=== PATIENT | female | born 1960 | race Caucasian/White ===

== ENCOUNTER → 2023-12-04 09:20 | Day surgery (SDC) | payer MEDICARE, OTHER, SELFPAY ==
[2023-12-04 10:33] VITALS: BMI 36.1
--- NOTE | 2023-12-04 12:09 | ITS.CL.CARDI ---
[employer] - Cardioversion
Cardioversion
Procedure Report:
Procedure: KAMRAN-guided electrical cardioversion
Pre-operative diagnosis: Persistent atrial flutter
Post-operative diagnosis: Persistent atrial flutter status post DC cardioversion to sinus rhythm
Anesthesia: MAC
Attending Physician: Massimo Dash MD
Procedure Description: The patient was brought to the electrophysiology laboratory in the fasting state. Informed consent was obtained from the patient prior to the start of the procedure. Adherence to anticoagulation was confirmed. Electrodes were
placed on the patient and connected to an external defibrillator. Monitoring of blood pressure, ECG tracings, and pulse oximetry was initiated. The pads were applied to the patient in the anterior and posterior positions. The patient was sedated by
the anesthesiologist. A KAMRAN (reported separately) was performed prior to the cardioversion. No left atrial or left atrial appendage thrombus was seen. After the KAMRAN probe was removed, a 200 joule biphasic synchronized shock was delivered to the
patient under MAC anesthesia. Sinus rhythm was successfully restored. The patient recovered uneventfully from MAC anesthesia. There were no immediate post-procedure complications. The patient left the lab in good condition. The attending physician
was present throughout the entire procedure.
Impression: Successful KAMRAN-guided direct current cardioversion with scientology of sinus rhythm after one 200 joule biphasic synchronized shock.
== END ==
LOC: CATH 09:20
PROVIDERS: ATTENDING PHYSICIAN Internal Medicine Cardiovascular Disease; FAMILY PHYSICIAN Internal Medicine
DX: I48.92 Unspecified atrial flutter (principal); I48.91 Unspecified atrial fibrillation; I08.3 Combined rheumatic disorders of mitral, aortic and tricuspid valves; I11.0 Hypertensive heart disease with heart failure; I50.9 Heart failure, unspecified; K21.9 Gastro-esophageal reflux disease without esophagitis; Z95.2 Presence of prosthetic heart valve; Z79.01 Long term (current) use of anticoagulants
CPT/HCPCS: 93312; 93320; 93325; 92960; 93005

== ENCOUNTER → 2024-01-02 13:17 | Outpatient (REF) | payer MEDICARE, OTHER, SELFPAY | LOC: WDC 13:17 | PROVIDERS: ATTENDING PHYSICIAN Internal Medicine | DX: Z12.31 Encounter for screening mammogram for malignant neoplasm of breast (principal) | CPT/HCPCS: 77063; 77067 ==

== ENCOUNTER → 2024-01-09 15:03 | Outpatient (REF) | payer MEDICARE, OTHER, SELFPAY | LOC: DHCBS MAIN 15:03 | PROVIDERS: ATTENDING PHYSICIAN Nuclear Medicine Nuclear Cardiology; FAMILY PHYSICIAN Internal Medicine | DX: I48.4 Atypical atrial flutter (principal); I50.32 Chronic diastolic (congestive) heart failure | CPT/HCPCS: 93306 ==

== ENCOUNTER 2024-03-20 08:57 | Inpatient (IN) | payer MEDICARE, OTHER, SELFPAY ==
[2024-03-20] VITALS (49 sets, daily range): BP systolic 67–149; BP diastolic 28–104; BMI 35.8
[2024-03-20 03:50] LABS: % Basophils 0.3 % (0-2); % Eosinophils 0.1 % (0-6); % Immature Granulocytes 0.7 % (0-0.5); % Lymphocytes 7.9 % (20.5-51.1); Absolute Immature Granulocytes 0.1 10^3/uL (0-0.05); Absolute Lymphocytes 0.8 10^3/uL (1.2-3.4); Absolute Monocytes 0.1 10^3/uL (0.1-0.6); Absolute Neutrophils 8.8 10^3/uL (1.4-6.5); Hemoglobin 14.5 g/dL (12.0-16.0); Mean Corp Hgb Conc. 34.5 g/dL (33.0-37.0); Mean Corpuscular Volume 86.8 fL (81.0-99.0); Nucleated Red Blood Cells % 0 %; Platelet Count 274 10^3/uL (130-400); Red Blood Cell Count 4.84 10^6/uL (4.20-5.40); Red Cell Dist. Width 15.9 % (11.5-14.5); White Blood Cell Count 9.8 10^3/uL (4.8-10.8)
[2024-03-20 04:16] LABS: Lactic Acid 2.9 mmol/L (0.7-2.0)
[2024-03-20 04:19] LABS: Albumin 4.3 g/dl (3.5-5.0); Alkaline Phosphatase 312 U/L (38-126); Blood Urea Nitrogen 30 mg/dl (7-17); Calcium 9.1 mg/dl (8.4-10.2); Carbon Dioxide 31 mmol/L (22-30); Chloride 101 mmol/L (98-107); Glucose 144 mg/dl (70-99); Lipase 125 U/L (23-300); Sodium 141 mmol/L (135-145); Total Bilirubin 2.3 mg/dl (0.2-1.3); Total Protein 7.9 g/dl (6.3-8.2); eGFR > 60.00
--- NOTE | 2024-03-20 04:29 | ED.GENMED ---
History of Present Illness
<ROGER Kidd - Last Filed: 03/20/24 07:06>
General
Chief Complaint: Abdominal Symptoms
Source: patient and records
Exam Limitations: none
Time Seen by Provider: 03/20/24 04:12
Travel History
Have you had any contact with someone who has COVID-19?: No
Do you have any symptoms of coronavirus? Fever > 100 degrees, chills, cough, shortness of breath, sore throat, loss of taste or smell, muscle aches, or headache?: No
History of Present Illness
History of Present Illness:
63 year old female with hx of aortic stenosis, afib, aflutter, CHF, OA on chronic pain management, multiple episodes of SBO, perforated bowel who presents with sudden onset of worsening epigastric pain that began at 1300 yesterday. States the pain
is sharp, radiates to bilateral flanks, and is currently 10/10 in strength. Pain has been constant since onset. Feels like her SBO pain in the past. She has associated nausea, vomiting, and chills. Denies fever, chest pain, SOB, diarrhea,
constipation. States she has had bowel movements since onset of pain. She took a dose of oxycodone at 1900 yesterday with minimal relief of her symptoms. Pt has a hx of multiple episodes of SBO, last episode was in 08/2023. At the time she was found
to have incarcerated ventral incisional hernia and possible closed-loop obstruction with vascular compromise and ischemia. She had ex lap, REMEDIOS, SBO and ventral incisional hernia repair with mesh. Pt also with hx of arrhythmias. Pt had KAMRAN-guided
electrical cardioversion on 12/04/23. Denies any palpitations, dizziness, lightheadedness.
Past History
<ROGER Kidd - Last Filed: 03/20/24 07:06>
Past History
ED Past Medical History: Arrthythmia (Atrial fib, SVT), CHF, GERD, HTN, Valvular disease and Other (Chronic back pain, perforated diverticulitis, endocarditis, GI bleeding, IBS,Uterine fibroids, RA, See's pain management)
ED Past Surgical History: Cardiac (VSD repair, Aortic Valve replaced), Cholecystectomy, Orthopedic (Multiple orthopedic surgeries, right ankle surgery, Bilateal knee replacements) and Other (Colostomy, Hernia repair with colostomy reversal May
2017,)
Social History
Tobacco: Non-smoker
Alcohol: Occasional
Drug: None
Personal:
Living: with family
Family History
Family History: Negative Diabetes, Hypertension or CAD
Review of Systems
<ROGER Kidd - Last Filed: 03/20/24 07:06>
Review of Systems
Allergies reviewed?: Yes
All Other Systems: ROS reviewed and negative except as documented in HPI and ROS
Constitutional: Reports chills
EENT: Reports no symptoms
Respiratory: Reports no symptoms
Cardiac: Reports no symptoms
ABD/GI: Reports abdominal pain (epigastric), nausea and vomiting
: Reports no symptoms
Musculoskeletal: Reports joint pain and muscle stiffness
Skin: Reports no symptoms
Neurological: Reports no symptoms
Endocrine: Reports no symptoms
Hematologic/Lymphatic: Reports no symptoms
Psychiatric: Reports no symptoms
Phy Exam
<ROGER Kidd - Last Filed: 03/20/24 07:06>
General Physical Exam
General Presentation: severe distress
General age: appears stated age
General Skin: warm and dry
General Habitus: obese
General Mental: alert
General Hydration: appears well hydrated
Cardiovascular Exam
Cardiovascular Exam: regular rate/rhythm, no edema, no gallop and no murmur
Pulmonary Exam
Pulmonary Exam: lungs clear, no respiratory distress, no rales, no crackles, no rhonchi, no wheezing, no cough and other (moderate tenderness to palpation in the epigastric region RUQ>LUQ)
Gastrointestinal Exam
Gastrointestinal Exam: normal bowel sounds, soft, no pulsatile mass, non distended and abnormal bowel sounds (hypoactive)
Neurological Exam
Neurological Exam: alert and oriented x3
Skin Exam
Skin Exam: normal color and warm/dry
Course
<ROGER Kidd - Last Filed: 03/20/24 07:06>
Orders/Labs/Results
Orders:
Orders
03/20/24 03:44
Complete Blood Count/With Diff Urgent
Comprehensive Metabolic Panel Urgent
Lactic Acid Urgent
Lipase Urgent
03/20/24 04:00
Electrocardiogram (*1) Urgent
Reason for Study: Vertigo / Dizzy
03/20/24 04:01
EKG- Treatment ONCE
03/20/24 04:32
0.9% Sodium Chloride 1000 ml [Nss] 1,000 ml IV BOLUS
03/20/24 04:35
HYDROmorphone [Dilaudid] 1 mg IV NOW STA
Ondansetron Injectable [Zofran] 4 mg IV NOW STA
03/20/24 04:39
US Abdomen Limited Urgent
Comment:
Reason For Exam: RUQ pain, elevated LFT's, Tbili, concern CBD stn
03/20/24 06:03
CT Abd/pelvis W Iv Cont Urgent
Comment:
Reason For Exam: gen severe upper abd pain, elevated LFT's
HYDROmorphone [Dilaudid] 1 mg .ROUTE .STK-MED ONE
03/20/24 06:06
HYDROmorphone [Dilaudid] 1 mg IV NOW STA
03/20/24 06:11
Lactic Acid Urgent
Prothrombin Time Urgent
03/20/24 07:03
0.9% Sodium Chloride 1000 ml [Nss] 1,000 ml IV BOLUS
03/20/24 07:11
CefoTEtan [Cefotan] 2,000 mg IV NOW STA
Abnormal Lab Results
03/20/24
03:44
RDW 15.9 H %
(11.5-14.5)
Abs Immat Gran (auto) 0.1 H 10^3/uL
(0-0.05)
Absolute Neuts (auto) 8.8 H 10^3/uL
(1.4-6.5)
Absolute Lymphs (auto) 0.8 L 10^3/uL
(1.2-3.4)
Immature Gran % 0.7 H %
(0-0.5)
Neutrophils % 90.0 H %
(42.2-75.2)
Lymphocytes % 7.9 L %
(20.5-51.1)
Monocytes % 1.0 L %
(1.7-9.3)
Carbon Dioxide 31 H mmol/L
(22-30)
BUN 30 H mg/dl
(7-17)
Glucose 144 H mg/dl
(70-99)
Lactic Acid 2.9 H mmol/L
(0.7-2.0)
Total Bilirubin 2.3 H mg/dl
(0.2-1.3)
AST 1249 H* U/L
(14-36)
ALT 880 H* U/L
(0-35)
Alkaline Phosphatase 312 H U/L
(38-126)
03/20/24 03:44
03/20/24 03:44
Vital Signs
Initial and Last Documented VS:
Initial Vital Signs
Temp Pulse Resp BP Pulse Ox
99.1 F 97 18 146/81 96
03/20/24 03:32 03/20/24 03:32 03/20/24 03:32 03/20/24 03:32 03/20/24 03:32
Last Documented Vital Signs
Temp Pulse Resp BP Pulse Ox
100.5 F H 97 29 112/70 89
03/20/24 06:50 03/20/24 07:00 03/20/24 07:00 03/20/24 07:00 03/20/24 07:00
<Nyasia Weir, DO - Last Filed: 03/20/24 07:15>
Orders/Labs/Results
Orders:
Orders
03/20/24 03:44
Complete Blood Count/With Diff Urgent
Comprehensive Metabolic Panel Urgent
Lactic Acid Urgent
Lipase Urgent
03/20/24 04:00
Electrocardiogram (*1) Urgent
Reason for Study: Vertigo / Dizzy
03/20/24 04:01
EKG- Treatment ONCE
03/20/24 04:32
0.9% Sodium Chloride 1000 ml [Nss] 1,000 ml IV BOLUS
03/20/24 04:35
HYDROmorphone [Dilaudid] 1 mg IV NOW STA
Ondansetron Injectable [Zofran] 4 mg IV NOW STA
03/20/24 04:39
US Abdomen Limited Urgent
Comment:
Reason For Exam: RUQ pain, elevated LFT's, Tbili, concern CBD stn
03/20/24 06:03
CT Abd/pelvis W Iv Cont Urgent
Comment:
Reason For Exam: gen severe upper abd pain, elevated LFT's
HYDROmorphone [Dilaudid] 1 mg .ROUTE .STK-MED ONE
03/20/24 06:06
HYDROmorphone [Dilaudid] 1 mg IV NOW STA
03/20/24 06:11
Lactic Acid Urgent
Prothrombin Time Urgent
03/20/24 07:03
0.9% Sodium Chloride 1000 ml [Nss] 1,000 ml IV BOLUS
03/20/24 07:11
CefoTEtan [Cefotan] 2,000 mg IV NOW STA
Abnormal Lab Results
03/20/24
03:44
RDW 15.9 H %
(11.5-14.5)
Abs Immat Gran (auto) 0.1 H 10^3/uL
(0-0.05)
Absolute Neuts (auto) 8.8 H 10^3/uL
(1.4-6.5)
Absolute Lymphs (auto) 0.8 L 10^3/uL
(1.2-3.4)
Immature Gran % 0.7 H %
(0-0.5)
Neutrophils % 90.0 H %
(42.2-75.2)
Lymphocytes % 7.9 L %
(20.5-51.1)
Monocytes % 1.0 L %
(1.7-9.3)
Carbon Dioxide 31 H mmol/L
(22-30)
BUN 30 H mg/dl
(7-17)
Glucose 144 H mg/dl
(70-99)
Lactic Acid 2.9 H mmol/L
(0.7-2.0)
Total Bilirubin 2.3 H mg/dl
(0.2-1.3)
AST 1249 H* U/L
(14-36)
ALT 880 H* U/L
(0-35)
Alkaline Phosphatase 312 H U/L
(38-126)
03/20/24 03:44
03/20/24 03:44
Vital Signs
Initial and Last Documented VS:
Initial Vital Signs
Temp Pulse Resp BP Pulse Ox
99.1 F 97 18 146/81 96
03/20/24 03:32 03/20/24 03:32 03/20/24 03:32 03/20/24 03:32 03/20/24 03:32
Last Documented Vital Signs
Temp Pulse Resp BP Pulse Ox
100.5 F H 97 29 112/70 89
03/20/24 06:50 03/20/24 07:00 03/20/24 07:00 03/20/24 07:00 03/20/24 07:00
<ROGER Kidd - Last Filed: 03/20/24 07:06>
MDM/Problems Addressed
Differential Diagnosis Includes:
SBO, ischemic bowel, biliary colic
MDM/Problems Addressed:
63 year old female who presents with epigastric pain with associated nausea nand vomiting that began at 1300 yesterday.
Chronic conditions affecting care: HTN, Arrhythmia (afib, aflutter) and Previous abdomnial surgery (cholecystectomy, ostomy for perforated bowel, ostomy reversal, hernia repair)
<ROGER Kidd - Last Filed: 03/20/24 07:06>
*Critical Care Note
Total Time (30-74mins, 75-104mins- exclusive of procedures): Not Applicable
<Nyasia Weir DO - Last Filed: 03/20/24 07:15>
*Radiology
Radiology exam reviewed: radiology read reviewed
*Pulse Oximetry
Patient hypoxic: no
*EKG
Interpreted by ED Provider?: Yes
Interpretation: abnormal
Comparison EKG: changes noted (Sinus tach is new compared to previous EKG December 04, 2023 showing sinus bradycardia)
Rate: tachycardiac
Rhythm: sinus and PAC's
[place]: left axis deviation
QRS Pattern: left bundle branch block (Incomplete left bundle branch block, similar and unchanged from previous)
Ischemia: non-specific ST changes
*Spinner Hand Interpretation
Rate: tachycardiac
Interpretation: abnormal
Rhythm: sinus and atrial flutter
ED Attending Note
<ROGER Kidd - Last Filed: 03/20/24 07:06>
-
Portions of this chart may have been created with voice recognition software.� Occasional wrong word or��sound alike� substitutions may have occurred due to the inherent limitations of voice recognition software.
<Nyasia Weir, - Last Filed: 03/20/24 07:15>
ED Attending Note
Patient seen and examined by attending physician: Yes
I performed the substantive portion of visit, reviewed & personally made and approve the management plan that is documented in note by myself or JAYCOB.: Yes
I performed a history and physical exam of patient and discussed management with resident, I reviewed resident's note and agree with documented findings and plan of care.: Yes
ED Attending Note:
This is a 63-year-old woman who has prior history of small bowel obstructions. In July 2023 she required exploratory laparotomy for incarcerated ventral incisional hernia with concern for closed-loop obstruction and vascular compromise. Hernia
repaired with mesh but hospital course was complicated with anastomotic leak requiring BALBIR drain. She has history of chronic pain, chronically narcotic dependent and her postop course was also complicated with extensive pain control issues. She was
eventually discharged in August and has done well but presents with generalized upper abdominal pain moderate to severe that began yesterday afternoon, persistent, worsening accompanied with nausea, multiple episodes of vomiting. She states
abdominal pain feels similar to her previous bowel obstructions. She denies fever nor chills. No diarrhea or constipation. No dysuria and urgency and or hematuria. Generalized upper abdominal pain radiates to her back and she feels that her
'kidneys are aching'
She has remote history of cholecystectomy 1998.
She has history of mechanical aortic valve replacement maintained on Coumadin. She also has history of paroxysmal atrial fibrillation/flutter and underwent a flutter cardioversion November of this year. Patient states atrial flutter has since
returned.
GENERAL: 63-year-old obese woman appears her stated age, awake and alert, appears in moderate distress related to pain.
EYE: . anicteric
NECK: Supple, nontender, no meningismus, no significant adenopathy.
ENT: oral mucosa is mildly dry. No rhinorrhea.
CARDIAC: Regular rate and rhythm. no murmur.
LUNGS: Clear breath sounds bilaterally, no acute respiratory distress, no wheezes/rales/rhonchi
ABDOMEN: Rotund, soft, nondistended, moderate tenderness right upper quadrant as well as epigastric region, mild tenderness left upper quadrant, no r/g, no cvat. Hypoactive bowel sounds. No palpable masses.
NEUROLOGICAL: Alert and oriented x3, no focal neuro deficits.
SKIN: Warm and dry, normal color, skin intact. No rash.
MUSCULOSKELETAL: No C/C/E. peripheral pulses are full and equal b/l. No palpable tenderness.
PSYCH: Normal and appropriate interaction.
Concern for recurrent small bowel obstruction,, bile duct stone, pancreatitis, colitis.
Will medicate for pain and nausea, initiate IV fluids. Labs are pending.
03/20/2024 04:30 AM
Labs are remarkable for significantly elevated LFTs as well as elevated T. bili and alkaline phosphatase which are new compared to previous. Moderate prerenal azotemia. CBC is unremarkable. Lactic acid mildly elevated at 2.9.
Will check limited ultrasound assess for common bile duct stone and will plan for CT abdomen pelvis with IV contrast, assess for potential accompanying bowel obstruction.
03/20/2024 0713 AM CAT scan shows acute cholangitis
With thickening and hyperenhancement of bile ducts which is new compared to January 2023. There is also a new 4.4 mm intraluminal filling defect in the common bile duct suggesting choledocholithiasis.
IV antibiotics initiated and will admit to hospitalist service.
Discharge Plan
Departure
Patient Disposition: Admit
Date of Disposition: 03/20/24
Time of Disposition: 07:13
Admit to: Med/Surg
Admit to doctor: Ch[facility]
Presentation/result/management discussed w/ accepting MD/DO: Hospitalist
Condition: Fair
Discharge Problem:
Acute cholangitis due to calculus of bile duct with obstruction, Fever r/o sepsis, Atrial flutter, paroxysmal
Prescriptions:
No Action
trazodone 100 MG tablet
200 mg PO HS
citalopram 40 mg Tablet
40 mg PO DAILY
sennosides-docusate sodium [Stool Softener-Laxative] 8.6-50 mg Tablet
1 tab-cap PO HS
furosemide 40 MG tablet
40 mg PO DAILY
amiodarone 200 mg Tablet
200 mg PO DAILY
warfarin [Jantoven] 2.5 mg Tablet
2.5 mg PO QPM Qty: 0 0RF
Patient Comments:
'dose changes based on INR'
Rx Instructions:
take 5 mg one time on 02/21/23
acetaminophen 325 mg Tablet
650 mg PO Q4HPRN PRN (Reason: mild pain, fever) Qty: 0 0RF
miconazole nitrate [Miconazorb AF] 2 % Powder
1 applic topical BID Qty: 0 0RF
oxycodone 5 mg Tablet
5 mg PO Q4HPRN PRN (Reason: moderate pain) 3 Days Qty: 10 0RF
metoprolol tartrate 25 mg Tablet
25 mg PO BID Qty: 30 0RF
oxycodone 10 mg Tablet
10 mg PO Q4HPRN PRN (Reason: severe pain) 2 Days Qty: 12 0RF
oxycodone 10 mg Tablet
20 mg PO QID 3 Days Qty: 24 0RF
pantoprazole 40 mg tablet,delayed release (DR/EC)
40 mg PO DAILY Qty: 60 0RF
Referrals:
Joey Guerrier MD [Family Provider] -
Interventions
Interventions:
*Risk Screen - Suicide Last Done: 03/20/24 03:32
*General Assessment Last Done: 03/20/24 03:32
*Neglect/Abuse Screening Last Done: 03/20/24 03:32
ED- Fall Risk Assessment Last Done: 03/20/24 04:00
GX-Euqosh-Phssgfldtq Assessment Last Done: 03/20/24 04:00
Discharge Date and Time
Print Language: MAURITANIAN
[2024-03-20 04:30] LABS: ALT (SGPT) 880 U/L (0-35); AST (SGOT) 1249 U/L (14-36)
[2024-03-20] MEDS: DILAUDID 1 MG IV ×4 (04:45→19:37)
[2024-03-20] MEDS: ZOFRAN 4 MG IV (04:47)
[2024-03-20] MEDS: NSS 1000 IV ×3 (04:47→10:16)
[2024-03-20 07:18] LABS: INR 2.26; PT 24.8 Sec (11.4-14.6)
[2024-03-20 07:26] LABS: Lactic Acid 5.1 mmol/L (0.7-2.0)
[2024-03-20] MEDS: CEFOTAN 2000 MG IV (07:44)
--- NOTE | 2024-03-20 07:57 | HPS.HSE ---
Family Physician
-
Family Physician: Joey Guerrier
Chief Complaint
-
Abdominal pain for 1 day
History of Present Illness
63 years old female came from home. Patient presented with abdominal pain for 1 day duration associated with nausea and vomiting multiple times at home. She reported chills but no fever. Abdominal pain mostly located upper abdominal part.
Patient had mild abdominal pain a week ago but thought it was related to her small intestine. She takes oxycodone 3-4 times a day for chronic pain syndrome. In the emergency room, she had elevated liver enzymes with elevated lactic acid. Total
bilirubin was 2.3. Imaging studies including CAT scan and ultrasound showed biliary dilatation, signs of acute cholangitis.
Medical History
Past Medical History
Past Medical History: Reports Other (Atrial fibrillation, osteoarthritis, diverticulitis, gallbladder disease, depression, anxiety, hyperlipidemia, irritable bowel syndrome, GERD, hypertension, diastolic heart failure, fibromyalgia, rheumatoid
arthritis, history of torsade arrest, status post aortic valve replacement)
Past Surgical History: Reports Other (No recent major surgery)
Social History
Tobacco: Non-smoker
Alcohol: None
Drug: None
Personal:
Living: With Family
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
Family History
Family History: Other (Hypertension)
Allergies / Home Medications
Allergies reflects when Allergies were last updated in [facility].
Home Medications with original date entered in [facility]
Allergy/Medication List:
Allergies
Allergy/AdvReac Type Severity Reaction Status Date / Time
abatacept [From Orencia] Allergy Severe Hives, Verified 12/04/23 10:36
SOB, cough
adhesive Allergy Severe Rash Verified 12/04/23 10:36
adhesive tape Allergy Severe Rash Verified 12/04/23 10:36
sevoflurane Allergy Severe V Verified 12/04/23 10:36
Fib/Arrhythmia
etanercept [From Enbrel] Allergy Bruising Verified 12/04/23 10:36
adalimumab [From Humira] AdvReac Intermediate SEVERE Verified 12/04/23 10:36
BRUISING
clarithromycin [From Biaxin] AdvReac Intermediate upset Verified 12/04/23 10:36
stomach
Home Medications
trazodone 100 mg tablet 200 mg PO HS Mental Health/Anxiety 12/10/19
citalopram 40 mg tablet 40 mg PO DAILY Depression 06/01/22
furosemide 40 mg tablet 40 mg PO DAILY Fluid retention/Swelling 07/03/22
sennosides 8.6 mg-docusate sodium 50 mg tablet (Stool Softener-Laxative) 1 tab-cap PO HS Constipation 07/03/22
amiodarone 200 mg tablet 200 mg PO DAILY Arrhythmia 02/18/23
clonidine HCl 0.1 mg tablet 0.1 mg PO HS Blood Pressure 03/20/24
metoprolol succinate 25 mg tablet,extended release 24 hr 25 mg PO DAILY Blood Pressure 03/20/24
oxycodone 20 mg tablet 20 mg PO TID Pain 03/20/24
therapeutic multivitamin 1 tab PO DAILY Supplement 03/20/24
vitamin B complex 1 cap PO DAILY Supplement 03/20/24
warfarin 2.5 mg tablet 3 mg PO SUTUTHSA Blood Clot Prevention/Tx 03/20/24
warfarin 2.5 mg tablet (Jantoven) 3.5 mg PO MOWEFR Blood Clot Prevention/Tx 03/20/24
Review of Systems
-
History Source: Patient
A 12 point ROS was completed and negative except as noted: Yes
Constitutional: Reports Chills; Denies Fever
EENT: Denies Sore Throat
Respiratory: Denies Cough
Cardiac: Denies Chest Pain
Abdomen/GI: Reports Abdominal Pain, Nausea and Vomiting
: Denies Dysuria or Bleeding
Musculoskeletal: Reports Joint Pain (Chronic) and Muscle Pain (Chronic)
Skin: Denies Itching
Neurological: Denies Headache
Endocrine: Denies Temp Intolerance
Hematologic/Lymphatic: Denies Bruising
Psych: Denies Panic Disorder
Physical Exam
Vital Signs
Vital Signs
Temp Pulse Resp BP Pulse Ox
100.5 F H 97 29 112/70 89
03/20/24 06:50 03/20/24 07:00 03/20/24 07:00 03/20/24 07:00 03/20/24 07:00
Physical Exam
General: No Apparent Distress, Pain (Abdominal) and Obese
HEENT: Moist mucous membranes and Atraumatic
Respiratory: Clear
Cardiac: S1/S2, Regular Rhythm and Other (Mechanical click)
GI: Soft and Tender (Upper part)
Rectal: No Maroon Stools
Genito-urinary: Clear Urine
Musculoskeletal: No Clubbing, No Cyanosis and No Edema
Skin: Warm and Jaundice
Neuro: AO x 3; No Slurred Speech, Facial Droop or Tremors
Psych: Calm and Intact Judgment/Insight
Laboratory Results
-
03/20/24 03:44
03/20/24 03:44
Laboratory Results
PT 24.8 Sec (11.4-14.6) H 03/20/24 06:11
INR 2.26 03/20/24 06:11
Lactic Acid 5.1 mmol/L (0.7-2.0) H* 03/20/24 06:11
Total Bilirubin 2.3 mg/dl (0.2-1.3) H 03/20/24 03:44
AST 1249 U/L (14-36) H* 03/20/24 03:44
ALT 880 U/L (0-35) H* 03/20/24 03:44
Alkaline Phosphatase 312 U/L (38-126) H 03/20/24 03:44
Lipase 125 U/L (23-300) 03/20/24 03:44
Impression/Plan
-
63 years old female presented with abdominal pain
#Sepsis/septic shock due to acute cholangitis
Admit the patient to higher level of care
Start the patient on broad-spectrum antibiotics
IV Protonix
IV fluid with volume resuscitate
IV pain medication, will use Dilaudid
IV antiemetic medications. Will use IV pressure support medication if IV fluid not enough to keep MAP around 65 for high
Blood culture X2
Discussed with gastroenterology
Appreciate GI help
# Lactic acidosis due to sepsis. Continue to trend. Treat sepsis with fluid and IV antibiotic
# History of rheumatoid arthritis/fibromyalgia/chronic pain syndrome with opioid dependence
Continue with opioid to avoid withdrawal
# History of paroxysmal atrial fibrillation/atypical atrial flutter/atrial tachycardia status post ablation 2021 and 2019 currently on amiodarone.
Fully anticoagulated with Coumadin. INR on admission 2.2
Monitor on telemetry. No chest pain
#Status post aortic valve replacement
Monitor on Telemetry
#Chronic heart failure with a preserved ejection fraction
Will hold Lasix due to septic shock. She is going to get IV fluid will monitor volume status, daily weight.
#Primary hypertension
#Hyperlipidemia
#History of recurrent small bowel obstruction and bowel surgeries
#Mild to moderate mitral regurgitation/mild tricuspid regurgitation with mild to moderate pulmonary hypertension
#Hepatic steatosis/GERD/irritable bowel syndrome
# Obesity, BMI 34
# History of uterine fibroids
Total critical time spent to see the patient, examine the patient on the floor, review data and lab results, discuss treatment plan with patient, ER doctor, GI doctor, nursing staff around 77 minutes
--- NOTE | 2024-03-20 09:55 | EDRN ---
Patient's BP after ambulating to the bathroom and being evaluated by the hospitalist was 84 systolic, readjusted the cuff and remeasured with BP of 84/49 MAP 61. Notified Dt. Schneider of change and started NSS bolus. Orders provided by Dr. Schneider.
--- NOTE | 2024-03-20 10:39 | CON.GI ---
Addendum entered and electronically signed by Estefani Oneal MD 03/20/24 14:17:
I saw and examined the patient.
The [employer]'s note was reviewed and I agree with the note.
Comment: This is a 63 year old female with complex medical history including A-fib and status post aortic valve replacement on Coumadin rest of medical history as below including prior colostomy with reversal for perforated diverticulitis she also
had extended hospitalization from 08/03/2023 to 08/27/2023 and during that admission she had surgery for complicated incarcerated hernia with REMEDIOS and small bowel resection with hernia repair on 08/03/23 and had returned to the OR for anastomotic leak
and had repair of the leak and hernia repair with mesh placement on 08/12/23 now presents with acute onset of epigastric pain radiating to the back with nausea vomiting she also had low-grade fever on admission with abnormal LFTS. She says she had
similar pain about a week ago but that resolved. On admission CAT scan is consistent with cholangitis with choledocholithiasis she is status post cholecystectomy in the 90s and also had ERCP then with a sphincterotomy and stone extraction. She is
also currently on pressors for hypotension.
Assessment and plan 1. Acute cholangitis from CBD stone will schedule for emergent ERCP today her INR is 2.26 so will have a stent placed without sphincterotomy discussed with Dr. Major. And may need to have a repeat procedure at a later date when
her INR is lower with bridging with heparin for sphincterotomy and stone extraction.
[address] findings on CT she does have a gastric fundal lesion probable GIST versus polyp (has h/o gastric polyps) versus vascular malformation will need endoscopy and possible EUS at a later date
Original Note:
Consultation
-
Date/Time Consultation Requested: 03/20/24 0830
Date/Time Consultation Performed: 03/20/24 1030
Requesting Provider: Monica Schneider MD
Performing Provider: SYED Lugo, Estefani Oneal MD
Reason for Consultation: fever, cholangitis
Medical History
Chief Complaint / HPI
Chief Complaint: abdominal pain
History of Present Illness:
Pt is a 63yo with hx afib on Coumadin prior cardioversion, henok 1998 with + IOC with ERCP with stone removal and sphincterotomy, complicated incarcerated hernia with chronic bowel ischemia with exp lap 07/2023 with hernia repair with mesh and
return to OR with leak/hematoma and wound vac, IBS, osteoarthritis, diastolic heart failure, fibromyalgia, RA, torsades with prior arrest with surgery, AVR presents with sudden onset of pain with vomiting. On admission noted with rise in Lactate
5.1, bili 2.3, AST 1249, ALT 88, alk phos 312. Imaging on admission with CT concern for mild biliary dilatation, prior henok and hepatic steatosis. follow up CT with concern for cholangitis, 4.4 mm filling defect with likely reactive upper
abdominal lymphadenopathy.
At this time Pt states she had mild pain 1 week ago but resolved. She began 03/19 with abdominal pain then vomiting at 7pm. Pain was 10/10 on admission now 7/. She denies dysphagia, GERD, diarrhea, constipation, blood or black in stools. No
change in stool color but had dark urine last week with pain.
Past Medical History
Past Medical History: Arrhythmias (afib, torsades arrse), CHF, GERD, HTN, Valvular Disease, Psychiatric (depression ) and Other (osteo, diverticulitis, gallbladder disease, endocarditis, GI bleed, uterine fibroids, RA, )
Past Surgical History: Bowel Resection, Cardiac (cardioversion, AVR/VSD closure jun 2020), Orthopedic (multiple ortho surgeries, b/l TKR, ankle surgery ) and Other (colostomy with eventual reversal, incarcerated hernia with chronic bowel ischemia
with exp lap 07/2023 with hernia repair with mesh and return to OR with leak/hematoma and wound vac,)
Social History
Tobacco: Non-Smoker
Alcohol: Occasional
Drug: None
Personal:
Living: With Family
Family History
Family History: Other (no family hx GI issues )
Allergies / Home Medications
Allergy/AdvReac Type Severity Reaction Status Date / Time
abatacept [From Orencia] Allergy Severe Hives, Verified 12/04/23 10:36
SOB, cough
adhesive Allergy Severe Rash Verified 12/04/23 10:36
adhesive tape Allergy Severe Rash Verified 12/04/23 10:36
sevoflurane Allergy Severe V Verified 12/04/23 10:36
Fib/Arrhythmia
etanercept [From Enbrel] Allergy Bruising Verified 12/04/23 10:36
adalimumab [From Humira] AdvReac Intermediate SEVERE Verified 12/04/23 10:36
BRUISING
clarithromycin [From Biaxin] AdvReac Intermediate upset Verified 12/04/23 10:36
stomach
�Medication �Instructions �Recorded
trazodone 100 mg tablet 200 mg PO HS Mental Health/Anxiety 12/10/19
citalopram 40 mg tablet 40 mg PO DAILY Depression 06/01/22
furosemide 40 mg tablet 40 mg PO DAILY Fluid 07/03/22
retention/Swelling
sennosides 8.6 mg-docusate sodium 1 tab-cap PO HS Constipation 07/03/22
50 mg tablet (Stool
Softener-Laxative)
amiodarone 200 mg tablet 200 mg PO DAILY Arrhythmia 02/18/23
clonidine HCl 0.1 mg tablet 0.1 mg PO HS Blood Pressure 03/20/24
metoprolol succinate 25 mg 25 mg PO DAILY Blood Pressure 03/20/24
tablet,extended release 24 hr
oxycodone 20 mg tablet 20 mg PO TID Pain 03/20/24
therapeutic multivitamin 1 tab PO DAILY Supplement 03/20/24
vitamin B complex 1 cap PO DAILY Supplement 03/20/24
warfarin 2.5 mg tablet 3 mg PO SUTUTHSA Blood Clot 03/20/24
Prevention/Tx
warfarin 2.5 mg tablet (Jantoven) 3.5 mg PO MOWEFR Blood Clot 03/20/24
Prevention/Tx
Review of Systems
-
History Source: Patient
Constitutional: Reports Fever (low grade ) and Fatigue
EENT: Reports No Symptoms
Respiratory: Reports No Symptoms
Abdomen/GI: Reports Abdominal Pain, Nausea and Vomiting
: Reports Dark Urine (last week )
Musculoskeletal: Reports No Symptoms
Skin: Reports No Symptoms
Neurological: Reports Weakness
Endocrine: Reports No Symptoms
Hematologic/Lymphatic: Reports No Symptoms
Vital Signs
Temp Pulse Resp BP Pulse Ox
99.0 F 67 24 85/42 95
03/20/24 08:27 03/20/24 09:00 03/20/24 09:00 03/20/24 09:00 03/20/24 09:00
Physical Exam
Exam
General: Other (weak appearing with eyes closed but answering questions)
HEENT: Other (jaundice )
Respiratory: Clear
Cardiac: Regular Rhythm
GI: Soft, Non Distended and Tender (epigastric area)
Musculoskeletal: No Clubbing and No Cyanosis
Skin: Warm and Dry
Neuro: Awake, Alert and AO x 3
Psych: Calm
Results
WBC 9.8 10^3/uL (4.8-10.8) 03/20/24 03:44
Hgb 14.5 g/dL (12.0-16.0) 03/20/24 03:44
Hct 42.0 % (37.0-47.0) 03/20/24 03:44
MCV 86.8 fL (81.0-99.0) 03/20/24 03:44
Plt Count 274 10^3/uL (130-400) 03/20/24 03:44
Absolute Neuts (auto) 8.8 10^3/uL (1.4-6.5) H 03/20/24 03:44
PT 24.8 Sec (11.4-14.6) H 03/20/24 06:11
INR 2.26 03/20/24 06:11
Sodium 141 mmol/L (135-145) 03/20/24 03:44
Potassium 4.0 mmol/L (3.5-5.1) 03/20/24 03:44
Chloride 101 mmol/L (98-107) 03/20/24 03:44
Carbon Dioxide 31 mmol/L (22-30) H 03/20/24 03:44
BUN 30 mg/dl (7-17) H 03/20/24 03:44
Creatinine 1.0 mg/dL (0.6-1.0) 03/20/24 03:44
Calcium 9.1 mg/dl (8.4-10.2) 03/20/24 03:44
Total Bilirubin 2.3 mg/dl (0.2-1.3) H 03/20/24 03:44
AST 1249 U/L (14-36) H* 03/20/24 03:44
ALT 880 U/L (0-35) H* 03/20/24 03:44
Alkaline Phosphatase 312 U/L (38-126) H 03/20/24 03:44
Lipase 125 U/L (23-300) 03/20/24 03:44
Diagnostic Image Results:
03/20/24 US abdomen
1. Mild biliary dilatation which is new from 07/25/2011.
2. Previous cholecystectomy.
3. Mild diffuse hepatic steatosis.
03/20/24 CT Abd/pelvis W Iv Cont
1. ACUTE CHOLANGITIS with thickening and hyperenhancement of the bile ducts which is new from 02/17/2023.
2. 4.4 mm intraluminal filling defect in the common bile duct suggesting CHOLEDOCHOLITHIASIS. Bile duct cancer is considered less likely.
3. Mild upper abdominal lymphadenopathy which has increased since 02/17/2023 (most likely reactive and less likely malignant in etiology).
4. Previous cholecystectomy.
5. Mild hepatomegaly.
6. Interval anterior abdominal wall hernia repair.
7. Previous small bowel resection and sigmoidectomy.
8. 1.1 cm intraluminal lesion in the posterior gastric fundus (possibly a gastric polyp or vascular malformation).
9. Mild cardiomegaly with evidence for previous aortic valve replacement.
10. Severe discogenic degenerative disease in the lumbar spine.
Prior GI Procedures:
EGD: 02/2017 - Z-line irregular, 40 cm from the incisors.
- Normal mucosa was found in the upper third of the
esophagus, in the middle third of the esophagus and in
the lower third of the esophagus.
- Multiple gastric polyps. Resected and retrieved. Clips
were placed. Injected.
- Normal examined duodenum.
Colonoscopy: 02/2017 andriy - Diverticulosis in the sigmoid colon.
- Non-bleeding internal hemorrhoids.
- Normal mucosa in the entire examined colon. Several
biopsies were obtained in the entire colon.
1997 ERCP with stone removal and sphinctomy
Assessment / Plan
-
Pt is a 63yo with hx afib on Coumadin prior cardioversion, henok 1998 with + IOC with ERCP with stone removal and sphincterotomy, complicated incarcerated hernia with chronic bowel ischemia with exp lap 07/2023 with hernia repair with mesh and
return to OR with leak/hematoma and wound vac, IBS, osteoarthritis, diastolic heart failure, fibromyalgia, RA, torsades with prior arrest with surgery, AVR presents with sudden onset mild pain 1 week ago with dark urine then severe recurrent pain
with vomiting prompting ER eliseo. On admission noted with rise in Lactate 5.1, bili 2.3, AST 1249, ALT 88, alk phos 312. Imaging on admission with CT concern for mild biliary dilatation, prior henok and hepatic steatosis. follow up CT with concern
for cholangitis, 4.4 mm filling defect with likely reactive upper abdominal lymphadenopathy.
-acute onset upper abdominal pain
-concern for cholangitis with low grade fever, elevated lactate and elevated LFT's on admission
-CT with 4.4 mm filling defect with concern for choledocholithiasis
-upper abdominal adenopathy
-hx henok/ERCP 1998
-hx diverticulitis with ostomy then reversal then recent complicated incarcerated hernia with chronic bowel ischemia with exp lap 07/2023 with hernia repair with mesh and return to OR with leak/hematoma and wound vac
-afib on coumadin
-hx prior arrest with surgery
other med problems:
-[place] AVR
-hx PVI/TE guided CV 11/2023
-CHF
-HTN
-RA
-chronic narcotic use
PLAN:
etiology of symptoms with concern for cholangitis with retained SBP stone with elevated LFT's, hypotension, low grade fever vs other --
plan for ERCP this afternoon
coumadin hold
cont abx
NPO
pt agreeable to proceed reviewed risk and benefits
will get cards eval with hx prior arrest with surgery and need for bridging with valve
trend labs
add blood cx
-
-
Thank you for consultation and allowing me to participate in the patient's care. Please call the educational program assistant GI physician during the after hours with any questions or concerns.
--- NOTE | 2024-03-20 11:57 | CON.CAR ---
Addendum entered and electronically signed by Dat Cavanaugh MD 03/20/24 14:59:
I saw and examined the patient.
The Wall Attendant's note was reviewed and I agree with the note.
Comment:
GEN: mild distress, awake, Ox3
HEENT: supple, anicteric, mmm
LUNGS: scatt rhonchi
CV: irreg, S1/S2, 1/6 syst LSB, +click, no gallop
ABD: mild disteded, mild distended
EXT: No edema
NEURO: Gross non-focal
SKIN: No rash
Plan:
She is well-known to our service with a complex medical history including atrial fibrillation/atrial flutter, mechanical aortic valve replacement, chronic heart failure with preserved ejection fraction, who presents with severe abdominal pains, and
fever with cholangitis. Current plan is for her to be evaluated with urgent ERCP today with INR of 2.2. Her blood pressure is low and she was started on Levophed.
She overall denies any chest pains and her breathing and volume status have been stable. She is known to be in rate controlled atrial flutter with controlled rates on amiodarone.
Continue supportive care with pressor support and Levophed. Continue broad-spectrum antibiotics.
Okay to proceed with ERCP today. Pending results of ERCP will make decision regarding restarting Coumadin/IV heparin. For now would hold Coumadin for tonight.
Will continue a rate control strategy for atrial flutter.
Original Note:
Consultation
Consultation Request
Date/Time Consultation Requested: 03/20/24
Date/Time Consultation Performed: 03/20/24
Requesting Provider: Dr. Schneider
Performing Provider: Dr. Cavanaugh
Reason for Consultation: Needs emergent ERCP, hypotension, therapeutic INR with h/o [place] AVR
Medical History
-
History of Present Illness:
Patent came to [facility] very early this morning with N/V and abdominal pain that started yesterday and is now admitted with septic shock and acute cholangitis and cardiology has been consulted due to h/o mechanical AVR and h/o Torsades arrest in 2018.
On 01/30/18 she had complications of diverticulitis with perforation requiring transverse loop colostomy which was complicated by perioperative cardiac arrest for VT/torsades in and then returned in May 2018 for reversal of colostomy without
adverse event. Then in 04/2019 she had a repair of a parastomal hernia complicated by small bowel obstruction. She has a h/o recurrent SBO. She has a history of perimembranous VSD with [id number] shunt, bicuspid aortic valve with severe aortic
stenosis, moderate tricuspid regurgitation and pulmonary hypertension and had mechanical AVR with 21mm [place] Mechanical Valve, closure of Perimembranous VSD with Bovine pericardial patch, Left Modified Maze procedure with Atricure device
07/16/20. She recurred with atrial flutter and had ablation 11/2019 and then repeat ablation 07/08/22. Then on 08/02/23 she had a SBO and required ex lap with extensive REMEDIOS and ventral incisional hernia repair. That admission was complicated by post-op
pelvic hematoma and anastomotic leak. She eventually recovered and was discharged to home. Since then patient has had recurrent Afib and last KAMRAN/CV was 12/04/23. Patient says that she started with abdominal pain and N/V yesterday around 1330. Pain
persistent into today and patient came to [facility] around 0330 this morning. Initially there was concern for recurrent SBO, but imaging indicated acute cholangitis. Patient now being [facility]
and is recommending an urgent ERCP with stent placement to decompress infection followed by repeat ERCP in the next couple of days for attempt at stone extraction. INR is 2.26 today.
PMH:
-h/o Torsades with Sevoflurane during surgery 01/30/18
-Persistent atrial arrhythmia
-Paroxysmal atrial fibrillation/atypical atrial flutter/atrial tachycardia
s/p atrial flutter ablation 11/2019
s/p PVI and atrial flutter ablation 07/08/22
previously refractory to sotalol and Tikosyn, currently on amiodarone
s/p KAMRAN/CV 12/04/23
-[place] Mechanical AVR 06/2020
-s/p AVR with 21mm [place] Mechanical Valve, Closure of Perimembranous VSD with Bovine pericardial patch, Left Modified Maze procedure with Atricure device 07/16/20
-Chronic warfarin OAC managed by [facility]
-Chronic HFpEF
-h/o SBO 08/02/2023 with ex lap for extensive lysis of adhesions (>90 min), small bowel resection with primary anastomosis, ventral incisional hernia repair with mesh 08/03/23
Reoperation for pelvic hematoma and anastomotic leak 08/12/23
-History of diverticulitis with perforated diverticulum, peritonitis and sepsis, s/p ex lap with transverse colostomy, complicated by torsades felt to be due to sevoflurane 01/30/18
-s/p takedown transverse loop colostomy, laparotomy, REMEDIOS, sigmoidectomy, primary sutured repair parastomal hernia 05/31/18
-History of recurrent SBOs
-HTN
-HLD
-Rheumatoid arthritis/fibromyalgia/chronic pain
-Chronic back pain, epidural injections and daily narcotic use
-B/L venous insufficiency
Past Medical History
Past Medical History: Other (in HPI)
Past Surgical History: Bowel Resection (s/p ex lap with transverse colostomy 01/30/18 in the setting of sepsis followed by takedown transverse loop colostomy, laparotomy, REMEDIOS, sigmoidectomy, primary sutured repair parastomal hernia 05/31/18), Cardiac
(AVR with 21mm [place] Mechanical Valve, Closure of Perimembranous VSD with Bovine pericardial patch, Left Modified Maze procedure with Atricure device 07/16/20) and Orthopedic (B/L TKA 2009)
Social History
Tobacco: Non-Smoker
Alcohol: None
Drug: None
Personal:
Living: With Family
Family History
Family History: Hypertension
Allergies / Home Medications
Allergy/AdvReac Type Severity Reaction Status Date / Time
abatacept [From Orencia] Allergy Severe Hives, Verified 12/04/23 10:36
SOB, cough
adhesive Allergy Severe Rash Verified 12/04/23 10:36
adhesive tape Allergy Severe Rash Verified 12/04/23 10:36
sevoflurane Allergy Severe V Verified 12/04/23 10:36
Fib/Arrhythmia
etanercept [From Enbrel] Allergy Bruising Verified 12/04/23 10:36
adalimumab [From Humira] AdvReac Intermediate SEVERE Verified 12/04/23 10:36
BRUISING
clarithromycin [From Biaxin] AdvReac Intermediate upset Verified 12/04/23 10:36
stomach
�Medication �Instructions �Recorded �Confirmed �Type
trazodone 100 mg tablet 200 mg PO HS Mental Health/Anxiety 12/10/19 03/20/24 History
citalopram 40 mg tablet 40 mg PO DAILY Depression 06/01/22 03/20/24 History
furosemide 40 mg tablet 40 mg PO DAILY Fluid 07/03/22 03/20/24 History
retention/Swelling
sennosides 8.6 mg-docusate sodium 1 tab-cap PO HS Constipation 07/03/22 03/20/24 History
50 mg tablet (Stool
Softener-Laxative)
amiodarone 200 mg tablet 200 mg PO DAILY Arrhythmia 02/18/23 03/20/24 History
clonidine HCl 0.1 mg tablet 0.1 mg PO HS Blood Pressure 03/20/24 03/20/24 History
metoprolol succinate 25 mg 25 mg PO DAILY Blood Pressure 03/20/24 03/20/24 History
tablet,extended release 24 hr
oxycodone 20 mg tablet 20 mg PO TID Pain 03/20/24 03/20/24 History
therapeutic multivitamin 1 tab PO DAILY Supplement 03/20/24 03/20/24 History
vitamin B complex 1 cap PO DAILY Supplement 03/20/24 03/20/24 History
warfarin 2.5 mg tablet 3 mg PO SUTUTHSA Blood Clot 03/20/24 03/20/24 History
Prevention/Tx
warfarin 2.5 mg tablet (Jantoven) 3.5 mg PO MOWEFR Blood Clot 03/20/24 03/20/24 History
Prevention/Tx
Review of Systems
-
History Source: Patient
All other systems: Negative unless noted
Physical Exam
Vital Signs
Temp Pulse Resp BP Pulse Ox
99.0 F 66 19 87/62 91
03/20/24 08:27 03/20/24 10:46 03/20/24 10:46 03/20/24 10:46 03/20/24 10:46
GEN: AAO x3
HEENT: EOMI, MMM
LUNGS: CTA B/L, no wheezes or rales
CV: Irreg irreg and fast, +click
ABD: soft, BS+, NT, ND
EXT: No clubbing, cyanosis, lesions or edema B/L
NEURO: Gross non-focal
SKIN: Warm, dry and pink. No rash
Lab Results
03/20/24 03:44
03/20/24 03:44
Impression / Plan
-
Primary Manager Of Internal: Dr. Brooks
PCP: Dr. Joey Guerrier
Impression:
-Acute cholangitis 03/20/24
-Lactic acidosis
-Hypotension
-Septic shock
-Elevated LFTs
-h/o Torsades with Sevoflurane during surgery 01/30/18
-Persistent atrial arrhythmia
-Paroxysmal atrial fibrillation/atypical atrial flutter/atrial tachycardia
s/p atrial flutter ablation 11/2019
s/p PVI and atrial flutter ablation 07/08/22
previously refractory to sotalol and Tikosyn, currently on amiodarone
s/p KAMRAN/CV 12/04/23
-[place] Mechanical AVR 06/2020
-s/p AVR with 21mm [place] Mechanical Valve, Closure of Perimembranous VSD with Bovine pericardial patch, Left Modified Maze procedure with Atricure device 07/16/20
-Chronic warfarin OAC managed by [facility]
-Chronic HFpEF
-h/o SBO 08/02/2023 with ex lap for extensive lysis of adhesions (>90 min), small bowel resection with primary anastomosis, ventral incisional hernia repair with mesh 08/03/23
Reoperation for pelvic hematoma and anastomotic leak 08/12/23
-History of diverticulitis with perforated diverticulum, peritonitis and sepsis, s/p ex lap with transverse colostomy, complicated by torsades felt to be due to sevoflurane 01/30/18
-s/p takedown transverse loop colostomy, laparotomy, REMEDIOS, sigmoidectomy, primary sutured repair parastomal hernia 05/31/18
-History of recurrent SBOs
-HTN
-HLD
-Rheumatoid arthritis/fibromyalgia/chronic pain
-Chronic back pain, epidural injections and daily narcotic use
-B/L venous insufficiency
Echo 06/16/20: EF 55%, normal regional wall motion, perimembranous VSD with left to right shunt, mod MR, severely dilated LA, bicuspid AV with severe peak/mean 131/76 and JOSE 0.5 cm sq, mild AI, severe TR with PASP 61 mmHg
Echo 10/26/20: EF 59%, mild to mod MR, s/p [place] mechanical AVR peak/mean 19/10 mmHg with trace paravalvular AI, mild TR with PASP 39 mmHg
Echo 12/04/22: EF 55 to 60%, mild concentric LVH, well-seated [place] mechanical aortic valve prosthesis with peak/mean gradients 23/11 mmHg, trace AR, mild TR, PAP 35 to 40 mmHg
Echo 01/09/24: EF 64%, mild conc LVH, normal RV size and function, mild MR, [place] mechanical AVR with peak/mean 14/7 mmHg
Plan:
-Patent came to [facility] very early this morning with N/V and abdominal pain that started yesterday and is now admitted with septic shock and acute cholangitis and cardiology has been consulted due to h/o mechanical AVR and h/o Torsades arrest in 2018.
On 01/30/18 she had complications of diverticulitis with perforation requiring transverse loop colostomy which was complicated by perioperative cardiac arrest for VT/torsades in and then returned in May 2018 for reversal of colostomy without
adverse event. Then in 04/2019 she had a repair of a parastomal hernia complicated by small bowel obstruction. She has a h/o recurrent SBO. She has a history of perimembranous VSD with [id number] shunt, bicuspid aortic valve with severe aortic
stenosis, moderate tricuspid regurgitation and pulmonary hypertension and had mechanical AVR with 21mm [place] Mechanical Valve, closure of Perimembranous VSD with Bovine pericardial patch, Left Modified Maze procedure with Atricure device
07/16/20. She recurred with atrial flutter and had ablation 11/2019 and then repeat ablation 07/08/22. Then on 08/02/23 she had a SBO and required ex lap with extensive REMEDIOS and ventral incisional hernia repair. That admission was complicated by post-op
pelvic hematoma and anastomotic leak. She eventually recovered and was discharged to home. Since then patient has had recurrent Afib and last KAMRAN/CV was 12/04/23. Patient says that she started with abdominal pain and N/V yesterday around 1330. Pain
persistent into today and patient came to [facility] around 0330 this morning. Initially there was concern for recurrent SBO, but imaging indicated acute cholangitis. Patient now being admitted with sepsis and shock. Levophed running at 4. GI saw patient
and is recommending an urgent ERCP with stent placement to decompress infection followed by repeat ERCP in the next couple of days for attempt at stone extraction. INR is 2.26 today.
-Talked with GI and plan is for ERCP today for stent placement. INR does not need to be reversed, but will hold warfarin and allow INR to drift down.
-Consider Heparin gtt as INR drifts down due to h/o mechanical AVR, but will need to be sure that this is safe from a GI procedural standpoint. During previous admissions Heparin gtt has been used when INR less than 2 and stopped when INR greater
than 2.
-Levophed running at 4
-Blood cultures pending and patient empirically started on Zosyn
-ECG reviewed by me and looks like an atrial tachycardia with rapid response. Of note patient had KAMRAN/CV for atrial flutter 12/04/23 and was back in atrial flutter at office visit 01/03/24. Patient was not interested in another ablation (pulsed field
was discussed) and preferred to continue with amiodarone 200 mg daily.
-Previous perioperative cardiac arrest in 2018 was in the setting of sevoflurane which is now listed as an allergy.
[2024-03-20] MEDS: LEVOPHED 250 IV ×2 (12:06→18:01)
[2024-03-20] MEDS: ZOSYN 100 IV ×3 (12:18→23:25)
--- NOTE | 2024-03-20 14:35 | PTCARENOTE ---
arrived in ICU via ED stretcher, levophed at 12 mcg, to monitor, complete CHG bath, settled in room. oral care. see admission assessment. questions answered, fluids hung per order. tolerating 4l nc with sats mid 90s. abd pain rates 7/10,
midupper epigastric region, tympanic, tender, notes improved from earlier.
[2024-03-20] MEDS: D5/0.9% SODIUM CHLORIDE 1000 IV ×2 (14:50→22:08)
--- NOTE | 2024-03-20 15:04 | CON.INTV ---
Consultation
Consultation Request
Date/Time Consultation Requested: 03/20/2024 - 144
Date/Time Consultation Performed: 03/20/2024 - 150
Requesting Provider: Dr. Schneider
Performing Provider: Dr. Capps
Reason for Consultation: Shock on vasopressors
Medical History
-
Chief Complaint: Abdominal pain
History of Present Illness:
63-year-old female non-smoker with a past medical history of perforated bowel (2017) requiring an ostomy with subsequent ostomy reversal, hernia repair, mechanical aortic valve replacement ([facility]) on Coumadin, history of persistent A-fib/flutter
s/p KAMRAN with DCCV (12/04/2023), mild pulmonary hypertension and history of cholelithiasis who presents with abdominal pain, nausea and vomiting. She stated in triage ER that she has a history of small bowel obstruction and this feels similar to
that. Abdominal ultrasound showed mild biliary dilatation with CBD measuring 8.6 mm in diameter (previously was 5.2 mm in July 2011), with evidence of prior cholecystectomy. CT A/P with IV contrast shows acute cholangitis with thickening and
hyperenhancement of the bile ducts, with a 4.4 mm intraluminal filling defect in the CBD suggesting choledocholithiasis. In the ER patient had a low-grade fever to 99.1 �F, BP 146/81, saturating 96% on room air and breathing at 18 breaths/min with
a heart rate of 97. Patient given pain medications with Dilaudid in the ER, started on IV fluids and given 2L of NS 0.9% and given cefotetan. Unfortunately patient's BP remained low with SBP in the mid 70-80s requiring Levophed. Patient admitted
to the ICU for further care, and critical care services now consulted for additional management/recommendations.
When I saw the patient she had just returned from an ERCP. A plastic stent was placed into the CBD and it appeared that the prior biliary sphincterotomy was not overtly patent. She is following commands although she is sleepy. She denies any
specific complaints like chest pain, abdominal pain, fevers or chills. She is currently on Levophed at 8mcg/min with a BP of 92/56, heart rate 73 and saturating 97% on 6 L/min nasal cannula.
PMHx: History of persistent atrial fib/flutter s/p KAMRAN with cardioversion (12/04/2023), history of mechanical aortic valve ([facility] [facility]), mild pulmonary hypertension (PASP: 30 mmHg � per TTE from 01/09/2024), osteoarthritis, history of diverticulitis,
cholelithiasis, depression/anxiety, hyperlipidemia, IBS, GERD, essential hypertension, chronic HFpEF, fibromyalgia, RA, history of torsades arrest, chronic opioid use due to chronic pain syndrome
PSHx: Right ankle surgery X.3, cholecystectomy (March), left hand osteotomy, right thumb surgery, right index finger fusion, left knee arthroscopy, left total knee arthroplasty (2009), ostomy for perforated bowel (01/2018) with subsequent ostomy
reversal, hernia repair, AVR/VSD closure (06/2020)
Past Medical History
Past Medical History: Other (Above as per HPI)
Past Surgical History: Other (Above as per HPI)
Social History
Tobacco: Non-smoker
Alcohol: None
Drug: None
Personal:
Living: With Family
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
Family History
Family History: Hypertension
Allergies / Home Medications
Allergies
Allergy/AdvReac Type Severity Reaction Status Date / Time
abatacept [From Orencia] Allergy Severe Hives, Verified 12/04/23 10:36
SOB, cough
adhesive Allergy Severe Rash Verified 12/04/23 10:36
adhesive tape Allergy Severe Rash Verified 12/04/23 10:36
sevoflurane Allergy Severe V Verified 12/04/23 10:36
Fib/Arrhythmia
etanercept [From Enbrel] Allergy Bruising Verified 12/04/23 10:36
adalimumab [From Humira] AdvReac Intermediate SEVERE Verified 12/04/23 10:36
BRUISING
clarithromycin [From Biaxin] AdvReac Intermediate upset Verified 12/04/23 10:36
stomach
Home Medications
�Medication �Instructions �Recorded �Confirmed �Last Taken �Type
trazodone 100 mg tablet 200 mg PO HS Mental Health/Anxiety 12/10/19 03/20/24 12/03/23 20:00 History
citalopram 40 mg tablet 40 mg PO DAILY Depression 06/01/22 03/20/24 12/04/23 08:00 History
furosemide 40 mg tablet 40 mg PO DAILY Fluid 07/03/22 03/20/24 12/04/23 08:00 History
retention/Swelling
sennosides 8.6 mg-docusate sodium 1 tab-cap PO HS Constipation 07/03/22 03/20/24 12/03/23 20:00 History
50 mg tablet (Stool
Softener-Laxative)
amiodarone 200 mg tablet 200 mg PO DAILY Arrhythmia 02/18/23 03/20/24 12/04/23 08:00 History
clonidine HCl 0.1 mg tablet 0.1 mg PO HS Blood Pressure 03/20/24 03/20/24 Unknown History
metoprolol succinate 25 mg 25 mg PO DAILY Blood Pressure 03/20/24 03/20/24 Unknown History
tablet,extended release 24 hr
oxycodone 20 mg tablet 20 mg PO TID Pain 03/20/24 03/20/24 Unknown History
therapeutic multivitamin 1 tab PO DAILY Supplement 03/20/24 03/20/24 Unknown History
vitamin B complex 1 cap PO DAILY Supplement 03/20/24 03/20/24 Unknown History
warfarin 2.5 mg tablet 3 mg PO SUTUTHSA Blood Clot 03/20/24 03/20/24 Unknown History
Prevention/Tx
warfarin 2.5 mg tablet (Jantoven) 3.5 mg PO MOWEFR Blood Clot 03/20/24 03/20/24 Unknown History
Prevention/Tx
Review of Systems
-
History Source: Patient
All other systems: Negative unless noted
Vitals / Labs / Diagnostic Testing
Vital Signs
Temp Pulse Resp BP Pulse Ox
103.1 F H 64 20 89/36 97
03/20/24 14:57 03/20/24 14:20 03/20/24 14:20 03/20/24 14:20 03/20/24 14:20
Lab Data
03/20/24 03:44
03/20/24 03:44
Laboratory Results
03/20/24
06:11
PT 24.8 H
INR 2.26
Diagnostic Testing:
Physical Exam
-
HEENT: Normocephalic and Anicteric
Cardiovascular: Irregular Rhythm (Irregularly irregular) and Other (Harsh click heard upon S2)
Respiratory: Wheeze (Negative), Rales (Bilaterally), Rhonchi (Negative) and Non-Labored Respirations
GI: Soft, Non Distended, Non Tender and Normal Bowel Sounds
Neurology: Tremors (n) and Other (Sleepy but answers my questions appropriately and opens eyes to my command)
Skin: Warm and Dry
General: Comfortable and Fever (Negative)
Assessment
-
Assessment: 63-year-old female non-smoker with a past medical history of perforated bowel (2017) requiring an ostomy with subsequent ostomy reversal, hernia repair, mechanical aortic valve replacement ([facility]) on Coumadin, history of persistent
A-fib/flutter s/p KAMRAN with DCCV (12/04/2023), mild pulmonary hypertension and history of cholelithiasis who presents with abdominal pain, nausea and vomiting. She stated in triage ER that she has a history of small bowel obstruction and this feels
similar to that. Abdominal ultrasound showed mild biliary dilatation with CBD measuring 8.6 mm in diameter (previously was 5.2 mm in July 2011), with evidence of prior cholecystectomy. CT A/P with IV contrast shows acute cholangitis with
thickening and hyperenhancement of the bile ducts, with a 4.4 mm intraluminal filling defect in the CBD suggesting choledocholithiasis. In the ER patient had a low-grade fever to 99.1 �F, BP 146/81, saturating 96% on room air and breathing at 18
breaths/min with a heart rate of 97. Patient given pain medications with Dilaudid in the ER, started on IV fluids and given 2L of NS 0.9% and given cefotetan. Unfortunately patient's BP remained low with SBP in the mid 70-80s requiring Levophed.
Patient admitted to the ICU for further care, and critical care services now consulted for additional management/recommendations.
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 [facility]) with VSD closure with bovine pericardium, MAZE with b/l PVI (06/2020), mild pulmonary hypertension
(PASP: 30 mmHg � per TTE from 01/09/2024), osteoarthritis, history of diverticulitis, cholelithiasis, depression/anxiety, hyperlipidemia, IBS, GERD, essential hypertension, chronic HFpEF, fibromyalgia, RA, history of VF/torsades arrest (01/2018)
during hospital stay for perforated diverticulum/peritonitis, chronic opioid use due to chronic pain syndrome,
Impression:
#Septic shock due to acute cholangitis - likely due to biliary outlet obstruction from prior biliary sphincterotomy which was not overly patent on ERCP; other DDx includes choledocholithiasis (no cholangiogram done today)
#Acute respiratory failure with hypoxia - she does have some linear scarring seen on the bases of her lungs on CT A/P from earlier today
#Transaminitis with hyperbilirubinemia due to above
#Lactic acidosis
#History of cholecystectomy
#Chronic anticoagulation use with Coumadin for permanent A-fib/flutter and mechanical prostheses
#Chronic HFpEF
#Essential hypertension
#History of atrial fibrillation/flutter s/p KAMRAN with DCCV (12/04/2023)
#Mechanical AVR/maze procedure/VSD repair 2019
#History of multiple abdominal surgeries including ex-lap with washout & transverse loop colostomy (01/2018 --> reversed in 05/2018)) + ex-lap with REMEDIOS, small bowel resection & ventral incisional hernia repair (07/2022)
Plan:
- Continue broad-spectrum antibiotics (Zosyn)
- Continue vasopressors and wean as tolerated to keep MAP>65
- Follow-up blood cultures
- She may need another 1L of crystalloids --> give her rales on exam, check CXR first and if no evidence of acute pulmonary edema or hypervolemia, then I will given an additional 1 L of NS 0.9%
- Trend lactate level until <2 mmol/L
- GI consulted --> performed ERCP tonight and decompressed biliary tree with stent placement into CBD. Cholangiogram not performed as injection of contrast would worsen intraductal pressure and worsen her sepsis due to translocation of bacteria.
She will likely need to have repeat ERCP when she is stabilized for cholangiogram and assessment for choledocholithiasis
- Ensure adequate IV access and only use vasopressors through a 18-20G PIV in preferably the AC or a more proximal region of the arm; do not use levophed in a hand or wrist IV; she may need a PICC
- Trend LFTs
- Maintain SpO2 >90-94% with supplemental O2
- Replete electrolytes with K>4, Mg>2
- Maintain euglycemia with goal BG 140-180
- prn nebulized bronchodilators
- Incentive spirometer
- DVT ppx: Resume her coumadin with goal INR 2-3
Critical care statement: A total of 40 minutes of critical care time was provided for this patient today. This includes management of unstable vital signs, evaluation of the patient at bedside, reviewing the patient's pertinent medical records
including radiographs, microbiology, laboratory evaluations, and discussion with primary team, consultants, pharmacy, nutrition, physical therapy, case management, charge nurse, critical care nursing, and respiratory therapy.
Data:
CT Abd/Pelvis with IV Contrast 03-20-2024:
1. ACUTE CHOLANGITIS with thickening and hyperenhancement of the bile ducts which is new from 02/17/2023.
2. 4.4 mm intraluminal filling defect in the common bile duct suggesting CHOLEDOCHOLITHIASIS. Bile duct cancer is considered less likely.
3. Mild upper abdominal lymphadenopathy which has increased since 02/17/2023 (most likely reactive and less likely malignant in etiology).
4. Previous cholecystectomy.
5. Mild hepatomegaly.
6. Interval anterior abdominal wall hernia repair.
7. Previous small bowel resection and sigmoidectomy.
8. 1.1 cm intraluminal lesion in the posterior gastric fundus (possibly a gastric polyp or vascular malformation).
9. Mild cardiomegaly with evidence for previous aortic valve replacement.
10. Severe discogenic degenerative disease in the lumbar spine.
Abd US 03-20-2024:
1. Mild biliary dilatation which is new from 07/25/2011.
2. Previous cholecystectomy.
3. Mild diffuse hepatic steatosis.
TTE 01-09-2024:
Normal left ventricular size and systolic function.
LV ejection fraction is 64% by Romero's biplane method of discs.
Mild concentric left ventricular hypertrophy.
Normal right ventricular size and function.
Mild mitral regurgitation.
[facility] mechanical aortic valve prosthesis with peak/mean gradients across the
aortic valve of 14/7 mmHg respectively.
Dimensionless index of 0.4.
Mild tricuspid regurgitation.
Estimated pulmonary artery pressure of 30 mmHg assuming a right atrial pressure
of 3 mmHg.
Trace pulmonic regurgitation.
The IVC is of normal size and demonstrates normal respiratory variation.
No significant change compared to 12/2022 echocardiogram
--- NOTE | 2024-03-20 15:24 | PTCARENOTE ---
taken to GI lab via bed, monitor and IVs maintained. handoff given to GI lab staff.
[2024-03-20 17:44] LABS: APTT 39.9 Sec (23.4-35.0)
[2024-03-20 17:52] LABS: Lactic Acid 2.6 mmol/L (0.7-2.0)
[2024-03-20 17:54] LABS: B.E. -3.5 mmol/L; HCO3 22.1 mmol/L (21-28); O2 Saturation % 96.7 % (94-98); PCO2 41 mmHg (32-35); PO2 158 mmHg (83-108); pH 7.34 (7.35-7.45)
[2024-03-20] MEDS: ROXICODONE 20 MG PO ×2 (18:00→22:08)
[2024-03-20] MEDS: TYLENOL 650 MG PO (18:02)
[2024-03-20 18:13] LABS: Magnesium 1.6 mg/dl (1.6-2.3); Phosphorus 4.5 mg/dl (2.5-4.5)
[2024-03-20] MEDS: COUMADIN 3 MG PO (18:15)
--- NOTE | 2024-03-20 18:21 | PTCARENOTE ---
back from GI lab approx 1700, settled, VS noted, art line zero and shaila. Labs drawn and sent. Dr. Capps in room, updated, orders noted. Sleepy initially, titrated levophed as ordered by parameters, to 6 l nc, down to 4l, tolerating with good
pulse ox. in room as well, brought belongings, states he will return later tonight.
[2024-03-20] MEDS: MAGNESIUM OXIDE 500 MG PO (18:34)
[2024-03-20 19:05] LABS: Urine Albumin 2+ (Neg - Trace); Urine Bilirubin 2+ (Negative); Urine Character Clear (Clear); Urine Color Amber; Urine Glucose Negative (Negative); Urine Ketone Negative (Negative); Urine Leukocyte Trace (Negative); Urine Nitrite Positive (Negative); Urine Occult Blood 1+ (Negative); Urine Specific Gravity 1.015 (<1.030); Urine Urobilinogen 2+ (Neg - 1+)
[2024-03-20 19:12] LABS: Urine Squamous Cell 0-2 /LPF (Few)
[2024-03-20 19:13] LABS: Urine White Cell 0-2 /HPF (0-5)
--- NOTE | 2024-03-20 20:07 | PTCARENOTE ---
pt received from previous rn- aox3, on 3LNC, afib to nsr with 1st degree block. weak palpable pedal pulses. right radial lily zeroed and functioning. levophed and ivf continue. pt given prn diluadid for pain- educated about pain management and
repositioning- verbalized understanding. all safety precautuons in place, call marx within reach
[2024-03-20] MEDS: DESYREL 200 MG PO (22:08)
[2024-03-20 22:31] LABS: Lactic Acid 1.6 mmol/L (0.7-2.0)
--- NOTE | 2024-03-21 00:07 | PTCARENOTE ---
assessment unchanged. levophed remains on. pt turning and repositioning self and shifting weight.
[2024-03-21 00:45] VITALS: BP 92/50
[2024-03-21] MEDS: LEVOPHED 250 IV ×2 (04:07→15:02)
[2024-03-21] MEDS: D5/0.9% SODIUM CHLORIDE 1000 IV (04:07)
[2024-03-21] MEDS: DILAUDID 1 MG IV (04:07)
[2024-03-21 04:17] VITALS: BP 92/53
[2024-03-21 04:18] VITALS: BMI 37.2
--- NOTE | 2024-03-21 04:18 | PTCARENOTE ---
assessment unchanged. pt provided am care, turned and repositioned. remains on ivf and levophed for map>65. pain medication given per order.
[2024-03-21 04:20] LABS: Hematocrit 35.2 % (37.0-47.0); Hemoglobin 11.9 g/dL (12.0-16.0); Mean Corp Hgb Conc. 33.8 g/dL (33.0-37.0); Mean Corpuscular Hgb 30.1 pg (27.0-31.0); Mean Corpuscular Volume 89.1 fL (81.0-99.0); Mean Platelet Volume 8.7 fL (7.4-10.4); Platelet Count 208 10^3/uL (130-400); Red Blood Cell Count 3.95 10^6/uL (4.20-5.40); Red Cell Dist. Width 16.9 % (11.5-14.5); White Blood Cell Count 15.1 10^3/uL (4.8-10.8)
[2024-03-21 04:32] LABS: INR 3.45; PT 34.7 Sec (11.4-14.6)
[2024-03-21 05:08] LABS: AST (SGOT) 625 U/L (14-36); Albumin 2.6 g/dl (3.5-5.0); Alkaline Phosphatase 182 U/L (38-126); Blood Urea Nitrogen 24 mg/dl (7-17); Carbon Dioxide 20 mmol/L (22-30); Chloride 109 mmol/L (98-107); Estimated Creatinine Clearance 47 ml/min; Glucose 174 mg/dl (70-99); Magnesium 1.9 mg/dl (1.6-2.3); Phosphorus 4.6 mg/dl (2.5-4.5); Potassium 4.3 mmol/L (3.5-5.1); Sodium 138 mmol/L (135-145); Total Bilirubin 4.9 mg/dl (0.2-1.3); Total Protein 5.6 g/dl (6.3-8.2); eGFR 51.18
--- NOTE | 2024-03-21 05:21 | W.PN.GI.CBS2 ---
Today's Communication / Plan
-
See assessment and plan for details.
Assessment / Plan
-
1. Cholangitis: With CBD stone, status post ERCP with stent placement draining pus, feeling much better today. Her LFTs are mixed but overall much improved, and again clinically much improved. At this point we will continue clear liquids for
today, continue antibiotics and supportive care, await final blood cultures. Will plan repeat ERCP in 6 weeks for stent and definitive stone removal, also to assess probable gastric polyps noted on CT scan.
Subjective
Subjective
Date of Service: March 21, 2024
Patient feeling much better overnight, no abdominal pain, no fevers overnight, no vomiting.
Objective
Data Reviewed
Laboratory Data:
Laboratory Results
03/21/24 04:01
03/21/24 04:01
Laboratory Results
PT 34.7 Sec (11.4-14.6) H 03/21/24 04:01
INR 3.45 03/21/24 04:01
APTT 39.9 Sec (23.4-35.0) H 03/20/24 17:23
Phosphorus 4.6 mg/dl (2.5-4.5) H 03/21/24 04:01
Magnesium 1.9 mg/dl (1.6-2.3) 03/21/24 04:01
Total Bilirubin 4.9 mg/dl (0.2-1.3) H D 03/21/24 04:01
AST 625 U/L (14-36) H* 03/21/24 04:01
ALT 880 U/L (0-35) H* 03/20/24 03:44
Alkaline Phosphatase 182 U/L (38-126) H 03/21/24 04:01
Lipase 125 U/L (23-300) 03/20/24 03:44
Vital Signs and I&O:
Vital Signs
Temp Pulse Resp BP Pulse Ox
97.7 F 74 19 92/50 95
03/21/24 03:15 03/21/24 04:00 03/21/24 04:00 03/21/24 00:45 03/21/24 04:00
I&O
03/19/24 03/20/24 03/21/24
06:59 06:59 06:59
Intake Total 3123.5 / 3123.5
Output Total 800 / 800
Balance 2323.5 / 2323.5
Physical Exam
Physical Exam
General: NAD
Abdomen: normal bowel sounds, soft, no tenderness, no masses or bruits, no ascites
[2024-03-21] MEDS: ZOSYN 100 IV ×4 (05:25→23:05)
[2024-03-21 05:32] LABS: ALT (SGPT) 879 U/L (0-35)
[2024-03-21 05:43] VITALS: BP 79/53
--- NOTE | 2024-03-21 06:35 | W.PN.HOSP.TC ---
Today's Communication/Plan
-
.
Assessment / Plan
Assessment / Plan
Physical Exam
General: No Apparent Distress, Pain (Abdominal) and Obese
HEENT: Moist mucous membranes and Atraumatic
Respiratory: Clear
Cardiac: S1/S2, Regular Rhythm and Other (Mechanical click)
GI: Soft and Tender (Upper part)
Rectal: No Maroon Stools
Genito-urinary: Clear Urine
Musculoskeletal: No Clubbing, No Cyanosis and No Edema
Skin: Warm and Jaundice
Neuro: AO x 3; No Slurred Speech, Facial Droop or Tremors
Psych: Calm and Intact Judgment/Insight
63 years old female presented with abdominal pain
#Sepsis/septic shock due to acute cholangitis
s/p ERCP with stent placement. LFTs coming down, less abdominal pain. Abdomen is soft.
c/w IVF and pressure support as MAP parameters
c/w IV ABs, on IV Zosyn #2
c/w pain control , IV Dilaudid, oral oxy TID
IV Protonix
IV antiemetic medications.
Blood culture X2 done
Appreciate GI & ICU doctors help
# Lactic acidosis due to sepsis. Came down.
# History of rheumatoid arthritis/fibromyalgia/chronic pain syndrome with opioid dependence
Continue with opioid to avoid withdrawal
# History of paroxysmal atrial fibrillation/atypical atrial flutter/atrial tachycardia status post ablation 2021 and 2019 currently on amiodarone.
Fully anticoagulated with Coumadin. INR on admission 2.2
INR today 3.4, hold Coumadin
Monitor on telemetry. No chest pain
# RAMÓN due to sepsis
c/w IVF
#Status post aortic valve replacement
Monitor on Telemetry
#Chronic heart failure with a preserved ejection fraction
Holding Lasix due to septic shock. She is going to get IV fluid, will monitor volume status, daily weight.
#Primary hypertension, holding BP meds including Clonidine
#Hyperlipidemia, no changes intended.
#History of recurrent small bowel obstruction and bowel surgeries
#Mild to moderate mitral regurgitation/mild tricuspid regurgitation with mild to moderate pulmonary hypertension
#Hepatic steatosis/GERD/irritable bowel syndrome
# Obesity, BMI 34
# History of uterine fibroids.
Total time spent to see the patient, examine the patient on the floor, review data and lab results, discuss treatment plan with patient, nursing staff around 55 minutes
Anticipated Discharge: > 48 hours
Subjective/Interval History
-
Date of Service: March 21, 2024
Still on Levophed
Pt reports less abd pain
Objective Data
-
Labs:
Laboratory Results
03/21/24
04:01
WBC 15.1 H
Hgb 11.9 L
Hct 35.2 L
Plt Count 208 D
PT 34.7 H
INR 3.45
Sodium 138
Potassium 4.3
Chloride 109 H
Carbon Dioxide 20 L
BUN 24 H
Creatinine 1.2 H
Glucose 174 H
Calcium 7.0 L D
Total Bilirubin 4.9 H D
AST 625 H*
ALT 879 H*
Alkaline Phosphatase 182 H
Vital Signs:
Vital Signs
Temp Pulse Resp BP Pulse Ox
97.7 F 60 10 79/53 98
03/21/24 03:15 03/21/24 05:43 03/21/24 05:43 03/21/24 05:43 03/21/24 05:43
I&O
03/19/24 03/20/24 03/21/24
06:59 06:59 06:59
Intake Total 3583.5 / 3583.5
Output Total 800 / 800
Balance 2783.5 / 2783.5
[2024-03-21] MEDS: PROTONIX IV 40 MG IV (07:36)
[2024-03-21] MEDS: NSS (PRESERVATIVE FREE) 10 ML IV (07:36)
[2024-03-21 07:40] VITALS: BP 97/72
--- NOTE | 2024-03-21 07:46 | PTCARENOTE ---
recd pt 0725, groggy, awakens, presently wants to sleep. IV med given, will return with PO when more brightly awake. VS stable, art line zero and shaila. reports abd pain more diffuse, blunter, much improved from yesterday. skin warm, dry. pedals
pulses weakly palpable. levophed, fluids continue, denies urge to void, abd soft.
[2024-03-21] MEDS: ROXICODONE 20 MG PO (08:15)
[2024-03-21] MEDS: PACERONE 200 MG PO (08:16)
[2024-03-21] MEDS: CELEXA 40 MG PO (08:16)
[2024-03-21] MEDS: ZOFRAN 4 MG IV ×2 (08:36→16:22)
--- NOTE | 2024-03-21 10:23 | W.PN.INTV ---
Today's Communication / Plan
Recommendations
Continue to wean down Levophed as able
Transition to normal saline 100 cc an hour
Follow renal function and urinary output
Continue antibiotic
Follow cultures
Clear liquid diet
Antiemetics
Follow electrolytes
Remains in ICU level of care while on vasopressors
Assessment
-
Assessment: 63-year-old female non-smoker with a past medical history of perforated bowel (2017) requiring an ostomy with subsequent ostomy reversal, hernia repair, mechanical aortic valve replacement ([place] [facility]) on Coumadin, history of persistent
A-fib/flutter s/p KAMRAN with DCCV (12/04/2023), mild pulmonary hypertension and history of cholelithiasis who presents with abdominal pain, nausea and vomiting. She stated in triage ER that she has a history of small bowel obstruction and this feels
similar to that. Abdominal ultrasound showed mild biliary dilatation with CBD measuring 8.6 mm in diameter (previously was 5.2 mm in July 2011), with evidence of prior cholecystectomy. CT A/P with IV contrast shows acute cholangitis with
thickening and hyperenhancement of the bile ducts, with a 4.4 mm intraluminal filling defect in the CBD suggesting choledocholithiasis. In the ER patient had a low-grade fever to 99.1 �F, BP 146/81, saturating 96% on room air and breathing at 18
breaths/min with a heart rate of 97. Patient given pain medications with Dilaudid in the ER, started on IV fluids and given 2L of NS 0.9% and given cefotetan. Unfortunately patient's BP remained low with SBP in the mid 70-80s requiring Levophed.
Patient admitted to the ICU for further care, and critical care services now consulted for additional management/recommendations.
Chronic conditions [employer]UST[employer] LO[employer]ER: History of persistent atrial fib/flutter s/p KAMRAN with cardioversion (12/04/2023), history of mechanical aortic valve ([place]) with VSD closure with bovine pericardium, MAZE with b/l PVI (06/2020), mild pulmonary hypertension
(PASP: 30 mmHg � per TTE from 01/09/2024), osteoarthritis, history of diverticulitis, cholelithiasis, depression/anxiety, hyperlipidemia, IBS, GERD, essential hypertension, chronic HFpEF, fibromyalgia, RA, history of VF/torsades arrest (01/2018)
during hospital stay for perforated diverticulum/peritonitis, chronic opioid use due to chronic pain syndrome,
Impression:
#Septic shock due to acute cholangitis - likely due to biliary outlet obstruction from prior biliary sphincterotomy which was not overly patent on ERCP; other DDx includes choledocholithiasis (no cholangiogram done today)
#Acute respiratory failure with hypoxia - she does have some linear scarring seen on the bases of her lungs on CT A/P from earlier today
#Transaminitis with hyperbilirubinemia due to above
#Lactic acidosis
#History of cholecystectomy
#Chronic anticoagulation use with Coumadin for permanent A-fib/flutter and mechanical prostheses
#Chronic HFpEF
#Essential hypertension
#History of atrial fibrillation/flutter s/p KAMRAN with DCCV (12/04/2023)
#Mechanical AVR/maze procedure/VSD repair 2019
#History of multiple abdominal surgeries including ex-lap with washout & transverse loop colostomy (01/2018 --> reversed in 05/2018)) + ex-lap with REMEDIOS, small bowel resection & ventral incisional hernia repair (07/2022)
Plan:
Clinically improved but remains critically ill on vasopressors.
-
- Continue broad-spectrum antibiotics (Zosyn)
Continue vasopressors and wean as tolerated to keep MAP>65-currently at 6 mics per minute.
Continue to hold antihypertensives
Will continue to follow urinary output and creatinine.
-Cultures so far negative.
-Lactic acid has cleared.
Continue IV fluids normal saline 100 cc an hour.
-
- GI following patient--> performed ERCP tonight and decompressed biliary tree with stent placement into CBD. Cholangiogram not performed as injection of contrast would worsen intraductal pressure and worsen her sepsis due to translocation of
bacteria.
GI correspondence reviewed.
Advance to clear liquids.
Continue antiemetics
ERCP in 6 weeks
Trend LFTs
Continue IV fluid as above.
Replete electrolytes with K>4, Mg>2
Maintain euglycemia with goal BG 140-180
Insulin as needed
Oxygen supplementation has been weaned off.
Incentive spirometer
-
Restart outpatient medications if able to tolerate
Antiemetics
Diet: Clears
DVT ppx: Resume her coumadin once INR is under 3.
Critical care statement: A total of 32 minutes of critical care time was provided for this patient today. This includes management of unstable vital signs, evaluation of the patient at bedside, reviewing the patient's pertinent medical records
including radiographs, microbiology, laboratory evaluations, and discussion with primary team, consultants, pharmacy, nutrition, physical therapy, case management, charge nurse, critical care nursing, and respiratory therapy.
Data:
CT Abd/Pelvis with IV Contrast 03-20-2024:
1. ACUTE CHOLANGITIS with thickening and hyperenhancement of the bile ducts which is new from 02/17/2023.
2. 4.4 mm intraluminal filling defect in the common bile duct suggesting CHOLEDOCHOLITHIASIS. Bile duct cancer is considered less likely.
3. Mild upper abdominal lymphadenopathy which has increased since 02/17/2023 (most likely reactive and less likely malignant in etiology).
4. Previous cholecystectomy.
5. Mild hepatomegaly.
6. Interval anterior abdominal wall hernia repair.
7. Previous small bowel resection and sigmoidectomy.
8. 1.1 cm intraluminal lesion in the posterior gastric fundus (possibly a gastric polyp or vascular malformation).
9. Mild cardiomegaly with evidence for previous aortic valve replacement.
10. Severe discogenic degenerative disease in the lumbar spine.
Abd US 03-20-2024:
1. Mild biliary dilatation which is new from 07/25/2011.
2. Previous cholecystectomy.
3. Mild diffuse hepatic steatosis.
TTE 01-09-2024:
Normal left ventricular size and systolic function.
LV ejection fraction is 64% by Romero's biplane method of discs.
Mild concentric left ventricular hypertrophy.
Normal right ventricular size and function.
Mild mitral regurgitation.
Quoc mechanical aortic valve prosthesis with peak/mean gradients across the
aortic valve of 14/7 mmHg respectively.
Dimensionless index of 0.4.
Mild tricuspid regurgitation.
Estimated pulmonary artery pressure of 30 mmHg assuming a right atrial pressure
of 3 mmHg.
Trace pulmonic regurgitation.
The IVC is of normal size and demonstrates normal respiratory variation.
No significant change compared to 12/2022 echocardiogram
Subjective Dataa
Subjective Data
Date of Service:
Date of Service: March 21, 2024
Chief Complaint: Candy Mixer Follow Up (Septic shock/biliary source)
Subjective:
Feels better today.
Intermittently nauseous.
Abdominal pain has improved.
Denies shortness of breath
Oxygen has been weaned off
Remains critically ill on vasopressors.
Review of Systems
General: Fever (n)
Cardiopulmonary: Dyspnea (none at rest), Cough (n) and Chest Pain (n)
GI: Abdominal Pain (n) and Nausea (n)
Objective Data
Data Reviewed
Vital Signs / I&O / Oxygen:
Vital Signs
Temp Pulse Resp BP Pulse Ox
97.6 F 61 11 104/52 97
03/21/24 07:55 03/21/24 08:16 03/21/24 08:00 03/21/24 08:16 03/21/24 08:00
Intake and Output
03/20/24 03/21/24 03/22/24
06:59 06:59 06:59
Intake Total 3583.5 / 3763.5 632.5 / 632.5
Output Total 800 / 800 75 / 75
Balance 2783.5 / 2963.5 557.5 / 557.5
SaO2 97
Nasal Cannula flow liters per 2
minute
Physical Exam
General: Respiratory Distress (n) and Comfortable
HEENT: Normocephalic
Cardiovascular: S1-S2 and Regular Rhythm
Respiratory: Clear and Non-Labored Respirations
GI: Soft and Non Distended
Neurology: Awake, Alert, Oriented, AO x 3 and No Motor Deficits
Skin: Warm
Labs/Micro/Reports
Lab Data
03/21/24 04:01
03/21/24 04:01
Laboratory Results
03/20/24 03/20/24 03/21/24
17:23 17:46 04:01
PT 34.7 H
INR 3.45
APTT 39.9 H
pH 7.34 L
pCO2 41 H
pO2 158 H
HCO3 22.1
O2 Delivery Level
--- NOTE | 2024-03-21 10:33 | PTCARENOTE ---
nausea relieved somewhat, tolerated clear liquid breakfast tray eating cautiously/slowly. turned, positioned for comfort. Purewick not draining, suction cannister changed, now functioning. rest of assessment unchanged. comfortable on room air
with good sats, weaning levophed as tolerated.
[2024-03-21] MEDS: NSS 1000 IV ×2 (10:45→19:49)
[2024-03-21] MEDS: TYLENOL 500 MG PO (11:23)
--- NOTE | 2024-03-21 11:29 | CM ---
CM following re: discharge planning.
Discussed in rounds, reviewed pt's chart, met with pt.
Pt is a 63 year old female, admitted with primary dx of Septic shock due to acute cholangitis.
Pt reports she lives with and a daughter in a 2SH, 3 steps to enter, has 3 supportive children. Pt reports she ambulates with a cane mostly, occasionally uses a walker, [facility] and [facility] at [facility] last year. Pt expressed her desire
to return ack at discharge stating that this admission is not as bad as last time.
PCP: Joey Guerrier
Pharmacy: [facility]
D/C plan: home with anticipated no needs vs [facility] if recommended.
CM will follow with discharge plan updates as hospitalization progresses
--- NOTE | 2024-03-21 12:22 | W.PN.CARDCBS ---
Today's Communication / Plan
-
Start Lasix 40 mg IV daily. Continue to follow creatinine.
Wean off Levophed if possible.
Continue amiodarone as she remains in rate controlled atrial tachycardia.
Hold Coumadin today. INR goal 2.5-3.5.
Continue broad-spectrum antibiotics. Clinically she is improving
Impression / Plan
-
Primary Cmm Inspector: Dr. Brooks
PCP: Dr. Joey Guerrier
Impression:
-Acute cholangitis 03/20/24s/p ERCP
-Lactic acidosis
-Hypotension
-Septic shock
-Elevated LFTs
-h/o Torsades with Sevoflurane during surgery 01/30/18
-Persistent atrial arrhythmia
-Paroxysmal atrial fibrillation/atypical atrial flutter/atrial tachycardia
s/p atrial flutter ablation 11/2019
s/p PVI and atrial flutter ablation 07/08/22
previously refractory to sotalol and Tikosyn, currently on amiodarone
s/p KAMRAN/CV 12/04/23
-[place] Mechanical AVR 06/2020
-s/p AVR with 21mm [place] Mechanical Valve, Closure of Perimembranous VSD with Bovine pericardial patch, Left Modified Maze procedure with Atricure device 07/16/20
-Chronic warfarin OAC managed by [facility]
-Chronic HFpEF
-h/o SBO 08/02/2023 with ex lap for extensive lysis of adhesions (>90 min), small bowel resection with primary anastomosis, ventral incisional hernia repair with mesh 08/03/23
Reoperation for pelvic hematoma and anastomotic leak 08/12/23
-History of diverticulitis with perforated diverticulum, peritonitis and sepsis, s/p ex lap with transverse colostomy, complicated by torsades felt to be due to sevoflurane 01/30/18
-s/p takedown transverse loop colostomy, laparotomy, REMEDIOS, sigmoidectomy, primary sutured repair parastomal hernia 8/10/18
-History of recurrent SBOs
-HTN
-HLD
-Rheumatoid arthritis/fibromyalgia/chronic pain
-Chronic back pain, epidural injections and daily narcotic use
-B/L venous insufficiency
Echo 06/16/20: EF 55%, normal regional wall motion, perimembranous VSD with left to right shunt, mod MR, severely dilated LA, bicuspid AV with severe peak/mean 131/76 and JOSE 0.5 cm sq, mild AI, severe TR with PASP 61 mmHg
Echo 10/26/20: EF 59%, mild to mod MR, s/p [place] [facility] mechanical AVR peak/mean 19/10 mmHg with trace paravalvular AI, mild TR with PASP 39 mmHg
Echo 12/04/22: EF 55 to 60%, mild concentric LVH, well-seated [place] mechanical aortic valve prosthesis with peak/mean gradients 23/11 mmHg, trace AR, mild TR, PAP 35 to 40 mmHg
Echo 01/09/24: EF 64%, mild conc LVH, normal RV size and function, mild MR, [place] [facility] mechanical AVR with peak/mean 14/7 mmHg
Plan:
Overall feeling much better after ERCP. Her abdominal pains are improved.
Her weight is up 10+ pounds. Will start Lasix 40 mg IV now and daily. Creatinine is at 1.2. He is to follow.
Blood pressure remains marginal. Would continue Levophed and hopefully wean off today.
Continue broad-spectrum antibiotics
LFTs are abnormal. This is likely from her cholangitis and obstruction. Okay to continue p.o. amiodarone low-dose for now. Continue to follow liver function testing.
INR is at 3.6. Okay to hold Coumadin for today. Continue to follow INR.
Critical care time 31-minute
Progress Note - Cmm Inspector
Subjective
Date of Service: March 21, 2024
Feeling better today and abdominal pains have improved. She denies any shortness of breath but weight has gone up
Objective
Labs:
03/21/24 04:01
03/21/24 04:01
Labs
Hgb 11.9 g/dL (12.0-16.0) L 03/21/24 04:01
Hct 35.2 % (37.0-47.0) L 03/21/24 04:01
Plt Count 208 10^3/uL (130-400) D 03/21/24 04:01
PT 34.7 Sec (11.4-14.6) H 03/21/24 04:01
INR 3.45 03/21/24 04:01
APTT 39.9 Sec (23.4-35.0) H 03/20/24 17:23
Sodium 138 mmol/L (135-145) 03/21/24 04:01
Potassium 4.3 mmol/L (3.5-5.1) 03/21/24 04:01
BUN 24 mg/dl (7-17) H 03/21/24 04:01
Creatinine 1.2 mg/dL (0.6-1.0) H 03/21/24 04:01
Glucose 174 mg/dl (70-99) H 03/21/24 04:01
Vital Signs and I&O:
Vital Signs
Temp Pulse Resp BP Pulse Ox
97.8 F 69 10 104/52 94
03/21/24 11:50 03/21/24 11:45 03/21/24 11:45 03/21/24 08:16 03/21/24 11:45
Vital Signs
Temp Pulse Resp BP Pulse Ox
97.8 F 69 10 104/52 94
03/21/24 11:50 03/21/24 11:45 03/21/24 11:45 03/21/24 08:16 03/21/24 11:45
Intake & Output
03/19/24 03/20/24 03/21/24 03/22/24
06:59 06:59 06:59 06:59
Intake Total 3583.5 / 3763.5 1263.1 / 1263.1
Output Total 800 / 800 75 / 75
Balance 2783.5 / 2963.5 1188.1 / 1188.1
Physical Exam
Physical Exam
GEN: No distress, awake, Ox3
HEENT: supple, anicteric, mmm
LUNGS: dec Bs at bases
CV: Irreg, S1/S2, /6 syst LSB, no gallop, +click
ABD: soft, BS+, NT/ND
EXT: trace edema
NEURO: Gross non-focal
SKIN: No rash
[2024-03-21] MEDS: LASIX 40 MG IV (13:55)
[2024-03-21 14:49] LABS: Glucose - Point of Care 113 mg/dl (70-99)
--- NOTE | 2024-03-21 15:58 | PTCARENOTE ---
cont to c/o headache, wants to hold off on oxy dose at this time. glucose checked, 113. taking some clear liquids without difficulty. Dr Schneider here, updated.
[2024-03-21] MEDS: ROXICODONE PO ×2 (16:20→22:09)
[2024-03-21] MEDS: DESENEX/MITRAZOL/ZEASORB 1 APPLIC TOPICAL (16:33)
[2024-03-21] MEDS: DILAUDID 0.5 MG IV ×3 (16:39→22:57)
--- NOTE | 2024-03-21 19:28 | PTCARENOTE ---
pt received from previous rn- aox3, on room air, afib on monitor. levophed weaned to 2mcgs for map>65. ivf continue. right radial lily zeroed and functioning. pt encouraged frequent turning and repositioning- verbalized understanding and able to
shift weight. educated about plan of care and pain management- verbalized understanding. all safety precautions in place, call marx within reach.
[2024-03-21] MEDS: DESYREL PO (22:09)
[2024-03-21] MEDS: DESYREL 200 MG PO (22:51)
--- NOTE | 2024-03-21 23:37 | PTCARENOTE ---
levophed weaned off. diluadid prn given for pain as ordered. pt resting comfortably at this time. assessment unchanged.
[2024-03-22] VITALS (16 sets, daily range): BP systolic 93–165; BP diastolic 65–92; PULSE 82–83; BMI 37.3
[2024-03-22] MEDS: NSS 1000 IV (04:14)
[2024-03-22] MEDS: DILAUDID 0.5 MG IV ×5 (04:15→20:11)
[2024-03-22] MEDS: DESENEX/MITRAZOL/ZEASORB 1 APPLIC TOPICAL (04:50)
--- NOTE | 2024-03-22 04:59 | PTCARENOTE ---
am care provided, new purewick in place. desenex applied. pt able to turn and reposition self. levophed remains off. assessment unchanged.
[2024-03-22] MEDS: ZOSYN 100 IV ×4 (05:02→23:02)
[2024-03-22 05:12] LABS: Hematocrit 32.8 % (37.0-47.0); Hemoglobin 10.9 g/dL (12.0-16.0); Mean Corp Hgb Conc. 33.2 g/dL (33.0-37.0); Mean Corpuscular Volume 90.4 fL (81.0-99.0); Mean Platelet Volume 9.6 fL (7.4-10.4); Platelet Count 186 10^3/uL (130-400); Red Blood Cell Count 3.63 10^6/uL (4.20-5.40); Red Cell Dist. Width 17.5 % (11.5-14.5); White Blood Cell Count 6.1 10^3/uL (4.8-10.8)
[2024-03-22 05:24] LABS: PT 48.4 Sec (11.4-14.6)
[2024-03-22 05:33] LABS: INR 5.24
[2024-03-22 05:49] LABS: ALT (SGPT) 556 U/L (0-35); AST (SGOT) 244 U/L (14-36); Albumin 2.6 g/dl (3.5-5.0); Alkaline Phosphatase 188 U/L (38-126); Blood Urea Nitrogen 21 mg/dl (7-17); Calcium 6.8 mg/dl (8.4-10.2); Carbon Dioxide 22 mmol/L (22-30); Chloride 110 mmol/L (98-107); Estimated Creatinine Clearance 52 ml/min; Glucose 99 mg/dl (70-99); Potassium 4.2 mmol/L (3.5-5.1); Sodium 138 mmol/L (135-145); Total Bilirubin 3.9 mg/dl (0.2-1.3); Total Protein 5.4 g/dl (6.3-8.2); eGFR 56.81
[2024-03-22 06:02] LABS: PT 48.8 Sec (11.4-14.6)
[2024-03-22] MEDS: CALCIUM GLUCONATE 130 MG IV (06:14)
--- NOTE | 2024-03-22 06:22 | W.PN.HOSP.TC ---
Today's Communication/Plan
-
.
Assessment / Plan
Assessment / Plan
Physical Exam
General: No Apparent Distress, Pain (Abdominal) and Obese
HEENT: Moist mucous membranes and Atraumatic
Respiratory: Clear
Cardiac: S1/S2, Regular Rhythm and Other (Mechanical click)
GI: Soft and Tender (Upper part)
Rectal: No Maroon Stools
Genito-urinary: Clear Urine
Musculoskeletal: No Clubbing, No Cyanosis and No Edema
Skin: Warm and Jaundice
Neuro: AO x 3; No Slurred Speech, Facial Droop or Tremors
Psych: Calm and Intact Judgment/Insight
63 years old female presented with abdominal pain
# Hypercoagulopathy secondary to Coumadin. Suspect secondary to sepsis/antibiotic use
INR around 5. Will give small dose of IV vitamin K
#Hypocalcemia, replace
#Sepsis/septic shock due to acute cholangitis
s/p ERCP with stent placement. LFTs coming down, less abdominal pain. Abdomen is soft.
Status post Levophed support
c/w IV ABs, on IV Zosyn #3
Can advance diet.
c/w pain control , IV Dilaudid, oral oxy TID
IV Protonix
IV antiemetic medications.
Blood culture X2 done , no growth
Appreciate GI & ICU doctors help
# Lactic acidosis due to sepsis. Came down.
# History of rheumatoid arthritis/fibromyalgia/chronic pain syndrome with opioid dependence
Continue with opioid to avoid withdrawal
# History of paroxysmal atrial fibrillation/atypical atrial flutter/atrial tachycardia status post ablation 2021 and 2019 currently on amiodarone.
Fully anticoagulated with Coumadin. INR on admission 2.2
INR today 5 , hold Coumadin
Monitored on telemetry. No chest pain
# RAMÓN due to sepsis
c/w IVF
#Status post aortic valve replacement
Monitor on Telemetry
#Acute on Chronic heart failure with a preserved ejection fraction
Resuming Lasix. She received IVF for septic shock. Daily weight.
#Primary hypertension, holding BP meds including Clonidine
#Hyperlipidemia, no changes intended.
#History of recurrent small bowel obstruction and bowel surgeries
#Mild to moderate mitral regurgitation/mild tricuspid regurgitation with mild to moderate pulmonary hypertension
#Hepatic steatosis/GERD/irritable bowel syndrome
# Obesity, BMI 34
# History of uterine fibroids.
Total time spent to see the patient, examine the patient on the floor, review data and lab results, discuss treatment plan with patient, nursing staff around 55 minutes
Anticipated Discharge: > 48 hours
Subjective/Interval History
-
Date of Service: March 22, 2024
Off Levophed
No fevers
No vomiting
Asked for Dilaudid
Objective Data
-
Labs:
Laboratory Results
03/22/24 03/22/24
04:50 05:41
WBC 6.1
Hgb 10.9 L
Hct 32.8 L
Plt Count 186
PT 48.4 H 48.8 H
INR 5.24 H* 5.30 H*
Sodium 138
Potassium 4.2
Chloride 110 H
Carbon Dioxide 22
BUN 21 H
Creatinine 1.1 H
Glucose 99
Calcium 6.8 L*
Total Bilirubin 3.9 H
AST 244 H
ALT 556 H*
Alkaline Phosphatase 188 H
Vital Signs:
Vital Signs
Temp Pulse Resp BP Pulse Ox
98.2 F 77 12 121/63 94
03/22/24 03:25 03/22/24 06:00 03/22/24 06:00 03/21/24 13:55 03/22/24 06:00
I&O
03/20/24 03/21/24 03/22/24
06:59 06:59 06:59
Intake Total 3583.5 / 3763.5 3492.4 / 3492.4
Output Total 800 / 800 875 / 875
Balance 2783.5 / 2963.5 2617.4 / 2617.4
--- NOTE | 2024-03-22 07:42 | W.PN.GI.CBS2 ---
Today's Communication / Plan
-
See assessment and plan for details.
Assessment / Plan
-
1. Cholangitis: With CBD stone, status post ERCP with stent placement draining pus, overall much improved. LFTs and leukocytosis much improved. Blood cultures negative so far, await final culture, continue to biotics and supportive care. This is
a tough clinical scenario given her need for chronic anticoagulation with mechanical AVR, may consider keeping here in the hospital until INR is down with heparin bridge for definitive ERCP with sphincterotomy and stone/stent removal. Will discuss
with cardiology.
Subjective
Subjective
Date of Service: March 22, 2024
Patient feeling much better overall, did have some vomiting yesterday, though much less pain, no fever, chills, better hemodynamics. Blood cultures negative so far.
Objective
Data Reviewed
Laboratory Data:
Laboratory Results
03/22/24 04:50
03/22/24 04:50
Laboratory Results
PT 48.8 Sec (11.4-14.6) H 03/22/24 05:41
INR 5.30 H* 03/22/24 05:41
APTT 39.9 Sec (23.4-35.0) H 03/20/24 17:23
Phosphorus 4.6 mg/dl (2.5-4.5) H 03/21/24 04:01
Magnesium 1.9 mg/dl (1.6-2.3) 03/21/24 04:01
Total Bilirubin 3.9 mg/dl (0.2-1.3) H 03/22/24 04:50
AST 244 U/L (14-36) H 03/22/24 04:50
ALT 556 U/L (0-35) H* 03/22/24 04:50
Alkaline Phosphatase 188 U/L (38-126) H 03/22/24 04:50
Lipase 125 U/L (23-300) 03/20/24 03:44
Vital Signs and I&O:
Vital Signs
Temp Pulse Resp BP Pulse Ox
97.9 F 77 12 121/63 94
03/22/24 07:30 03/22/24 06:00 03/22/24 06:00 03/21/24 13:55 03/22/24 06:00
I&O
03/21/24 03/22/24 03/23/24
06:59 06:59 06:59
Intake Total 3583.5 / 3763.5 3492.4 / 3492.4
Output Total 800 / 800 875 / 875
Balance 2783.5 / 2963.5 2617.4 / 2617.4
Physical Exam
Physical Exam
General: NAD
Abdomen: normal bowel sounds, soft, mild epigastric tenderness, no masses or bruits, no ascites
--- NOTE | 2024-03-22 08:26 | W.PN.CARDCBS ---
Today's Communication / Plan
-
Continue IV Lasix and diuresis
Continue amiodarone for atypical A-flutter
Hold Coumadin
LFTs are slowly improving.
For eventual repeat ERCP
Impression / Plan
-
Primary Photo Technician: Dr. Brooks
PCP: Dr. Joey Guerrier
Impression:
-Acute cholangitis 03/20/24s/p ERCP
-Lactic acidosis
-Hypotension
-Septic shock
-Elevated LFTs
-h/o Torsades with Sevoflurane during surgery 01/30/18
-Persistent atrial arrhythmia
-Paroxysmal atrial fibrillation/atypical atrial flutter/atrial tachycardia
s/p atrial flutter ablation 11/2019
s/p PVI and atrial flutter ablation 07/08/22
previously refractory to sotalol and Tikosyn, currently on amiodarone
s/p KAMRAN/CV 12/04/23
-[place] Mechanical AVR 06/2020
-s/p AVR with 21mm [facility] Mechanical Valve, Closure of Perimembranous VSD with Bovine pericardial patch, Left Modified Maze procedure with Atricure device 07/16/20
-Chronic warfarin OAC managed by [facility]
-Chronic HFpEF
-h/o SBO 08/02/2023 with ex lap for extensive lysis of adhesions (>90 min), small bowel resection with primary anastomosis, ventral incisional hernia repair with mesh 08/03/23
Reoperation for pelvic hematoma and anastomotic leak 08/12/23
-History of diverticulitis with perforated diverticulum, peritonitis and sepsis, s/p ex lap with transverse colostomy, complicated by torsades felt to be due to sevoflurane 01/30/18
-s/p takedown transverse loop colostomy, laparotomy, REMEDIOS, sigmoidectomy, primary sutured repair parastomal hernia 05/31/18
-History of recurrent SBOs
-HTN
-HLD
-Rheumatoid arthritis/fibromyalgia/chronic pain
-Chronic back pain, epidural injections and daily narcotic use
-B/L venous insufficiency
Echo 06/16/20: EF 55%, normal regional wall motion, perimembranous VSD with left to right shunt, mod MR, severely dilated LA, bicuspid AV with severe peak/mean 131/76 and JOSE 0.5 cm sq, mild AI, severe TR with PASP 61 mmHg
Echo 10/26/20: EF 59%, mild to mod MR, s/p [place] mechanical AVR peak/mean 19/10 mmHg with trace paravalvular AI, mild TR with PASP 39 mmHg
Echo 12/04/22: EF 55 to 60%, mild concentric LVH, well-seated [place] mechanical aortic valve prosthesis with peak/mean gradients 23/11 mmHg, trace AR, mild TR, PAP 35 to 40 mmHg
Echo 01/09/24: EF 64%, mild conc LVH, normal RV size and function, mild MR, [place] mechanical AVR with peak/mean 14/7 mmHg
Plan:
Overall feeling much better after ERCP. Her abdominal pains are improved.
Would stop IV fluids and continue Lasix 40 mg IV daily as weight is still elevated from admission.
Now off Levophed
Continue broad-spectrum antibiotics
LFTs are abnormal. This is likely from her cholangitis and obstruction. Okay to continue p.o. amiodarone low-dose for now. Liver function testing is slowly improving
She remains in a rate controlled atypical atrial flutter.
INR is elevated at 5.3. Will continue to hold Coumadin.
Discussed case with gastroenterology and they plan for repeat ERCP and stent when INR improved.
CC time 33 min
Progress Note - Photo Technician
Subjective
Date of Service: March 22, 2024
Abdominal pain is improved. Her weight is about the same. She denies chest pains. No bleeding
Objective
Labs:
03/22/24 04:50
03/22/24 04:50
Labs
Hgb 10.9 g/dL (12.0-16.0) L 03/22/24 04:50
Hct 32.8 % (37.0-47.0) L 03/22/24 04:50
Plt Count 186 10^3/uL (130-400) 03/22/24 04:50
PT 48.8 Sec (11.4-14.6) H 03/22/24 05:41
INR 5.30 H* 03/22/24 05:41
APTT 39.9 Sec (23.4-35.0) H 03/20/24 17:23
Sodium 138 mmol/L (135-145) 03/22/24 04:50
Potassium 4.2 mmol/L (3.5-5.1) 03/22/24 04:50
BUN 21 mg/dl (7-17) H 03/22/24 04:50
Creatinine 1.1 mg/dL (0.6-1.0) H 03/22/24 04:50
Glucose 99 mg/dl (70-99) 03/22/24 04:50
Vital Signs and I&O:
Vital Signs
Temp Pulse Resp BP Pulse Ox
97.9 F 77 12 94
03/22/24 07:30 03/22/24 06:00 03/22/24 06:00 03/21/24 13:55 03/22/24 06:00
Vital Signs
Temp Pulse Resp BP Pulse Ox
97.9 F 77 12 94
03/22/24 07:30 03/22/24 06:00 03/22/24 06:00 03/21/24 13:55 03/22/24 06:00
Intake & Output
03/20/24 03/21/24 03/22/24 03/23/24
06:59 06:59 06:59 06:59
Intake Total 3583.5 / 3763.5 3492.4 / 3492.4
Output Total 800 / 800 875 / 875
Balance 2783.5 / 2963.5 2617.4 / 2617.4
Physical Exam
Physical Exam
GEN: No distress, awake, Ox3
HEENT: supple, anicteric, mmm
LUNGS: scatt rhonchi
CV: Reg, S1/S2, / syst LSB, + click
ABD: soft, BS+, + tend
EXT: No edema
NEURO: Gross non-focal
SKIN: No rash
[2024-03-22] MEDS: AQUAMEPHYTON 50.5 MG IV (08:44)
--- NOTE | 2024-03-22 08:47 | W.PN.INTV ---
Today's Communication / Plan
Recommendations
Discontinue IV fluids
Continue antibiotics
Physical therapy/Occupational Therapy
Incentive spirometer
Transfer to telemetry
Sign off
Assessment
-
Assessment: 63-year-old female non-smoker with a past medical history of perforated bowel (2017) requiring an ostomy with subsequent ostomy reversal, hernia repair, mechanical aortic valve replacement ([facility]) on Coumadin, history of persistent
A-fib/flutter s/p KAMRAN with DCCV (12/04/2023), mild pulmonary hypertension and history of cholelithiasis who presents with abdominal pain, nausea and vomiting. She stated in triage ER that she has a history of small bowel obstruction and this feels
similar to that. Abdominal ultrasound showed mild biliary dilatation with CBD measuring 8.6 mm in diameter (previously was 5.2 mm in July 2011), with evidence of prior cholecystectomy. CT A/P with IV contrast shows acute cholangitis with
thickening and hyperenhancement of the bile ducts, with a 4.4 mm intraluminal filling defect in the CBD suggesting choledocholithiasis. In the ER patient had a low-grade fever to 99.1 �F, BP 146/81, saturating 96% on room air and breathing at 18
breaths/min with a heart rate of 97. Patient given pain medications with Dilaudid in the ER, started on IV fluids and given 2L of NS 0.9% and given cefotetan. Unfortunately patient's BP remained low with SBP in the mid 70-80s requiring Levophed.
Patient admitted to the ICU for further care, and critical care services now consulted for additional management/recommendations.
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) with VSD closure with bovine pericardium, MAZE with b/l PVI (06/2020), mild pulmonary hypertension
(PASP: 30 mmHg � per TTE from 01/09/2024), osteoarthritis, history of diverticulitis, cholelithiasis, depression/anxiety, hyperlipidemia, IBS, GERD, essential hypertension, chronic HFpEF, fibromyalgia, RA, history of VF/torsades arrest (01/2018)
during hospital stay for perforated diverticulum/peritonitis, chronic opioid use due to chronic pain syndrome,
Impression:
#Septic shock due to acute cholangitis - likely due to biliary outlet obstruction from prior biliary sphincterotomy which was not overly patent on ERCP; other DDx includes choledocholithiasis (no cholangiogram done today)
#Acute respiratory failure with hypoxia - she does have some linear scarring seen on the bases of her lungs on CT A/P from earlier today
#Transaminitis with hyperbilirubinemia due to above
#Lactic acidosis
#History of cholecystectomy
#Chronic anticoagulation use with Coumadin for permanent A-fib/flutter and mechanical prostheses
#Chronic HFpEF
#Essential hypertension
#History of atrial fibrillation/flutter s/p KAMRAN with DCCV (12/04/2023)
#Mechanical AVR/maze procedure/VSD repair 2019
#History of multiple abdominal surgeries including ex-lap with washout & transverse loop colostomy (01/2018 --> reversed in 05/2018)) + ex-lap with REMEDIOS, small bowel resection & ventral incisional hernia repair (07/2022)
Plan:
From the critical care perspective patient has improved.
Levophed has been discontinued
Fever has resolved
Leukocytosis improved
LFTs improving
Kidney function improving
Abdominal pain improving
-
Continue broad-spectrum antibiotics (Zosyn)
-Cultures so far negative.
-Lactic acid has cleared.
-
Acute kidney injury improving.
Discontinue IV fluids
Encourage oral intake-patient on clear liquid diet.
Follow creatinine.
-
GI following patient--> performed ERCP tonight and decompressed biliary tree with stent placement into CBD. Cholangiogram not performed as injection of contrast would worsen intraductal pressure and worsen her sepsis due to translocation of
bacteria.
GI correspondence reviewed.
Continue with clears, advance as tolerated.
Continue antiemetics
Eventual ERCP, anticoagulation has to be coordinated.
Trend LFTs-improving
Maintain euglycemia with goal BG 140-180
Insulin as needed
Oxygen supplementation has been weaned off.
Incentive spirometer
-
Restart outpatient medications if able to tolerate
Diet: Clears
Physical therapy/Occupational Therapy, increase activity as able per
DVT ppx: Resume her coumadin once INR is under 3.
No additional recommendation from the critical care perspective. Will transfer to telemetry.
Critical care team will sign off, please call with question

Data:
CT Abd/Pelvis with IV Contrast 03-20-2024:
1. ACUTE CHOLANGITIS with thickening and hyperenhancement of the bile ducts which is new from 02/17/2023.
2. 4.4 mm intraluminal filling defect in the common bile duct suggesting CHOLEDOCHOLITHIASIS. Bile duct cancer is considered less likely.
3. Mild upper abdominal lymphadenopathy which has increased since 02/17/2023 (most likely reactive and less likely malignant in etiology).
4. Previous cholecystectomy.
5. Mild hepatomegaly.
6. Interval anterior abdominal wall hernia repair.
7. Previous small bowel resection and sigmoidectomy.
8. 1.1 cm intraluminal lesion in the posterior gastric fundus (possibly a gastric polyp or vascular malformation).
9. Mild cardiomegaly with evidence for previous aortic valve replacement.
10. Severe discogenic degenerative disease in the lumbar spine.
Abd 03-20-2024:
1. Mild biliary dilatation which is new from 07/25/2011.
2. Previous cholecystectomy.
3. Mild diffuse hepatic steatosis.
TTE 01-09-2024:
Normal left ventricular size and systolic function.
LV ejection fraction is 64% by Romero's biplane method of discs.
Mild concentric left ventricular hypertrophy.
Normal right ventricular size and function.
Mild mitral regurgitation.
Quoc mechanical aortic valve prosthesis with peak/mean gradients across the
aortic valve of 14/7 mmHg respectively.
Dimensionless index of 0.4.
Mild tricuspid regurgitation.
Estimated pulmonary artery pressure of 30 mmHg assuming a right atrial pressure
of 3 mmHg.
Trace pulmonic regurgitation.
The IVC is of normal size and demonstrates normal respiratory variation.
No significant change compared to 12/2022 echocardiogram
Subjective Dataa
Subjective Data
Date of Service:
Date of Service: March 22, 2024
Chief Complaint: Site Monitor Follow Up (Septic shock/biliary source)
Subjective:
Patient feels better
Denies nausea or vomiting overnight
Abdominal pain improved
Denies chills
Review of Systems
Cardiopulmonary: Dyspnea (n) and Dyspnea on Exertion (n)
GI: Abdominal Pain (improved), Nausea (n) and Vomiting (n)
Neuro: Headache (n)
Objective Data
Data Reviewed
Vital Signs / I&O / Oxygen:
Vital Signs
Temp Pulse Resp BP Pulse Ox
97.9 F 77 12 121/63 94
03/22/24 07:30 03/22/24 06:00 03/22/24 06:00 03/21/24 13:55 03/22/24 06:00
Intake and Output
03/21/24 03/22/24 03/23/24
06:59 06:59 06:59
Intake Total 3583.5 / 3763.5 3492.4 / 3492.4
Output Total 800 / 800 875 / 875
Balance 2783.5 / 2963.5 2617.4 / 2617.4
SaO2 94
Nasal Cannula flow liters per 2
minute
Physical Exam
General: Respiratory Distress (n) and Comfortable
HEENT: Normocephalic
Cardiovascular: S1-S2 and Regular Rhythm
Respiratory: Clear and Non-Labored Respirations
GI: Soft and Non Distended
Neurology: Awake, Alert, Oriented, AO x 3 and No Motor Deficits
Skin: Warm
Labs/Micro/Reports
Lab Data
03/22/24 04:50
03/22/24 04:50
Laboratory Results
03/22/24 03/22/24
04:50 05:41
PT 48.4 H 48.8 H
INR 5.24 H* 5.30 H*
Microbiology
03/20/24 18:57 Urine Urine Culture - Final
NO GROWTH
03/20/24 12:11 Blood/Venous Blood Culture - Preliminary
No Growth in 24 hours- Final report to follow
03/20/24 12:11 Blood/Venous Blood Culture - Preliminary
No Growth in 24 hours- Final report to follow
[2024-03-22] MEDS: PACERONE 200 MG PO (09:30)
[2024-03-22] MEDS: NSS (PRESERVATIVE FREE) 10 ML IV (09:30)
[2024-03-22] MEDS: ROXICODONE 20 MG PO ×2 (09:30→18:54)
[2024-03-22] MEDS: CELEXA 40 MG PO (09:30)
[2024-03-22] MEDS: LASIX 40 MG IV (09:30)
[2024-03-22] MEDS: PROTONIX IV 40 MG IV (09:31)
[2024-03-22] MEDS: ZOFRAN 4 MG IV (09:39)
--- NOTE | 2024-03-22 10:27 | PTCARENOTE ---
Received pt awake and alert.Speech is appropriate.+4-5/5 [place].c/o 'all over' head ache and chronic joint pain 04/30.Requested and received Dilaudid with good relief. Independently repositioning self in bed.A Fib noted.Right A line discontinued as
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
for transfer to tele as per MD order.
--- NOTE | 2024-03-22 11:19 | PTCARENOTE ---
Pt c/o right arm discomfort with edema.Right forearm is edematous +2.No drainage or ecchymosis noted from right radial A Line.Brisk capillary refill right fingers/hand,+ palpable radial pulse.Dr Jacobs made aware.Ice packs applied to right arm as
ordered.Right arm elevated as ordered.
[2024-03-22] MEDS: TYLENOL 500 MG PO (12:35)
--- NOTE | 2024-03-22 12:46 | PTCARENOTE ---
Pt c/o headache and joint pain 04/30.Requested and received Dilaudid and Tylenol for pain.
--- NOTE | 2024-03-22 15:58 | PTCARENOTE ---
Pt assessed.No change in assessment noted.Right forearm slightly ecchymotic and edematous.Tender to touch.Pt assiste OOB to chair with PT/OT.
[2024-03-22] MEDS: ROXICODONE PO (16:27)
[2024-03-22] MEDS: DESYREL 200 MG PO (20:09)
[2024-03-23] VITALS (20 sets, daily range): BP systolic 102–160; BP diastolic 65–87; BMI 36.8
[2024-03-23 03:57] LABS: Hematocrit 31.5 % (37.0-47.0); Hemoglobin 10.5 g/dL (12.0-16.0); Mean Corp Hgb Conc. 33.3 g/dL (33.0-37.0); Mean Corpuscular Hgb 30.5 pg (27.0-31.0); Mean Corpuscular Volume 91.6 fL (81.0-99.0); Platelet Count 183 10^3/uL (130-400); Red Blood Cell Count 3.44 10^6/uL (4.20-5.40); Red Cell Dist. Width 17.2 % (11.5-14.5); White Blood Cell Count 7.6 10^3/uL (4.8-10.8)
[2024-03-23] MEDS: DILAUDID 0.5 MG IV ×6 (03:57→21:26)
[2024-03-23 04:11] LABS: INR 1.66; PT 19.4 Sec (11.4-14.6)
[2024-03-23 04:41] LABS: ALT (SGPT) 412 U/L (0-35); AST (SGOT) 120 U/L (14-36); Albumin 2.8 g/dl (3.5-5.0); Alkaline Phosphatase 212 U/L (38-126); Blood Urea Nitrogen 24 mg/dl (7-17); Calcium 8.6 mg/dl (8.4-10.2); Carbon Dioxide 26 mmol/L (22-30); Chloride 105 mmol/L (98-107); Estimated Creatinine Clearance 48 ml/min; Glucose 93 mg/dl (70-99); Potassium 4.4 mmol/L (3.5-5.1); Sodium 137 mmol/L (135-145); Total Bilirubin 3.3 mg/dl (0.2-1.3); Total Protein 5.6 g/dl (6.3-8.2); eGFR 51.18
[2024-03-23] MEDS: ZOSYN 100 IV ×3 (05:08→17:41)
[2024-03-23] MEDS: DESENEX/MITRAZOL/ZEASORB 1 APPLIC TOPICAL (05:11)
--- NOTE | 2024-03-23 06:46 | W.PN.HOSP.TC ---
Today's Communication/Plan
-
.
Assessment / Plan
Assessment / Plan
Physical Exam
General: No Apparent Distress, Pain (Abdominal) and Obese
HEENT: Moist mucous membranes and Atraumatic
Respiratory: Clear
Cardiac: S1/S2, Regular Rhythm and Other (Mechanical click)
GI: Soft and Tender (Upper part)
Rectal: No Maroon Stools
Genito-urinary: Clear Urine
Musculoskeletal: No Clubbing, No Cyanosis and No Edema
Skin: Warm and Jaundice
Neuro: AO x 3; No Slurred Speech, Facial Droop or Tremors
Psych: Calm and Intact Judgment/Insight
63 years old female presented with abdominal pain
# Hypercoagulopathy secondary to Coumadin. Suspect secondary to sepsis/antibiotic use
INR around 5. Will give small dose of IV vitamin K
#Hypocalcemia, replace
#Sepsis/septic shock due to acute cholangitis
s/p ERCP with stent placement to drain the infected fluid. LFTs coming down, less abdominal pain. Abdomen is soft. Plan to repeat ERCP for definitive ERCP with sphincterotomy and stone/stent removal.
Status post Levophed support
c/w IV ABs, on IV Zosyn #4
On Low fat diet now
c/w pain control , IV Dilaudid, oral oxy TID
IV Protonix
IV antiemetic medications.
Blood culture X2 done , no growth
Appreciate GI & ICU doctors help
# Lactic acidosis due to sepsis. Came down.
# History of rheumatoid arthritis/fibromyalgia/chronic pain syndrome with opioid dependence
Continue with opioid to avoid withdrawal
# History of paroxysmal atrial fibrillation/atypical atrial flutter/atrial tachycardia status post ablation 2021 and 2019 currently on amiodarone.
She was fully anticoagulated with Coumadin. INR on admission 2.2
INR 1.6 post 1 mg of IV Vitamin K. Plan to start heparin gtt to bridge while performing repeat ERCP.
Monitored on telemetry. No chest pain
Appreciate cardiology input
# RAMÓN/ mild due to sepsis, resolving.
Suspect underlying CKD stage II according to GFR
s/p IVF
#Status post aortic valve replacement
Monitor on Telemetry
#Acute on Chronic heart failure with a preserved ejection fraction
Resuming Lasix. She received IVF for septic shock. Daily weight.
#Primary hypertension, resuming BP meds including Lasix, BB
#Hyperlipidemia, no changes intended.
#History of recurrent small bowel obstruction and bowel surgeries
#Mild to moderate mitral regurgitation/mild tricuspid regurgitation with mild to moderate pulmonary hypertension
#Hepatic steatosis/GERD/irritable bowel syndrome
# Obesity, BMI 36
# History of uterine fibroids.
Total time spent to see the patient, examine the patient on the floor, review data and lab results, discuss treatment plan with patient, consultants, nursing staff around 57 minutes
Anticipated Discharge: 24 - 48 hours
Subjective/Interval History
-
Date of Service: March 23, 2024
She reports less abd pain but still asks for IV Dilaudid
Objective Data
-
Labs:
Laboratory Results
03/23/24
03:52
WBC 7.6
Hgb 10.5 L
Hct 31.5 L
Plt Count 183
PT 19.4 H
INR 1.66 D
Sodium 137
Potassium 4.4
Chloride 105
Carbon Dioxide 26
BUN 24 H
Creatinine 1.2 H
Glucose 93
Calcium 8.6 D
Total Bilirubin 3.3 H
AST 120 H
ALT 412 H
Alkaline Phosphatase 212 H
Vital Signs:
Vital Signs
Temp Pulse Resp BP Pulse Ox
98.2 F 84 13 138/78 93
03/23/24 03:22 03/23/24 04:00 03/23/24 04:00 03/23/24 04:00 03/23/24 04:00
I&O
03/21/24 03/22/24 03/23/24
06:59 06:59 06:59
Intake Total 3583.5 / 3763.5 3492.4 / 3592.4 1120 / 1120
Output Total 800 / 800 875 / 875 2700 / 2700
Balance 2783.5 / 2963.5 2617.4 / 2717.4 -1580 / -1580
--- NOTE | 2024-03-23 07:48 | W.PN.CARDCBS ---
Today's Communication / Plan
-
Start IV heparin. INR at 1.8.
Continue IV Lasix and diuresis.
Continue amiodarone and Toprol. Eventually restart Eliquis after ERCP.
LFTs continue to improve.
Impression / Plan
-
Primary Adjuster Arbitrator: Dr. Brooks
PCP: Dr. Joey Guerrier
Impression:
-Acute cholangitis 03/20/24s/p ERCP
-Lactic acidosis
-Hypotension
-Septic shock
-Elevated LFTs
-h/o Torsades with Sevoflurane during surgery 01/30/18
-Persistent atrial arrhythmia
-Paroxysmal atrial fibrillation/atypical atrial flutter/atrial tachycardia
s/p atrial flutter ablation 11/2019
s/p PVI and atrial flutter ablation 07/08/22
previously refractory to sotalol and Tikosyn, currently on amiodarone
s/p KAMRAN/CV 12/04/23
-[place] [facility] Mechanical AVR 06/2020
-s/p AVR with 21mm [facility] [place] Mechanical Valve, Closure of Perimembranous VSD with Bovine pericardial patch, Left Modified Maze procedure with Atricure device 07/16/20
-Chronic warfarin OAC managed by [facility]
-Chronic HFpEF
-h/o SBO 08/02/2023 with ex lap for extensive lysis of adhesions (>90 min), small bowel resection with primary anastomosis, ventral incisional hernia repair with mesh 08/03/23
Reoperation for pelvic hematoma and anastomotic leak 08/12/23
-History of diverticulitis with perforated diverticulum, peritonitis and sepsis, s/p ex lap with transverse colostomy, complicated by torsades felt to be due to sevoflurane 01/30/18
-s/p takedown transverse loop colostomy, laparotomy, REMEDIOS, sigmoidectomy, primary sutured repair parastomal hernia 05/31/18
-History of recurrent SBOs
-HTN
-HLD
-Rheumatoid arthritis/fibromyalgia/chronic pain
-Chronic back pain, epidural injections and daily narcotic use
-B/L venous insufficiency
Echo 06/16/20: EF 55%, normal regional wall motion, perimembranous VSD with left to right shunt, mod MR, severely dilated LA, bicuspid AV with severe peak/mean 131/76 and JOSE 0.5 cm sq, mild AI, severe TR with PASP 61 mmHg
Echo 10/26/20: EF 59%, mild to mod MR, s/p [place] mechanical AVR peak/mean 19/10 mmHg with trace paravalvular AI, mild TR with PASP 39 mmHg
Echo 12/04/22: EF 55 to 60%, mild concentric LVH, well-seated [place] mechanical aortic valve prosthesis with peak/mean gradients 23/11 mmHg, trace AR, mild TR, PAP 35 to 40 mmHg
Echo 01/09/24: EF 64%, mild conc LVH, normal RV size and function, mild MR, [place] mechanical AVR with peak/mean 14/7 mmHg
Plan:
Overall feeling much better after ERCP. Her abdominal pains are improved.
Continue Lasix 40 mg IV daily as weight is still elevated from admission. Creatinine stable at 1.2.
Continue pip-tazo.
LFTs are abnormal. This is likely from her cholangitis and obstruction. Okay to continue p.o. amiodarone low-dose for now. Liver function testing is slowly improving
She remains in a rate controlled atypical atrial flutter.
INR is much improved and now at 1.8. Will start IV heparin. Okay for ERCP in a.m.
Progress Note - Adjuster Arbitrator
Subjective
Date of Service: March 23, 2024
Abdominal pains are improved.
Objective
Labs:
03/23/24 03:52
03/23/24 03:52
Labs
Hgb 10.5 g/dL (12.0-16.0) L 03/23/24 03:52
Hct 31.5 % (37.0-47.0) L 03/23/24 03:52
Plt Count 183 10^3/uL (130-400) 03/23/24 03:52
PT 19.4 Sec (11.4-14.6) H 03/23/24 03:52
INR 1.66 D 03/23/24 03:52
APTT 39.9 Sec (23.4-35.0) H 03/20/24 17:23
Sodium 137 mmol/L (135-145) 03/23/24 03:52
Potassium 4.4 mmol/L (3.5-5.1) 03/23/24 03:52
BUN 24 mg/dl (7-17) H 03/23/24 03:52
Creatinine 1.2 mg/dL (0.6-1.0) H 03/23/24 03:52
Glucose 93 mg/dl (70-99) 03/23/24 03:52
Vital Signs and I&O:
Vital Signs
Temp Pulse Resp BP Pulse Ox
98 F 84 13 138/78 93
03/23/24 07:32 03/23/24 04:00 03/23/24 04:00 03/23/24 04:00 03/23/24 04:00
Vital Signs
Temp Pulse Resp BP Pulse Ox
98 F 84 13 138/78 93
03/23/24 07:32 03/23/24 04:00 03/23/24 04:00 03/23/24 04:00 03/23/24 04:00
Intake & Output
03/21/24 03/22/24 03/23/24 03/24/24
06:59 06:59 06:59 06:59
Intake Total 3583.5 / 3763.5 3492.4 / 3592.4 1120 / 1120
Output Total 800 / 800 875 / 875 2700 / 2700
Balance 2783.5 / 2963.5 2617.4 / 2717.4 -1580 / -1580
Physical Exam
Physical Exam
GEN: No distress, awake, Ox3
HEENT: supple, anicteric, mmm
LUNGS: CTA, no wheezes/rales
CV: Irreg, S1/S2, 1/6 syst LSB, no gallop
ABD: soft, BS+, NT/ND
EXT: No edema
NEURO: Gross non-focal
SKIN: No rash
[2024-03-23] MEDS: LASIX 40 MG IV (08:13)
[2024-03-23] MEDS: NSS (PRESERVATIVE FREE) 10 ML IV (08:13)
[2024-03-23] MEDS: PROTONIX IV 40 MG IV (08:13)
[2024-03-23 09:25] LABS: APTT 40.7 Sec (23.4-35.0)
--- NOTE | 2024-03-23 09:30 | PTCARENOTE ---
Addendum entered by Debi Holcomb RN 03/23/24 15:02:
+ right radial pulse.Right forearm slightly ecchymotic and tender.Brisk capillary refill.
Original Note:
Received pt awake and alert.Speech is appropriate.+[place].Assisted to bathroom with rolling walker with minimal assistance.Gait is steady.c/o severe back pain.Requested and received Dilaudid.A Fib noted.POX 92% on RA.Crackles noted 1/[address] up
bl.Occasional productive cough noted.Large BM.c/o nausea.Voiding via PureWick.right upper cheek bruise noted.Plan of care discussed.Assisted OOB to chair.
[2024-03-23] MEDS: ZOFRAN 4 MG IV (09:32)
[2024-03-23] MEDS: PACERONE 200 MG PO (09:37)
[2024-03-23] MEDS: ROXICODONE 20 MG PO ×3 (09:37→23:01)
[2024-03-23] MEDS: CELEXA 40 MG PO (09:37)
[2024-03-23] MEDS: HEPARIN 25000 UNITS/250 ML IV (09:38)
[2024-03-23] MEDS: TOPROL XL 25 MG PO (09:38)
--- NOTE | 2024-03-23 10:14 | W.PN.GI.CBS2 ---
Today's Communication / Plan
-
likely ercp tmwr, heparin gtt
Assessment / Plan
-
1. Cholangitis: With CBD stone, status post ERCP with stent placement draining pus, overall much improved. LFTs and leukocytosis much improved. Blood cultures negative so far, await final culture, continue antibiotics and supportive care. Given
her need for chronic anticoagulation with mechanical AVR, INR now 1.66 - will d/w Dr. Major likely will benefit from definitive ERCP with sphincterotomy and stone/stent removal tomorrow, reviewed with patient. On heparin gtt.
2. Hernia: Outpatient follow up.
Subjective
Subjective
Date of Service: March 23, 2024
RUQ present since Jul still present
Has issues with a hernia she discussed with Dr. Stevens
INR down to 1.66 now on hep gtt
Objective
Data Reviewed
Laboratory Data:
Laboratory Results
03/23/24 03:52
03/23/24 03:52
Laboratory Results
PT 19.4 Sec (11.4-14.6) H 03/23/24 03:52
INR 1.66 D 03/23/24 03:52
APTT 40.7 Sec (23.4-35.0) H 03/23/24 09:06
Phosphorus 4.6 mg/dl (2.5-4.5) H 03/21/24 04:01
Magnesium 1.9 mg/dl (1.6-2.3) 03/21/24 04:01
Total Bilirubin 3.3 mg/dl (0.2-1.3) H 03/23/24 03:52
AST 120 U/L (14-36) H 03/23/24 03:52
ALT 412 U/L (0-35) H 03/23/24 03:52
Alkaline Phosphatase 212 U/L (38-126) H 03/23/24 03:52
Lipase 125 U/L (23-300) 03/20/24 03:44
Vital Signs and I&O:
Vital Signs
Temp Pulse Resp BP Pulse Ox
98 F 84 13 138/78 93
03/23/24 07:32 03/23/24 04:00 03/23/24 04:00 03/23/24 04:00 03/23/24 04:00
I&O
03/22/24 03/23/24 03/24/24
06:59 06:59 06:59
Intake Total 3492.4 / 3592.4 1120 / 1120
Output Total 875 / 875 2700 / 2700
Balance 2617.4 / 2717.4 -1580 / -1580
Physical Exam
Physical Exam
GI: Non Distended and Non Tender
--- NOTE | 2024-03-23 10:52 | PTCARENOTE ---
0938-Heparin initiated as ordered.
--- NOTE | 2024-03-23 13:34 | PTCARENOTE ---
Pt assessed.No change in assessment noted.
[2024-03-23] MEDS: TYLENOL 500 MG PO (14:39)
--- NOTE | 2024-03-23 14:56 | PTCARENOTE ---
c/o severe back pain.Requesting Dilaudid ,but not due.Medicated with Tylenol.
--- NOTE | 2024-03-23 15:52 | PTCARENOTE ---
Pt assessed.No change in assessment noted.PTT sent to lab.Report given to 2 Sourav RN.
[2024-03-23 15:56] LABS: APTT 92.4 Sec (23.4-35.0)
--- NOTE | 2024-03-23 16:33 | PTCARENOTE ---
Pt arrived to 2S via wheelchair, ambulated to bed with a standby assist gait steady. Telemetry applied. Heparin gtt infusing per order. Pt questioning about continued use of purewick, education provided regarding risk for skin breakdown and UTIs
associated with use. Pt verbalized understanding. Bed locked and in the lowest position, safety maintained. Oriented to room and call marx.
[2024-03-23] MEDS: DESYREL 200 MG PO (21:26)
[2024-03-23 22:02] LABS: APTT 79.1 Sec (23.4-35.0)
[2024-03-24] VITALS (9 sets, daily range): BP systolic 11–155; BP diastolic 75–97; BMI 35.2
[2024-03-24] MEDS: ZOSYN 100 IV ×3 (00:36→11:47)
[2024-03-24] MEDS: DILAUDID 0.5 MG IV ×5 (04:09→21:41)
--- NOTE | 2024-03-24 05:46 | W.PN.GI.CBS2 ---
Today's Communication / Plan
-
See assessment and plan for details.
Assessment / Plan
-
1. Cholangitis: With CBD stone, status post ERCP with stent placement draining pus, overall much improved. LFTs and leukocytosis much improved. Blood cultures negative so far, await final culture, continue antibiotics and supportive care. Given
her need for chronic anticoagulation with mechanical AVR, will plan repeat ERCP for definitive stone and stent removal sphincterotomy while inpatient with heparin bridge. Will await her morning INR, if less than 1.5 and hopefully able to do today,
though logistically may not be able to. Will keep n.p.o. for now pending labs and schedule.
Subjective
Subjective
Date of Service: March 24, 2024
Patient feeling okay, some mild right-sided pain, though not severe, tolerated diet, having bowel movements, no fevers or chills.
Objective
Data Reviewed
Laboratory Data:
Laboratory Results
03/23/24 03:52
Laboratory Results
PT 19.4 Sec (11.4-14.6) H 03/23/24 03:52
INR 1.66 D 03/23/24 03:52
APTT 79.1 Sec (23.4-35.0) H 03/23/24 21:44
Phosphorus 4.6 mg/dl (2.5-4.5) H 03/21/24 04:01
Magnesium 1.9 mg/dl (1.6-2.3) 03/21/24 04:01
Total Bilirubin 3.3 mg/dl (0.2-1.3) H 03/23/24 03:52
AST 120 U/L (14-36) H 03/23/24 03:52
ALT 412 U/L (0-35) H 03/23/24 03:52
Alkaline Phosphatase 212 U/L (38-126) H 03/23/24 03:52
Lipase 125 U/L (23-300) 03/20/24 03:44
Vital Signs and I&O:
Vital Signs
Temp Pulse Resp BP Pulse Ox
97.6 F 63 16 145/90 95
03/24/24 03:20 03/24/24 03:20 03/24/24 03:20 03/24/24 03:20 03/24/24 03:20
I&O
03/22/24 03/23/24 03/24/24
06:59 06:59 06:59
Intake Total 3492.4 / 3592.4 1120 / 1120 720 / 720
Output Total 875 / 875 2700 / 2700 1000 / 1000
Balance 2617.4 / 2717.4 -1580 / -1580 -280 / -280
Physical Exam
Physical Exam
General: NAD
Abdomen: normal bowel sounds, soft, no tenderness, no masses or bruits, no ascites
[2024-03-24 06:13] LABS: APTT 66.9 Sec (23.4-35.0)
[2024-03-24 06:37] LABS: INR 1.38; PT 16.8 Sec (11.4-14.6)
[2024-03-24 06:42] LABS: ALT (SGPT) 311 U/L (0-35); AST (SGOT) 62 U/L (14-36); Albumin 2.8 g/dl (3.5-5.0); Alkaline Phosphatase 243 U/L (38-126); Blood Urea Nitrogen 27 mg/dl (7-17); Calcium 8.8 mg/dl (8.4-10.2); Carbon Dioxide 31 mmol/L (22-30); Chloride 101 mmol/L (98-107); Estimated Creatinine Clearance 46 ml/min; Glucose 87 mg/dl (70-99); Sodium 138 mmol/L (135-145); Total Bilirubin 1.8 mg/dl (0.2-1.3); Total Protein 5.6 g/dl (6.3-8.2); eGFR 51.18
[2024-03-24] MEDS: LASIX 40 MG IV (08:15)
[2024-03-24] MEDS: NSS (PRESERVATIVE FREE) 10 ML IV (08:15)
[2024-03-24] MEDS: PROTONIX IV 40 MG IV (08:15)
[2024-03-24] MEDS: ROXICODONE PO (08:24)
[2024-03-24] MEDS: ZOFRAN 4 MG IV (08:30)
--- NOTE | 2024-03-24 08:45 | W.PN.HOSP.TC ---
Today's Communication/Plan
-
-Repeat ERCP took place today
-Resume Coumadin with Heparin Bridging (start Coumadin and resume Heparin both today)
-Monitor daily INR
-Clear Liquid Diet
Assessment / Plan
Assessment / Plan
Physical Exam
General: No Apparent Distress, Pain (Abdominal) and Obese
HEENT: Moist mucous membranes and Atraumatic
Respiratory: Clear
Cardiac: S1/S2, Regular Rhythm and Other (Mechanical click)
GI: Soft. Minimal to no tenderness. Positive bowel sounds.
Musculoskeletal: No Clubbing, No Cyanosis and No Edema
Skin: Warm and Jaundice
Neuro: AO x 3; No Slurred Speech, Facial Droop or Tremors
Psych: Calm and Intact Judgment/Insight
Assessment/Plan
63 years old female presented with abdominal pain
# Hypercoagulopathy secondary to Coumadin - RESOLVED - Suspect secondary to sepsis/antibiotic use
#Hypocalcemia - RESOLVED
#Sepsis/septic shock due to acute cholangitis with common bile duct stone
#Choledocholithiasis status post removal - accomplished by biliary sphincterotomy and balloon extraction, stent removal, and biliary sphincterotomy
Repeat ERCP performed on March 24, 2024 for definitive ERCP with sphincterotomy and stone/stent removal.
Status post Levophed support
c/w IV ABs, transitioned on March 24, 2024 the Zosyn (stopped Zosyn) to Ceftazidime and Flagyl
c/w pain control management
Will check with gastroenterology about stopping IV Protonix
IV antiemetic medications as needed
Blood cultures with no growth to date
Appreciate GI and cardiology
Continue clear liquid diet
#Urinary Incontinence - chronic since Fall 2022
-I spoke with Dr. Young on March 24, 2024, he recommended that this is an evaluation that is best conducted as an outpatient with Dr López -- and no further inpatient workup needed
# Lactic acidosis - RESOLVED - due to sepsis
# History of rheumatoid arthritis/fibromyalgia/chronic pain syndrome with opioid dependence
Continue with opioid to avoid withdrawal
#[place] Mechanical AVR 06/2020
#s/p AVR with 21mm [place] Mechanical Valve, Closure of Perimembranous VSD with Bovine pericardial patch, Left Modified Maze procedure with Atricure device 07/16/20
# History of paroxysmal atrial fibrillation/atypical atrial flutter/atrial tachycardia status post ablation 2021 and 2019 currently on amiodarone
#History of Torsades with Sevoflurane during surgery 01/30/18
-Status post repeat ERCP on March 24, 2024 with stent removal and sphincterotomy
-Resume Coumadin with Heparin Bridging
-Patient is noted to have issues with Lovenox in the past
-Monitor daily INR
-Continue to monitor on telemetry
-Appreciate cardiology input
# RAMÓN/ mild due to sepsis, resolving.
Suspect underlying CKD stage II according to GFR
s/p IVF
Stopped Zosyn and started alternative antibiotics
#Acute on Chronic heart failure with a preserved ejection fraction
She received IVF for septic shock.
Continue daily weights and I's and O's
Continue IV Lasix at this time with plan for changing to PO Lasix in the next 1 to 2 days
#Primary hypertension, resuming BP meds including Lasix, BB
#Hyperlipidemia, no changes intended.
#History of recurrent small bowel obstruction and bowel surgeries
#Mild to moderate mitral regurgitation/mild tricuspid regurgitation with mild to moderate pulmonary hypertension
#Hepatic steatosis/GERD/irritable bowel syndrome
# Obesity, BMI 36
# History of uterine fibroids.
Anticipated Discharge: > 48 hours
Subjective/Interval History
-
Date of Service: March 24, 2024
Patient was seen and examined. She had some mild right-sided abdominal pain but otherwise denied any other new, significant symptoms or complaints.
Objective Data
-
Labs:
Laboratory Results
03/23/24 03/24/24 03/24/24
21:44 04:57 06:00
PT 16.8 H Cancelled
INR 1.38 Cancelled
APTT 79.1 H 66.9 H
Sodium 138
Potassium 4.0
Chloride 101
Carbon Dioxide 31 H
BUN 27 H
Creatinine 1.2 H
Glucose 87
Calcium 8.8
Total Bilirubin 1.8 H D
AST 62 H
ALT 311 H
Alkaline Phosphatase 243 H
03/24/24
12:48
PT
INR
APTT Pending
Sodium
Potassium
Chloride
Carbon Dioxide
BUN
Creatinine
Glucose
Calcium
Total Bilirubin
AST
ALT
Alkaline Phosphatase
Vital Signs:
Vital Signs
Temp Pulse Resp BP Pulse Ox
98.5 F 68 17 144/80 96
03/24/24 07:40 03/24/24 07:40 03/24/24 07:40 03/24/24 07:40 03/24/24 07:40
I&O
03/23/24 03/24/24 03/25/24
06:59 06:59 06:59
Intake Total 1120 / 1120 1280 / 1280
Output Total 2700 / 2700 1000 / 1000
Balance -1580 / -1580 280 / 280
[2024-03-24] MEDS: PACERONE 200 MG PO (10:02)
[2024-03-24] MEDS: CELEXA 40 MG PO (10:02)
[2024-03-24] MEDS: TOPROL XL 25 MG PO (10:03)
--- NOTE | 2024-03-24 12:39 | W.PN.CARDCBS ---
Today's Communication / Plan
-
Continue IV Lasix and consider change to oral Lasix next 24 to 48 hours
Okay for ERCP without further testing
Restart Coumadin when okay with GI
Impression / Plan
-
Primary Cotton Classer Aide: Dr. Brooks
PCP: Dr. Joey Guerrier
Impression:
-Acute cholangitis 03/20/24s/p ERCP
-Lactic acidosis
-Hypotension
-Septic shock
-Elevated LFTs
-h/o Torsades with Sevoflurane during surgery 01/30/18
-Persistent atrial arrhythmia
-Paroxysmal atrial fibrillation/atypical atrial flutter/atrial tachycardia
s/p atrial flutter ablation 11/2019
s/p PVI and atrial flutter ablation 07/08/22
previously refractory to sotalol and Tikosyn, currently on amiodarone
s/p KAMRAN/CV 12/04/23
-[place] Mechanical AVR 06/2020
-s/p AVR with 21mm [place] Mechanical Valve, Closure of Perimembranous VSD with Bovine pericardial patch, Left Modified Maze procedure with Atricure device 07/16/20
-Chronic warfarin OAC managed by [facility]
-Chronic HFpEF
-h/o SBO 08/02/2023 with ex lap for extensive lysis of adhesions (>90 min), small bowel resection with primary anastomosis, ventral incisional hernia repair with mesh 08/03/23
Reoperation for pelvic hematoma and anastomotic leak 08/12/23
-History of diverticulitis with perforated diverticulum, peritonitis and sepsis, s/p ex lap with transverse colostomy, complicated by torsades felt to be due to sevoflurane 01/30/18
-s/p takedown transverse loop colostomy, laparotomy, REMEDIOS, sigmoidectomy, primary sutured repair parastomal hernia 05/31/18
-History of recurrent SBOs
-HTN
-HLD
-Rheumatoid arthritis/fibromyalgia/chronic pain
-Chronic back pain, epidural injections and daily narcotic use
-B/L venous insufficiency
Echo 06/16/20: EF 55%, normal regional wall motion, perimembranous VSD with left to right shunt, mod MR, severely dilated LA, bicuspid AV with severe peak/mean 131/76 and JOSE 0.5 cm sq, mild AI, severe TR with PASP 61 mmHg
Echo 10/26/20: EF 59%, mild to mod MR, s/p [place] mechanical AVR peak/mean 19/10 mmHg with trace paravalvular AI, mild TR with PASP 39 mmHg
Echo 12/04/22: EF 55 to 60%, mild concentric LVH, well-seated [place] mechanical aortic valve prosthesis with peak/mean gradients 23/11 mmHg, trace AR, mild TR, PAP 35 to 40 mmHg
Echo 01/09/24: EF 64%, mild conc LVH, normal RV size and function, mild MR, [place] mechanical AVR with peak/mean 14/7 mmHg
Plan:
Okay for ERCP without further testing
Coumadin remains on hold and is on IV heparin with plans to restart when okay with GI
Patient had issues with Lovenox in the past and may need to remain in hospital on IV heparin until INR has become therapeutic
Volume status difficult to ascertain but likely some element of CHF and will continue IV Lasix with plans to change to oral Lasix in the next 24 to 48 hours
Progress Note - Cotton Classer Aide
Subjective
Date of Service: March 24, 2024
No complaints
Objective
Labs:
03/23/24 03:52
03/24/24 04:57
Labs
Hgb 10.5 g/dL (12.0-16.0) L 03/23/24 03:52
Hct 31.5 % (37.0-47.0) L 03/23/24 03:52
Plt Count 183 10^3/uL (130-400) 03/23/24 03:52
PT Cancelled 03/24/24 06:00
INR Cancelled 03/24/24 06:00
APTT Cancelled 03/24/24 12:48
Sodium 138 mmol/L (135-145) 03/24/24 04:57
Potassium 4.0 mmol/L (3.5-5.1) 03/24/24 04:57
BUN 27 mg/dl (7-17) H 03/24/24 04:57
Creatinine 1.2 mg/dL (0.6-1.0) H 03/24/24 04:57
Glucose 87 mg/dl (70-99) 03/24/24 04:57
Vital Signs and I&O:
Vital Signs
Temp Pulse Resp BP Pulse Ox
98.2 F 65 17 149/85 99
03/24/24 11:45 03/24/24 11:45 03/24/24 11:45 03/24/24 11:45 03/24/24 11:45
Vital Signs
Temp Pulse Resp BP Pulse Ox
98.2 F 65 17 149/85 99
03/24/24 11:45 03/24/24 11:45 03/24/24 11:45 03/24/24 11:45 03/24/24 11:45
Intake & Output
03/22/24 03/23/24 03/24/24 03/25/24
06:59 06:59 06:59 06:59
Intake Total 3492.4 / 3592.4 1120 / 1120 1280 / 1280
Output Total 875 / 875 2700 / 2700 1000 / 1000
Balance 2617.4 / 2717.4 -1580 / -1580 280 / 280
Physical Exam
Physical Exam
General: Well developed, well nourished in NAD.
Neck: Supple, no JVD, HJR, carotids +2 B/L, no bruits bilaterally.
Heart: Non displaced PMI, irregular, no murmurs, No S3, S4, no rubs.
Lungs: Clear to auscultation bilaterally, no wheeze, rhonchi, rubs bilaterally,
normal expiratory phase.
Extremities: No clubbing, cyanosis or edema bilaterally.
Neuro: Grossly nonfocal, awake, alert and oriented x3.
[2024-03-24] MEDS: HEPARIN 25000 UNITS/250 ML IV (17:37)
[2024-03-24] MEDS: ROXICODONE 20 MG PO (18:11)
[2024-03-24] MEDS: COUMADIN 3.5 MG PO (18:11)
[2024-03-24] MEDS: FLAGYL 500 MG IV (18:13)
[2024-03-24] MEDS: FORTAZ 2000 MG IV (18:14)
[2024-03-24] MEDS: STERILE WATER FOR INJECTION 10 ML IV (18:14)
[2024-03-24] MEDS: FLAGYL 500 MG 100 IV (18:36)
[2024-03-24] MEDS: DESYREL 200 MG PO (21:41)
--- NOTE | 2024-03-24 21:59 | PTCARENOTE ---
Patient is insisting to have Dilaudid IV for her whole back/ neck pain ( chronic). Patient stated ' Oxycodone doesn't help with pain'. Explained to the patient regarding use of IV pain med for acute vs chronic pain/ also encouraged patient to stick
with home schedule for her chronic pain needs. Patient still only wants IV Dilaudid. Administered IV Dilaudid as ordered.
[2024-03-25] VITALS (8 sets, daily range): BP systolic 127–149; BP diastolic 76–89; PULSE 76–84; O2SAT 95–96; BMI 34.8
[2024-03-25] MEDS: ROXICODONE PO ×3 (00:44→16:20)
[2024-03-25] MEDS: FLAGYL 500 MG 100 IV ×3 (02:58→17:23)
[2024-03-25] MEDS: DILAUDID 0.5 MG IV (03:34)
[2024-03-25] MEDS: ZOFRAN 4 MG IV (03:40)
[2024-03-25] MEDS: FORTAZ 2000 MG IV ×2 (04:59→17:23)
[2024-03-25] MEDS: FLUSH (NSS) 1 FLUSH IV (04:59)
[2024-03-25] MEDS: STERILE WATER FOR INJECTION 10 ML IV ×2 (04:59→17:23)
[2024-03-25 06:36] LABS: Hematocrit 30.8 % (37.0-47.0); Hemoglobin 10.5 g/dL (12.0-16.0); Mean Corp Hgb Conc. 34.1 g/dL (33.0-37.0); Mean Platelet Volume 9.3 fL (7.4-10.4); Platelet Count 225 10^3/uL (130-400); Red Cell Dist. Width 16.5 % (11.5-14.5); White Blood Cell Count 5.6 10^3/uL (4.8-10.8)
[2024-03-25 06:42] LABS: APTT 83.2 Sec (23.4-35.0)
--- NOTE | 2024-03-25 08:18 | W.PN.HOSP.TC ---
Today's Communication/Plan
-
INR still subtherapeutic
Continue Coumadin with Heparin Bridging
Advanced diet to a solid diet
Continue antibiotics
Assessment / Plan
Assessment / Plan
Physical Exam
General: No Apparent Distress, Pain (Abdominal) and Obese
HEENT: Moist mucous membranes and Atraumatic
Respiratory: Clear
Cardiac: S1/S2, Regular Rhythm and Other (Mechanical click)
GI: Soft. Minimal to no tenderness. Positive bowel sounds.
Musculoskeletal: No Cyanosis
Skin: Warm and Jaundice
Neuro: AO x 3; No Slurred Speech, Facial Droop or Tremors
Psych: Calm and Intact Judgment/Insight
Assessment/Plan
63 years old female presented with abdominal pain
#Sepsis/septic shock due to acute cholangitis with common bile duct stone
#Choledocholithiasis status post removal - accomplished by biliary sphincterotomy and balloon extraction, stent removal, and biliary sphincterotomy
Repeat ERCP performed on March 24, 2024 for definitive ERCP with sphincterotomy and stone/stent removal.
Status post Levophed support
c/w IV ABs, transitioned on March 24, 2024 the Zosyn (stopped Zosyn) to Ceftazidime and Flagyl
Will consult ID
c/w pain control management
IV antiemetic medications as needed
Blood cultures with no growth to date
Appreciate GI and cardiology
Increased dilaudid per patient's request to 0.75 mg from 0.5 mg
After discussing with GI this morning, upgraded patient's diet to low residue/low fat
#Hypercoagulopathy secondary to Coumadin - RESOLVED - Suspect secondary to sepsis/antibiotic use
#Hypocalcemia - RESOLVED
#Urinary Incontinence - chronic since Fall 2022
-I spoke with Dr. Young on March 24, 2024, he recommended that this is an evaluation that is best conducted as an outpatient with Dr López -- and no further inpatient workup needed
# Lactic acidosis - RESOLVED - due to sepsis
# History of rheumatoid arthritis/fibromyalgia/chronic pain syndrome with opioid dependence
Continue with opioid to avoid withdrawal
#[place] Mechanical AVR 06/2020
#s/p AVR with 21mm [place] Mechanical Valve, Closure of Perimembranous VSD with Bovine pericardial patch, Left Modified Maze procedure with Atricure device 07/16/20
# History of paroxysmal atrial fibrillation/atypical atrial flutter/atrial tachycardia status post ablation 2021 and 2019 currently on amiodarone
#History of Torsades with Sevoflurane during surgery 01/30/18
-Status post repeat ERCP on March 24, 2024 with stent removal and sphincterotomy
-Continue Coumadin with Heparin Bridging
-Patient is noted to have issues with Lovenox in the past
-Monitor daily INR
-Continue to monitor on telemetry
-Appreciate cardiology input
#Concern for RAMÓN/ mild due to sepsis
Suspect underlying CKD stage II according to GFR
s/p IVF
Stopped Zosyn and started alternative antibiotics as above
#Acute on Chronic heart failure with a preserved ejection fraction
She received IVF for septic shock.
Continue daily weights and I's and O's
Continue IV Lasix at this time with plan for changing to PO Lasix in the next 1 to 2 days
#Primary hypertension, resuming BP meds including Lasix, BB
#Hyperlipidemia, no changes intended.
#History of recurrent small bowel obstruction and bowel surgeries
#Mild to moderate mitral regurgitation/mild tricuspid regurgitation with mild to moderate pulmonary hypertension
#Hepatic steatosis/GERD/irritable bowel syndrome
# Obesity, BMI 36
# History of uterine fibroids.
Anticipated Discharge: > 48 hours
Subjective/Interval History
-
Date of Service: March 25, 2024
Patient was seen and examined. She denied any new significant symptoms/complaints, still with some abdominal tenderness, she tolerated her clear liquids diet last night.
Objective Data
-
Labs:
Laboratory Results
03/24/24 03/25/24 03/25/24
23:39 05:50 07:37
WBC 5.6
Hgb 10.5 L
Hct 30.8 L
Plt Count 225 D
PT
INR
APTT 87.0 H 83.2 H
Sodium Pending
Potassium Pending
Chloride Pending
Carbon Dioxide Pending
BUN Pending
Creatinine Pending
Glucose Pending
Calcium Pending
Total Bilirubin Pending
AST Pending
ALT Pending
Alkaline Phosphatase Pending
03/25/24
07:38
WBC
Hgb
Hct
Plt Count
PT Pending
INR Pending
APTT
Sodium
Potassium
Chloride
Carbon Dioxide
BUN
Creatinine
Glucose
Calcium
Total Bilirubin
AST
ALT
Alkaline Phosphatase
Vital Signs:
Vital Signs
Temp Pulse Resp BP Pulse Ox
98 F 76 16 134/76 96
03/25/24 07:10 03/25/24 07:10 03/25/24 07:10 03/25/24 07:10 03/25/24 07:10
I&O
03/24/24 03/25/24 03/26/24
06:59 06:59 06:59
Intake Total 1280 / 1280 1160 / 1160
Output Total 1000 / 1000
Balance 280 / 280 1160 / 1160
[2024-03-25] MEDS: LASIX 40 MG IV (08:53)
[2024-03-25] MEDS: CELEXA 40 MG PO (08:53)
[2024-03-25] MEDS: PACERONE 200 MG PO (08:54)
[2024-03-25] MEDS: TOPROL XL 25 MG PO (08:54)
[2024-03-25] MEDS: NSS (PRESERVATIVE FREE) IV (08:54)
[2024-03-25] MEDS: DILAUDID 0.75 MG IV ×5 (08:58→22:20)
[2024-03-25 09:18] LABS: INR 1.19
[2024-03-25 09:50] LABS: ALT (SGPT) 263 U/L (0-35); AST (SGOT) 70 U/L (14-36); Albumin 3.4 g/dl (3.5-5.0); Alkaline Phosphatase 291 U/L (38-126); Blood Urea Nitrogen 28 mg/dl (7-17); Calcium 9.1 mg/dl (8.4-10.2); Carbon Dioxide 30 mmol/L (22-30); Chloride 98 mmol/L (98-107); Estimated Creatinine Clearance 46 ml/min; Glucose 82 mg/dl (70-99); Potassium 4.1 mmol/L (3.5-5.1); Sodium 137 mmol/L (135-145); Total Bilirubin 1.6 mg/dl (0.2-1.3); Total Protein 6.8 g/dl (6.3-8.2); eGFR 51.18
--- NOTE | 2024-03-25 09:54 | W.PN.GI.CBS2 ---
Today's Communication / Plan
-
advance diet
Assessment / Plan
-
Cholangitis: With CBD stone, status post ERCP with stent placement draining pus, overall much improved. LFTs and leukocytosis much improved. Blood cultures negative so far.
s/p repeat ERCP with stent and stone removal yesterday. Bilirubin and ALT have improved. For now:
1. continue antibiotics
2. ok to advance diet
3. monitor lfts, wbc improved
Subjective
Subjective
Date of Service: March 25, 2024
Pt s/p ERCP yesterday with stent removal and stone removal. No increase in pain and less abd d/c although she states everything hurts.
Objective
Data Reviewed
Laboratory Data:
Laboratory Results
03/25/24 05:50
03/25/24 08:31
Laboratory Results
PT 15.0 Sec (11.4-14.6) H 03/25/24 08:31
INR 1.19 03/25/24 08:31
APTT 83.2 Sec (23.4-35.0) H 03/25/24 05:50
Phosphorus 4.6 mg/dl (2.5-4.5) H 03/21/24 04:01
Magnesium 1.9 mg/dl (1.6-2.3) 03/21/24 04:01
Total Bilirubin 1.6 mg/dl (0.2-1.3) H 03/25/24 08:31
AST 70 U/L (14-36) H 03/25/24 08:31
ALT 263 U/L (0-35) H 03/25/24 08:31
Alkaline Phosphatase 291 U/L (38-126) H 03/25/24 08:31
Lipase 125 U/L (23-300) 03/20/24 03:44
Vital Signs and I&O:
Vital Signs
Temp Pulse Resp BP Pulse Ox
98 F 76 16 134/76 96
03/25/24 07:10 03/25/24 07:10 03/25/24 07:10 03/25/24 07:10 03/25/24 07:10
I&O
03/24/24 03/25/24 03/26/24
06:59 06:59 06:59
Intake Total 1280 / 1280 1160 / 1160
Output Total 1000 / 1000
Balance 280 / 280 1160 / 1160
Physical Exam
Physical Exam
HEENT: Anicteric
Cardiology: S1 and S2
GI: Soft and Tender (mildly tender)
Extremities: Warm
--- NOTE | 2024-03-25 14:35 | W.PN.CARDCBS ---
Addendum entered and electronically signed by Orion Payne MD 03/25/24 17:08:
I saw and examined the patient.
The HOSPITAL DIRECTOR or PA's note was reviewed and I agree with the note.
Comment: General: Well developed, well nourished in NAD.
Neck: Supple, no JVD, HJR, carotids +2 B/L, no bruits bilaterally.
Heart: Non displaced PMI, RRR, no murmurs, No S3, S4, no rubs.
Lungs: Clear to auscultation bilaterally, no wheeze, rhonchi, rubs bilaterally,
normal expiratory phase.
Extremities: No clubbing, cyanosis or edema bilaterally.
Neuro: Grossly nonfocal, awake, alert and oriented x3.
Stable cardiology status. Continue IV Lasix and consider change to oral Lasix in a.m. Continue IV heparin to Coumadin bridge. Will give 5 mg Coumadin tonight. INR 1.2.
Original Note:
Today's Communication / Plan
-
start coumadin 5mg
continue IV heparin
continue IV lasix
Impression / Plan
-
Primary Teaching Assistant: Dr. Brooks
PCP: Dr. Joey Guerrier
Impression:
-Acute cholangitis 03/20/24s/p ERCP
-Lactic acidosis
-Hypotension
-Septic shock
-Elevated LFTs
-h/o Torsades with Sevoflurane during surgery 01/30/18
-Persistent atrial arrhythmia
-Paroxysmal atrial fibrillation/atypical atrial flutter/atrial tachycardia
s/p atrial flutter ablation 11/2019
s/p PVI and atrial flutter ablation 07/08/22
previously refractory to sotalol and Tikosyn, currently on amiodarone
s/p KAMRAN/CV 12/04/23
-[place] Mechanical AVR 06/2020
-s/p AVR with 21mm [place] Mechanical Valve, Closure of Perimembranous VSD with Bovine pericardial patch, Left Modified Maze procedure with Atricure device 07/16/20
-Chronic warfarin OAC managed by [facility]
-Chronic HFpEF
-h/o SBO 08/02/2023 with ex lap for extensive lysis of adhesions (>90 min), small bowel resection with primary anastomosis, ventral incisional hernia repair with mesh 08/03/23
Reoperation for pelvic hematoma and anastomotic leak 08/12/23
-History of diverticulitis with perforated diverticulum, peritonitis and sepsis, s/p ex lap with transverse colostomy, complicated by torsades felt to be due to sevoflurane 01/30/18
-s/p takedown transverse loop colostomy, laparotomy, REMEDIOS, sigmoidectomy, primary sutured repair parastomal hernia 05/31/18
-History of recurrent SBOs
-HTN
-HLD
-Rheumatoid arthritis/fibromyalgia/chronic pain
-Chronic back pain, epidural injections and daily narcotic use
-B/L venous insufficiency
Echo 06/16/20: EF 55%, normal regional wall motion, perimembranous VSD with left to right shunt, mod MR, severely dilated LA, bicuspid AV with severe peak/mean 131/76 and JOSE 0.5 cm sq, mild AI, severe TR with PASP 61 mmHg
Echo 10/26/20: EF 59%, mild to mod MR, s/p [place] mechanical AVR peak/mean 19/10 mmHg with trace paravalvular AI, mild TR with PASP 39 mmHg
Echo 12/04/22: EF 55 to 60%, mild concentric LVH, well-seated [place] mechanical aortic valve prosthesis with peak/mean gradients 23/11 mmHg, trace AR, mild TR, PAP 35 to 40 mmHg
Echo 01/09/24: EF 64%, mild conc LVH, normal RV size and function, mild MR, [place] mechanical AVR with peak/mean 14/7 mmHg
Plan:
-s/p ERCP with stone removal 03/24. diet advancing today per GI. patient without abd pain
-continue IV heparin. ok to resume coumadin per GI. patient on 3mg STuThSa and 3.5mg MWF. will give 5mg tonight. INR 1.19 on 03/25.
-Patient had issues with Lovenox in the past and may need to remain in hospital on IV heparin until INR has become therapeutic
-continue IV lasix. Cr stable. consider transition to po in next 24 hours
Progress Note - Teaching Assistant
Subjective
Date of Service: March 25, 2024
Denies abdominal pain. Reports good urinary output. Denies chest pain, shortness of breath
Objective
Labs:
03/25/24 05:50
03/25/24 08:31
Labs
Hgb 10.5 g/dL (12.0-16.0) L 03/25/24 05:50
Hct 30.8 % (37.0-47.0) L 03/25/24 05:50
Plt Count 225 10^3/uL (130-400) D 03/25/24 05:50
PT 15.0 Sec (11.4-14.6) H 03/25/24 08:31
INR 1.19 03/25/24 08:31
APTT 83.2 Sec (23.4-35.0) H 03/25/24 05:50
Sodium 137 mmol/L (135-145) 03/25/24 08:31
Potassium 4.1 mmol/L (3.5-5.1) 03/25/24 08:31
BUN 28 mg/dl (7-17) H 03/25/24 08:31
Creatinine 1.2 mg/dL (0.6-1.0) H 03/25/24 08:31
Glucose 82 mg/dl (70-99) 03/25/24 08:31
Vital Signs and I&O:
Vital Signs
Temp Pulse Resp BP Pulse Ox
98.1 F 78 17 145/81 95
03/25/24 11:49 03/25/24 11:49 03/25/24 11:49 03/25/24 11:49 03/25/24 11:49
Vital Signs
Temp Pulse Resp BP Pulse Ox
98.1 F 78 17 145/81 95
03/25/24 11:49 03/25/24 11:49 03/25/24 11:49 03/25/24 11:49 03/25/24 11:49
Intake & Output
03/23/24 03/24/24 03/25/24 03/26/24
07:59 07:59 07:59 07:59
Intake Total 1020 / 1260 1280 / 1280 1160 / 1160
Output Total 2700 / 2700 1000 / 1000
Balance -1680 / -1440 280 / 280 1160 / 1160
Physical Exam
Physical Exam
GEN: No distress, awake, alert, oriented x3. obese
HEENT: supple, anicteric, mmm, eomi
LUNGS: CTA B/L, no wheezes/rales
CV: Reg, S1/S2, mech valve click
ABD: soft, BS+, NT/ND
EXT: No cyanosis, clubbing, edema
NEURO: Gross non-focal
SKIN: Warm, pink, dry. No rash
--- NOTE | 2024-03-25 16:17 | CM ---
CM attempted bedside visit to discuss recommended VN services
Receiving therapy
CM to follow up on VN and choice
Discharge Disposition- anticipate home with VN
[2024-03-25] MEDS: HEPARIN 25000 UNITS/250 ML IV (16:41)
[2024-03-25] MEDS: COUMADIN 5 MG PO (17:22)
[2024-03-25] MEDS: FLUSH (NSS) 3 FLUSH IV (17:24)
[2024-03-25] MEDS: DESYREL 200 MG PO (21:40)
[2024-03-25] MEDS: ROXICODONE 20 MG PO (21:40)
[2024-03-25] MEDS: FLUSH (NSS) 2 FLUSH IV (22:19)
[2024-03-26] MEDS: FLAGYL 500 MG 100 IV ×2 (02:38→09:20)
[2024-03-26] MEDS: FLUSH (NSS) 1 FLUSH IV (02:39)
[2024-03-26 03:05] VITALS: BP 144/79
[2024-03-26] MEDS: DILAUDID 0.75 MG IV ×2 (03:10→07:55)
[2024-03-26 05:38] VITALS: BMI 35.0
[2024-03-26] MEDS: STERILE WATER FOR INJECTION 10 ML IV (06:10)
[2024-03-26] MEDS: FORTAZ 2000 MG IV (06:10)
[2024-03-26 06:43] LABS: INR 1.58; PT 18.7 Sec (11.4-14.6)
[2024-03-26 07:35] VITALS: BP 129/77
[2024-03-26] MEDS: CELEXA 40 MG PO (07:52)
[2024-03-26] MEDS: TOPROL XL 25 MG PO (07:52)
[2024-03-26] MEDS: PACERONE 200 MG PO (07:53)
[2024-03-26] MEDS: LASIX 40 MG IV (07:53)
[2024-03-26] MEDS: DESENEX/MITRAZOL/ZEASORB 1 APPLIC TOPICAL (07:54)
[2024-03-26 08:36] LABS: ALT (SGPT) 199 U/L (0-35); AST (SGOT) 64 U/L (14-36); Alkaline Phosphatase 262 U/L (38-126); Blood Urea Nitrogen 32 mg/dl (7-17); Carbon Dioxide 31 mmol/L (22-30); Chloride 98 mmol/L (98-107); Estimated Creatinine Clearance 46 ml/min; Glucose 95 mg/dl (70-99); Potassium 3.8 mmol/L (3.5-5.1); Sodium 137 mmol/L (135-145); Total Protein 6.1 g/dl (6.3-8.2); eGFR 51.18
--- NOTE | 2024-03-26 09:00 | W.PN.GI.CBS2 ---
Today's Communication / Plan
-
no further inpatient GI intervention
Assessment / Plan
-
Cholangitis: With CBD stone, status post ERCP with stent placement draining pus, overall much improved. LFTs and leukocytosis much improved. Blood cultures negative so far.
s/p repeat ERCP with stent and stone removal yesterday. lfts continue to improve, bilirubin now normal. For now:
- no further w/u
- continue diet
will sign off call with questions
Subjective
Subjective
Date of Service: March 26, 2024
Pt feels much better. no abd pain, ate salmon last night and israeli toast this morning, no pain no vomiting
Objective
Data Reviewed
Laboratory Data:
Laboratory Results
03/26/24 06:10
Laboratory Results
PT 18.7 Sec (11.4-14.6) H 03/26/24 06:10
INR 1.58 03/26/24 06:10
APTT 108.0 Sec (23.4-35.0) H 03/26/24 06:10
Phosphorus 4.6 mg/dl (2.5-4.5) H 03/21/24 04:01
Magnesium 2.0 mg/dl (1.6-2.3) 03/26/24 06:10
Total Bilirubin 1.0 mg/dl (0.2-1.3) 03/26/24 06:10
AST 64 U/L (14-36) H 03/26/24 06:10
ALT 199 U/L (0-35) H 03/26/24 06:10
Alkaline Phosphatase 262 U/L (38-126) H 03/26/24 06:10
Lipase 125 U/L (23-300) 03/20/24 03:44
Vital Signs and I&O:
Vital Signs
Temp Pulse Resp BP Pulse Ox
98.3 F 60 16 129/77 94
03/26/24 07:35 03/26/24 07:53 03/26/24 07:35 03/26/24 07:53 03/26/24 07:35
I&O
03/25/24 03/26/24 03/27/24
06:59 06:59 06:59
Intake Total 1160 / 1160 2220 / 2220
Balance 1160 / 1160 2220 / 2220
Physical Exam
Physical Exam
GI: Soft, Non Distended and Non Tender
Neuro: Non Focal
--- NOTE | 2024-03-26 09:09 | W.PN.HOSP.TC ---
Today's Communication/Plan
-
INR improving -- continue Heparin and Coumadin
Continue Lasix
Increased Dilaudid, at patient's request, due to patient's pain
Consulted ID, recommendations appreciated on antibiotics
Assessment / Plan
Assessment / Plan
Physical Exam
General: No Apparent Distress
HEENT: Moist mucous membranes and Atraumatic
Respiratory: Clear
Cardiac: S1/S2, Regular Rhythm and Other (Mechanical click)
GI: Soft. Minimal to no tenderness. Positive bowel sounds.
Musculoskeletal: No Cyanosis
Skin: Warm and Jaundice
Neuro: AO x 3; No Slurred Speech, Facial Droop or Tremors
Psych: Calm and Intact Judgment/Insight
Assessment/Plan
63 years old female presented with abdominal pain
#Sepsis/septic shock due to acute cholangitis with common bile duct stone
#Choledocholithiasis status post removal - accomplished by biliary sphincterotomy and balloon extraction, stent removal, and biliary sphincterotomy
Repeat ERCP performed on March 24, 2024 for definitive ERCP with sphincterotomy and stone/stent removal.
Status post Levophed support
c/w IV ABs, transitioned on March 24, 2024 the Zosyn (stopped Zosyn) to Ceftazidime and Flagyl
Consulted ID, recommendations appreciated
c/w pain control management
IV antiemetic medications as needed
Blood cultures with no growth to date
Appreciate GI and cardiology
Increased dilaudid per patient's request to 1 mg from 0.75 mg from 0.5 mg
Low fat diet
#Hypercoagulopathy secondary to Coumadin - RESOLVED - Suspect secondary to sepsis/antibiotic use
#Hypocalcemia - RESOLVED
#Urinary Incontinence - chronic since Fall 2022
-I spoke with Dr. Young on March 24, 2024, he recommended that this is an evaluation that is best conducted as an outpatient with Dr López -- and no further inpatient workup needed
# Lactic acidosis - RESOLVED - due to sepsis
# History of rheumatoid arthritis/fibromyalgia/chronic pain syndrome with opioid dependence
Continue with opioid to avoid withdrawal
#[place] Mechanical AVR 06/2020
#s/p AVR with 21mm [place] Mechanical Valve, Closure of Perimembranous VSD with Bovine pericardial patch, Left Modified Maze procedure with Atricure device 07/16/20
# History of paroxysmal atrial fibrillation/atypical atrial flutter/atrial tachycardia status post ablation 2021 and 2019 currently on amiodarone
#History of Torsades with Sevoflurane during surgery 01/30/18
-Status post repeat ERCP on March 24, 2024 with stent removal and sphincterotomy
-Continue Coumadin with Heparin Bridging
-Patient is noted to have issues with Lovenox in the past
-Monitor daily INR -- improving but still not therapeutic
-Continue to monitor on telemetry
-Appreciate cardiology input
#Mild Elevation in Creatinine
Suspect underlying CKD stage II according to GFR
s/p IVF
Stopped Zosyn and started alternative antibiotics as above
#Acute on Chronic heart failure with a preserved ejection fraction
She received IVF for septic shock.
Continue daily weights and I's and O's
Status post IV Lasix
Now on PO Lasix
#Primary hypertension, resuming BP meds including Lasix, BB
#Hyperlipidemia, no changes intended.
#History of recurrent small bowel obstruction and bowel surgeries
#Mild to moderate mitral regurgitation/mild tricuspid regurgitation with mild to moderate pulmonary hypertension
#Hepatic steatosis/GERD/irritable bowel syndrome
# Obesity, BMI 36
# History of uterine fibroids.
Anticipated Discharge: > 48 hours
Subjective/Interval History
-
Date of Service: March 26, 2024
Patient was seen and examined. She reported continued low back pain and arm pains from when her ERCP was done due to positioning. She requested increase in pain medications.
Objective Data
-
Labs:
Laboratory Results
03/26/24 03/26/24
06:10 08:49
WBC Pending
Hgb Pending
Hct Pending
Plt Count Pending
PT 18.7 H
INR 1.58
APTT 108.0 H
Sodium 137
Potassium 3.8
Chloride 98
Carbon Dioxide 31 H
BUN 32 H
Creatinine 1.2 H
Glucose 95
Calcium 9.0
Total Bilirubin 1.0
AST 64 H
ALT 199 H
Alkaline Phosphatase 262 H
Vital Signs:
Vital Signs
Temp Pulse Resp BP Pulse Ox
98.3 F 60 16 129/77 94
03/26/24 07:35 03/26/24 07:53 03/26/24 07:35 03/26/24 07:53 03/26/24 07:35
I&O
03/25/24 03/26/24 03/27/24
06:59 06:59 06:59
Intake Total 1160 / 1160 2220 / 2220
Balance 1160 / 1160 2220 / 2220
[2024-03-26] MEDS: ROXICODONE 20 MG PO ×3 (09:20→21:16)
[2024-03-26 09:44] LABS: % Basophils 1.3 % (0-2); % Eosinophils 2.7 % (0-6); % Immature Granulocytes 5.6 % (0-0.5); % Lymphocytes 38.4 % (20.5-51.1); % Monocytes 7.9 % (1.7-9.3); % Neutrophils 44.1 % (42.2-75.2); Absolute Basophils 0.1 10^3/uL (0-0.2); Absolute Eosinophils 0.2 10^3/uL (0-0.7); Absolute Immature Granulocytes 0.4 10^3/uL (0-0.05); Absolute Lymphocytes 2.9 10^3/uL (1.2-3.4); Absolute Monocytes 0.6 10^3/uL (0.1-0.6); Absolute Neutrophils 3.3 10^3/uL (1.4-6.5); Hematocrit 38.6 % (37.0-47.0); Hemoglobin 12.7 g/dL (12.0-16.0); Mean Corp Hgb Conc. 32.9 g/dL (33.0-37.0); Mean Corpuscular Hgb 29.6 pg (27.0-31.0); Mean Platelet Volume 9.2 fL (7.4-10.4); Nucleated Red Blood Cells % 0 %; Platelet Count 275 10^3/uL (130-400); Red Blood Cell Count 4.29 10^6/uL (4.20-5.40); Red Cell Dist. Width 16.5 % (11.5-14.5); White Blood Cell Count 7.5 10^3/uL (4.8-10.8)
[2024-03-26] MEDS: DILAUDID 1 MG IV ×3 (10:56→19:43)
[2024-03-26 11:15] VITALS: BP 106/68
[2024-03-26] MEDS: HEPARIN 25000 UNITS/250 ML IV (14:24)
--- NOTE | 2024-03-26 14:24 | CM ---
CM reviewed chart and ADC >48 hours
Bedside meeting with pt to review dc planning
[facility] recommended and pt in agreement
Requesting referral to VN
Referral sent via [facility]
Discharge Disposition- home with [facility] ([facility] pending)
--- NOTE | 2024-03-26 14:58 | CON.ID ---
Consultation
-
Date/Time Consultation Requested: 03/26/24 13:38
Date/Time Consultation Performed: 03/26/24 14:59
Requesting Provider: Dr Hernandez
Performing Provider: Dr Nelson
Reason for Consultation: Cholangitis s/p procedure, recommendation for narrowing antibiotics
Chief Complaint / Past History
Chief Complaint
Abdominal pain for 1 day
History of Present Illness
Ms Matamoros is a 63 year old female with history of gallstones, RA who presented here on 03/20 for abdominal pain, nausea, vomiting, chills without fever. Pain in upper. Of note she had a short lived episode of abdominal pain 1 week before this but it
self resolved. She is on oxycodone 3-4x daily for chronic pain syndrome.
Since arrival here she has been afebrile, initially with stable bp, wbc on arrival 9.8, HD2 15, resolved HD3, now 7.5, hgb 12.5, plt 275, Cr 1.2, blood cultures x2 finalized neg, urine culture no growth, found to have cholangitis with CBD stone, s/p
ERCP with stent and stone removal 03/24, previously on zosyn then ceftaz/metronidazole. Reports no further abdominal pain. 'I feel much better.' ID is consulted for assistance with management.
Past History
Additional Past Medical History:
Atrial fibrillation, osteoarthritis, diverticulitis, gallbladder disease, depression, anxiety, hyperlipidemia, irritable bowel syndrome, GERD, hypertension, diastolic heart failure, fibromyalgia, rheumatoid arthritis, history of torsade arrest,
status post aortic valve replacement
Additional Past Surgical History:
AVR
Allergy History:
abatacept [From Orencia] Allergy (Verified 03/24/24 16:36)
Hives, SOB, cough
adalimumab [From Humira] Allergy (Verified 03/24/24 16:36)
SEVERE BRUISING
adhesive Allergy (Verified 03/24/24 16:36)
Rash
adhesive tape Allergy (Verified 03/24/24 16:36)
Rash
clarithromycin [From Biaxin] Allergy (Verified 03/24/24 16:36)
upset stomach
etanercept [From Enbrel] Allergy (Verified 12/04/23 10:36)
Bruising
sevoflurane Allergy (Verified 03/24/24 16:36)
V Fib/Arrhythmia
Medications Reviewed: Yes
Social History
Tobacco: Non-Smoker
Alcohol: None
Drug: None
Family History
Family History: Not Pertinent
Review of Systems
Review of Systems
General: Chills; Negative Fever
All systems: All other systems were reviewed and were negative
Vital Signs
Temp Pulse Resp BP Pulse Ox
97.1 F 67 18 106/68 94
03/26/24 11:15 03/26/24 11:15 03/26/24 11:15 03/26/24 11:15 03/26/24 11:15
Physical Exam
Physical Exam
Constitutional: No Acute Distress
Cardiovascular: Regular Rate and S1/S2; Negative Murmur or Rub
Pulmonary: Clear and Symmetric; Negative Wheezes, Rales or Rhonchi
Gastrointestinal: Soft, Non Tender, Non Distended and Normal Bowel Sounds
Skin: Warm and Dry; Negative Rash or Jaundice
Lab / Diagnostic Study Results
03/26/24 08:49
03/26/24 06:10
Abs Immat Gran (auto) 0.4 10^3/uL (0-0.05) H 03/26/24 08:49
Absolute Neuts (auto) 3.3 10^3/uL (1.4-6.5) 03/26/24 08:49
Absolute Lymphs (auto) 2.9 10^3/uL (1.2-3.4) 03/26/24 08:49
Absolute Monos (auto) 0.6 10^3/uL (0.1-0.6) 03/26/24 08:49
Absolute Basos (auto) 0.1 10^3/uL (0-0.2) 03/26/24 08:49
Immature Gran % 5.6 % (0-0.5) H 03/26/24 08:49
Neutrophils % 44.1 % (42.2-75.2) 03/26/24 08:49
Lymphocytes % 38.4 % (20.5-51.1) 03/26/24 08:49
Monocytes % 7.9 % (1.7-9.3) 03/26/24 08:49
Eosinophils % 2.7 % (0-6) 03/26/24 08:49
Basophils % 1.3 % (0-2) 03/26/24 08:49
PT 18.7 Sec (11.4-14.6) H 03/26/24 06:10
INR 1.58 03/26/24 06:10
Lactic Acid 1.6 mmol/L (0.7-2.0) 03/20/24 22:07
Ur Squamous Epith Cells 0-2 /LPF (Few) 03/20/24 18:57
Microbiology Results
Micro:
03/20/24 12:11 Blood Culture - Final
Blood/Venous No Growth - Final Report
03/20/24 12:11 Blood Culture - Final
Blood/Venous No Growth - Final Report
03/20/24 18:57 Urine Culture - Final
Urine NO GROWTH
Assessment / Plan
Cholangitis
CBD stone - s/p ERCP 03/24
- blood cultures finalized negative
- plan 5 day course from the procedure - switched to augmentin, final day will be 03/28
- stable for dc from ID perspective; please recall if further questions.
--- NOTE | 2024-03-26 15:15 | VNURNOTE ---
Home Health Liaison met with patient to discuss [facility] nurse/therapy, visits, schedule and homebound status. Patient has had [facility] in the past. She is agreeable and understands that visits at home will be 2-3 x per week to assess and teach medical
management. She declined [facility] brochure. Patient is aware that [facility] will contact them for start of care in 1-2 days after discharge from . [facility] referral completed in [facility].
[2024-03-26 15:20] VITALS: BP 120/69
--- NOTE | 2024-03-26 16:44 | W.PN.CARDCBS ---
Addendum entered and electronically signed by Dat Cavanaugh MD 03/26/24 17:36:
I saw and examined the patient.
The Oil Dipper's note was reviewed and I agree with the note.
Comment:
GEN: No distress, awake, Ox3
HEENT: supple, anicteric, mmm
LUNGS: CTA, no wheezes/rales
CV: Reg, S1/S2, 1/6 syst LSB, no murmur, +click
ABD: soft, BS+, NT/ND
EXT: trace edema
NEURO: Gross non-focal
SKIN: No rash
Plan:
Continue IV heparin to Coumadin. INR up to 1.6.
Will switch to oral diuretics. She has diuresed well.
Original Note:
Today's Communication / Plan
-
IV heparin to coumadin. follow INR, goal 2.5-3.5
transition to po lasix
Impression / Plan
-
Primary Supervisor Color Paste Mixing: Dr. Brooks
PCP: Dr. Joey Guerrier
Impression:
-Acute cholangitis 03/20/24s/p ERCP
-Lactic acidosis
-Hypotension
-Septic shock
-Elevated LFTs
-h/o Torsades with Sevoflurane during surgery 01/30/18
-Persistent atrial arrhythmia
-Paroxysmal atrial fibrillation/atypical atrial flutter/atrial tachycardia
s/p atrial flutter ablation 11/2019
s/p PVI and atrial flutter ablation 07/08/22
previously refractory to sotalol and Tikosyn, currently on amiodarone
s/p KAMRAN/CV 12/04/23
-[place] Mechanical AVR 06/2020
-s/p AVR with 21mm [place] Mechanical Valve, Closure of Perimembranous VSD with Bovine pericardial patch, Left Modified Maze procedure with Atricure device 07/16/20
-Chronic warfarin OAC managed by [facility]
-Chronic HFpEF
-h/o SBO 08/02/2023 with ex lap for extensive lysis of adhesions (>90 min), small bowel resection with primary anastomosis, ventral incisional hernia repair with mesh 08/03/23
Reoperation for pelvic hematoma and anastomotic leak 08/12/23
-History of diverticulitis with perforated diverticulum, peritonitis and sepsis, s/p ex lap with transverse colostomy, complicated by torsades felt to be due to sevoflurane 01/30/18
-s/p takedown transverse loop colostomy, laparotomy, REMEDIOS, sigmoidectomy, primary sutured repair parastomal hernia 05/31/18
-History of recurrent SBOs
-HTN
-HLD
-Rheumatoid arthritis/fibromyalgia/chronic pain
-Chronic back pain, epidural injections and daily narcotic use
-B/L venous insufficiency
Echo 06/16/20: EF 55%, normal regional wall motion, perimembranous VSD with left to right shunt, mod MR, severely dilated LA, bicuspid AV with severe peak/mean 131/76 and JOSE 0.5 cm sq, mild AI, severe TR with PASP 61 mmHg
Echo 10/26/20: EF 59%, mild to mod MR, s/p [place] mechanical AVR peak/mean 19/10 mmHg with trace paravalvular AI, mild TR with PASP 39 mmHg
Echo 12/04/22: EF 55 to 60%, mild concentric LVH, well-seated [place] mechanical aortic valve prosthesis with peak/mean gradients 23/11 mmHg, trace AR, mild TR, PAP 35 to 40 mmHg
Echo 01/09/24: EF 64%, mild conc LVH, normal RV size and function, mild MR, [place] mechanical AVR with peak/mean 14/7 mmHg
Plan:
-s/p ERCP with stone removal 03/24. GI and ID have signed off. plan to continue abx through 03/28
-in SR upon review of tele
-continue IV heparin. INR 1.6 s/p 5mg coumadin 03/25. patient on 3mg STuThSa and 3.5mg MWF. will give 5mg again tonight. goal INR 2.5-3.5
-Patient had issues with Lovenox in the past and may need to remain in hospital on IV heparin until INR has become therapeutic
-transition to po lasix 40mg daily
-BPs stable
-OP cardiac follow up arranged
Progress Note - Supervisor Color Paste Mixing
Subjective
Date of Service: March 26, 2024
no cardiac complaints noted
Objective
Labs:
03/26/24 08:49
03/26/24 06:10
Labs
Hgb 12.7 g/dL (12.0-16.0) D 03/26/24 08:49
Hct 38.6 % (37.0-47.0) 03/26/24 08:49
Plt Count 275 10^3/uL (130-400) D 03/26/24 08:49
PT 18.7 Sec (11.4-14.6) H 03/26/24 06:10
INR 1.58 03/26/24 06:10
APTT 108.0 Sec (23.4-35.0) H 03/26/24 06:10
Sodium 137 mmol/L (135-145) 03/26/24 06:10
Potassium 3.8 mmol/L (3.5-5.1) 03/26/24 06:10
BUN 32 mg/dl (7-17) H 03/26/24 06:10
Creatinine 1.2 mg/dL (0.6-1.0) H 03/26/24 06:10
Glucose 95 mg/dl (70-99) 03/26/24 06:10
Vital Signs and I&O:
Vital Signs
Temp Pulse Resp BP Pulse Ox
97.4 F 67 18 120/69 100
03/26/24 15:20 03/26/24 15:20 03/26/24 15:20 03/26/24 15:20 06/05/24 15:20
Vital Signs
Temp Pulse Resp BP Pulse Ox
97.4 F 67 18 120/69 100
03/26/24 15:20 03/26/24 15:20 03/26/24 15:20 03/26/24 15:20 03/26/24 15:20
Intake & Output
03/24/24 03/25/24 03/26/24 03/27/24
07:59 07:59 07:59 07:59
Intake Total 1280 / 1280 1160 / 1160 2220 / 2220
Output Total 1000 / 1000
Balance 280 / 280 1160 / 1160 2220 / 2220
[2024-03-26] MEDS: AUGMENTIN 875 MG/125 MG 1 TABLET PO (19:43)
[2024-03-26 19:45] VITALS: BP 129/88
[2024-03-26] MEDS: DESYREL 200 MG PO (21:16)
[2024-03-26] MEDS: COUMADIN 5 MG PO (21:16)
[2024-03-26 23:04] VITALS: BP 145/84
[2024-03-27] MEDS: DILAUDID 1 MG IV (02:09)
[2024-03-27] MEDS: FLUSH (NSS) 2 FLUSH IV (02:09)
[2024-03-27 03:27] VITALS: BP 108/73
[2024-03-27 05:43] LABS: Hematocrit 35.1 % (37.0-47.0); Hemoglobin 11.6 g/dL (12.0-16.0); Mean Corpuscular Hgb 29.4 pg (27.0-31.0); Mean Corpuscular Volume 88.9 fL (81.0-99.0); Mean Platelet Volume 9.5 fL (7.4-10.4); Platelet Count 262 10^3/uL (130-400); Red Blood Cell Count 3.95 10^6/uL (4.20-5.40); Red Cell Dist. Width 17.2 % (11.5-14.5); White Blood Cell Count 7.1 10^3/uL (4.8-10.8)
[2024-03-27 05:55] LABS: INR 2.16
[2024-03-27 05:57] LABS: APTT 137.3 Sec (23.4-35.0)
[2024-03-27 06:00] VITALS: BMI 33.8
[2024-03-27 06:33] LABS: AST (SGOT) 83 U/L (14-36); Albumin 3.2 g/dl (3.5-5.0); Alkaline Phosphatase 264 U/L (38-126); Blood Urea Nitrogen 29 mg/dl (7-17); Carbon Dioxide 30 mmol/L (22-30); Estimated Creatinine Clearance 54 ml/min; Glucose 101 mg/dl (70-99); Magnesium 2.1 mg/dl (1.6-2.3); Total Protein 6.3 g/dl (6.3-8.2); eGFR > 60.00
[2024-03-27 06:48] LABS: ALT (SGPT) 179 U/L (0-35); Calcium 9.2 mg/dl (8.4-10.2); Chloride 99 mmol/L (98-107); Potassium 4.1 mmol/L (3.5-5.1); Sodium 135 mmol/L (135-145)
[2024-03-27 07:40] VITALS: BP 132/72
[2024-03-27] MEDS: ROXICODONE 20 MG PO (08:54)
[2024-03-27] MEDS: TOPROL XL 25 MG PO (08:54)
[2024-03-27] MEDS: CELEXA 40 MG PO (08:54)
[2024-03-27] MEDS: AUGMENTIN 875 MG/125 MG 1 TABLET PO (08:54)
[2024-03-27] MEDS: LASIX 40 MG PO (08:54)
[2024-03-27] MEDS: PACERONE 200 MG PO (08:54)
--- NOTE | 2024-03-27 09:52 | W.PN.CARDCBS ---
Today's Communication / Plan
-
Will give Coumadin 3 mg now.
Okay for discharge today with INR at 2.2.
I discussed this with her. She will get a repeat INR tomorrow and call our office with the result for further management of Coumadin.
Continue Lasix 40 mg daily
Impression / Plan
-
Primary Shelf Filler: Dr. Brooks
PCP: Dr. Joey Guerrier
Impression:
-Acute cholangitis 03/20/24s/p ERCP
-Lactic acidosis
-Hypotension
-Septic shock
-Elevated LFTs
-h/o Torsades with Sevoflurane during surgery 01/30/18
-Persistent atrial arrhythmia
-Paroxysmal atrial fibrillation/atypical atrial flutter/atrial tachycardia
s/p atrial flutter ablation 11/2019
s/p PVI and atrial flutter ablation 07/08/22
previously refractory to sotalol and Tikosyn, currently on amiodarone
s/p KAMRAN/CV 12/04/23
-[place] Mechanical AVR 06/2020
-s/p AVR with 21mm [place] Mechanical Valve, Closure of Perimembranous VSD with Bovine pericardial patch, Left Modified Maze procedure with Atricure device 07/16/20
-Chronic warfarin OAC managed by [facility]
-Chronic HFpEF
-h/o SBO 08/02/2023 with ex lap for extensive lysis of adhesions (>90 min), small bowel resection with primary anastomosis, ventral incisional hernia repair with mesh 08/03/23
Reoperation for pelvic hematoma and anastomotic leak 08/12/23
-History of diverticulitis with perforated diverticulum, peritonitis and sepsis, s/p ex lap with transverse colostomy, complicated by torsades felt to be due to sevoflurane 01/30/18
-s/p takedown transverse loop colostomy, laparotomy, REMEDIOS, sigmoidectomy, primary sutured repair parastomal hernia 05/31/18
-History of recurrent SBOs
-HTN
-HLD
-Rheumatoid arthritis/fibromyalgia/chronic pain
-Chronic back pain, epidural injections and daily narcotic use
-B/L venous insufficiency
Echo 06/16/20: EF 55%, normal regional wall motion, perimembranous VSD with left to right shunt, mod MR, severely dilated LA, bicuspid AV with severe peak/mean 131/76 and JOSE 0.5 cm sq, mild AI, severe TR with PASP 61 mmHg
Echo 10/26/20: EF 59%, mild to mod MR, s/p [place] mechanical AVR peak/mean 19/10 mmHg with trace paravalvular AI, mild TR with PASP 39 mmHg
Echo 12/04/22: EF 55 to 60%, mild concentric LVH, well-seated [place] mechanical aortic valve prosthesis with peak/mean gradients 23/11 mmHg, trace AR, mild TR, PAP 35 to 40 mmHg
Echo 01/09/24: EF 64%, mild conc LVH, normal RV size and function, mild MR, [place] mechanical AVR with peak/mean 14/7 mmHg
Plan:
-s/p ERCP with stone removal 03/24. GI and ID have signed off. plan to continue abx through 03/28
-in SR upon review of tele
-INR 2.2. I am okay with her being discharged today. Will give Coumadin 3 mg now and she will get repeat INR tomorrow and call our clinic clinic for further management.
-Patient had issues with Lovenox in the past and may need to remain in hospital on IV heparin until INR has become therapeutic
-continue po lasix 40mg daily
-BPs stable
-OP cardiac follow up arranged
Progress Note - Shelf Filler
Subjective
Date of Service: March 27, 2024
Feels well with no chest pains or shortness of breath
Objective
Labs:
03/27/24 05:14
03/27/24 05:14
Labs
Hgb 11.6 g/dL (12.0-16.0) L 03/27/24 05:14
Hct 35.1 % (37.0-47.0) L 03/27/24 05:14
Plt Count 262 10^3/uL (130-400) 03/27/24 05:14
PT 24.0 Sec (11.4-14.6) H 03/27/24 05:14
INR 2.16 03/27/24 05:14
APTT 137.3 Sec (23.4-35.0) H 03/27/24 05:14
Sodium 135 mmol/L (135-145) 03/27/24 05:14
Potassium 4.1 mmol/L (3.5-5.1) 03/27/24 05:14
BUN 29 mg/dl (7-17) H 03/27/24 05:14
Creatinine 1.0 mg/dL (0.6-1.0) 03/27/24 05:14
Glucose 101 mg/dl (70-99) H 03/27/24 05:14
Vital Signs and I&O:
Vital Signs
Temp Pulse Resp BP Pulse Ox
98.3 F 82 18 132/72 96
03/27/24 07:40 03/27/24 07:40 03/27/24 07:40 03/27/24 07:40 03/27/24 07:40
Vital Signs
Temp Pulse Resp BP Pulse Ox
98.3 F 82 18 132/72 96
03/27/24 07:40 03/27/24 07:40 03/27/24 07:40 03/27/24 07:40 03/27/24 07:40
Intake & Output
03/25/24 03/26/24 03/27/24 03/28/24
06:59 06:59 06:59 06:59
Intake Total 1160 / 1160 2220 / 2220 1200 / 1200
Balance 1160 / 1160 2220 / 2220 1200 / 1200
Physical Exam
Physical Exam
GEN: No distress, awake, Ox3
HEENT: supple, anicteric, mmm
LUNGS: CTA, no wheezes/rales
CV: Reg, S1/S2, 1/6 syst LSB, no gallop
ABD: soft, BS+, NT/ND
EXT: No edema
NEURO: Gross non-focal
SKIN: No rash
[2024-03-27] MEDS: COUMADIN 3 MG PO (10:13)
[2024-03-27 11:30] VITALS: BP 140/71
--- NOTE | 2024-03-27 11:46 | W.PN.HOSP.TC ---
Today's Communication/Plan
-
Discharge today
Assessment / Plan
Assessment / Plan
Physical Exam
General: No Apparent Distress
HEENT: Moist mucous membranes and Atraumatic
Respiratory: Clear
Cardiac: S1/S2, Regular Rhythm and Other (Mechanical click)
GI: Soft. Minimal to no tenderness. Positive bowel sounds.
Musculoskeletal: No Cyanosis
Skin: Warm and Dry
Neuro: AAO x 3; No Slurred Speech, Facial Droop or Tremors
Psych: Calm and Intact Judgment/Insight
Assessment/Plan
63 years old female presented with abdominal pain
#Sepsis/septic shock due to acute cholangitis with common bile duct stone
#Choledocholithiasis status post removal - accomplished by biliary sphincterotomy and balloon extraction, stent removal, and biliary sphincterotomy
Repeat ERCP performed on March 24, 2024 for definitive ERCP with sphincterotomy and stone/stent removal.
Status post Levophed support
c/w IV ABs, transitioned on March 24, 2024 the Zosyn (stopped Zosyn) to Ceftazidime and Flagyl
Consulted ID, recommendations appreciated
3 more doses of Augmentin after discharge
c/w pain control management
IV antiemetic medications as needed
Blood cultures with no growth to date
Appreciate GI and cardiology
Increased dilaudid per patient's request to 1 mg from 0.75 mg from 0.5 mg
Low fat diet
#Hypercoagulopathy secondary to Coumadin - RESOLVED - Suspect secondary to sepsis/antibiotic use
#Hypocalcemia - RESOLVED
#Urinary Incontinence - chronic since Fall 2022
-I spoke with Dr. Young on March 24, 2024, he recommended that this is an evaluation that is best conducted as an outpatient with Dr López -- and no further inpatient workup needed
# Lactic acidosis - RESOLVED - due to sepsis
# History of rheumatoid arthritis/fibromyalgia/chronic pain syndrome with opioid dependence
Continue with opioid to avoid withdrawal
#[place] Mechanical AVR 06/2020
#Status post AVR with 21mm [place] Mechanical Valve, Closure of Perimembranous VSD with Bovine pericardial patch, Left Modified Maze procedure with Atricure device 07/16/20
#History of paroxysmal atrial fibrillation/atypical atrial flutter/atrial tachycardia status post ablation 2021 and 2019 currently on amiodarone
#History of Torsades with Sevoflurane during surgery 01/30/18
-Status post repeat ERCP on March 24, 2024 with stent removal and sphincterotomy
-Continue Coumadin with Heparin Bridging while inpatient
-Patient is noted to have issues with Lovenox in the past
-Monitor daily INR -- today at 2.16
-Continue to monitor on telemetry
-Appreciate cardiology input
-Discussed today with cardiology: Dr. Cavanaugh ordered Coumadin 3 mg now, he said we can stop the Heparin, discharge the patient, patient will get a repeat INR tomorrow and call [facility] cardiology office with the result for further management of
Coumadin.
#Mild Elevation in Creatinine - RESOLVED
s/p IVF
Stopped Zosyn and started alternative antibiotics as above
Creatinine has improved
#Acute on Chronic heart failure with a preserved ejection fraction
She received IVF for septic shock.
Continue daily weights and I's and O's
Status post IV Lasix
Continue PO Lasix 40 mg daily
#Primary hypertension
resuming BP meds including Lasix, BB
#Hyperlipidemia, no changes intended.
#History of recurrent small bowel obstruction and bowel surgeries
#Mild to moderate mitral regurgitation/mild tricuspid regurgitation with mild to moderate pulmonary hypertension
#Hepatic steatosis/GERD/irritable bowel syndrome
# Obesity, BMI 36
# History of uterine fibroids.
More than 30 minutes spent in discharge including
Final examination of the patient
Summarizing hospital stay
Instructions for continuing care to all relevant caregivers
Preparation of discharge records, prescriptions, and referral forms
Total time spent (in minutes): 42
Anticipated Discharge: Today
Subjective/Interval History
-
Date of Service: March 27, 2024
Patient was seen and examined. She still has pain, she would like to be discharged as soon as possible. No other new significant symptoms or complaints.
Objective Data
-
Labs:
Laboratory Results
03/27/24 03/27/24
05:14 13:00
WBC 7.1
Hgb 11.6 L
Hct 35.1 L
Plt Count 262
PT 24.0 H
INR 2.16
APTT 137.3 H Pending
Sodium 135
Potassium 4.1
Chloride 99
Carbon Dioxide 30
BUN 29 H
Creatinine 1.0
Glucose 101 H
Calcium 9.2
Total Bilirubin 1.0
AST 83 H
ALT 179 H
Alkaline Phosphatase 264 H
Vital Signs:
Vital Signs
Temp Pulse Resp BP Pulse Ox
98.2 F 70 18 140/71 92
03/27/24 11:30 03/27/24 11:30 03/27/24 11:30 03/27/24 11:30 03/27/24 11:30
I&O
03/26/24 03/27/24 03/28/24
06:59 06:59 06:59
Intake Total 2220 / 2220 1200 / 1200
Balance 2220 / 2220 1200 / 1200
--- NOTE | 2024-03-27 14:22 | W.DS.TRANS ---
DC Summary - Stripper Black And White
-
Discharge Instructions:
Sleep Apnea Risk High
Discharge Diagnosis/Procedures #Sepsis/septic shock due to acute cholangitis
with common bile duct stone
#Choledocholithiasis status post removal -
accomplished by biliary sphincterotomy and
balloon extraction, stent removal, and biliary
sphincterotomy
#Hypercoagulopathy secondary to Coumadin -
RESOLVED
#Hypocalcemia - RESOLVED
#Urinary Incontinence - chronic since Fall 2022
#Lactic acidosis - RESOLVED - due to sepsis
#History of rheumatoid arthritis/fibromyalgia/
chronic pain syndrome with opioid dependence
#[place] Mechanical AVR 06/2020
#Status post AVR with 21mm [place]
Mechanical Valve, Closure of Perimembranous VSD
with Bovine pericardial patch, Left Modified
Maze procedure with Atricure device 07/16/20
#History of paroxysmal atrial fibrillation/
atypical atrial flutter/atrial tachycardia
status post ablation 2021 and 2019 currently on
amiodarone
#History of Torsades with Sevoflurane during
surgery 01/30/18
#Mild Elevation in Creatinine - RESOLVED
#Acute on Chronic heart failure with a preserved
ejection fraction
#Primary hypertension
#Hyperlipidemia, no changes intended.
#History of recurrent small bowel obstruction
and bowel surgeries
#Mild to moderate mitral regurgitation/mild
tricuspid regurgitation with mild to moderate
pulmonary hypertension
#Hepatic steatosis/GERD/irritable bowel syndrome
# Obesity, BMI 36
# History of uterine fibroids.
Diet Low Fat
Activity As tolerated
Other Services VN
Specialty Instructions Weigh Daily
Instructions:
Stand-Alone Forms:
Changes to Home Medications: Yes
Discharge Medications:
DC Medications w/original date entered in [employer]
trazodone 100 mg tablet 200 mg PO HS Mental Health/Anxiety 12/10/19
citalopram 40 mg tablet 40 mg PO DAILY Depression 06/01/22
furosemide 40 mg tablet 40 mg PO DAILY Fluid retention/Swelling 07/03/22
sennosides 8.6 mg-docusate sodium 50 mg tablet (Stool Softener-Laxative) 1 tab-cap PO HS Constipation 07/03/22
amiodarone 200 mg tablet 200 mg PO DAILY Arrhythmia 02/18/23
clonidine HCl 0.1 mg tablet 0.1 mg PO HS Blood Pressure 03/20/24
metoprolol succinate 25 mg tablet,extended release 24 hr 25 mg PO DAILY Blood Pressure 03/20/24
oxycodone 20 mg tablet 20 mg PO TID Pain 03/20/24
therapeutic multivitamin 1 tab PO DAILY Supplement 03/20/24
vitamin B complex 1 cap PO DAILY Supplement 03/20/24
warfarin 2.5 mg tablet 3 mg PO SUTUTHSA Blood Clot Prevention/Tx 03/20/24
warfarin 2.5 mg tablet (Jantoven) 3.5 mg PO MOWEFR Blood Clot Prevention/Tx 03/20/24
amoxicillin 875 mg-potassium clavulanate 125 mg tablet 1 tab PO Q12 #3 tabs 03/27/24
Home Medication Changes
-Amoxicillin-Pot Clavulanate is a new medication.
-Clonidine and 3 mg SuTuThSa Coumadin on hold until further guidance from outpatient cardiology.
Pending Results: No
Total time spent discharging patient (in min): 42
--- NOTE | 2024-03-27 14:42 | CM ---
Patient seen at bedside. IMM completed and signed form placed on chart. CM uodated [facility] liaison and physician. CM will continue to follow for discharge planning needs.
Plan; home with [facility] to follow
--- NOTE | 2024-03-31 18:33 | W.DCSUMMARY ---
Discharge Summary
Discharge Data
Date of Admission: 03/20/24
Date of Discharge: 03/27/24
Total time spent discharging patient (in min): 42
-
Pending Results: No
Hospital Course
63 y/o female with a complex past medical history including atrial fibrillation/atrial flutter, mechanical aortic valve replacement, chronic heart failure with preserved ejection fraction, who presented with abdominal pain. Patient was admitted with
acute cholangitis, and started on intravenous fluids and broad-spectrum intravenous antibiotics. Cardiology and gastroenterology were consulted. Patient was found to have septic shock and placed on vasopressors. Patient's Coumadin was held and ERCP
was performed and the findings from the ERCP included that patient's prior biliary sphincterotomy appeared not overtly patent, one plastic stent was placed into the common bile duct, and pus was drained. Patient was given intravenous Lasix due to
weight gain. Patient was also given Amiodarone for atypical atrial flutter. Patient was soon able to be weaned off of vasopressors. Once patient's INR was subtherapeutic, she was started on Heparin Bridging anticoagulation. Patient had a repeat ERCP
during this same hospitalization, complete removal of patient's common bile duct stone was accomplished by biliary sphincterotomy and balloon
extraction, one stent was removed from the biliary tree and a biliary sphincterotomy was performed. Patient's Coumadin was restarted along with Heparin Bridging. Patient's antibiotics were changed, Infectious Disease was also consulted for
recommendations on antibiotics and they recommended Augmentin through March 28, 2024.
Discharge Plan
-
Patient Disposition: Home with Home Care
Discharge Diagnosis/Procedures: #Sepsis/septic shock due to acute cholangitis with common bile duct stone
#Choledocholithiasis status post removal - accomplished by biliary sphincterotomy and balloon extraction, stent removal, and biliary sphincterotomy
#Hypercoagulopathy secondary to Coumadin - RESOLVED
#Hypocalcemia - RESOLVED
#Urinary Incontinence - chronic since Fall 2022
#Lactic acidosis - RESOLVED - due to sepsis
#History of rheumatoid arthritis/fibromyalgia/chronic pain syndrome with opioid dependence
#[place] Mechanical AVR 06/2020
#Status post AVR with 21mm [place] Mechanical Valve, Closure of Perimembranous VSD with Bovine pericardial patch, Left Modified Maze procedure with Atricure device 07/16/20
#History of paroxysmal atrial fibrillation/atypical atrial flutter/atrial tachycardia status post ablation 2021 and 2019 currently on amiodarone
#History of Torsades with Sevoflurane during surgery 01/30/18
#Mild Elevation in Creatinine - RESOLVED
#Acute on Chronic heart failure with a preserved ejection fraction
#Primary hypertension
#Hyperlipidemia, no changes intended.
#History of recurrent small bowel obstruction and bowel surgeries
#Mild to moderate mitral regurgitation/mild tricuspid regurgitation with mild to moderate pulmonary hypertension
#Hepatic steatosis/GERD/irritable bowel syndrome
# Obesity, BMI 36
# History of uterine fibroids.
Condition: Fair
Diet: Low Fat
Activity: As tolerated
Other Services: VN
Specialty Instructions: Weigh Daily- Call MD for wt gain/loss 3 lbs overnight/5 lbs in 1 week
Activity Restrictions/Additional Instructions:
-You were given a dose of warfarin 3 mg on 03/27/24. INR was 2.16 on 03/27/24. Check INR on 03/28/[address] Brooks's office to talk to Melyssa in the [facility]. Coumadin Clinic was updated today.
Referrals:
Bob Brooks DO [Active] - 05/08/24 4:00 pm (You have a cardiology follow-up appointment at the [place] office. Please call with questions)
Keisha López DO [Active] - in one to two weeks (Incontinence)
Joey Guerrier MD [Family Provider] - in less than 1 week
Additional Discharge Medication Instructions: -You were given a dose of warfarin 3 mg on 03/27/24. INR was 2.16 on 03/27/24. Check INR on 03/28/[address] Brooks's office to talk to Melyssa in the Coumadin Clinic. Coumadin Clinic was updated
today.
-Amoxicillin-Pot Clavulanate is a new medication.
-Clonidine and 3 mg SuTuThSa Coumadin on hold until further guidance from outpatient cardiology.
Prescriptions:
New
amoxicillin-pot clavulanate 875-125 mg Tablet
1 tab PO Q12 Qty: 3 0RF
Continued
trazodone 100 MG tablet
200 mg PO HS
citalopram 40 mg Tablet
40 mg PO DAILY
sennosides-docusate sodium [Stool Softener-Laxative] 8.6-50 mg Tablet
1 tab-cap PO HS
furosemide 40 MG tablet
40 mg PO DAILY
amiodarone 200 mg Tablet
200 mg PO DAILY
therapeutic multivitamin Tablet
1 tab PO DAILY
metoprolol succinate 25 mg Tablet Extended Release 24 Hr
25 mg PO DAILY
vitamin B complex Capsule
1 cap PO DAILY
oxycodone 20 mg Tablet
20 mg PO TID
warfarin [Jantoven] 2.5 mg tablet
3.5 mg PO MOWEFR
Held
clonidine HCl 0.1 mg Tablet
0.1 mg PO HS
Hold Instructions: Resume on 04/10/24. Discuss with your embossing machine operator before resuming this medication.
warfarin 2.5 mg Tablet
3 mg PO SUTUTHSA
Hold Instructions: Resume on 03/29/24.
Discharge Orders:
Discharge Patient (As Directed); Ordered 03/27/24
Ordered By: Romero Hernandez
Discharge Date and Time
Discharge Date/Time: 03/27/24 14:51
Print Language: MONTENEGRIN
== END 2024-03-27 14:51 | disposition home health service (06) | DRG 919 ==
LOC: 2 SOUTH 08:57
PROVIDERS: Internal Medicine; Internal Medicine Gastroenterology; Nurse Practitioner Family; ADMITTING PHYSICIAN Internal Medicine; ATTENDING PHYSICIAN Hospitalist; CONSULT PHYSICIAN Internal Medicine Cardiovascular Disease; CONSULT PHYSICIAN Internal Medicine Gastroenterology; CONSULT PHYSICIAN Student in an Organized Health Care Education/Training Program; EMERGENCY PHYSICIAN Emergency Medicine; FAMILY PHYSICIAN Internal Medicine; OTHER PHYSICIAN Internal Medicine Critical Care Medicine
PROC: 0FC98ZZ Extirpation of Matter from Common Bile Duct, Via Natural or Artificial Opening Endoscopic (ICD-10-PCS; 2024-03-20)
PROC: 0FPB8DZ Removal of Intraluminal Device from Hepatobiliary Duct, Via Natural or Artificial Opening Endoscopic (ICD-10-PCS; 2024-03-20)
PROC: 0F798DZ Dilation of Common Bile Duct with Intraluminal Device, Via Natural or Artificial Opening Endoscopic (ICD-10-PCS; 2024-03-20)
PROC: BF101ZZ Fluoroscopy of Bile Ducts using Low Osmolar Contrast (ICD-10-PCS; 2024-03-20)
DX: T85.590A Other mechanical complication of bile duct prosthesis, initial encounter (principal); A41.9 Sepsis, unspecified organism; I50.33 Acute on chronic diastolic (congestive) heart failure; J96.01 Acute respiratory failure with hypoxia; R65.21 Severe sepsis with septic shock; I48.21 Permanent atrial fibrillation; I48.4 Atypical atrial flutter; K80.33 Calculus of bile duct with acute cholangitis with obstruction; I47.19 Other supraventricular tachycardia; E87.20 Acidosis, unspecified; F11.20 Opioid dependence, uncomplicated; N17.9 Acute kidney failure, unspecified; D68.69 Other thrombophilia; I13.0 Hypertensive heart and chronic kidney disease with heart failure and stage 1 through stage 4 chronic kidney disease, or unspecified chronic kidney disease; I08.2 Rheumatic disorders of both aortic and tricuspid valves; M19.90 Unspecified osteoarthritis, unspecified site; G89.4 Chronic pain syndrome; E66.9 Obesity, unspecified; K21.9 Gastro-esophageal reflux disease without esophagitis; M54.9 Dorsalgia, unspecified; F41.9 Anxiety disorder, unspecified; E78.5 Hyperlipidemia, unspecified; I27.20 Pulmonary hypertension, unspecified; I08.1 Rheumatic disorders of both mitral and tricuspid valves; K58.9 Irritable bowel syndrome, unspecified; K76.0 Fatty (change of) liver, not elsewhere classified; I87.2 Venous insufficiency (chronic) (peripheral); R59.0 Localized enlarged lymph nodes; E83.51 Hypocalcemia; R32 Unspecified urinary incontinence; D25.9 Leiomyoma of uterus, unspecified; M79.7 Fibromyalgia; N18.2 Chronic kidney disease, stage 2 (mild); Y83.8 Other surgical procedures as the cause of abnormal reaction of the patient, or of later complication, without mention of misadventure at the time of the procedure; Y92.9 Unspecified place or not applicable; R16.0 Hepatomegaly, not elsewhere classified; M06.9 Rheumatoid arthritis, unspecified; Z87.74 Personal history of (corrected) congenital malformations of heart and circulatory system; Z90.49 Acquired absence of other specified parts of digestive tract; Z79.01 Long term (current) use of anticoagulants; Z95.2 Presence of prosthetic heart valve; Z88.3 Allergy status to other anti-infective agents; Z88.8 Allergy status to other drugs, medicaments and biological substances; Z91.048 Other nonmedicinal substance allergy status; Z68.36 Body mass index [BMI] 36.0-36.9, adult; Z87.19 Personal history of other diseases of the digestive system
CPT/HCPCS: 71045; 74177; 74330; 76000; 76705; 80053; 81003; 81015; 82805; 82962; 83605; 83690; 83735; 84100; 85025; 85027; 85610; 85730; 87040; 87086; 93005; 96361; 96374; 96375; 96376; 97116; 97162; 97166; 97530; 97535; 99285; C1769; C2617; Q9967

== ENCOUNTER → 2024-05-08 10:23 | Outpatient (REF) | payer MEDICARE, OTHER, SELFPAY | LOC: HWRAD 10:23 | PROVIDERS: ATTENDING PHYSICIAN Nurse Practitioner; FAMILY PHYSICIAN Internal Medicine | DX: N39.41 Urge incontinence (principal) | CPT/HCPCS: 76770; 76856 ==

== ENCOUNTER 2024-05-27 12:08 | Emergency (ER) | payer MEDICARE, OTHER, SELFPAY ==
[2024-05-27 12:10] VITALS: BP 118/81
--- NOTE | 2024-05-27 12:20 | ED.MUSCINJ ---
HPI-Injury
General
Chief Complaint: Fall
Source: patient
Exam Limitations: none
Time Seen by Provider: 05/27/24 12:20
Nursing documentation reviewed up to this point in time: agreed with
History of Present Illness-Injury
Initial Injury comments:
63-year-old female with history of A-fib, aortic valve replacement, on Coumadin, CHF, HTN, GERD colostomy, presents after a fall. She states her toe caught on an area rug about an hour ago at home. She hit her forehead on the wooden floor and has
a laceration mid forehead. She denies loss of consciousness. She had a headache prior to the fall and took Tylenol 2 extra strength about 2 hours ago. She denies neck pain. She has chronic back pain for which she sees pain management and states
there is nothing new here. She denies injuring her arms or her left leg. She lacerated her right knee. She was able to ambulate with a walker afterwards.
Past History
Past History
ED Past Medical History: Arrthythmia (Atrial fib, SVT), CHF, GERD, HTN, Valvular disease and Other (Chronic back pain, perforated diverticulitis, endocarditis, GI bleeding, IBS,Uterine fibroids, RA, See's pain management)
ED Past Surgical History: Cardiac (VSD repair, Aortic Valve replaced), Cholecystectomy, Orthopedic (Multiple orthopedic surgeries, right ankle surgery, Bilateal knee replacements) and Other (Colostomy, Hernia repair with colostomy reversal May
2017,)
Social History
Tobacco: Non-smoker
Alcohol: Occasional
Drug: None
Personal:
Living: with family
Family History
Family History: Negative Diabetes, Hypertension or CAD
Review of Systems
Review of Systems
Allergies reviewed?: Yes
All Other Systems: ROS reviewed and negative except as documented in HPI and ROS
Constitutional: Denies fever or fatigue
Respiratory: Denies trouble breathing
Cardiac: Denies chest pain, palpitations or syncope
ABD/GI: Denies abdominal pain, nausea, vomiting or diarrhea
: Denies dysuria, incontinence, difficulty voiding or urgency
Musculoskeletal: Reports back pain (Chronic, nothing new since this fall) and other (Pain right knee with laceration); Denies edema or neck pain
Skin: Reports other (Laceration mid forehead, right knee)
Neurological: Reports headache (She states her headache started prior to the fall.); Denies dizzy, weakness or numbness
Skin Exam
Laceration
mid forehead:
Length in cm: 5
Orientation: vertical
Type of Laceration: simple
Any active bleeding?: low grade venous oozing
right anterior knee:
Length in cm: 3
Orientation: L shaped
Type of Laceration: simple
Any active bleeding?: low grade venous oozing
Distal skin color and temperature: normal-warm & good color
Normal distal neurovascular exam: Yes
Range of motion: full
Phy Exam
Physical Exam
Physical Exam:
GENERAL: No acute distress. A&Ox3.
CONSTITUTIONAL: Afebrile.
EYES: PERRL, conjunctivae normal
Neck: Supple
ENMT: moist mucus membranes, Pharynx nl
RESPIRATORY: Regular respirations, nonlabored, lungs clear.
CARDIOVASCULAR: Regular rate and rhythm, no murmurs, no rubs.
GI: Soft, nontender, normal BS
MUSCULOSKELETAL: No spinal bony tenderness. Moves extremities with ease. Well perfused.
SKIN: Warm, dry, pink
PSYCH: Normal mood and affect. Well kept, interactive and appropriate
NEUROLOGIC: Awake, alert and oriented. Cranial nerves II through XII intact. Speech clear. No focal neurological deficits
Injury Course
Orders/Labs/Results
Orders:
Orders
05/27/24 12:29
Lidocaine/Epinephrine/Tetracai [Let Topical Anesthetic Gel] 6 ml TOPICAL NOW STA
05/27/24 12:32
CT Head W/o Iv Contrast Urgent
Comment:
Reason For Exam: fall forehead lac, on coumadin
Knee, Right 4 or More Views [CR Knee- Right 4 Or More View*] Urgent
Comment:
Reason For Exam: pain after fall. Laceration
05/27/24 12:53
Complete Blood Count/With Diff Urgent
Comprehensive Metabolic Panel Urgent
Prothrombin Time Urgent
05/27/24 15:06
Tetanus/Diphth/Acelpertussis [Adacel] 0.5 ml IM .ONCE ONE
Abnormal Lab Results
05/27/24
12:53
RBC 3.93 L 10^6/uL
(4.20-5.40)
Hgb 11.9 L g/dL
(12.0-16.0)
Hct 35.5 L %
(37.0-47.0)
RDW 15.5 H %
(11.5-14.5)
Monocytes % 9.4 H %
(1.7-9.3)
PT 19.4 H Sec
(11.4-14.6)
Sodium 132 L mmol/L
(135-145)
BUN 19 H mg/dl
(7-17)
Glucose 132 H mg/dl
(70-99)
AST 45 H U/L
(14-36)
ALT 38 H U/L
(0-35)
05/27/24 12:53
05/27/24 12:53
Procedures
Laceration Closure
mid forehead:
Status of Wound: clean
Size of Wound in cm: 5
Description of Wound Edges: sharp
Preparation: cleaned with saline
Anesthesia: Topical-LET
Revision/Debridement: routine- no revision
Type of Closure: Dermabond-skin glue (reinforced with skin adhesive and steri strips. Wound edges well approximated.)
right anterior knee :
Status of Wound: clean
Size of Wound in cm: 4
Description of Wound Edges: sharp
Preparation: cleaned with saline
Anesthesia: 1% Lidocaine with epi and Topical-LET
Revision/Debridement: routine- no revision
Wound exploration: explored to base- no FB
Type of Closure: interrupted sutures (6) and mattress sutures (2)
Skin Closure Material: 3-0 nylon
Number of sutures: 8
Additional information:
ATB ointment, non stick, gauze dressing applied, Nilesh wrap applied
MDM/Problems Addressed
Differential Diagnosis Includes:
ICH, SAB, concussion
Fx R knee vs contusion
MDM/Problems Addressed:
63-year-old female with history of A-fib, aortic valve replacement, on Coumadin, CHF, HTN, GERD colostomy, presents after a fall. She states her toe caught on an area rug about an hour ago at home. She hit her forehead on the wooden floor and has
a laceration mid forehead. She denies loss of consciousness. She had a headache prior to the fall and took Tylenol 2 extra strength about 2 hours ago. She denies neck pain. She has chronic back pain for which she sees pain management and states
there is nothing new here. She denies injuring her arms or her left leg. She lacerated her right knee. She was able to ambulate with a walker afterwards.
1:20 p.m.
CBC: No clinically significant abnormality
CMP: No clinically significant abnormality
Head CT neg
R knee xray: no acute abnormality
Clearly a mechanical fall. No sign of concussion.
Rx for Keflex sent to her pharmacy for the knee laceration over her prosthesis.
Pt OOB and ambulating well prior to discharge
*Critical Care Note
Total Time (30-74mins, 75-104mins- exclusive of procedures): Not Applicable
ED Attending Note
-
Portions of this chart may have been created with voice recognition software.� Occasional wrong word or��sound alike� substitutions may have occurred due to the inherent limitations of voice recognition software.
Discharge Plan
Departure
Patient Disposition: Home (Routine Discharge)
Date of Disposition: 05/27/24
Time of Disposition: 15:04
Patient with high blood pressure during this ER visit?: No
Condition: Good
Discharge Problem:
Fall from slip, trip, or stumble, Forehead laceration, Laceration of right knee, Contusion of knee
Instructions: Head Injury in Adults (DC), Contusion (DC), Laceration Repair With Stitches (DC)
Prescriptions:
New
cephalexin 500 mg capsule
500 mg PO QID 7 Days Qty: 28 0RF
No Action
trazodone 100 MG tablet
200 mg PO HS
citalopram 40 mg Tablet
40 mg PO DAILY
sennosides-docusate sodium [Stool Softener-Laxative] 8.6-50 mg Tablet
1 tab-cap PO HS
furosemide 40 MG tablet
40 mg PO DAILY
amiodarone 200 mg Tablet
200 mg PO DAILY
clonidine HCl 0.1 mg Tablet
0.1 mg PO HS
warfarin 2.5 mg Tablet
3 mg PO SUTUTHSA
therapeutic multivitamin Tablet
1 tab PO DAILY
metoprolol succinate 25 mg Tablet Extended Release 24 Hr
25 mg PO DAILY
vitamin B complex Capsule
1 cap PO DAILY
oxycodone 20 mg Tablet
20 mg PO TID
warfarin [Jantoven] 2.5 mg tablet
3.5 mg PO MOWEFR
amoxicillin-pot clavulanate 875-125 mg Tablet
1 tab PO Q12 Qty: 3 0RF
Referrals:
Joey Guerrier MD [Family Provider] - Follow up in 2-3 days
Activity Restrictions/Additional Instructions:
As we discussed, have the knee sutures removed in 10-12 days.
I sent a prescription to your pharmacy for antibiotic Keflex, start it today.
Tylenol as needed for pain
You are at increased risk for bleeding,
Return here immediately for headache that gets worse despite Tylenol, confusion, trouble with balance, inability to walk straight, vomiting or feeling sicker in any way.
Interventions
Interventions:
ED- Fall Risk Assessment Last Done: 05/27/24 12:10
*Nursing Disposition Last Done: 05/27/24 15:43
ED-Musculoskeletal Assessment Last Done: 05/27/24 15:42
ED- Neurological Assessment Last Done: 05/27/24 15:42
ED-Skin Assessment Last Done: 05/27/24 15:42
Discharge Date and Time
Discharge Date/Time: 05/27/24 15:45
Print Language: SLOVAK
[2024-05-27] MEDS: LET TOPICAL ANESTHETIC GEL 6 ML TOPICAL (12:54)
[2024-05-27 13:07] LABS: % Basophils 1.1 % (0-2); % Eosinophils 0.4 % (0-6); % Immature Granulocytes 0.4 % (0-0.5); % Lymphocytes 35.3 % (20.5-51.1); % Monocytes 9.4 % (1.7-9.3); % Neutrophils 53.4 % (42.2-75.2); Absolute Basophils 0.1 10^3/uL (0-0.2); Absolute Lymphocytes 1.9 10^3/uL (1.2-3.4); Absolute Monocytes 0.5 10^3/uL (0.1-0.6); Absolute Neutrophils 2.8 10^3/uL (1.4-6.5); Hematocrit 35.5 % (37.0-47.0); Hemoglobin 11.9 g/dL (12.0-16.0); Mean Corp Hgb Conc. 33.5 g/dL (33.0-37.0); Mean Corpuscular Hgb 30.3 pg (27.0-31.0); Mean Corpuscular Volume 90.3 fL (81.0-99.0); Mean Platelet Volume 8.6 fL (7.4-10.4); Nucleated Red Blood Cells % 0 %; Platelet Count 222 10^3/uL (130-400); Red Blood Cell Count 3.93 10^6/uL (4.20-5.40); Red Cell Dist. Width 15.5 % (11.5-14.5); White Blood Cell Count 5.2 10^3/uL (4.8-10.8)
[2024-05-27 13:20] LABS: INR 1.65; PT 19.4 Sec (11.4-14.6)
[2024-05-27 13:23] LABS: ALT (SGPT) 38 U/L (0-35); AST (SGOT) 45 U/L (14-36); Albumin 3.6 g/dl (3.5-5.0); Alkaline Phosphatase 93 U/L (38-126); Blood Urea Nitrogen 19 mg/dl (7-17); Calcium 8.5 mg/dl (8.4-10.2); Carbon Dioxide 28 mmol/L (22-30); Chloride 100 mmol/L (98-107); Glucose 132 mg/dl (70-99); Sodium 132 mmol/L (135-145); Total Bilirubin 0.4 mg/dl (0.2-1.3); Total Protein 6.5 g/dl (6.3-8.2); eGFR > 60.00
[2024-05-27 15:19] VITALS: BP 93/66
[2024-05-27] MEDS: ADACEL 0.5 ML IM (15:30)
== END 2024-05-27 15:45 | disposition home or self-care (01) ==
LOC: EMR 12:08
PROVIDERS: Registered Nurse; EMERGENCY PHYSICIAN Emergency Medicine; FAMILY PHYSICIAN Internal Medicine
DX: S01.81XA Laceration without foreign body of other part of head, initial encounter (principal); S80.01XA Contusion of right knee, initial encounter; S81.011A Laceration without foreign body, right knee, initial encounter; W01.0XXA Fall on same level from slipping, tripping and stumbling without subsequent striking against object, initial encounter; I10 Essential (primary) hypertension; K21.9 Gastro-esophageal reflux disease without esophagitis; Z96.651 Presence of right artificial knee joint; Z23 Encounter for immunization
CPT/HCPCS: 99285; 12032; 12002; 90471; 70450; 73564; 80053; 85025; 85610; 90715

== ENCOUNTER → 2024-08-08 14:10 | Outpatient (REF) | payer MEDICARE, OTHER, SELFPAY | LOC: HWRAD 14:10 | PROVIDERS: ATTENDING PHYSICIAN Hospitalist; REFERRING PHYSICIAN Nuclear Medicine Nuclear Cardiology | DX: R05.3 Chronic cough (principal) | CPT/HCPCS: 71046 ==

== ENCOUNTER → 2024-11-19 13:54 | Outpatient (REF) | payer MEDICARE, OTHER, SELFPAY | LOC: HWEVLT 13:54 | PROVIDERS: ATTENDING PHYSICIAN Radiology Diagnostic Radiology | DX: I83.893 Varicose veins of bilateral lower extremities with other complications (principal) | CPT/HCPCS: 93970 ==

== ENCOUNTER 2024-12-17 08:06 | Day surgery (SDC) | payer MEDICARE, OTHER, SELFPAY ==
[2024-12-04 11:31] VITALS: BMI 33.8
[2024-12-17] VITALS (20 sets, daily range): BP systolic 100–131; BP diastolic 56–82; BMI 35.5
[2024-12-17 08:43] LABS: INR 3.57; PT 35.9 Sec (11.4-14.6)
--- NOTE | 2024-12-17 09:10 | PTCARENOTE ---
Pt's INR from today is 3.57. Dr Charles and Dr Payne both made aware. Pt ok to proceed with procedure. Will continue to monitor.
--- NOTE | 2024-12-17 11:36 | ITS.CL.ABL ---
Guide Escort - Ablation
Ablation
Procedure Report:
ELECTROPHYSIOLOGY ABLATION STUDY
DATE:: December 17, 2024 REFERRING: Dr. Bob Brooks
INDICATION: Persistent supraventricular tachycardia in the form of atypical atrial flutter. Prior Maze procedure along with mechanical aortic valve and previous ablation targeting the pulmonary veins, the left atrial posterior wall, and the
ligament of Agustin for a ligament of Agustin flutter.
HISTORY: See H and P. As above
ANTIARRHYTHMIC DRUG: History of dofetilide use
PRE-PROCEDURE KAMRAN: No interatrial thrombus
PRESENTING RHYTHM: Mitral flutter 470 ms
'TIME-OUT': called and confirmed.
SEDATION/ANESTHESIA: provided via the anesthesia department using general anesthesia (LMA).
INTRAVENOUS/ARTERIAL ACCESS:
Right femoral venous - 8Fr
Left femoral venous - 8 Fr, 6 Fr
Ultrasound guidance for bilateral femoral vein access was utilized by me to obtain access with demonstration of normal anatomy
CHADS-VASC Score:
HAS-Bled Score
PROCEDURE:
1. A decapolar CS catheter was placed within the CS for mapping and pacing. This was also used as the reference catheter for the 3-D map.
2. The intracardiac ultrasound catheter was positioned in the RA to identify the FO for targeting of transseptal puncture, assist in identification of the pulmonary vein ostia, monitoring pre and post ablation pulmonary vein flow velocities,
monitoring for 'bubble' formation during RF application as a sign of thermal injury, and to monitor for pericardial effusion during mapping and ablation procedure. Left atrial size, LV ejection fraction, and pulmonary vein flows were monitored
pre and post ablation procedure. The other valves were inspected and found to be free of significant regurgitation or stenosis.
3. Half of the calculated heparin bolus was administered prior to the first transeptal puncture. Transseptal puncture was performed to diagnose RA and LA pressure so that safety of LA mapping and ablation could be further assessed, and to access
the left atrium and pulmonary veins for mapping and ablation. This entailed advancing an 10fr steerable sheath with dilator into the superior vena cava and withdrawing both (monitoring intracardiac ultrasound, fluoroscopy and tip pressure) with the
tip oriented toward the atrial septum. The fossa ovalis was engaged (indicated by sudden displacement of the sheath tip as well as tenting of the fossa seen on intracardiac ultrasound). Left atrial access required a pass with the [place]
needle extended. Left atrial catheter position was confirmed by pressure monitoring (RA mean pressure 8 mm Hg and LA mean pressure 14 mm Hg), LA saturation ( 99 %), as well as fluoroscopy. The sheath was advanced over the dilator and positioned
in the left atrium. The remainder of the calculated heparin bolus was administered and heparin was
infused to maintain ACT at 300 -350 seconds throughout the case.
4. RA pacing was performed via the proximal decapolar poles and LA pacing was performed via the distal decapolar poles.
5. A quadrapolar catheter was first positioned at the His position for His Bundle recording which was tagged via the 3-D Navex sytem, and then passed to the RVA for RV pacing and recording.
6. The lattice catheter were placed in each of the LIPV, LSPV, RSPV and the RIPV.
7. Next, a 3-D map was created using Navex. A 3-D reconstructed CT image was compared to the 3-D Navex map to assist in anatomic interpretation, mapping and ablation. The CT image and the NavX image were fused.
8. There was focal reconnection of the right inferior pulmonary vein at the inferior posterior region. At the roof and the high posterior wall there was some reconnection of the posterior wall with voltage.
We entrained the 470 ms clinic arrhythmia from the right atrium and the CTI, proximal coronary sinus, and lateral right atrium were out of the circuit with PPI 100 ms greater than tachycardia cycle length. We then performed transseptal puncture as
above and in the left atrium demonstrated clockwise mitral annular flutter for 70 ms with entrainment from the mitral isthmus with PPI equal to tachycardia cycle length and passive activation of the low posterior wall 20 to 30 ms longer and post
pacing interval. Utilizing radiofrequency energy towards the mitral valve annulus towards the mid mitral line from mitral valve to the left inferior pulmonary vein tachycardia slowed and terminated with ablation at the annulus. Tachycardia slowed
to 550 ms before termination. Intracardiac ultrasound was utilized to guide contact and lesion formation. PFA was performed from the mid lateral mitral isthmus back towards the posterior wall and all areas in the posterior wall roof floor and
right inferior pulmonary vein were addressed with focal PFA. This rendered the posterior wall roof floor and pulmonary veins electrically silent with entrance and exit block and time across the mitral isthmus was 320 ms.
9. The patient was noninducible for other tachyarrhythmia with atrial extrastimuli and burst atrial pacing. Atrial ERP was 600�2 80.
Baseline NH interval in sinus rhythm was 268 ms.
The patient did not have any episodes of prolonged QT or torsade during the procedure.
TOTAL FLOURO TIME: 7.8 minutes 84 mGy
TOTAL RF DURATION: 1 minutes
REVERSAL OF HEPARIN: 40 mg of protamine, slow IV administration
COMPLICATIONS:
None
Intracardiac US shows no pericardial effusion post ablation.
SUMMARY:
Complex left atrial mapping and ablation.
Clinical clockwise mitral annular flutter which slowed and terminated with a mitral line from the mitral valve annulus back towards the left inferior pulmonary vein with RF lesions given to the proximal mitral valve and mitral valve isthmus and PFA
from mid isthmus back towards the left inferior pulmonary vein. Reisolation of the right inferior pulmonary vein and the left atrial posterior wall.
RECOMMENDATIONS:
1. Admit to monitored bed. [id number] sutures to each of the femoral venous access sites
2. Resume anticoagulation with warfarin
3. Continue AV blanca agents
4. Will plan discharge on December 18
Copy to: Dr. Bob Brooks
--- NOTE | 2024-12-17 12:40 | PTCARENOTE ---
Dr Charles at pt bedside assessing pt and pt's left groin. No further treatment ordered at this time. Will continue to monitor.
[2024-12-17] MEDS: SUBLIMAZE 50 MCG IV ×3 (12:51→13:36)
--- NOTE | 2024-12-17 14:15 | PTCARENOTE ---
Pt post PVI procedure. Pt c/o low back pain 7/10 and left groin pain 5/10 after receiving a total of 150mg of fentanyl post procedure in PACU. Pt states she has chronic back pain and has 'trouble with pain'. Pt's left groin without oozing, bleeding,
or hematoma noted. Pt takes oxycodone 20mg three times a day for back pain. Pt states left groin throbbing is after manual pressure was held after hematoma x 2. Pt also with skin tear to left groin noted. VSS. Dr Payne, anesthesiologist, signed pt
out from anesthesia care. Clementina LYNCH made aware and states ok to raise head of bed 30 degrees and pt ok to go to IVU. Will transfer pt to IVU.
[2024-12-17 14:34] LABS: ACT-LR - POC > 397 Seconds (116-155)
[2024-12-17 14:34] LABS: ACT-LR - POC > 397 Seconds (116-155)
[2024-12-17 14:34] LABS: ACT-LR - POC > 397 Seconds (116-155)
[2024-12-17] MEDS: ROXICODONE 20 MG PO ×2 (16:00→21:14)
--- NOTE | 2024-12-17 16:09 | CM ---
Chart reviewed. Patient is independent of ADLS, lives with her in a [address], 4 [address], ambulates with a SPC and RW. Plan is for the patient to return home. CM to follow
--- NOTE | 2024-12-17 18:55 | PTCARENOTE ---
Figure of 8's clipped without incident at around 4 pm. Pt olya well. 1/2 hr later Pt assisted OOB to chair. She had difficulty moving her L leg, she has chronic numbness in her outer L thigh. She c/o burning down her L leg. L groin remains soft, dsg
D+I. Clementina Dotson aware and came to see Pt.
[2024-12-17] MEDS: TYLENOL 650 MG PO (19:28)
[2024-12-17] MEDS: MYRBETRIQ EXTENDED RELEASE 50 MG PO (21:14)
[2024-12-17] MEDS: DETROL LA 4 MG PO (21:14)
[2024-12-17] MEDS: DESYREL 200 MG PO (21:15)
[2024-12-17] MEDS: COUMADIN 3 MG PO (22:05)
[2024-12-17] MEDS: COUMADIN 0.5 MG PO (22:05)
--- NOTE | 2024-12-17 23:50 | PTCARENOTE ---
Rec'd pt at change of shift. Pt AAO*3, VSS, and SR with 1st degree hb. Bilateral groin sites oozing at change of shift. Dressing changed and hemostasis pads applied. CT Pa made aware and manual pressure held at R femoral vein site for 15
minutes. Fem stop applied for 90 minutes. Pt updated on activity restriction and agrees to plan of care. Pt reported pain in back and right leg pain, scheduled pain medication given as ordered. Pt resting with call marx in reach. Plan of care
ongoing. See MAR and flowchart for full pt assessment and care.
[2024-12-18 02:58] VITALS: BP 132/80
[2024-12-18] MEDS: TYLENOL 650 MG PO ×2 (03:13→08:17)
[2024-12-18 03:24] LABS: Hemoglobin 13.3 g/dL (12.0-16.0); Mean Corp Hgb Conc. 32.4 g/dL (33.0-37.0); Mean Corpuscular Hgb 29.6 pg (27.0-31.0); Mean Corpuscular Volume 91.3 fL (81.0-99.0); Mean Platelet Volume 8.6 fL (7.4-10.4); Platelet Count 212 10^3/uL (130-400); Red Blood Cell Count 4.49 10^6/uL (4.20-5.40); Red Cell Dist. Width 13.7 % (11.5-14.5); White Blood Cell Count 8.3 10^3/uL (4.8-10.8)
[2024-12-18 03:42] LABS: INR 3.66; PT 36.6 Sec (11.4-14.6)
[2024-12-18 03:55] LABS: Blood Urea Nitrogen 21 mg/dl (7-17); Calcium 8.8 mg/dl (8.4-10.2); Carbon Dioxide 29 mmol/L (22-30); Chloride 102 mmol/L (98-107); Estimated Creatinine Clearance 75 ml/min; Glucose 112 mg/dl (70-99); Magnesium 2.1 mg/dl (1.6-2.3); Potassium 4.5 mmol/L (3.5-5.1); Sodium 137 mmol/L (135-145); eGFR > 60.00
[2024-12-18 07:30] VITALS: BP 115/63
--- NOTE | 2024-12-18 08:00 | W.PN.CARDCBS ---
Addendum entered and electronically signed by Daniel Charles MD 12/18/24 14:14:
Patient seen and examined
Agree with FRAME TENDER note and assessment
Agree with FRAME TENDER plan
Exam:
Bilateral venous access sites were examined without bruit hematoma or tenderness
Hemoglobin noted
Cor regular no murmur
Lungs clear to auscultation bilaterally
Abdomen soft nontender positive bowel sounds
No extremity edema
Sinus rhythm on telemetry and ECG
Impression:
-Symptomatic Paroxysmal atrial fibrillation/atypical atrial flutter/atrial tachycardia
s/p atrial flutter ablation 11/2019
s/p PVI and atrial flutter ablation 07/08/22
previously refractory to sotalol and Tikosyn, currently on amiodarone
s/p KAMRAN/CV 12/04/23
s/p redo PVI/PW and mitral flutter ablation 12/17/24-[place] Mechanical AVR 06/2020
-s/p AVR with 21mm [place] Mechanical Valve, Closure of Perimembranous VSD with Bovine pericardial patch, Left Modified Maze procedure with Atricure device 07/16/20
-Chronic warfarin OAC managed by [facility]
-Chronic HFpEF
-h/o SBO 08/02/2023 with ex lap for extensive lysis of adhesions (>90 min), small bowel resection with primary anastomosis, ventral incisional hernia repair with mesh 08/03/23
Reoperation for pelvic hematoma and anastomotic leak 08/12/23-History of diverticulitis with perforated diverticulum, peritonitis and sepsis, s/p ex lap with transverse colostomy, complicated by torsades felt to be due to sevoflurane 01/30/18-s/p
takedown transverse loop colostomy, laparotomy, REMEDIOS, sigmoidectomy, primary sutured repair parastomal hernia 05/31/18
-History of recurrent SBOs
-HTN
-HLD
-Rheumatoid arthritis/fibromyalgia/chronic pain
-Chronic back pain, epidural injections and daily narcotic use
-B/L venous insufficiency
Plan:
-Hemoglobin is stable with intact groin exam
hbg stable 13
Goal INR 2.5-3.5 for aortic mechanical valve
continue metoprolol, lasix
Activity restrictions reviewed
f/u Dr. Charles and Dr. Brooks in 3 mo
home today
Original Note:
Today's Communication / Plan
-
post redo PVI, stable for d/c home
Impression / Plan
-
PCP: Joey Guerrier MD
CDY: Daniel Charles MD
Impression:
-Symptomatic Paroxysmal atrial fibrillation/atypical atrial flutter/atrial tachycardia
s/p atrial flutter ablation 11/2019
s/p PVI and atrial flutter ablation 07/08/22
previously refractory to sotalol and Tikosyn, currently on amiodarone
s/p KAMRAN/CV 12/04/23
s/p redo PVI/PW and mitral flutter ablation 12/17/24
-[place] Mechanical AVR 06/2020
-s/p AVR with 21mm [place] Mechanical Valve, Closure of Perimembranous VSD with Bovine pericardial patch, Left Modified Maze procedure with Atricure device 07/16/20
-Chronic warfarin OAC managed by [facility]
-Chronic HFpEF
-h/o SBO 08/02/2023 with ex lap for extensive lysis of adhesions (>90 min), small bowel resection with primary anastomosis, ventral incisional hernia repair with mesh 08/03/23
Reoperation for pelvic hematoma and anastomotic leak 08/12/23-History of diverticulitis with perforated diverticulum, peritonitis and sepsis, s/p ex lap with transverse colostomy, complicated by torsades felt to be due to sevoflurane 01/30/18
-s/p takedown transverse loop colostomy, laparotomy, REMEDIOS, sigmoidectomy, primary sutured repair parastomal hernia 05/31/18
-History of recurrent SBOs
-HTN
-HLD
-Rheumatoid arthritis/fibromyalgia/chronic pain
-Chronic back pain, epidural injections and daily narcotic use
-B/L venous insufficiency
Plan:
post ablation feels good
o/n events of groins noted, currently c/d/i no HT
hbg stable 13
tele SR 1deg AVB
continue Coumadin INR goal 2.5-3.5 for Mechanical valve, INR 3.66 this am
continue metoprolol, lasix
Activity restrictions reviewed
f/u Dr. Charles in 3 mo
home today
SUMMARY:
Complex left atrial mapping and ablation.
Clinical clockwise mitral annular flutter which slowed and terminated with a mitral line from the mitral valve annulus back towards the left inferior pulmonary vein with RF lesions given to the proximal mitral valve and mitral valve isthmus and PFA
from mid isthmus back towards the left inferior pulmonary vein. Reisolation of the right inferior pulmonary vein and the left atrial posterior wall.
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
Subjective
Date of Service: December 18, 2024
denies cp, sob, mild groin pain
Objective
Labs:
12/18/24 03:09
12/18/24 03:09
Labs
Hgb 13.3 g/dL (12.0-16.0) 12/18/24 03:09
Hct 41.0 % (37.0-47.0) 12/18/24 03:09
Plt Count 212 10^3/uL (130-400) 12/18/24 03:09
PT 36.6 Sec (11.4-14.6) H 12/18/24 03:09
INR 3.66 12/18/24 03:09
Sodium 137 mmol/L (135-145) 12/18/24 03:09
Potassium 4.5 mmol/L (3.5-5.1) 12/18/24 03:09
BUN 21 mg/dl (7-17) H 12/18/24 03:09
Creatinine 0.7 mg/dL (0.6-1.0) 12/18/24 03:09
Glucose 112 mg/dl (70-99) H 12/18/24 03:09
Vital Signs and I&O:
Vital Signs
Temp Pulse Resp BP Pulse Ox
98.9 F 81 20 132/80 96
12/18/24 07:30 12/18/24 02:58 12/18/24 07:30 12/18/24 02:58 12/18/24 07:30
Vital Signs
Temp Pulse Resp BP Pulse Ox
98.9 F 81 20 132/80 96
12/18/24 07:30 12/18/24 02:58 12/18/24 07:30 12/18/24 02:58 12/18/24 07:30
Intake & Output
12/16/24 12/17/24 12/18/24 12/19/24
06:59 06:59 06:59 06:59
Intake Total 1480 / 1480
Output Total 300 / 300
Balance 1180 / 1180
Physical Exam
Physical Exam
NAD< AOX3
S1, S2, RRR
CTAB, non labored
SNTND bsx4
b/l groins c/d/i no HT, soft, mild ecchymosis L groin
[2024-12-18] MEDS: SYNTHROID 112 MCG PO (08:09)
[2024-12-18] MEDS: ROXICODONE 20 MG PO (08:09)
[2024-12-18] MEDS: CELEXA 40 MG PO (08:10)
[2024-12-18] MEDS: TOPROL XL 25 MG PO (08:10)
--- NOTE | 2024-12-18 11:01 | PTCARENOTE ---
Pt ambulated to BR and sat OOB in chair, olya well, moving around much better today as compared to yesterday evening. She c/o headache, med with Tylenol 650 mg Po as ordered with relief noted. Bilat femoral dsgs D+I. Offers no c/o L leg pain today.
Discharge instructions reviewed with Pt, Pt expressed understanding.
--- NOTE | 2024-12-18 11:44 | W.DS.TRANS ---
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
-
Discharge Instructions:
Discharge Diagnosis/Procedures Atrial fibrillation post ablation
Diet Low Cholesterol
Driving Restrictions No driving for 24 hours
Instructions:
Stand-Alone Forms: DC Instructions- Cath/EP Lab
Changes to Home Medications: No
Discharge Medications:
DC Medications w/original date entered in [facility]
trazodone 100 mg tablet 200 mg PO HS Mental Health/Anxiety 12/10/19
citalopram 40 mg tablet 40 mg PO DAILY Depression 06/01/22
furosemide 40 mg tablet 40 mg PO DAILY Fluid retention/Swelling 07/03/22
sennosides 8.6 mg-docusate sodium 50 mg tablet (Stool Softener-Laxative) 1 - 2 tab-cap PO HS Constipation 07/03/22
metoprolol succinate 25 mg tablet,extended release 24 hr 25 mg PO DAILY Blood Pressure 03/20/24
oxycodone 20 mg tablet 20 mg PO TID Pain 03/20/24
vitamin B complex 1 cap PO DAILY Supplement 03/20/24
levothyroxine 112 mcg tablet 112 mcg PO DAILY 12/02/24
mirabegron 50 mg tablet,extended release 24 hr (Myrbetriq) 50 mg PO HS 12/02/24
solifenacin 10 mg tablet 10 mg PO HS 12/02/24
warfarin 3 mg tablet 3 mg PO DAILY 12/02/24
multivitamin 1 tab PO DAILY 12/17/24
warfarin 1 mg tablet 0.5 mg PO DAILY 12/17/24
Home Medication Changes
Pending Results: No
== END 2024-12-18 11:19 | disposition home or self-care (01) ==
LOC: CATH 08:06
PROVIDERS: Nurse Practitioner Adult Health; ATTENDING PHYSICIAN Internal Medicine Cardiovascular Disease; FAMILY PHYSICIAN Internal Medicine; OTHER PHYSICIAN Nuclear Medicine Nuclear Cardiology
DX: I48.0 Paroxysmal atrial fibrillation (principal); I48.4 Atypical atrial flutter; I47.19 Other supraventricular tachycardia; Z95.2 Presence of prosthetic heart valve; I11.0 Hypertensive heart disease with heart failure; I50.32 Chronic diastolic (congestive) heart failure; I25.10 Atherosclerotic heart disease of native coronary artery without angina pectoris; E03.9 Hypothyroidism, unspecified; E78.5 Hyperlipidemia, unspecified; F32.A Depression, unspecified; F41.9 Anxiety disorder, unspecified; G47.00 Insomnia, unspecified; Z79.890 Hormone replacement therapy; G89.29 Other chronic pain; M06.9 Rheumatoid arthritis, unspecified; K58.9 Irritable bowel syndrome, unspecified; M79.7 Fibromyalgia; K21.9 Gastro-esophageal reflux disease without esophagitis; M48.00 Spinal stenosis, site unspecified; M19.90 Unspecified osteoarthritis, unspecified site; I87.2 Venous insufficiency (chronic) (peripheral); Z90.49 Acquired absence of other specified parts of digestive tract; Z87.74 Personal history of (corrected) congenital malformations of heart and circulatory system; Z87.19 Personal history of other diseases of the digestive system; Z79.899 Other long term (current) drug therapy; Z79.01 Long term (current) use of anticoagulants; Z98.890 Other specified postprocedural states; Z96.653 Presence of artificial knee joint, bilateral
CPT/HCPCS: C1894; C1730; C1766; C1892; C1759; C1733; 80048; 83735; 85027; 85347; 85610; 93005; 93655; 93656; 93657

== ENCOUNTER 2024-12-21 06:42 | Inpatient (IN) | payer MEDICARE, OTHER, SELFPAY ==
[2024-12-20 21:37] VITALS: BP 126/58
[2024-12-20 23:57] VITALS: BMI 35.0
--- NOTE | 2024-12-20 23:58 | EDRN ---
Pt had cardiac ablation on Sunday and says when she got out of surgery she was unable to move her L leg. Pt was in the hospital until Sunday and says she was sent home 'without anyone looking at it or caring.' Pt says she was able to handle it
earlier but tonight, pain got worse. Pt having difficulty getting on and off toilet and says sitting is difficult. Pt uses a rollator walker at home. Pt says her L thigh laterally is numb all the time from back issues and she sees a pain doctor
for this. Pain upper L thigh more severe and is wrapping to medial thigh. Pt thought this might be from lying on hard OR table. Pt takes hydrocodone 20mg for pain which she last took at 1800. Pt takes this every day and says it did not help
thigh pain. No cp, sob, abd pain, n/v, weakness, dizziness, fever/chills/cough.
[2024-12-21] VITALS (10 sets, daily range): BP systolic 102–136; BP diastolic 52–78
[2024-12-21] MEDS: DILAUDID 0.5 MG IV ×7 (00:45→23:56)
[2024-12-21 01:06] LABS: % Basophils 0.5 % (0-2); % Eosinophils 1.6 % (0-6); % Immature Granulocytes 1.3 % (0-0.5); % Lymphocytes 30.1 % (20.5-51.1); % Monocytes 8.1 % (1.7-9.3); % Neutrophils 58.4 % (42.2-75.2); Absolute Basophils 0.1 10^3/uL (0-0.2); Absolute Eosinophils 0.2 10^3/uL (0-0.7); Absolute Immature Granulocytes 0.1 10^3/uL (0-0.05); Absolute Lymphocytes 2.8 10^3/uL (1.2-3.4); Absolute Monocytes 0.8 10^3/uL (0.1-0.6); Absolute Neutrophils 5.4 10^3/uL (1.4-6.5); Hematocrit 36.9 % (37.0-47.0); Hemoglobin 11.9 g/dL (12.0-16.0); Mean Corp Hgb Conc. 32.2 g/dL (33.0-37.0); Mean Corpuscular Hgb 30.1 pg (27.0-31.0); Mean Corpuscular Volume 93.2 fL (81.0-99.0); Mean Platelet Volume 9.1 fL (7.4-10.4); Nucleated Red Blood Cells % 0 %; Platelet Count 223 10^3/uL (130-400); Red Blood Cell Count 3.96 10^6/uL (4.20-5.40); Red Cell Dist. Width 13.8 % (11.5-14.5); White Blood Cell Count 9.2 10^3/uL (4.8-10.8)
[2024-12-21 01:07] LABS: INR 4.58; PT 42.7 Sec (11.4-14.6)
[2024-12-21 01:23] LABS: ALT (SGPT) 55 U/L (0-35); AST (SGOT) 45 U/L (14-36); Albumin 3.3 g/dl (3.5-5.0); Alkaline Phosphatase 71 U/L (38-126); Blood Urea Nitrogen 24 mg/dl (7-17); Calcium 8.7 mg/dl (8.4-10.2); Carbon Dioxide 32 mmol/L (22-30); Chloride 101 mmol/L (98-107); Estimated Creatinine Clearance 68 ml/min; Glucose 110 mg/dl (70-99); Potassium 4.1 mmol/L (3.5-5.1); Sodium 136 mmol/L (135-145); Total Bilirubin 0.5 mg/dl (0.2-1.3); Total Protein 6.2 g/dl (6.3-8.2); eGFR > 60.00
--- NOTE | 2024-12-21 02:19 | ED.MUSCINJ ---
HPI-Injury
General
Chief Complaint: Extremity Pain (non-traumatic)
Source: patient
Exam Limitations: none
Time Seen by Provider: 12/21/24 00:03
Nursing documentation reviewed up to this point in time: agreed with
History of Present Illness-Injury
Is this injury a work related problem?: No
Is pt an associate of [facility]/[place]?: No
Initial Injury comments:
Patient to ED with complaint of left thigh pain. She states she had a cardiac ablation . She reports she noticed pain immediately after waking from anesthesia. States pain is throbbing and constant. SHe has a history of chronic back
pain, takes Oxycodone TID. States pain medication is not relieving her pain.
Past History
Past History
ED Past Medical History: Arrthythmia (Atrial fib, SVT), CHF, GERD, HTN, Valvular disease and Other (Chronic back pain, perforated diverticulitis, endocarditis, GI bleeding, IBS,Uterine fibroids, RA, See's pain management)
ED Past Surgical History: Cardiac (VSD repair, Aortic Valve replaced), Cholecystectomy, Orthopedic (Multiple orthopedic surgeries, right ankle surgery, Bilateal knee replacements) and Other (Colostomy, Hernia repair with colostomy reversal May
2017,)
Social History
Tobacco: Non-smoker
Alcohol: Occasional
Drug: None
Personal:
Living: with family
Family History
Family History: Negative Diabetes, Hypertension or CAD
Musculoskeletal Injury Exam
Musculoskeletal Injury Exam
Left Thigh:
Pain with Movement?: Moderate
Tender to palpation?: Moderate
Soft tissue swelling?: None
External deformity and angulation?: None
Joint effusion?: None
Contusion?: None
Hematoma-local bleeding into tissue?: Other (Ablation access bilateral groin. Hematoma at bilateral sites.)
Strain- Sprain- Tear (Connective tissue injury)?: None
Crepitus with movement?: No
Joint instability?: No
Malalignment/deformity?: No
Range of motion: Limited
Distal skin color and temperature: normal-warm & good color
Capillary Refill: normal
Normal distal neurovascular exam?: Yes
Phy Exam
General Physical Exam
General Presentation: well appearing and mild distress
General age: appears stated age
General Skin: warm and dry
General Habitus: normal
General Mental: alert
General Hydration: appears well hydrated
Musculoskeletal Exam
Musculoskeletal Exam: neuro vasc intact
Skin Exam
Skin Exam: warm/dry and no rash
Psychiatric Exam
Psychiatric Exam: normal mood/affect
Injury Course
Orders/Labs/Results
Orders:
Orders
12/21/24 00:21
HYDROmorphone [Dilaudid] 0.5 mg IV NOW STA
12/21/24 00:25
CT Abd Aorta Angio W/ Run Off Urgent
Reason For Exam: With Runoff s/p cath, r/o left arterial injury.
12/21/24 00:43
Complete Blood Count/With Diff Urgent
Comprehensive Metabolic Panel Urgent
PT/INR [Prothrombin Time] Urgent
12/21/24 02:38
HYDROmorphone [Dilaudid] 0.5 mg IV NOW STA
12/21/24 04:02
Prothrombin Complex(Pcc),Human [Kcentra] 2,677 unit Empty Viaflex Container 100 ml [Viaflex Empty Container] 100 ml IV NOW
Does patient have a dx of serious acute active bleeding?: Yes
Does patient have prior history of HIT?: No
12/21/24 04:31
Phytonadione [Mephyton] 10 mg PO NOW STA
12/21/24 05:00
Flush (0.9% Sodium Chloride) [Flush (Nss)] See Dose Instructions IV PER PROTOCOL
Phytonadione [Mephyton] 10 mg PO ONCE ONE
12/21/24 05:58
Admit/Transfer Patient As Directed
Co-Sign Provider:
Level of Care: Inpatient admission
Assign to:: IMU- Intermediate Care
Physician / Group: hospitalist
Diagnosis: hematoma
Reason for Hospitalization: pseudoaneurysm/hematoma
Expected length of stay greater than two midnights?: Yes
ELOS- Estimated Length of Stay in days: 2
I certify the patient meets the requirements for IP care: Yes
PRN Pain Medication Management As Directed
May give lesser potent ordered pain med per pt: Yes
preference::
Protocol:: Medication orders for pain may be administered in a
manner that supports deferring to patient preference
when the pt is:
- Requesting an ordered lesser potent pain medication.
Least to most potent pain medications are defined
as: acetaminophen < NSAID < tramadol < opioids
(morphine, oxycodone, hydromorphone).
- Requesting a lesser dose of the same medication IF
ORDERED.
- Requesting a less intrusive route of administration
if both routes are prescribed by the provider (PO <
IV).
12/21/24 06:00
Code Status As Directed
Resuscitation Status: Full Code
NPO
Allow oral meds: Yes
Allow clear liquids: Sips of Clears
NPO with Ice Chips: Yes
12/21/24 07:09
HYDROmorphone [Dilaudid] 0.5 mg IV Q4HPRN PRN
Polyethylene Glycol Powder [Miralax] 17 grams PO DAILYPRN PRN
12/21/24 07:09
IRAD CONSULT Routine
Consulting Provider: Cuba Gomez
Was physician already notified: Yes
Reason for Consult/Procedure: left groin/leg hematoma
Acknowledgement that appropriate orders are entered: Yes
Vascular Surgery Consult Routine
Consulting Provider: Mica Miles
Was physician already notified: Yes
Activity As Directed
Activity Level: With Assistance
Pneumatic Compression Sleeves As Directed
Type: Knee high
Vital Signs As Directed
Frequency: Per unit guidelines
Pulse Ox/spot Check [RESP] Routine
Quantity: 1
DX Deep Vein Thrombosis Video Routine
12/21/24 08:00
oxycodone 20 mg PO TID
12/21/24 08:15
Type And Crossmatch [Type+Screen] Routine
H&H Q6H
PT/INR [Prothrombin Time] Routine
12/21/24 09:35
Acetaminophen [Tylenol] 650 mg PO Q4HPRN PRN
12/21/24 09:45
Citalopram [Celexa] 40 mg PO DAILY
12/21/24 10:00
Levothyroxine [Synthroid] 112 mcg PO DAILY@0600
Metoprolol Xl [Toprol Xl] 25 mg PO DAILY
Ondansetron Injectable [Zofran] 4 mg IV Q6HPRN PRN
12/21/24 22:00
Mirabegron Extended Release [Myrbetriq Extended Release] 50 mg PO HS
Tolterodine Extended Release [Detrol LA] 4 mg PO HS
Trazodone [Desyrel] 200 mg PO HS
12/22/24 06:00
Basic Metabolic Panel IN AM
Prothrombin Time IN AM
Abnormal Lab Results
12/21/24
00:43
RBC 3.96 L 10^6/uL
(4.20-5.40)
Hgb 11.9 L g/dL
(12.0-16.0)
Hct 36.9 L %
(37.0-47.0)
MCHC 32.2 L g/dL
(33.0-37.0)
Abs Immat Gran (auto) 0.1 H 10^3/uL
(0-0.05)
Absolute Monos (auto) 0.8 H 10^3/uL
(0.1-0.6)
Immature Gran % 1.3 H %
(0-0.5)
PT 42.7 H Sec
(11.4-14.6)
Carbon Dioxide 32 H mmol/L
(22-30)
BUN 24 H mg/dl
(7-17)
Glucose 110 H mg/dl
(70-99)
AST 45 H U/L
(14-36)
ALT 55 H U/L
(0-35)
Total Protein 6.2 L g/dl
(6.3-8.2)
Albumin 3.3 L g/dl
(3.5-5.0)
12/21/24 00:43
12/21/24 00:43
*Radiology
Radiology exam reviewed: radiology read reviewed
*Pulse Oximetry
Patient hypoxic: no
*Critical Care Note
Total Time (30-74mins, 75-104mins- exclusive of procedures): Not Applicable
Update Note
Update Note:
Patient to ED with complaint of left thigh pain. She had a cardiac ablation on and states she noted pain immediately after surgery. Pain continue to increase and did not respond to her typical pain meds. ON exam she is tender to touch
over left groin at site of ablation insertion site. Hematoma noted. LLE neurologically intact. Mild swelling to proximal thigh only. No erythema or drainage. Sent for CT which revealed pseudoaneurysm in the retoin of the pectineus muscle.
Ginger notified of findings and requesting IR input regarding possible injection or embolization of pseudoaneurysm. Dr. Gomez consulted. Recommends US in AM. INR 4.5. Kcentra given and coumadin will be held. Discussed all findings and plans
with patient, questions answered. Case discussed with Dr. Parada who agrees with findings and plan.
ED Attending Note
-
Portions of this chart may have been created with voice recognition software.� Occasional wrong word or��sound alike� substitutions may have occurred due to the inherent limitations of voice recognition software.
Discharge Plan
Departure
Patient Disposition: Admit
Date of Disposition: 12/21/24
Time of Disposition: 03:51
Admit to: IMU
Presentation/result/management discussed w/ accepting MD/DO: Hospitalist
Patient with high blood pressure during this ER visit?: Yes
Condition: Fair
Covid-19: Not Applicable
Discharge Problem:
Pseudoaneurysm
Interventions
Interventions:
*Risk Screen - Suicide Last Done: 12/20/24 21:37
*General Assessment Last Done: 12/20/24 21:37
*Neglect/Abuse Screening Last Done: 12/20/24 21:37
ED- Fall Risk Assessment Last Done: 12/21/24 06:40
*ED COVID-19 Vaccine History Last Done: 12/20/24 21:37
*Nursing Disposition Last Done: 12/21/24 07:00
ED-Skin Assessment Last Done: 12/21/24 00:17
ED-Peripheral Vascular Assessment Last Done: 12/21/24 00:17
[2024-12-21] MEDS: KCENTRA 100 UNIT IV (04:24)
--- NOTE | 2024-12-21 04:39 | EDRN ---
Called pharmacy for phytonadione
--- NOTE | 2024-12-21 04:45 | EDRN ---
KCentra infusion finished - pt says she feels 'funny.' When asked to describe what that means, pt said she felt lightheaded 'like my head is in the clouds.' Dr Parada informed and will be in to see pt.
--- NOTE | 2024-12-21 04:52 | EDRN ---
Pt called again, said 'I feel really weird.' Pt eating ice chips. O2 sat high 90's room air, HR in 70's. Dr Parada in to speak with pt
[2024-12-21] MEDS: MEPHYTON 10 MG PO (05:07)
--- NOTE | 2024-12-21 05:46 | HPS.HSE ---
Family Physician
-
Family Physician: Joey Guerrier
Chief Complaint
-
Left groin and leg pain.
History of Present Illness
This is a 61-year-old female with extensive past medical history notable for atrial flutter/atrial fibrillation, aortic stenosis status post [place] mechanical valve replacement, nonobstructive CAD, history of multiple small bowel obstructions,
rheumatoid arthritis who is status post ablation for atrial flutter on Sunday presents to the emergency department with pain in the left groin.
Patient reports that she developed the pain in the left groin immediately after waking up from the procedure. Since then the pain has been persistent and not improving. She reports slight swelling in left lower extremity. She denies any numbness
or tingling. She denies feeling any coldness to her lower extremities. She denies feeling lightheaded or dizzy. She denies any falls. She has been no other traumatic events. She is otherwise compliant with her medications.
In the emergency department she was afebrile, blood pressure was stable at 114/55 with a pulse of 59, and she was satting 98% on room air. Hemoglobin was 11.9. Counts were normal. INR was elevated at 4.58. Electrolytes BUN/creatinine were all in
the normal range.
CT of the abdomen shows contained active extravasation/aneurysm measuring 1.4 cm x 1.7 cm in the axial dimension by 3.1 cm in the region of the pectineus muscle. Does not appear to arise from the common femoral artery, and is probably too early for
venous abnormality. There is a moderate amount of hematoma in the abductor muscle group.
Case discussed with Vascular.
Medical History
Past Medical History
Past Medical History: Reports Other (Atrial fibrillation, osteoarthritis, diverticulitis, gallbladder disease, depression, anxiety, hyperlipidemia, irritable bowel syndrome, GERD, hypertension, diastolic heart failure, fibromyalgia, rheumatoid
arthritis, history of torsade arrest, status post aortic valve replacement)
Past Surgical History: Reports Other (No recent major surgery)
Social History
Tobacco: Non-smoker
Alcohol: None
Drug: None
Personal:
Living: With Family
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
Family History
Family History: Other (Hypertension)
Allergies / Home Medications
Allergies reflects when Allergies were last updated in [facility].
Home Medications with original date entered in [facility]
Allergy/Medication List:
Allergies
Allergy/AdvReac Type Severity Reaction Status Date / Time
abatacept [From Orencia] Allergy Hives, Verified 12/20/24 21:37
SOB, cough
adalimumab [From Humira] Allergy SEVERE Verified 12/20/24 21:37
BRUISING
adhesive Allergy Rash Verified 12/20/24 21:37
adhesive tape Allergy Rash Verified 12/20/24 21:37
clarithromycin [From Biaxin] Allergy upset Verified 12/20/24 21:37
stomach
etanercept [From Enbrel] Allergy Bruising Verified 12/20/24 21:37
sevoflurane Allergy V Verified 12/20/24 21:37
Fib/Arrhythmia
dofetilide AdvReac Severe torsades Verified 12/20/24 21:37
Home Medications
trazodone 100 mg tablet 200 mg PO HS Mental Health/Anxiety 12/10/19
citalopram 40 mg tablet 40 mg PO DAILY Depression 06/01/22
furosemide 40 mg tablet 40 mg PO DAILY Fluid retention/Swelling 07/03/22
sennosides 8.6 mg-docusate sodium 50 mg tablet (Stool Softener-Laxative) 1 - 2 tab-cap PO HS Constipation 07/03/22
metoprolol succinate 25 mg tablet,extended release 24 hr 25 mg PO DAILY Blood Pressure 03/20/24
oxycodone 20 mg tablet 20 mg PO TID Pain 03/20/24
vitamin B complex 1 cap PO DAILY Supplement 03/20/24
levothyroxine 112 mcg tablet 112 mcg PO DAILY 12/02/24
mirabegron 50 mg tablet,extended release 24 hr (Myrbetriq) 50 mg PO HS 12/02/24
solifenacin 10 mg tablet 10 mg PO HS 12/02/24
warfarin 3 mg tablet 3 mg PO DAILY 12/02/24
multivitamin 1 tab PO DAILY 12/17/24
warfarin 1 mg tablet 0.5 mg PO DAILY 12/17/24
Review of Systems
-
Constitutional: Reports No Symptoms
EENT: Reports No Symptoms
Respiratory: Reports No Symptoms
Cardiac: Reports No Symptoms
Abdomen/GI: Reports No Symptoms
: Reports No Symptoms
Musculoskeletal: Reports No Symptoms
Skin: Reports No Symptoms
Neurological: Reports No Symptoms
Endocrine: Reports No Symptoms
Hematologic/Lymphatic: Reports Bruising
Psych: Reports No Symptoms
Physical Exam
Vital Signs
Vital Signs
Temp Pulse Resp BP Pulse Ox
98.7 F 82 16 114/55 98
12/20/24 21:37 12/21/24 05:00 12/21/24 05:00 12/21/24 05:00 12/21/24 05:00
Physical Exam
General: Well Developed, No Apparent Distress, Comfortable and Conversant
HEENT: NormoCephalic, Anicteric, Moist mucous membranes, Atraumatic and PERRLA
Respiratory: Clear
Cardiac: S1/S2 and Regular Rhythm
Breast: Deferred by me
GI: Soft, Non Tender, Non Distended and Normal Bowel Sounds
Rectal: Deferred by Provider
Genito-urinary: Deferred by me
Musculoskeletal: No Clubbing, No Cyanosis and No Edema
Skin: Warm and Other (ecchymoses in the bilateral inguinal region at site of cather insertion more prominent on the left)
Neuro: AO x 3 and Nonfocal/grossly intact
Hematologic/Lymphatic: No Lymphadenopathy
Psych: Calm
Laboratory Results
-
12/21/24 00:43
12/21/24 00:43
Laboratory Results
PT 42.7 Sec (11.4-14.6) H 12/21/24 00:43
INR 4.58 12/21/24 00:43
Total Bilirubin 0.5 mg/dl (0.2-1.3) 12/21/24 00:43
AST 45 U/L (14-36) H 12/21/24 00:43
ALT 55 U/L (0-35) H 12/21/24 00:43
Alkaline Phosphatase 71 U/L (38-126) 12/21/24 00:43
Data Reviewed
-
CT Scan: Report Reviewed by me
Lab Data: Labs Reviewed by me
Old Records: Reviewed
Impression/Plan
-
IMPRESSION:
64 female pod 4 s/p ablation for afib accessed via bilateral femoral access here with left leg pain and found to have carolyne pseuoaneurysm of 1.4x1.7x3.1cm in the pectineus muscle. Does not appear to raise from the common remoral artery however.
Moderate amount of hematoma in the abductor muscle group. She is on coumadin for afib and mechanical aortic valve with INR of 4.6. HD stable. Hgb 11.9
PLAN:
1. Hematoma + pseudoaneursm - Unclear if both related to procedure but likely in setting of AC
- admit to imu
- npo for now
- given Kcentra and Vitamin K
- trend H/H q 8
- type and screen with next labs
- hold lasix
- pain control
- Vascular consulted to see in am
2. AFIB
- hold ac
- continue metoprolol succinate
SCDs
Code status - Full Code
[2024-12-21 08:41] LABS: Hematocrit 34.6 % (37.0-47.0); Hemoglobin 11.5 g/dL (12.0-16.0)
[2024-12-21 08:47] LABS: INR 1.25
--- NOTE | 2024-12-21 09:02 | CON.CAR ---
Consultation
Consultation Request
Date/Time Consultation Requested: December 21, 2024
Date/Time Consultation Performed: December 21, 2024
Requesting Provider: Hospitalist
Performing Provider: Melvin
Reason for Consultation: Left groin pain
Medical History
-
Chief Complaint: Left groin pain
History of Present Illness:
Elysia is a very pleasant 64-year-old female who has a complex prior medical history including multiple medication allergies who is status post ablation for mitral annular flutter on December 17, 2024. She did have left groin pain post procedure which
was improved on the and was discharged uneventfully with stable hemoglobin. She noted ongoing pain at home and then progressive yesterday to the point where it was difficult for her to walk without 10 out of 10 pain. Of note she does take
chronic narcotic therapy for back pain. This dosing has been relatively stable for some time. She had a CAT scan in the emergency department which demonstrated an intramuscular hematoma and possible pseudoaneurysm and I reviewed the CT scan
personally with vascular surgery. 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 I also have a discussion with
interventional radiology who will perform an ultrasound to see if there is anything that we can inject. She had received vitamin K and Kcentra in the ER prior to my consultation. Her INR is noted to be elevated at presentation. In discussion with
Elysia she does not have limits in the left leg neurologically it is more associated with pain rather than anything else. She is in sinus rhythm without chest pain or pressure. Hemoglobin is noted to be 11.9 on presentation 11.5 on repeat. She has a
prior mechanical aortic valve. She has had ventricular arrhythmias on sevoflurane in the past.
Past Medical History
Past Medical History: Arrhythmias and CHF
Past Surgical History: Cardiac
Social History
Tobacco: Non-Smoker
Alcohol: None
Drug: None
Personal:
Living: With Family
Employment: Other
Family History
Family History: Reviewed & Not Pertinent
Allergies / Home Medications
Allergy/AdvReac Type Severity Reaction Status Date / Time
abatacept [From Orencia] Allergy Hives, Verified 12/20/24 21:37
SOB, cough
adalimumab [From Humira] Allergy SEVERE Verified 12/20/24 21:37
BRUISING
adhesive Allergy Rash Verified 12/20/24 21:37
adhesive tape Allergy Rash Verified 12/20/24 21:37
clarithromycin [From Biaxin] Allergy upset Verified 12/20/24 21:37
stomach
etanercept [From Enbrel] Allergy Bruising Verified 12/20/24 21:37
sevoflurane Allergy V Verified 12/20/24 21:37
Fib/Arrhythmia
dofetilide AdvReac Severe torsades Verified 12/20/24 21:37
�Medication �Instructions �Recorded �Confirmed �Type
trazodone 100 mg tablet 200 mg PO HS Mental Health/Anxiety 12/10/19 12/21/24 History
citalopram 40 mg tablet 40 mg PO DAILY Depression 06/01/22 12/21/24 History
furosemide 40 mg tablet 40 mg PO DAILY Fluid 07/03/22 12/21/24 History
retention/Swelling
sennosides 8.6 mg-docusate sodium 1 - 2 tab-cap PO HS Constipation 07/03/22 12/21/24 History
50 mg tablet (Stool
Softener-Laxative)
metoprolol succinate 25 mg 25 mg PO DAILY Blood Pressure 03/20/24 12/21/24 History
tablet,extended release 24 hr
oxycodone 20 mg tablet 20 mg PO TID Pain 03/20/24 12/21/24 History
vitamin B complex 1 cap PO DAILY Supplement 03/20/24 12/21/24 History
levothyroxine 112 mcg tablet 112 mcg PO DAILY 12/02/24 12/21/24 History
mirabegron 50 mg tablet,extended 50 mg PO HS 12/02/24 12/21/24 History
release 24 hr (Myrbetriq)
solifenacin 10 mg tablet 10 mg PO HS 12/02/24 12/21/24 History
warfarin 3 mg tablet 3 mg PO DAILY 12/02/24 12/21/24 History
multivitamin 1 tab PO DAILY 12/17/24 12/21/24 History
warfarin 1 mg tablet 0.5 mg PO DAILY 12/17/24 12/21/24 History
Review of Systems
-
All other systems: Negative unless noted
Cardiac: No Symptoms
Musculoskeletal: Joint Pain, Muscle Pain and Muscle Stiffness
Physical Exam
Vital Signs
Temp Pulse Resp BP Pulse Ox
98.7 F 73 14 106/55 96
12/20/24 21:37 12/21/24 06:00 12/21/24 06:00 12/21/24 06:00 12/21/24 06:00
Lab Results
12/21/24 00:43
Physical Exam
General: Well Developed and Well Nourished
HEENT: Normocephalic
Respiratory: Clear
Cardiac: S1/S2, Regular Rhythm and Murmur
Breast: Deferred by me
GI: Soft, Non Tender, Non Distended and Other (Her left groin was examined without bruit but she is tender in the medial thigh and just above the inguinal ligament medially)
Musculoskeletal: No Clubbing and No Cyanosis
Skin: Warm and Dry
Neuro: Awake, Alert and Oriented
Hematologic/Lymphatic: No Lymphadenopathy
Psych: Calm
Impression / Plan
-
Impression:
-Admitted with intramuscular hematoma left thigh
-Possible pseudoaneurysm intramuscular
-Mild anemia
-Chronic pain from her back
-Symptomatic Paroxysmal atrial fibrillation/atypical atrial flutter/atrial tachycardia
s/p atrial flutter ablation 11/2019
s/p PVI and atrial flutter ablation 07/08/22
previously refractory to sotalol and Tikosyn, currently on amiodarone
s/p KAMRAN/CV 12/04/23
s/p redo PVI/PW and mitral flutter ablation 12/17/24-[place] Mechanical AVR 06/2020-s/p AVR with 21mm [place] En[place]avor Mechanical Valve, Closure of Perimembranous VSD with Bovine pericardial patch, Left Modified Maze procedure with Atricure device
07/16/20
-Chronic warfarin OAC managed by [facility]
-Chronic HFpEF
-h/o SBO 08/02/2023 with ex lap for extensive lysis of adhesions (>90 min), small bowel resection with primary anastomosis, ventral incisional hernia repair with mesh 08/03/23
Reoperation for pelvic hematoma and anastomotic leak 08/12/23-History of diverticulitis with perforated diverticulum, peritonitis and sepsis, s/p ex lap with transverse colostomy, complicated by torsades felt to be due to sevoflurane 01/30/18-s/p
takedown transverse loop colostomy, laparotomy, REMEDIOS, sigmoidectomy, primary sutured repair parastomal hernia 05/31/18-History of recurrent SBOs
-HTN
-HLD
-Rheumatoid arthritis/fibromyalgia/chronic pain
-Chronic back pain, epidural injections and daily narcotic use
-B/L venous insufficiency
Plan:
-Hemoglobin is noted with more tenderness noted on her groin exam
-Appreciate vascular surgery and interventional radiology input
-She has already received vitamin K and Kcentra I would be reticent for further reversal given her mechanical aortic valve unless necessary. Ultimately she may require holding oral anticoagulation for a period of time to allow for her muscle to
improve
-Interventional radiology evaluating for possible therapeutic intervention with thrombin injection if there is indeed a pseudoaneurysm neck-appreciate their input
-Admittedly I would be reticent to pursue open repair but ultimately if she has progressive bleeding and pain this may be required
-Goal INR 2.5-3.5 for aortic mechanical valve but holding due to active bleeding currently
-continue metoprolol. Can hold Lasix for now
-I did discuss with internal medicine team that she may require pain medicine consultation given her chronic pain with stable dosing of OxyContin as outpatient but she has increased pain from the left thigh currently and may require additional pain
medications.
-I also did discuss with Elysia that we still need to keep her as mobile and out of bed as possible despite the pain and hopefully with pain control and intentional mobility we can avoid additional complications related to bedrest
Data Reviewed
-
EKG: Tracing Personally Visualized and interpreted
Radiology: Image Personally Visualized and interpreted and Report Reviewed by me
Medical Tests (Nuc Med, Echo etc): Image Personally Visualized and interpreted
Labs: Labs Reviewed by me
Old Records: Reviewed
[2024-12-21] MEDS: TOPROL XL 25 MG PO (10:21)
[2024-12-21] MEDS: ROXICODONE 20 MG PO ×3 (10:21→21:59)
[2024-12-21] MEDS: SYNTHROID 112 MCG PO (10:31)
[2024-12-21] MEDS: CELEXA 40 MG PO (10:31)
--- NOTE | 2024-12-21 10:34 | W.PN.UPDATE ---
Update Note
Progress Note Update
Left groin vascular US performed. In room for US which showed that PSA along adductor musculature on left is now thrombosed with reversal of AC. No flow in PSA and no active bleeding identified. Will repeat US later today to ensure full thrombosis
prior to restarting AC.
--- NOTE | 2024-12-21 10:38 | CON.VAS ---
Consultation
Consultation Request
Date/Time Consultation Performed: 12/21/2024
Performing Provider: Ginger
Reason for Consultation: L groin bleed
Medical History
-
Chief Complaint: L groin pain
History of Present Illness:
Dr Charles performed Ablation 12/17/2024 via bilateral groin venous access
Immediate groin pain post op, worsened last night
INR 4.58 at presentation
Hgb 11.9 -->11.5
CTA personally reviewed and interpreted by me with active arterial bleed into left pectineus. ?small branch. No major vascular source.
Past Medical History
Past Medical History: Arrhythmias and Other (CHF, pAF, HTN, SVT, GERD, Fibromyalgia, RA, DLP)
Past Surgical History: Other (mechanical valve)
Family History
Family History: Reviewed & Not Pertinent
Allergies / Home Medications
Allergy/AdvReac Type Severity Reaction Status Date / Time
abatacept [From Orencia] Allergy Hives, Verified 12/20/24 21:37
SOB, cough
adalimumab [From Humira] Allergy SEVERE Verified 12/20/24 21:37
BRUISING
adhesive Allergy Rash Verified 12/20/24 21:37
adhesive tape Allergy Rash Verified 12/20/24 21:37
clarithromycin [From Biaxin] Allergy upset Verified 12/20/24 21:37
stomach
etanercept [From Enbrel] Allergy Bruising Verified 12/20/24 21:37
sevoflurane Allergy V Verified 12/20/24 21:37
Fib/Arrhythmia
dofetilide AdvReac Severe torsades Verified 12/20/24 21:37
�Medication �Instructions �Recorded �Confirmed �Type
trazodone 100 mg tablet 200 mg PO HS Mental Health/Anxiety 12/10/19 12/21/24 History
citalopram 40 mg tablet 40 mg PO DAILY Depression 06/01/22 12/21/24 History
furosemide 40 mg tablet 40 mg PO DAILY Fluid 07/03/22 12/21/24 History
retention/Swelling
sennosides 8.6 mg-docusate sodium 1 - 2 tab-cap PO HS Constipation 07/03/22 12/21/24 History
50 mg tablet (Stool
Softener-Laxative)
metoprolol succinate 25 mg 25 mg PO DAILY Blood Pressure 03/20/24 12/21/24 History
tablet,extended release 24 hr
oxycodone 20 mg tablet 20 mg PO TID Pain 03/20/24 12/21/24 History
vitamin B complex 1 cap PO DAILY Supplement 03/20/24 12/21/24 History
levothyroxine 112 mcg tablet 112 mcg PO DAILY 12/02/24 12/21/24 History
mirabegron 50 mg tablet,extended 50 mg PO HS 12/02/24 12/21/24 History
release 24 hr (Myrbetriq)
solifenacin 10 mg tablet 10 mg PO HS 12/02/24 12/21/24 History
warfarin 3 mg tablet 3 mg PO DAILY 12/02/24 12/21/24 History
multivitamin 1 tab PO DAILY 12/17/24 12/21/24 History
warfarin 1 mg tablet 0.5 mg PO DAILY 12/17/24 12/21/24 History
Review of Systems
-
History Source: Patient
All other systems: Negative unless noted
Physical Exam
Vital Signs
Temp Pulse Resp BP Pulse Ox
98.7 F 73 14 106/55 96
12/20/24 21:37 12/21/24 06:00 12/21/24 06:00 12/21/24 06:00 12/21/24 06:00
Lab Results
12/21/24 00:43
Physical Exam
General: Well Developed and Well Nourished
HEENT: Normocephalic and Anicteric
Respiratory: Clear
GI: Soft and Non Tender
Musculoskeletal: Other (ecchymosis to left groin, no palpable pulsatile mass, compartments soft)
Skin: Warm and Dry
Neuro: AO x 3
Psych: Calm
Assessment / Plan
-
64F with L groin complication following EP procedure.
- appears to be bleed into muscle from small branch.
- recommend IR and cardiology involvement --> I spoke to Dr. Gomez and Dr. Charles
- Will defer ongoing management to them and will follow peripherally
- Please call with concerns
Data Reviewed
-
CT Scan: Image Personally Visualized and interpreted
Labs: Labs Reviewed by me
--- NOTE | 2024-12-21 11:22 | W.PN.UPDATE ---
Update Note
Progress Note Update
Communication from interventional radiology that there is no active bleeding on groin ultrasound and the prior pseudoaneurysm appears to have thrombosed with withdrawal of the warfarin and partial reversal. Also communicated with internal medicine
team and we are titrating her pain medication as she is of having significant pain in the left groin. Hopefully with improved pain control we can improve ambulation and keep her out of bed as much as possible.
At this point I would recommend holding warfarin today and we can see what her morning INR tomorrow is. I have no objection to running her INR levels low for a while in the 2-2.5 range despite the mechanical aortic valve and depending upon INR
level tomorrow we can reassess timing and dose of warfarin
Appreciate care of all team members
[2024-12-21] MEDS: DESYREL 200 MG PO (21:59)
[2024-12-21] MEDS: DETROL LA 4 MG PO (21:59)
[2024-12-21] MEDS: MYRBETRIQ EXTENDED RELEASE 50 MG PO (22:00)
[2024-12-22 03:02] VITALS: BP 105/59
[2024-12-22] MEDS: SYNTHROID 112 MCG PO (04:11)
[2024-12-22] MEDS: DILAUDID 0.5 MG IV ×4 (04:11→12:37)
[2024-12-22 06:00] VITALS: BMI 35.4
[2024-12-22 06:16] VITALS: BMI 35.0
--- NOTE | 2024-12-22 06:19 | PTCARENOTE ---
12/21 @ 5055 Patient c/o pain that has been unrelieved by Dilaudid 0.5mg IV. Patient received scheduled Oxycodone 20mg. Patient unable to receive breakthrough Dilaudid for another 2 hours. [facility] notified. Order for a one time STAT dose of
Dilaudid received and given to patient. Patient slept well until approx. 0430. Patient c/o 10/10 back pain. Dilaudid 0.5mg given to patient with no relief. [facility] contacted via TT and order received to give another additional 0.5mg Dilaudid.
Patient resting comfortably. Will continue to monitor.
[2024-12-22 06:27] LABS: INR 1.21; PT 15.6 Sec (11.4-14.6)
[2024-12-22 06:36] LABS: % Basophils 0.7 % (0-2); % Eosinophils 1.7 % (0-6); % Immature Granulocytes 0.3 % (0-0.5); % Lymphocytes 32.4 % (20.5-51.1); % Monocytes 8.6 % (1.7-9.3); % Neutrophils 56.3 % (42.2-75.2); Absolute Basophils 0.1 10^3/uL (0-0.2); Absolute Eosinophils 0.2 10^3/uL (0-0.7); Absolute Lymphocytes 2.8 10^3/uL (1.2-3.4); Absolute Monocytes 0.7 10^3/uL (0.1-0.6); Absolute Neutrophils 4.9 10^3/uL (1.4-6.5); Hematocrit 32.6 % (37.0-47.0); Hemoglobin 10.9 g/dL (12.0-16.0); Mean Corp Hgb Conc. 33.4 g/dL (33.0-37.0); Mean Corpuscular Hgb 30.4 pg (27.0-31.0); Mean Corpuscular Volume 90.8 fL (81.0-99.0); Mean Platelet Volume 9.2 fL (7.4-10.4); Nucleated Red Blood Cells % 0 %; Platelet Count 223 10^3/uL (130-400); Red Blood Cell Count 3.59 10^6/uL (4.20-5.40); Red Cell Dist. Width 13.8 % (11.5-14.5); White Blood Cell Count 8.6 10^3/uL (4.8-10.8)
[2024-12-22 06:43] LABS: Blood Urea Nitrogen 20 mg/dl (7-17); Calcium 8.8 mg/dl (8.4-10.2); Carbon Dioxide 29 mmol/L (22-30); Chloride 102 mmol/L (98-107); Estimated Creatinine Clearance 78 ml/min; Glucose 99 mg/dl (70-99); Potassium 4.4 mmol/L (3.5-5.1); Sodium 134 mmol/L (135-145); eGFR > 60.00
[2024-12-22 07:09] VITALS: BP 113/61
[2024-12-22] MEDS: CELEXA 40 MG PO (07:24)
[2024-12-22] MEDS: ROXICODONE 20 MG PO ×3 (07:24→22:04)
[2024-12-22] MEDS: TOPROL XL 25 MG PO (07:25)
[2024-12-22] MEDS: COUMADIN 3 MG PO (08:38)
[2024-12-22] MEDS: TYLENOL 650 MG PO (10:27)
[2024-12-22 10:47] VITALS: BP 103/56
--- NOTE | 2024-12-22 12:27 | CM ---
Patient seen at bedside. Patient states that she lives with her in a 2 story home. Patient has a walker and a cane at home. Patient stated that her PCP is Dr. Mccartney and she uses the [facility] in [place]. Patient reviewed OBS/SQUIRES form with CM
and signed form placed on chart. All questions answered. Patient stated that she was anticipating discharge home. CM will continue to follow for discharge planning needs.
Plan; home with no needs vs VN
--- NOTE | 2024-12-22 12:54 | W.PN.CARDCBS ---
Addendum entered and electronically signed by Kwame Chavez MD 12/22/24 16:03:
Patient seen, interviewed and examined by me.
She complains of left groin discomfort but pain is adequately managed with as needed Dilaudid.
Well-appearing, no acute distress
Regular rate and rhythm with normal S1 and S2, no S3 no S4. There is a grade 1/6 apical holosystolic murmur and no rubs. PMI is normally placed.
Lungs are clear to auscultation bilaterally without wheezes rales or rhonchi.
Abdomen soft nontender nondistended with normoactive bowel sounds
Extremities show trace pretibial edema bilaterally no clubbing or cyanosis. there is +2 distal pulses bilaterally
Neurologic exam is grossly nonfocal.
review of telemetry and ECG by me finds patient remains in sinus rhythm.
Repeat ultrasound imaging of the left groin finds no active pseudoaneurysm. No active bleeding. Essentially stable over the past 2 days.
Given stability on imaging, we will resume oral anticoagulation
warfarin 3 mg today
follow INR and dose warfarin appropriately tomorrow
goal INR between 2 and 3
If there is no significant bump in INR tomorrow morning, consider initiating heparin without a bolus as we await therapeutic INR
Original Note:
Today's Communication / Plan
-
Check ECG, ordered by me
Increase Dilaudid to 1 mg IV q 4 hours PRN severe pain
Impression / Plan
-
PCP: Dr. Joey Guerrier
Primary Cadastral Surveyor: Dr. Brooks
Impression:
Admitted with intramuscular hematoma left thigh
Possible pseudoaneurysm intramuscular
Mild anemia
Chronic pain from her back
Symptomatic Paroxysmal atrial fibrillation/atypical atrial flutter/atrial tachycardia
s/p atrial flutter ablation 11/2019
s/p PVI and atrial flutter ablation 07/08/22
previously refractory to sotalol and Tikosyn
amiodarone previously stopped due to elevated LFTs and hypothyroidism
s/p KAMRAN/CV 12/04/23
s/p redo PVI/PW and mitral flutter ablation 12/17/24-[place] Mechanical AVR 06/2020
s/p AVR with 21mm [place] Mechanical Valve, Closure of Perimembranous VSD with Bovine pericardial patch, Left Modified Maze procedure with Atricure device 07/16/20
Chronic warfarin OAC managed by [facility]
Chronic HFpEF
h/o SBO 08/02/2023 with ex lap for extensive lysis of adhesions (>90 min), small bowel resection with primary anastomosis, ventral incisional hernia repair with mesh 08/03/23
Reoperation for pelvic hematoma and anastomotic leak 08/12/23
History of diverticulitis with perforated diverticulum, peritonitis and sepsis, s/p ex lap with transverse colostomy, complicated by torsades felt to be due to sevoflurane 01/30/18
s/p takedown transverse loop colostomy, laparotomy, REMEDIOS, sigmoidectomy, primary sutured repair parastomal hernia 05/31/18-History of recurrent SBOs
HTN
HLD
Rheumatoid arthritis/fibromyalgia/chronic pain
Chronic back pain, epidural injections and daily narcotic use
B/L venous insufficiency
Echo 12/04/22: EF 55 to 60%, mild concentric LVH, well-seated [place] mechanical aortic valve prosthesis with peak/mean gradients 23/11 mmHg, trace AR, mild TR, PAP 35 to 40 mmHg
Echo 01/09/24: EF 64%, mild conc LVH, normal RV size and function, mild MR, [place] mechanical AVR with peak/mean 14/7 mmHg
Plan:
-IRAD did not feel that there was active bleeding on groin U/S and the prior pseudoaneurysm appeared to have thrombosed following withdrawal/partial reversal of warfarin 12/21/24. Repeat U/S on 12/22/24 showed thrombosis of the pseudoaneurysm/contained
rupture without signs of active hemorrhage or AV fistula
-Hgb stable at 10.9
-INR was 4.58 on admission. Patient was given Kcentra 2677 units plus vitamin K 10 mg PO x 1 on 12/21/2024. Within 8 hours the INR was down to 1.25 on recheck 01-13. INR is down to 1.21 on 12/22/2024
-Patient was ordered warfarin 3 mg p.o. x 1 now on 12/22/2024. We will keep an INR goal of 2-2.5 for now
-INRs managed by [facility] and previous goal was 2.5-3.5 using home monitor.
-Recheck ECG. Tele reviewed by me looks like SR 12/22/24
Progress Note - Cadastral Surveyor
Subjective
Date of Service: December 22, 2024
She is having more back pain and says the Dilaudid 0.5 mg IV PRN is not enough
Objective
Labs:
12/22/24 05:37
12/22/24 05:37
Labs
Hgb 10.9 g/dL (12.0-16.0) L 12/22/24 05:37
Hct 32.6 % (37.0-47.0) L 12/22/24 05:37
Plt Count 223 10^3/uL (130-400) 12/22/24 05:37
PT 15.6 Sec (11.4-14.6) H 12/22/24 05:37
INR 1.21 12/22/24 05:37
Sodium 134 mmol/L (135-145) L 12/22/24 05:37
Potassium 4.4 mmol/L (3.5-5.1) 12/22/24 05:37
BUN 20 mg/dl (7-17) H 12/22/24 05:37
Creatinine 0.7 mg/dL (0.6-1.0) 12/22/24 05:37
Glucose 99 mg/dl (70-99) 12/22/24 05:37
Vital Signs and I&O:
Vital Signs
Temp Pulse Resp BP Pulse Ox
99.1 F 66 17 103/56 95
12/22/24 10:47 12/22/24 10:47 12/22/24 10:47 12/22/24 10:47 12/22/24 10:47
Vital Signs
Temp Pulse Resp BP Pulse Ox
99.1 F 66 17 103/56 95
12/22/24 10:47 12/22/24 10:47 12/22/24 10:47 12/22/24 10:47 12/22/24 10:47
Physical Exam
Physical Exam
GEN: NAD
LUNGS: RA. No audible wheeze
CV: SR on tele
[2024-12-22] MEDS: DULCOLAX 10 MG PO (13:37)
[2024-12-22] MEDS: DILAUDID 1 MG IV ×2 (13:37→19:40)
[2024-12-22 15:18] VITALS: BP 98/48
--- NOTE | 2024-12-22 16:22 | W.PN.HOSP.TC ---
Today's Communication/Plan
-
increase pain medication
Narcan prn ordered
BM regimen ordered
f/u INR post warfarin
Assessment / Plan
Assessment / Plan
CT a/p
1. Hematoma in the left adductor musculature measuring up to 6.3 cm in diameter. Within the hematoma, there is pseudoaneurysm or contained rupture which measures up to 3.1 cm in diameter as detailed above. No arteriovenous fistula. No injury of
left common femoral, profunda femoral, or superficial femoral is identified.
2. Trace left pleural effusion and adjacent atelectasis.
3. No acute intra-abdominal process. Small left ventral hernia upper abdomen involving large bowel, no signs of acute inflammatory changes or obstruction.
Left groin US
Hematoma within the left groin, measuring 8.5 cm in diameter, likely representing a thrombosed pseudoaneurysm. No active pseudoaneurysm demonstrated on the current ultrasound.
1. Left groin thrombosed pseudoaneurysm
Left groin hematoma
-At cath access site from 12/17
-Evaluated by vascular surgery and no surgical intervention needed
-Cardiology involved in care and patient being bridged back to warfarin
-Continue to have significant pain at the site, increased pain medication dosage today
-Encourage activity and PT OT ordered
2. Paroxysmal atrial fibrillation/flutter
-Extensive history of PVI/ablation/cardioversion
-Having tried sotalol/Tikosyn/amiodarone in the past
-Review cardiology note for further details
-Currently controlled on Toprol
3. Status post mechanical AVR
History of VSD with closure from bovine pericardial patch
-Target INR of 2-2.5 per cardiology
-Patient getting warfarin 3mg dose today, if no appropriate response cardiology considering to start heparin drip
4. Chronic pain and narcotic dependence
Narcotic induced constipation
-Patient have history of high dose of oxycodone 20 g 3 times daily, managed by pain specialist
-Irregular bowel movement every 2 to 3 days per patient, maintained on MiraLAX/provide 1 dose of oral Dulcolax today
-With increased need of narcotic during this hospital stay, as needed Narcan ordered
5. Superficial venous thrombophlebitis
-Had peripheral IV access site. Already on warfarin
-Warm compresses
Chronic diastolic heart failure -no signs of exacerbation
History of small bowel obstruction
History of perforated diverticulitis
Essential hypertension
Hyperlipidemia
Rheumatoid arthritis
Fibromyalgia
History of bilateral venous insufficiency
Full code
Total time spent : 52 mins
Anticipated Discharge: 24 - 48 hours
Subjective/Interval History
-
Date of Service: December 22, 2024
Complaining of left groin pain
Difficulty with ambulation
No other issues reported
Objective Data
-
Labs:
Laboratory Results
12/22/24
05:37
WBC 8.6
Hgb 10.9 L
Hct 32.6 L
Plt Count 223
PT 15.6 H
INR 1.21
Sodium 134 L
Potassium 4.4
Chloride 102
Carbon Dioxide 29
BUN 20 H
Creatinine 0.7
Glucose 99
Calcium 8.8
Vital Signs:
Vital Signs
Temp Pulse Resp BP Pulse Ox
97.9 F 60 16 98/48 96
12/22/24 15:18 12/22/24 15:18 12/22/24 15:18 12/22/24 15:18 12/22/24 15:18
Review of Systems
-
Respiratory: Reports No Symptoms
Cardiac: Reports No Symptoms
Abdomen/GI: Reports No Symptoms
Physical Exam
-
General: Well Developed and No Apparent Distress
HEENT: Moist Mucous Membranes
Respiratory: Clear to Auscultation
Cardiac: Regular Rhythm and S1/S2; Negative Murmur, Rub or Gallop
Rectal: Deferred by Provider
Musculoskeletal: No Clubbing, No Cyanosis and No Edema
Skin: Negative Rash
Neuro: Nonfocal/Grossly Intact
Psych: Calm
--- NOTE | 2024-12-22 16:34 | PTCARENOTE ---
Pt. complained of tenderness and pain in her right AC area where an old IV was. This nurse assessed the area and noticed redness and a palpable hard area under the skin. The IV team nurse was up on the floor at this moment and assessed the area with
the nurse. Marked the red area with marker to see if the spot grew and notified MD. Applied heat to the area. After heat applied to for the first time, redness improved. Will continue to monitor
[2024-12-22 19:59] VITALS: BP 102/54
--- NOTE | 2024-12-22 21:34 | W.PN.HOSP.TC ---
Today's Communication/Plan
-
Assessment / Plan
Assessment / Plan
CT a/p
1. Hematoma in the left adductor musculature measuring up to 6.3 cm in diameter. Within the hematoma, there is pseudoaneurysm or contained rupture which measures up to 3.1 cm in diameter as detailed above. No arteriovenous fistula. No injury of
left common femoral, profunda femoral, or superficial femoral is identified.
2. Trace left pleural effusion and adjacent atelectasis.
3. No acute intra-abdominal process. Small left ventral hernia upper abdomen involving large bowel, no signs of acute inflammatory changes or obstruction.
Left groin US
Hematoma within the left groin, measuring 8.5 cm in diameter, likely representing a thrombosed pseudoaneurysm. No active pseudoaneurysm demonstrated on the current ultrasound.
1. Left groin thrombosed pseudoaneurysm
Left groin hematoma
-At cath access site from 12/17
-Evaluated by vascular surgery and no surgical intervention needed
-Cardiology involved in care and patient being bridged back to warfarin
-Continue to have significant pain at the site, increased pain medication dosage today
-Encourage activity and PT OT ordered
2. Paroxysmal atrial fibrillation/flutter
-Extensive history of PVI/ablation/cardioversion
-Having tried sotalol/Tikosyn/amiodarone in the past
-Review cardiology note for further details
-Currently controlled on Toprol
3. Status post mechanical AVR
History of VSD with closure from bovine pericardial patch
-Target INR of 2-2.5 per cardiology
-Patient getting warfarin 3mg dose today, if no appropriate response cardiology considering to start heparin drip
4. Chronic pain and narcotic dependence
Narcotic induced constipation
-Patient have history of high dose of oxycodone 20 g 3 times daily, managed by pain specialist
-Irregular bowel movement every 2 to 3 days per patient, maintained on MiraLAX/provide 1 dose of oral Dulcolax today
-With increased need of narcotic during this hospital stay, as needed Narcan ordered
5. Superficial venous thrombophlebitis
-Had peripheral IV access site. Already on warfarin
-Warm compresses
Chronic diastolic heart failure -no signs of exacerbation
History of small bowel obstruction
History of perforated diverticulitis
Essential hypertension
Hyperlipidemia
Rheumatoid arthritis
Fibromyalgia
History of bilateral venous insufficiency
Full code
Anticipated Discharge: 24 - 48 hours
Subjective/Interval History
-
Date of Service: December 21, 2024
Pt was seen and examined at bedside this morning. Continues to have pain at right groin hematoma site.
Objective Data
-
Vital Signs:
Vital Signs
Temp Pulse Resp BP Pulse Ox
98.4 F 63 18 102/54 94
12/22/24 19:59 12/22/24 19:59 12/22/24 19:59 12/22/24 19:59 12/22/24 19:59
I&O
12/21/24 12/22/24 12/23/24
06:59 06:59 06:59
Intake Total 930 / 930
Balance 930 / 930
Review of Systems
-
History Source: Patient
All other systems: Reviewed and negative
Musculoskeletal: Reports Other (right groin pain)
Physical Exam
-
General: No Apparent Distress
HEENT: Normocephalic and Atraumatic
Respiratory: Clear to Auscultation
Cardiac: Regular Rhythm and S1/S2
GI: Soft and Nontender
Musculoskeletal: No Cyanosis and No Edema
Skin: Other (R groin ecchymosis)
Neuro: Awake, Alert and Oriented
Psych: Calm and Intact Judgement/Insight
[2024-12-22] MEDS: MYRBETRIQ EXTENDED RELEASE 50 MG PO (22:04)
[2024-12-22] MEDS: DESYREL 200 MG PO (22:04)
[2024-12-22] MEDS: DETROL LA 4 MG PO (22:04)
[2024-12-22 23:35] VITALS: BP 123/65
[2024-12-23] VITALS (7 sets, daily range): BP systolic 96–120; BP diastolic 50–59; PULSE 66; O2SAT 94–95
[2024-12-23] MEDS: DILAUDID 1 MG IV ×4 (04:40→20:31)
[2024-12-23] MEDS: SYNTHROID 112 MCG PO (04:40)
[2024-12-23 06:39] LABS: % Basophils 0.7 % (0-2); % Eosinophils 1.6 % (0-6); % Immature Granulocytes 0.7 % (0-0.5); % Lymphocytes 30.8 % (20.5-51.1); % Monocytes 8.5 % (1.7-9.3); % Neutrophils 57.7 % (42.2-75.2); Absolute Basophils 0.1 10^3/uL (0-0.2); Absolute Eosinophils 0.1 10^3/uL (0-0.7); Absolute Immature Granulocytes 0.1 10^3/uL (0-0.05); Absolute Lymphocytes 2.6 10^3/uL (1.2-3.4); Absolute Monocytes 0.7 10^3/uL (0.1-0.6); Absolute Neutrophils 4.9 10^3/uL (1.4-6.5); Hematocrit 33.5 % (37.0-47.0); Hemoglobin 11.2 g/dL (12.0-16.0); Mean Corp Hgb Conc. 33.4 g/dL (33.0-37.0); Mean Corpuscular Hgb 30.1 pg (27.0-31.0); Mean Corpuscular Volume 90.1 fL (81.0-99.0); Mean Platelet Volume 8.9 fL (7.4-10.4); Nucleated Red Blood Cells % 0 %; Platelet Count 230 10^3/uL (130-400); Red Blood Cell Count 3.72 10^6/uL (4.20-5.40); Red Cell Dist. Width 13.7 % (11.5-14.5); White Blood Cell Count 8.5 10^3/uL (4.8-10.8)
[2024-12-23 06:40] LABS: INR 1.27; PT 16.2 Sec (11.4-14.6)
[2024-12-23 08:17] LABS: APTT 32.4 Sec (23.4-35.0)
[2024-12-23] MEDS: CELEXA 40 MG PO (08:32)
[2024-12-23] MEDS: ROXICODONE 20 MG PO ×3 (08:33→22:17)
[2024-12-23] MEDS: TOPROL XL 25 MG PO (08:33)
[2024-12-23] MEDS: COUMADIN 0.5 MG PO (08:34)
[2024-12-23] MEDS: COUMADIN 3 MG PO (08:35)
[2024-12-23] MEDS: MIRALAX 17 GRAMS PO (08:50)
[2024-12-23] MEDS: HEPARIN 25000 UNITS/250 ML IV (09:03)
--- NOTE | 2024-12-23 11:44 | W.PN.UPDATE ---
Update Note
Progress Note Update
Please see full note to follow
-Hemoglobin improved today
-I sat with Elba encouraged her to increased ambulation and as much mobility as possible with physical therapy
-Bowel regimen
-Adjusting narcotic
-We are difficult position given her mechanical aortic valve and INR's that are persistently now low at 1.25-1.29. Will give warfarin today and initiate low-dose heparin without bolus. I discussed the conundrum with Elysia that we could be at
slightly higher risk of return of bleeding and left groin yet we want to minimize her thromboembolic risk given the mechanical aortic valve and recent ablation. She understands and agrees to low-dose heparin drip without bolus and we will continue
warfarin.
[2024-12-23] MEDS: MILK OF MAGNESIA 30 ML PO (11:52)
--- NOTE | 2024-12-23 12:15 | W.PN.CARDCBS ---
Addendum entered and electronically signed by Daniel Charles MD 12/23/24 14:26:
Patient seen and examined
Agree with KALE Fontana's note and assessment
Agree with KALE Fontana's plan
Had a discussion with Daniel today about increased ambulation and we are working on her bowel regimen and pain management
Exam:
JVP 6
H&T normocephalic atraumatic
Cor regular metallic S2
Lungs clear to station bilaterally
Left groin tumbler tender but similar distention no bruit
Abdomen soft nontender positive bowel sounds
Impression:
Admitted with intramuscular hematoma left thigh
Possible pseudoaneurysm intramuscular
Mild anemia
Chronic pain from her back
Symptomatic Paroxysmal atrial fibrillation/atypical atrial flutter/atrial tachycardia
s/p atrial flutter ablation 11/2019
s/p PVI and atrial flutter ablation 07/08/22
previously refractory to sotalol and Tikosyn
amiodarone previously stopped due to elevated LFTs and hypothyroidism
s/p KAMRAN/CV 12/04/23
s/p redo PVI/PW and mitral flutter ablation 12/17/24-[place] Mechanical AVR 06/2020s/p AVR with 21mm [place] Mechanical Valve, Closure of Perimembranous VSD with Bovine pericardial patch, Left Modified Maze procedure with Atricure device
07/16/20
Chronic warfarin OAC managed by [facility]
Chronic HFpEF
h/o SBO 08/02/2023 with ex lap for extensive lysis of adhesions (>90 min), small bowel resection with primary anastomosis, ventral incisional hernia repair with mesh 08/03/23
Reoperation for pelvic hematoma and anastomotic leak 08/12/23History of diverticulitis with perforated diverticulum, peritonitis and sepsis, s/p ex lap with transverse colostomy, complicated by torsades felt to be due to sevoflurane 01/30/18
s/p takedown transverse loop colostomy, laparotomy, REMEDIOS, sigmoidectomy, primary sutured repair parastomal hernia 05/31/18-History of recurrent SBOs
HTN
HLD
Rheumatoid arthritis/fibromyalgia/chronic pain
Chronic back pain, epidural injections and daily narcotic use
B/L venous insufficiency
Echo 12/04/22: EF 55 to 60%, mild concentric LVH, well-seated [place] mechanical aortic valve prosthesis with peak/mean gradients 23/11 mmHg, trace AR, mild TR, PAP 35 to 40 mmHg
Echo 01/09/24: EF 64%, mild conc LVH, normal RV size and function, mild MR, [place] mechanical AVR with peak/mean 14/7 mmHg
Plan:
-INR 1.27 on 12/23/24. Heparin gtt without bolus started and will give warfarin 3.5 mg NOW on 12/23/24, orders placed by our team
-Goal INR 2.5-3.5 ideally in the long-term
-IRAD did not feel that there was active bleeding on groin U/S and the prior pseudoaneurysm appeared to have thrombosed following withdrawal/partial reversal of warfarin 12/21/24 which was confirmed on repeat U/S on 12/22/24. Vascular surgery has signed
off as well.
-Hgb stable at 11.2 on 12/23/24
-INR goal of 2-2.5 for now instead of preadmission goal of 2.5-3.5. INRs managed by DCA using home monitor.
-ECG by me looks like SR 12/23/24 and QTc stable at 435
-PT evaluation
-Bowel regimen and pain management
Original Note:
Today's Communication / Plan
-
Warfarin 3.5 mg now
Heparin gtt without bolus for bridging
52 min face to face and coordination of care as noted
Impression / Plan
-
PCP: Dr. Joey Guerrier
Primary Spider Assembler: Dr. Brooks
Impression:
Admitted with intramuscular hematoma left thigh
Possible pseudoaneurysm intramuscular
Mild anemia
Chronic pain from her back
Symptomatic Paroxysmal atrial fibrillation/atypical atrial flutter/atrial tachycardia
s/p atrial flutter ablation 11/2019
s/p PVI and atrial flutter ablation 07/08/22
previously refractory to sotalol and Tikosyn
amiodarone previously stopped due to elevated LFTs and hypothyroidism
s/p KAMRAN/CV 12/04/23
s/p redo PVI/PW and mitral flutter ablation 12/17/24-[place] Mechanical AVR 06/2020
s/p AVR with 21mm [place] Mechanical Valve, Closure of Perimembranous VSD with Bovine pericardial patch, Left Modified Maze procedure with Atricure device 07/16/20
Chronic warfarin OAC managed by [facility]
Chronic HFpEF
h/o SBO 08/02/2023 with ex lap for extensive lysis of adhesions (>90 min), small bowel resection with primary anastomosis, ventral incisional hernia repair with mesh 08/03/23
Reoperation for pelvic hematoma and anastomotic leak 08/12/23
History of diverticulitis with perforated diverticulum, peritonitis and sepsis, s/p ex lap with transverse colostomy, complicated by torsades felt to be due to sevoflurane 01/30/18
s/p takedown transverse loop colostomy, laparotomy, REMEDIOS, sigmoidectomy, primary sutured repair parastomal hernia 05/31/18-History of recurrent SBOs
HTN
HLD
Rheumatoid arthritis/fibromyalgia/chronic pain
Chronic back pain, epidural injections and daily narcotic use
B/L venous insufficiency
Echo 12/04/22: EF 55 to 60%, mild concentric LVH, well-seated [place] mechanical aortic valve prosthesis with peak/mean gradients 23/11 mmHg, trace AR, mild TR, PAP 35 to 40 mmHg
Echo 01/09/24: EF 64%, mild conc LVH, normal RV size and function, mild MR, [place] mechanical AVR with peak/mean 14/7 mmHg
Plan:
-INR 1.27 on 12/23/24. Heparin gtt without bolus started and will give warfarin 3.5 mg NOW on 12/23/24, orders placed by me
-Patient was given Kcentra 2677 units plus vitamin K 10 mg PO x 1 on admission 12/21/2024 for INR of 4.58 and within 8 hours the INR was down to 1.25 on recheck.
-IRAD did not feel that there was active bleeding on groin U/S and the prior pseudoaneurysm appeared to have thrombosed following withdrawal/partial reversal of warfarin 12/21/24 which was confirmed on repeat U/S on 12/22/24. Vascular surgery has signed
off as well.
-Hgb stable at 11.2 on 12/23/24
-INR goal of 2-2.5 for now instead of preadmission goal of 2.5-3.5. INRs managed by [facility] using home monitor.
-ECG by me looks like SR 12/23/24 and QTc stable at 435
Progress Note - Spider Assembler
Subjective
Date of Service: December 23, 2024
She has ongoing back pain and is now constipated
Objective
Labs:
12/23/24 05:30
12/22/24 05:37
Labs
Hgb 11.2 g/dL (12.0-16.0) L 12/23/24 05:30
Hct 33.5 % (37.0-47.0) L 12/23/24 05:30
Plt Count 230 10^3/uL (130-400) 12/23/24 05:30
PT 16.2 Sec (11.4-14.6) H 12/23/24 05:30
INR 1.27 12/23/24 05:30
APTT Cancelled 12/23/24 08:02
Sodium 134 mmol/L (135-145) L 12/22/24 05:37
Potassium 4.4 mmol/L (3.5-5.1) 12/22/24 05:37
BUN 20 mg/dl (7-17) H 12/22/24 05:37
Creatinine 0.7 mg/dL (0.6-1.0) 12/22/24 05:37
Glucose 99 mg/dl (70-99) 12/22/24 05:37
Vital Signs and I&O:
Vital Signs
Temp Pulse Resp BP Pulse Ox
99.9 F 60 17 106/50 95
12/23/24 10:51 12/23/24 10:51 12/23/24 10:51 12/23/24 10:51 12/23/24 10:51
Vital Signs
Temp Pulse Resp BP Pulse Ox
99.9 F 60 17 106/50 95
12/23/24 10:51 12/23/24 10:51 12/23/24 10:51 12/23/24 10:51 12/23/24 10:51
Intake & Output
12/21/24 12/22/24 12/23/24 12/24/24
06:59 06:59 06:59 06:59
Intake Total 1410 / 1410
Output Total 900 / 900
Balance 510 / 510
Physical Exam
Physical Exam
GEN: NAD
LUNGS: RA. No audible wheeze
CV: SR on tele
--- NOTE | 2024-12-23 12:50 | W.PN.HOSP.TC ---
Today's Communication/Plan
-
see note
Assessment / Plan
Assessment / Plan
CT a/p
1. Hematoma in the left adductor musculature measuring up to 6.3 cm in diameter. Within the hematoma, there is pseudoaneurysm or contained rupture which measures up to 3.1 cm in diameter as detailed above. No arteriovenous fistula. No injury of
left common femoral, profunda femoral, or superficial femoral is identified.
2. Trace left pleural effusion and adjacent atelectasis.
3. No acute intra-abdominal process. Small left ventral hernia upper abdomen involving large bowel, no signs of acute inflammatory changes or obstruction.
Left groin US
Hematoma within the left groin, measuring 8.5 cm in diameter, likely representing a thrombosed pseudoaneurysm. No active pseudoaneurysm demonstrated on the current ultrasound.
1. Left groin thrombosed pseudoaneurysm
Left groin hematoma
-At cath access site from 12/17
-Evaluated by vascular surgery and no surgical intervention needed
-Cardiology involved in care and patient being bridged back to warfarin
2. Paroxysmal atrial fibrillation/flutter
-Extensive history of PVI/ablation/cardioversion
-Having tried sotalol/Tikosyn/amiodarone in the past
-Review cardiology note for further details
-Currently controlled on Toprol
3. Status post mechanical AVR
History of VSD with closure from bovine pericardial patch
-Target INR of 2-2.5 per cardiology
-INR 1.27 today, patient getting warfarin bridging, heparin drip started by cardiology
4. Chronic pain and narcotic dependence
Narcotic induced constipation
-Patient have history of high dose of oxycodone 20 g 3 times daily, managed by pain specialist
-With increased need of narcotic during this hospital stay, as needed Narcan ordered
-Pain medication increased at this point. On significant high dose of oxycodone, I have discussed with the patient that I will NOT increase narcotic pain medication any further than current dose.
-Patient could benefit with relistor/movantik as well with h/o of chronic narcotic use related constipation, patient will require to follow-up with GI in the office postdischarge.
-Providing patient milk of mag/Dulcolax suppository
5. Superficial venous thrombophlebitis
-Had peripheral IV access site. Already on warfarin
-Warm compresses
Chronic diastolic heart failure -no signs of exacerbation
History of small bowel obstruction
History of perforated diverticulitis
Essential hypertension
Hyperlipidemia
Rheumatoid arthritis
Fibromyalgia
History of bilateral venous insufficiency
Full code
Total time spent : 53 mins
Anticipated Discharge: Within 24 hours
Subjective/Interval History
-
Date of Service: December 23, 2024
no complains overnight
pain improved and able to participate with physical therapy
Objective Data
-
Labs:
Laboratory Results
12/23/24 12/23/24 12/23/24
05:30 08:02 15:00
WBC 8.5
Hgb 11.2 L
Hct 33.5 L
Plt Count 230
PT 16.2 H
INR 1.27
APTT 32.4 Cancelled Pending
Vital Signs:
Vital Signs
Temp Pulse Resp BP Pulse Ox
99.9 F 60 17 106/50 95
12/23/24 10:51 12/23/24 10:51 12/23/24 10:51 12/23/24 10:51 12/23/24 10:51
I&O
12/22/24 12/23/24 12/24/24
06:59 06:59 06:59
Intake Total 1410 / 1410
Output Total 900 / 900
Balance 510 / 510
Review of Systems
-
Respiratory: Reports No Symptoms
Cardiac: Reports No Symptoms
Abdomen/GI: Reports No Symptoms
Physical Exam
-
General: No Apparent Distress
HEENT: Negative Oxygen
Respiratory: Clear to Auscultation
Cardiac: Regular Rhythm and S1/S2
GI: Soft and Nontender
Musculoskeletal: No Cyanosis and No Edema
Skin: Other (R groin ecchymosis)
Neuro: Awake, Alert and Oriented
Psych: Calm and Intact Judgement/Insight
[2024-12-23 15:21] LABS: APTT 73.2 Sec (23.4-35.0)
[2024-12-23] MEDS: DULCOLAX 10 MG RECTAL (16:31)
[2024-12-23 21:42] LABS: APTT 106.1 Sec (23.4-35.0)
[2024-12-23] MEDS: MYRBETRIQ EXTENDED RELEASE 50 MG PO (22:17)
[2024-12-23] MEDS: DESYREL 200 MG PO (22:17)
[2024-12-23] MEDS: DETROL LA 4 MG PO (22:18)
[2024-12-24 03:00] VITALS: BP 109/61
[2024-12-24] MEDS: SYNTHROID 112 MCG PO (05:35)
[2024-12-24] MEDS: DILAUDID 1 MG IV ×3 (05:35→20:25)
[2024-12-24 05:53] LABS: % Basophils 0.7 % (0-2); % Eosinophils 2.2 % (0-6); % Immature Granulocytes 0.7 % (0-0.5); % Lymphocytes 33.4 % (20.5-51.1); % Monocytes 9.7 % (1.7-9.3); % Neutrophils 53.3 % (42.2-75.2); Absolute Basophils 0.1 10^3/uL (0-0.2); Absolute Eosinophils 0.2 10^3/uL (0-0.7); Absolute Immature Granulocytes 0.1 10^3/uL (0-0.05); Absolute Lymphocytes 2.9 10^3/uL (1.2-3.4); Absolute Monocytes 0.8 10^3/uL (0.1-0.6); Absolute Neutrophils 4.6 10^3/uL (1.4-6.5); Hematocrit 31.8 % (37.0-47.0); Hemoglobin 10.6 g/dL (12.0-16.0); Mean Corp Hgb Conc. 33.3 g/dL (33.0-37.0); Mean Corpuscular Hgb 30.1 pg (27.0-31.0); Mean Corpuscular Volume 90.3 fL (81.0-99.0); Mean Platelet Volume 8.8 fL (7.4-10.4); Nucleated Red Blood Cells % 0 %; Platelet Count 222 10^3/uL (130-400); Red Blood Cell Count 3.52 10^6/uL (4.20-5.40); Red Cell Dist. Width 13.6 % (11.5-14.5); White Blood Cell Count 8.6 10^3/uL (4.8-10.8)
[2024-12-24 06:03] LABS: INR 1.52; PT 18.5 Sec (11.4-14.6)
[2024-12-24 06:05] LABS: APTT 108.3 Sec (23.4-35.0)
[2024-12-24 07:40] VITALS: BP 113/65
[2024-12-24] MEDS: TOPROL XL 25 MG PO (09:28)
[2024-12-24] MEDS: ROXICODONE 20 MG PO ×3 (09:28→23:36)
[2024-12-24] MEDS: CELEXA 40 MG PO (09:29)
[2024-12-24] MEDS: HEPARIN 25000 UNITS/250 ML IV (10:15)
[2024-12-24 11:35] VITALS: BP 108/62
--- NOTE | 2024-12-24 12:31 | W.PN.CARDCBS ---
Addendum entered and electronically signed by Massimo Dash MD 12/24/24 16:21:
I saw and examined the patient.
The Paleobotanist's note was reviewed and I agree with the note.
Comment: Briefly, 64-year-old woman with past medical history of mechanical aortic and mitral valves as well as atrial fibrillation/flutter who presents with intramuscular hematoma of the left thigh following flutter ablation 12/17/2024. Patient's
INR was previously supratherapeutic requiring reversal. Currently bridging back to therapeutic INR.
Ideally with mechanical mitral valve goal INR would be 2.5�3.5 however with bleeding we are hoping to target the lower end of this range around 2.5.
Continue warfarin 3.5 mg with daily INR monitoring
Continue heparin drip until therapeutic
Rest per Jeni Fontana
Original Note:
Today's Communication / Plan
-
Heparin gtt renewed
Warfarin 3.5 mg again today
Will run INR goal a bit lower at 2.0 to 2.5 for now and if stable then go back to usual goal of 2.5 to 3.5 given mechanical valves
Impression / Plan
-
PCP: Dr. Joey Guerrier
Primary Development Executive: Dr. Brooks
Impression:
Admitted with intramuscular hematoma left thigh
Possible pseudoaneurysm intramuscular
Mild anemia
Chronic pain from her back
Symptomatic Paroxysmal atrial fibrillation/atypical atrial flutter/atrial tachycardia
s/p atrial flutter ablation 11/2019
s/p PVI and atrial flutter ablation 07/08/22
previously refractory to sotalol and Tikosyn
amiodarone previously stopped due to elevated LFTs and hypothyroidism
s/p KAMRAN/CV 12/04/23
s/p redo PVI/PW and mitral flutter ablation 12/17/24-[place] Mechanical AVR 06/2020
s/p AVR with 21mm [place] Mechanical Valve, Closure of Perimembranous VSD with Bovine pericardial patch, Left Modified Maze procedure with Atricure device 07/16/20
Chronic warfarin OAC managed by [facility]
Chronic HFpEF
h/o SBO 08/02/2023 with ex lap for extensive lysis of adhesions (>90 min), small bowel resection with primary anastomosis, ventral incisional hernia repair with mesh 08/03/23
Reoperation for pelvic hematoma and anastomotic leak 08/12/23
History of diverticulitis with perforated diverticulum, peritonitis and sepsis, s/p ex lap with transverse colostomy, complicated by torsades felt to be due to sevoflurane 01/30/18
s/p takedown transverse loop colostomy, laparotomy, REMEDIOS, sigmoidectomy, primary sutured repair parastomal hernia 05/31/18-History of recurrent SBOs
HTN
HLD
Rheumatoid arthritis/fibromyalgia/chronic pain
Chronic back pain, epidural injections and daily narcotic use
B/L venous insufficiency
Echo 12/04/22: EF 55 to 60%, mild concentric LVH, well-seated [place] mechanical aortic valve prosthesis with peak/mean gradients 23/11 mmHg, trace AR, mild TR, PAP 35 to 40 mmHg
Echo 01/09/24: EF 64%, mild conc LVH, normal RV size and function, mild MR, [place] mechanical AVR with peak/mean 14/7 mmHg
Plan:
-INR trending up to 1.52 on 12/24/24. Warfarin 2.5 mg 12/24/24. Patient was taking warfarin 3.5 mg daily just prior to admission as well
-Heparin gtt renewed by co 12/24/24.
-Patient was given Kcentra 2677 units plus vitamin K 10 mg PO x 1 on admission 12/21/2024 for INR of 4.58 and within 8 hours the INR was down to 1.25 on recheck.
-IRAD did not feel that there was active bleeding on groin U/S and the prior pseudoaneurysm appeared to have thrombosed following withdrawal/partial reversal of warfarin 12/21/24 which was confirmed on repeat U/S on 12/22/24. Vascular surgery has signed
off as well.
-Hgb stable at 10.6 on 12/24/24
-INR goal of 2-2.5 for now instead of preadmission goal of 2.5-3.5. INRs managed by DCA using home monitor.
Progress Note - Development Executive
Subjective
Date of Service: December 24, 2024
Feeling better with the higher dose of Dilaudid
Objective
Labs:
12/24/24 05:29
12/22/24 05:37
Labs
Hgb 10.6 g/dL (12.0-16.0) L 12/24/24 05:29
Hct 31.8 % (37.0-47.0) L 12/24/24 05:29
Plt Count 222 10^3/uL (130-400) 12/24/24 05:29
PT 18.5 Sec (11.4-14.6) H 12/24/24 05:29
INR 1.52 12/24/24 05:29
APTT 108.3 Sec (23.4-35.0) H 12/24/24 05:29
Sodium 134 mmol/L (135-145) L 12/22/24 05:37
Potassium 4.4 mmol/L (3.5-5.1) 12/22/24 05:37
BUN 20 mg/dl (7-17) H 12/22/24 05:37
Creatinine 0.7 mg/dL (0.6-1.0) 12/22/24 05:37
Glucose 99 mg/dl (70-99) 12/22/24 05:37
Vital Signs and I&O:
Vital Signs
Temp Pulse Resp BP Pulse Ox
98 F 66 16 108/62 95
12/24/24 11:35 12/24/24 11:35 12/24/24 11:35 12/24/24 11:35 12/24/24 11:35
Vital Signs
Temp Pulse Resp BP Pulse Ox
98 F 66 16 108/62 95
12/24/24 11:35 12/24/24 11:35 12/24/24 11:35 12/24/24 11:35 12/24/24 11:35
Intake & Output
12/22/24 12/23/24 12/24/24 12/25/24
06:59 06:59 06:59 06:59
Intake Total 1410 / 1410 1800 / 1800 240 / 240
Output Total 900 / 900 600 / 600 1150 / 1150
Balance 510 / 510 1200 / 1200 -910 / -910
Physical Exam
Physical Exam
GEN: NAD
LUNGS: RA. No audible wheeze
CV: SR on tele
--- NOTE | 2024-12-24 13:12 | CM ---
Patient seen at bedside, patient stated she is feeling better still does not anticipate any further needs for VN at home. CM will continue to follow for discharge planning needs.
Plan; home with no needs.
--- NOTE | 2024-12-24 14:33 | W.PN.HOSP.TC ---
Today's Communication/Plan
-
warfarin 3.5mg
f/u INR in AM
provide dulcolax suppos agian
Assessment / Plan
Assessment / Plan
CT a/p
1. Hematoma in the left adductor musculature measuring up to 6.3 cm in diameter. Within the hematoma, there is pseudoaneurysm or contained rupture which measures up to 3.1 cm in diameter as detailed above. No arteriovenous fistula. No injury of
left common femoral, profunda femoral, or superficial femoral is identified.
2. Trace left pleural effusion and adjacent atelectasis.
3. No acute intra-abdominal process. Small left ventral hernia upper abdomen involving large bowel, no signs of acute inflammatory changes or obstruction.
Left groin US
Hematoma within the left groin, measuring 8.5 cm in diameter, likely representing a thrombosed pseudoaneurysm. No active pseudoaneurysm demonstrated on the current ultrasound.
1. Left groin thrombosed pseudoaneurysm
Left groin hematoma
-At cath access site from 12/17
-Evaluated by vascular surgery and no surgical intervention needed
-Cardiology involved in care and patient being bridged back to warfarin
2. Paroxysmal atrial fibrillation/flutter
-Extensive history of PVI/ablation/cardioversion
-Having tried sotalol/Tikosyn/amiodarone in the past
-Review cardiology note for further details
-Currently controlled on Toprol
3. Status post mechanical AVR
History of VSD with closure from bovine pericardial patch
-Target INR of 2-2.5 per cardiology
-INR 1.5 today, on heparin drip, warfarin 3.5mg x1 ordered
4. Chronic pain and narcotic dependence
Narcotic induced constipation
-Patient have history of high dose of oxycodone 20 g 3 times daily, managed by pain specialist
-With increased need of narcotic during this hospital stay, as needed Narcan ordered
-Pain medication increased at this point. On significant high dose of oxycodone, I have discussed with the patient that I will NOT increase narcotic pain medication any further than current dose.
-Patient could benefit with relistor/movantik as well with h/o of chronic narcotic use related constipation, patient will require to follow-up with GI in the office postdischarge.
-BM with milk of mag/dulcolax suppos
5. Superficial venous thrombophlebitis
-Had peripheral IV access site. Already on warfarin
-Warm compresses
Chronic diastolic heart failure -no signs of exacerbation
History of small bowel obstruction
History of perforated diverticulitis
Essential hypertension
Hyperlipidemia
Rheumatoid arthritis
Fibromyalgia
History of bilateral venous insufficiency
Full code
Anticipated Discharge: 24 - 48 hours
Subjective/Interval History
-
Date of Service: December 24, 2024
No complaints overnight
pain better
had BM yesterday
Objective Data
-
Labs:
Laboratory Results
12/24/24 12/24/24
03:30 05:29
WBC 8.6
Hgb 10.6 L
Hct 31.8 L
Plt Count 222
PT 18.5 H
INR 1.52
APTT Cancelled 108.3 H
Vital Signs:
Vital Signs
Temp Pulse Resp BP Pulse Ox
98 F 66 16 108/62 95
12/24/24 11:35 12/24/24 11:35 12/24/24 11:35 12/24/24 11:35 12/24/24 11:35
I&O
12/23/24 12/24/24 12/25/24
06:59 06:59 06:59
Intake Total 1410 / 1410 1800 / 1800 240 / 240
Output Total 900 / 900 600 / 600 1150 / 1150
Balance 510 / 510 1200 / 1200 -910 / -910
Review of Systems
-
Respiratory: Reports No Symptoms
Cardiac: Reports No Symptoms
Abdomen/GI: Reports No Symptoms
Physical Exam
-
General: No Apparent Distress
HEENT: Negative Oxygen
Respiratory: Clear to Auscultation
Cardiac: Regular Rhythm and S1/S2
GI: Soft and Nontender
Musculoskeletal: No Edema
Skin: Other (R groin ecchymosis)
Neuro: Awake, Alert and Oriented
Psych: Calm and Intact Judgement/Insight
[2024-12-24 15:58] VITALS: BP 107/57
[2024-12-24] MEDS: COUMADIN 0.5 MG PO (17:24)
[2024-12-24] MEDS: COUMADIN 3 MG PO (17:24)
[2024-12-24 19:15] VITALS: BP 95/58
[2024-12-24] MEDS: MIRALAX 17 GRAMS PO (20:54)
[2024-12-24] MEDS: DULCOLAX 10 MG RECTAL (20:58)
[2024-12-24 23:10] VITALS: BP 111/53
[2024-12-24] MEDS: DESYREL 200 MG PO (23:32)
[2024-12-24] MEDS: DETROL LA 4 MG PO (23:33)
[2024-12-24] MEDS: MYRBETRIQ EXTENDED RELEASE 50 MG PO (23:34)
[2024-12-25 03:10] VITALS: BP 105/53
[2024-12-25 06:04] LABS: Hematocrit 31.8 % (37.0-47.0); Hemoglobin 10.6 g/dL (12.0-16.0); Mean Corp Hgb Conc. 33.3 g/dL (33.0-37.0); Mean Corpuscular Hgb 29.9 pg (27.0-31.0); Mean Corpuscular Volume 89.8 fL (81.0-99.0); Mean Platelet Volume 8.6 fL (7.4-10.4); Platelet Count 248 10^3/uL (130-400); Red Blood Cell Count 3.54 10^6/uL (4.20-5.40); Red Cell Dist. Width 13.6 % (11.5-14.5); White Blood Cell Count 7.9 10^3/uL (4.8-10.8)
[2024-12-25] MEDS: SYNTHROID 112 MCG PO (06:04)
[2024-12-25 06:07] LABS: INR 1.51; PT 18.7 Sec (11.4-14.6)
[2024-12-25 06:09] LABS: APTT 118.3 Sec (23.4-35.0)
[2024-12-25] MEDS: ROXICODONE 20 MG PO ×3 (07:38→23:17)
[2024-12-25] MEDS: CELEXA 40 MG PO (07:39)
[2024-12-25] MEDS: TOPROL XL 25 MG PO (07:39)
[2024-12-25 07:40] VITALS: BP 118/67
[2024-12-25] MEDS: COUMADIN 4 MG PO (08:45)
[2024-12-25] MEDS: DILAUDID 1 MG IV (08:45)
--- NOTE | 2024-12-25 10:20 | W.PN.CARDCBS ---
Addendum entered and electronically signed by Cuba Martin MD 12/25/24 13:20:
64-year-old woman with mechanical aortic valve replacement who underwent a PVI recently complicated by thigh hematoma and pseudoaneurysm which has thrombosed. She received Kcentra, INR has been subtherapeutic, now on IV heparin. Follow-up
ultrasound imaging did not reveal evidence of persistent pseudoaneurysm. Some constipation, requires narcotics, discomfort is present but improving
Current medications: Citalopram 40 mg a day, levothyroxine 112 micrograms daily, metoprolol ER 25 mg a day, Myrbetriq 50 mg at bedtime, Detrol LA 4 mg daily, trazodone 200 mg a day oxycodone 20 mg 3 times daily, heparin IV, lactulose, furosemide 40
mg a day
102/54, pulse 52, resp rate 16, afebrile, weight is 82.2 kg, up 1 kg, head neck exam unremarkable, lungs are clear, prosthetic second heart sounds, no murmurs, abdomen benign right thigh okay left thigh with hematoma, not much edema of lower
extremities
Hemoglobin is 10.6, white count 7.9, INR is 1.51, BUN and creatinine are 20 and 0.7, patient has received 3 mg of warfarin on the fourth and 0.5 mg on the fifth, written for 4 mg today, INR has been flat at 1.5
Telemetry: Sinus
Impression:
Hematoma/thrombosed pseudoaneurysm of left adductor muscle, stable
Mechanical aortic valve, VSD closure
Atrial flutter ablation 2019, PVI and flutter ablation 2021, cardioversion November 2023 and left atrial ablation, with PVI and posterior wall isolation November 2024
Chronic pain/narcotic dependence
Small bowel obstruction/lysis of adhesions July 2023
Fibromyalgia/rheumatoid arthritis
Plan:
Overall doing relatively well, continue warfarin and heparin.
Discharged with INR greater than 2, target will be 2.5
Original Note:
Today's Communication / Plan
-
Senna-S 2 tablets now to help with constipation
Restart outpatient dose of Lasix 40 mg PO daily
Check daily weights
Impression / Plan
-
PCP: Dr. Joey Guerrier
Primary Marble Mason: Dr. Brooks
Impression:
Admitted with intramuscular hematoma left thigh
Possible pseudoaneurysm intramuscular
Mild anemia
Chronic pain from her back
Symptomatic Paroxysmal atrial fibrillation/atypical atrial flutter/atrial tachycardia
s/p atrial flutter ablation 11/2019
s/p PVI and atrial flutter ablation 07/08/22
previously refractory to sotalol and Tikosyn
amiodarone previously stopped due to elevated LFTs and hypothyroidism
s/p KAMRAN/CV 12/04/23
s/p redo PVI/PW and mitral flutter ablation 12/17/24
s/p [place] Mechanical AVR , Closure of Perimembranous VSD with Bovine pericardial patch, Left Modified Maze procedure with Atricure device 07/16/20
Chronic warfarin OAC managed by [facility]
Chronic HFpEF
h/o SBO 08/02/2023 with ex lap for extensive lysis of adhesions (>90 min), small bowel resection with primary anastomosis, ventral incisional hernia repair with mesh 08/03/23
Reoperation for pelvic hematoma and anastomotic leak 08/12/23
History of diverticulitis with perforated diverticulum, peritonitis and sepsis, s/p ex lap with transverse colostomy, complicated by torsades felt to be due to sevoflurane 01/30/18
s/p takedown transverse loop colostomy, laparotomy, REMEDIOS, sigmoidectomy, primary sutured repair parastomal hernia 05/31/18-History of recurrent SBOs
HTN
HLD
Rheumatoid arthritis/fibromyalgia/chronic pain
Chronic back pain, epidural injections and daily narcotic use
B/L venous insufficiency
Echo 12/04/22: EF 55 to 60%, mild concentric LVH, well-seated [place] mechanical aortic valve prosthesis with peak/mean gradients 23/11 mmHg, trace AR, mild TR, PAP 35 to 40 mmHg
Echo 01/09/24: EF 64%, mild conc LVH, normal RV size and function, mild MR, [place] mechanical AVR with peak/mean 14/7 mmHg
Plan:
-Patient notes constipation and RUQ discomfort. Patient was requiring higher levels of Dilaudid 1 mg IV q 4 hours PRN earlier this admission to manage acute on chronic pain issues. Dilaudid dose decreased by hospitalist attending to 0.5 mg IV q 4
hours PRN severe pain.
-Will order Senna-S 2 tablets now, patient reports that this is what she would take at home. Hospitalist attending has also ordered lactulose 20 mg TID. No BM after Dulcolax suppository 12/23/24 and 12/24/24.
-INR flat at 1.51 on 12/25/24. Warfarin 4 mg NOW ordered by co 12/25/24. Patient was taking warfarin 3.5 mg daily just prior to admission.
-INR goal of 2-2.5 for now instead of preadmission goal of 2.5-3.5. INRs managed by DCA using home monitor.
-Heparin gtt renewed by co 12/25/24.
-Patient was given Kcentra 2677 units plus vitamin K 10 mg PO x 1 on admission 12/21/2024 for INR of 4.58 and within 8 hours the INR was down to 1.25 on recheck.
-IRAD did not feel that there was active bleeding on groin U/S and the prior pseudoaneurysm appeared to have thrombosed following withdrawal/partial reversal of warfarin 12/21/24 which was confirmed on repeat U/S on 12/22/24. Vascular surgery has signed
off as well.
-Hgb stable at 10.6 on 12/25/24
-Remains in SR on tele check by co 12/25/24 following redo PVI/PW and mitral flutter ablation 12/17/24
-Outpatient dose of Lasix 40 mg daily has been on hold since admission, will restart 12/25/24. Check daily weights. EF was 64% at last echo 01/09/24. No SOB or edema.
Progress Note - Marble Mason
Subjective
Date of Service: December 25, 2024
She has a new RUQ discomfort today, no BM in days despite suppository the last 2 nights
Objective
Labs:
12/25/24 05:38
12/22/24 05:37
Labs
Hgb 10.6 g/dL (12.0-16.0) L 12/25/24 05:38
Hct 31.8 % (37.0-47.0) L 12/25/24 05:38
Plt Count 248 10^3/uL (130-400) 12/25/24 05:38
PT 18.7 Sec (11.4-14.6) H 12/25/24 05:38
INR 1.51 12/25/24 05:38
APTT 118.3 Sec (23.4-35.0) H 12/25/24 05:38
Sodium 134 mmol/L (135-145) L 12/22/24 05:37
Potassium 4.4 mmol/L (3.5-5.1) 12/22/24 05:37
BUN 20 mg/dl (7-17) H 12/22/24 05:37
Creatinine 0.7 mg/dL (0.6-1.0) 12/22/24 05:37
Glucose 99 mg/dl (70-99) 12/22/24 05:37
Vital Signs and I&O:
Vital Signs
Temp Pulse Resp BP Pulse Ox
97.8 F 63 16 118/67 96
12/25/24 07:40 12/25/24 07:40 12/25/24 07:40 12/25/24 07:40 12/25/24 07:40
Vital Signs
Temp Pulse Resp BP Pulse Ox
97.8 F 63 16 118/67 96
12/25/24 07:40 12/25/24 07:40 12/25/24 07:40 12/25/24 07:40 12/25/24 07:40
Intake & Output
12/23/24 12/24/24 12/25/24 12/26/24
06:59 06:59 06:59 06:59
Intake Total 1410 / 1410 1800 / 1800 1680 / 1680
Output Total 900 / 900 600 / 600 2150 / 2150
Balance 510 / 510 1200 / 1200 -470 / -470
[2024-12-25] MEDS: HEPARIN 25000 UNITS/250 ML IV (10:41)
--- NOTE | 2024-12-25 11:15 | CM ---
Patient seen at bedside, plan continues to be home with VN vs home with no needs. Patient stated her INR is still low and is hoping to go home soon. PT recommending home with home health. CM will continue to follow for discharge planning needs.
Plan; home with no needs vs home with VN; referrals pending patient choice for VN
[2024-12-25 11:36] VITALS: BP 102/54
[2024-12-25] MEDS: SENOKOT-S 2 TABLET PO (11:48)
[2024-12-25] MEDS: LASIX 40 MG PO (11:48)
--- NOTE | 2024-12-25 12:45 | W.PN.HOSP.TC ---
Today's Communication/Plan
-
Continue warfarin bridge
laxatives ordered
Assessment / Plan
Assessment / Plan
CT a/p
1. Hematoma in the left adductor musculature measuring up to 6.3 cm in diameter. Within the hematoma, there is pseudoaneurysm or contained rupture which measures up to 3.1 cm in diameter as detailed above. No arteriovenous fistula. No injury of
left common femoral, profunda femoral, or superficial femoral is identified.
2. Trace left pleural effusion and adjacent atelectasis.
3. No acute intra-abdominal process. Small left ventral hernia upper abdomen involving large bowel, no signs of acute inflammatory changes or obstruction.
Left groin US
Hematoma within the left groin, measuring 8.5 cm in diameter, likely representing a thrombosed pseudoaneurysm. No active pseudoaneurysm demonstrated on the current ultrasound.
1. Left groin thrombosed pseudoaneurysm
Left groin hematoma
-At cath access site from 12/17
-Evaluated by vascular surgery and no surgical intervention needed
-Cardiology involved in care and patient being bridged back to warfarin
2. Paroxysmal atrial fibrillation/flutter
-Extensive history of PVI/ablation/cardioversion
-Having tried sotalol/Tikosyn/amiodarone in the past
-Review cardiology note for further details
-Currently controlled on Toprol
3. Status post mechanical AVR
History of VSD with closure from bovine pericardial patch
-Target INR of 2-2.5 per cardiology
-INR 1.51 today, on heparin drip, warfarin 4 mg x1 given in morning.
4. Chronic pain and narcotic dependence
Narcotic induced constipation
-Patient have history of high dose of oxycodone 20 g 3 times daily, managed by pain specialist
-With increased need of narcotic during this hospital stay, as needed Narcan ordered
-Pain medication increased at this point. On significant high dose of oxycodone, I have discussed with the patient that I will NOT increase narcotic pain medication any further than current dose.
-Patient could benefit with relistor/movantik as well with h/o of chronic narcotic use related constipation, patient will require to follow-up with GI in the office postdischarge.
-Providing oral lactulose/enema.
5. Superficial venous thrombophlebitis
-Had peripheral IV access site. Already on warfarin
-Warm compresses
Chronic diastolic heart failure -no signs of exacerbation
History of small bowel obstruction
History of perforated diverticulitis
Essential hypertension
Hyperlipidemia
Rheumatoid arthritis
Fibromyalgia
History of bilateral venous insufficiency
Full code
Anticipated Discharge: 24 - 48 hours
Subjective/Interval History
-
Date of Service: December 25, 2024
Had small bowel movements in the morning
Left groin pain is better, not relieved completely
Objective Data
-
Labs:
Laboratory Results
12/25/24 12/25/24
05:38 12:34
WBC 7.9
Hgb 10.6 L
Hct 31.8 L
Plt Count 248
PT 18.7 H
INR 1.51
APTT 118.3 H Pending
Vital Signs:
Vital Signs
Temp Pulse Resp BP Pulse Ox
97.6 F 52 16 102/54 97
12/25/24 11:36 12/25/24 11:36 12/25/24 11:36 12/25/24 11:36 12/25/24 11:36
I&O
12/24/24 12/25/24 12/26/24
06:59 06:59 06:59
Intake Total 1800 / 1800 1680 / 1680
Output Total 600 / 600 2150 / 2150
Balance 1200 / 1200 -470 / -470
Review of Systems
-
Respiratory: Reports No Symptoms
Cardiac: Reports No Symptoms
Abdomen/GI: Reports Constipated
Physical Exam
-
General: Negative Appears in Distress
HEENT: Negative Oxygen
Neuro: Awake, Alert, Oriented and No Motor Deficits
[2024-12-25 13:13] LABS: APTT 65.7 Sec (23.4-35.0)
[2024-12-25] MEDS: DILAUDID 0.5 MG IV ×2 (13:25→20:29)
[2024-12-25 14:59] VITALS: BP 99/51
[2024-12-25] MEDS: DUPHALAC/CHRONULAC 20 GRAMS PO (16:00)
[2024-12-25 19:25] VITALS: BP 97/53
[2024-12-25 19:59] LABS: APTT 126.4 Sec (23.4-35.0)
[2024-12-25] MEDS: DUPHALAC/CHRONULAC PO (23:16)
[2024-12-25] MEDS: MYRBETRIQ EXTENDED RELEASE 50 MG PO (23:18)
[2024-12-25] MEDS: DESYREL 200 MG PO (23:18)
[2024-12-25] MEDS: DETROL LA 4 MG PO (23:19)
[2024-12-25 23:25] VITALS: BP 117/64
[2024-12-26 02:43] LABS: INR 2.02; PT 23.3 Sec (11.4-14.6)
[2024-12-26 02:45] LABS: APTT 115.4 Sec (23.4-35.0)
[2024-12-26 03:00] VITALS: BP 95/55
[2024-12-26] MEDS: SYNTHROID 112 MCG PO (05:38)
[2024-12-26] MEDS: TOPROL XL 25 MG PO (07:20)
[2024-12-26] MEDS: ROXICODONE 20 MG PO ×2 (07:20→15:35)
[2024-12-26] MEDS: DUPHALAC/CHRONULAC PO ×2 (07:20→15:23)
[2024-12-26] MEDS: CELEXA 40 MG PO (07:20)
[2024-12-26] MEDS: LASIX 40 MG PO (07:21)
[2024-12-26 07:26] VITALS: BP 107/63
[2024-12-26] MEDS: DILAUDID 0.5 MG IV (08:20)
--- NOTE | 2024-12-26 10:07 | CM ---
Addendum entered by Zaina Rivera 12/26/24 15:11:
[facility] accepted patient and IMM completed, signed form placed on chart. Patient for discharge today and plan is for her to provide transportation.
Original Note:
Patient seen at bedside. Patient considered if she wanted VN at home and has decided she would appreciate it if needed per physician. CM will update physician and patient asking for [facility]. CM will continue to follow for discharge planning needs.
Plan; home with VN; pending physician consult [facility]
[2024-12-26 11:06] VITALS: BP 96/53
--- NOTE | 2024-12-26 12:16 | VNURNOTE ---
Home Health Liaison met with patient at bedside to discuss [facility] nurse/therapy, visits, schedule and homebound status. Patient is agreeable and understands that visits at home will be 2-3 x per week to assess and teach medical management. She was
napping and slightly groggy when liaison met with her. She is familiiar w/[facility] services, has had us in the past. Patient is aware that [facility] will contact them for start of care in 1-2 days after discharge from . Pt has dogs and cats at home, pet
policy reviewed w/her, she is agreeable. [facility] referral completed in [facility].
--- NOTE | 2024-12-26 13:47 | W.PN.CARDCBS ---
Addendum entered and electronically signed by Cuba Martin MD 12/26/24 14:42:
Patient ambulating in [place] with walker. Overall feels improved.
Findings, assessments and plan as noted below by Lisbet Perez.
Exam unchanged from yesterday.
INR is now 2. Typically INR target for a mechanical AVR is 2-3. Given the patient is on citalopram, shooting for the lower range of therapeutic may make sense
At this point, she is stable for discharge from cardiac standpoint.
Continue warfarin 3 mg a day with INR on Sunday
Recommended cardiac medications at discharge:
Warfarin 3 mg daily
Metoprolol ER 25 mg daily
Furosemide 40 mg daily
We will arrange for cardiac follow-up.
Original Note:
Today's Communication / Plan
-
DC heparin drip
Resume Coumadin 3 mg daily at night
Home INR check 12/29/2024 and call cardiology office for further dosing recommendations
Discharge home on Lasix 40 mg daily
Outpatient cardiology follow-up has been arranged
Stable for discharge to home
Impression / Plan
-
PCP: Dr. Joey Guerrier
Primary Collection Officer: Dr. Brooks
Impression:
Admitted with intramuscular hematoma left thigh
Possible pseudoaneurysm intramuscular
Mild anemia
Chronic pain from her back
Symptomatic Paroxysmal atrial fibrillation/atypical atrial flutter/atrial tachycardia
s/p atrial flutter ablation 11/2019
s/p PVI and atrial flutter ablation 07/08/22
previously refractory to sotalol and Tikosyn
amiodarone previously stopped due to elevated LFTs and hypothyroidism
s/p KAMRAN/CV 12/04/23
s/p redo PVI/PW and mitral flutter ablation 12/17/24
s/p [place] Mechanical AVR , Closure of Perimembranous VSD with Bovine pericardial patch, Left Modified Maze procedure with Atricure device 07/16/20
Chronic warfarin OAC managed by [facility]
Chronic HFpEF
h/o SBO 08/02/2023 with ex lap for extensive lysis of adhesions (>90 min), small bowel resection with primary anastomosis, ventral incisional hernia repair with mesh 08/03/23
Reoperation for pelvic hematoma and anastomotic leak 08/12/23
History of diverticulitis with perforated diverticulum, peritonitis and sepsis, s/p ex lap with transverse colostomy, complicated by torsades felt to be due to sevoflurane 01/30/18
s/p takedown transverse loop colostomy, laparotomy, REMEDIOS, sigmoidectomy, primary sutured repair parastomal hernia 05/31/18-History of recurrent SBOs
HTN
HLD
Rheumatoid arthritis/fibromyalgia/chronic pain
Chronic back pain, epidural injections and daily narcotic use
B/L venous insufficiency
Echo 12/04/22: EF 55 to 60%, mild concentric LVH, well-seated [place] mechanical aortic valve prosthesis with peak/mean gradients 23/11 mmHg, trace AR, mild TR, PAP 35 to 40 mmHg
Echo 01/09/24: EF 64%, mild conc LVH, normal RV size and function, mild MR, [place] mechanical AVR with peak/mean 14/7 mmHg
Plan:
-Admitted 12/21/24 with intramuscular hematoma left thigh in setting of supratherapeutic INR of 4.58 following PVI ablation 12/17/2024
-Thigh hematoma and pseudoaneurysm thrombosed. She received Kcentra for INR was 4.58. Then was placed on IV heparin with resumption of Coumadin
-Current INR 2.02.
-Hemoglobin stable at 10.6 on 01/14/2025
-Discontinue IV heparin, sent home on Coumadin 3 mg daily.
-Patient has home INR machine and will monitor INR. She will call the cardiology office on 12/29/2024 with result and further dosing recommendations will be made at that time.
-Given mechanical AVR would like to see INR in 2.5-3 range
-Remains in SR on tele check by me 12/26/24 following redo PVI/PW and mitral flutter ablation 12/17/24
-Discharged home on usual outpatient dosing of Lasix 40 mg daily. EF was 64% at last echo 01/09/24. No SOB or edema.
-Patient notes some ongoing issues of constipation but was able to have bowel movement on 12/25/2024. Pain management per primary team. Patient has chronic pain issues.
-Outpatient cardiology follow-up has been arranged.
-Patient stable from cardiac standpoint for discharge.
Plan discussed with patient, nursing and hospitalist Dr. Avila
---
-Patient was given Kcentra 2677 units plus vitamin K 10 mg PO x 1 on admission 12/21/2024 for INR of 4.58 and within 8 hours the INR was down to 1.25 on recheck.
-IRAD did not feel that there was active bleeding on groin U/S and the prior pseudoaneurysm appeared to have thrombosed following withdrawal/partial reversal of warfarin 12/21/24 which was confirmed on repeat U/S on 12/22/24. Vascular surgery has signed
off as well.
Progress Note - Collection Officer
Subjective
Date of Service: December 26, 2024
Patient seen and examined. Patient reports that overall she is feeling well. Still has some mild abdominal discomfort which she reports is from ongoing constipation but notes improvement of left-sided groin/leg or thigh pain. Still has some pain
particularly with ambulation
She was able to ambulate around the floor with physical therapy today
Objective
Labs:
12/25/24 05:38
12/22/24 05:37
Labs
Hgb 10.6 g/dL (12.0-16.0) L 12/25/24 05:38
Hct 31.8 % (37.0-47.0) L 12/25/24 05:38
Plt Count 248 10^3/uL (130-400) 12/25/24 05:38
PT Cancelled 12/26/24 06:00
INR Cancelled 12/26/24 06:00
APTT 103.0 Sec (23.4-35.0) H 12/26/24 08:19
Sodium 134 mmol/L (135-145) L 12/22/24 05:37
Potassium 4.4 mmol/L (3.5-5.1) 12/22/24 05:37
BUN 20 mg/dl (7-17) H 12/22/24 05:37
Creatinine 0.7 mg/dL (0.6-1.0) 12/22/24 05:37
Glucose 99 mg/dl (70-99) 12/22/24 05:37
Vital Signs and I&O:
Vital Signs
Temp Pulse Resp BP Pulse Ox
97.8 F 54 16 96/53 96
12/26/24 11:06 12/26/24 11:06 12/26/24 11:06 12/26/24 11:06 12/26/24 11:06
Vital Signs
Temp Pulse Resp BP Pulse Ox
97.8 F 54 16 96/53 96
12/26/24 11:06 12/26/24 11:06 12/26/24 11:06 12/26/24 11:06 12/26/24 11:06
Intake & Output
12/24/24 12/25/24 12/26/24 12/27/24
06:59 06:59 06:59 06:59
Intake Total 1800 / 1800 1680 / 1680 1140 / 1140 480 / 480
Output Total 600 / 600 2150 / 2150
Balance 1200 / 1200 -470 / -470 1140 / 1140 480 / 480
Physical Exam
Physical Exam
GEN: No distress, awake, Ox3, sitting in chair
HEENT: supple, anicteric, mmm
LUNGS: CTA bilaterally, no wheezes/rales
CV: Reg, S1/S2, faint murmur
ABD: Morbidly obese, soft, BS+, NT/ND
EXT: No edema, clubbing or cyanosis; left groin with mild ecchymosis, left thigh obese but soft
NEURO: Gross non-focal
SKIN: No rash, warm, dry, pink
--- NOTE | 2024-12-26 14:13 | W.PN.HOSP.TC ---
Today's Communication/Plan
-
d/c home
Assessment / Plan
Assessment / Plan
CT a/p
1. Hematoma in the left adductor musculature measuring up to 6.3 cm in diameter. Within the hematoma, there is pseudoaneurysm or contained rupture which measures up to 3.1 cm in diameter as detailed above. No arteriovenous fistula. No injury of
left common femoral, profunda femoral, or superficial femoral is identified.
2. Trace left pleural effusion and adjacent atelectasis.
3. No acute intra-abdominal process. Small left ventral hernia upper abdomen involving large bowel, no signs of acute inflammatory changes or obstruction.
Left groin US
Hematoma within the left groin, measuring 8.5 cm in diameter, likely representing a thrombosed pseudoaneurysm. No active pseudoaneurysm demonstrated on the current ultrasound.
1. Left groin thrombosed pseudoaneurysm
Left groin hematoma
-At cath access site from 12/17
-Evaluated by vascular surgery and no surgical intervention needed
-Cardiology involved in care and patient being bridged back to warfarin
2. Paroxysmal atrial fibrillation/flutter
-Extensive history of PVI/ablation/cardioversion
-Having tried sotalol/Tikosyn/amiodarone in the past
-Review cardiology note for further details
-Currently controlled on Toprol
3. Status post mechanical AVR
History of VSD with closure from bovine pericardial patch
-Target INR of 2-2.5 per cardiology
-INR 2.1 today. Cleared by cardiology to be discharged on home dose 3mg/d
4. Chronic pain and narcotic dependence
Narcotic induced constipation
-Patient have history of high dose of oxycodone 20 g 3 times daily, managed by pain specialist
-With increased need of narcotic during this hospital stay, as needed Narcan ordered
-Pain medication increased at this point. On significant high dose of oxycodone, I have discussed with the patient that I will NOT increase narcotic pain medication any further than current dose.
-Patient could benefit with relistor/movantik as well with h/o of chronic narcotic use related constipation, patient will require to follow-up with GI in the office postdischarge.
-Providing oral lactulose/enema.
5. Superficial venous thrombophlebitis
-Had peripheral IV access site. Already on warfarin
-Warm compresses
Chronic diastolic heart failure -no signs of exacerbation
History of small bowel obstruction
History of perforated diverticulitis
Essential hypertension
Hyperlipidemia
Rheumatoid arthritis
Fibromyalgia
History of bilateral venous insufficiency
Full code
More than 30 minutes spent in discharge including
Final examination of the patient
Summarizing hospital stay
Instructions for continuing care to all relevant caregivers
Preparation of discharge records, prescriptions, and referral forms
Total time spent (in minutes): 38mins
Anticipated Discharge: Today
Subjective/Interval History
-
Date of Service: December 26, 2024
Pain is much better
Patient is able to get around with walker
Objective Data
-
Labs:
Laboratory Results
12/26/24 12/26/24 12/26/24
: 08:19 15:00
PT 23.3 H
INR 2.02
APTT 115.4 H 103.0 H Pending
Vital Signs:
Vital Signs
Temp Pulse Resp BP Pulse Ox
97.8 F 54 16 96/53 96
12/26/24 11:06 12/26/24 11:06 12/26/24 11:06 12/26/24 11:06 12/26/24 11:06
I&O
12/25/24 12/26/24 12/27/24
06:59 06:59 06:59
Intake Total 1680 / 1680 1140 / 1140 480 / 480
Output Total 2150 / 2150
Balance -470 / -470 1140 / 1140 480 / 480
Review of Systems
-
Respiratory: Reports No Symptoms
Cardiac: Reports No Symptoms
Abdomen/GI: Reports No Symptoms
Physical Exam
-
General: Negative Appears in Distress
HEENT: Negative Oxygen
Neuro: Awake, Alert, Oriented and No Motor Deficits
[2024-12-26 15:04] VITALS: BP 100/56
[2024-12-26] MEDS: COUMADIN 3 MG PO (16:54)
--- NOTE | 2024-12-26 17:57 | W.DCSUMMARY ---
Discharge Summary
Discharge Data
Date of Admission: 12/21/24
Date of Discharge: 12/26/24
-
Pending Results: No
Hospital Course
Discharging Physician : Dr Raheel Avila
Disposition : To home
Primary care physician : Dr Joey Guerrier
Principal Discharge diagnosis :
Left groin thrombosed pseudoaneurysm
Narcotic induced constipation
Chronic Discharge diagnosis :
Paroxysmal atrial fibrillation/flutter with history of pulmonary vein isolation/ablation/cardioversion
History of mechanical aortic valve replacement
History of ventricular septal defect with closure with bovine pericardial patch
Chronic pain and narcotic dependence
Chronic diastolic congestive heart failure
History of small bowel obstruction
History of perforated diverticulitis
Essential hypertension
Hyperlipidemia
Rheumatoid arthritis
Fibromyalgia
History of bilateral venous insufficiency
Hospital Course :
Patient is a 61-year-old female with above-mentioned past medical history came to ER with new onset of left groin pain. Patient have undergone EP study with heart catheterization for atrial fibrillation with patient getting pulmonary vein
isolation/ablation on 12/17. Postprocedure patient was having some groin pain although no other abnormality. Post discharge patient continued to have worsening pain and noted to having new swelling. Patient underwent CT angio in ER and was found
to having pseudoaneurysm with possibility of active extravasation. Patient on warfarin which was reversed. Interventional radiology was consulted and ultrasound was performed which showed thrombosed aneurysm at that point. Vascular surgery
evaluated patient as well and there is no surgical indication. Patient was admitted to hospital for further monitoring and pain control. Patient required significant pain medication with ongoing pain. Patient was started on heparin drip with
warfarin bridging. No further issues occurred during this hospital stay. patient was discharged home after medical stabilization
Important imaging findings :
None
Procedure findings :
None
Discharge Plan
-
Patient Disposition: Home with Home Care
Discharge Diagnosis/Procedures: Left femoral art thrombosed pseudoaneurysm
Condition: Fair
Diet: Low Cholesterol
Activity: As tolerated
Driving Restrictions: No driving
Bathing Restrictions: OK to Shower
Blood Work: You will need to do an INR check on 12/29/2024 and call cardiology protime desk with results for further dosing instructions
Referrals:
Lisbet Perez PA-C [Specified Professional Personl] - 01/09/25 12:40 pm (You have cardiology follow up with Lisbet Perez PA-C on January 09 at 12:40 PM in [place] [facility] [address] [facility] If you are unable to make this appointment please call [phone] to
schedule)
Joey Guerrier MD [Family Provider] - in one week
Prescriptions:
New
oxycodone 5 mg tablet
5 mg PO Q8H PRN (Reason: Pain) Qty: 10 0RF
Continued
trazodone 100 MG tablet
200 mg PO HS
citalopram 40 mg Tablet
40 mg PO DAILY
sennosides-docusate sodium [Stool Softener-Laxative] 8.6-50 mg Tablet
1 tab-cap PO HS
furosemide 40 MG tablet
40 mg PO DAILY
metoprolol succinate 25 mg Tablet Extended Release 24 Hr
25 mg PO DAILY
vitamin B complex Capsule
1 cap PO DAILY
oxycodone 20 mg Tablet
20 mg PO TID
levothyroxine 112 mcg Tablet
112 mcg PO DAILY
solifenacin 10 mg Tablet
10 mg PO HS
mirabegron [Myrbetriq] 50 mg Tablet Extended Release 24 Hr
50 mg PO HS
warfarin 3 mg Tablet
3 mg PO QPM
multivitamin Tablet
1 tab PO DAILY
Discontinued
warfarin 1 mg Tablet
0.5 mg PO QPM
Discharge Orders:
Discharge Patient (As Directed); Ordered 12/26/24
Ordered By: Raheel Avila
Discharge Date and Time
Discharge Date/Time: 12/26/24 17:01
Print Language: SERBIAN
== END 2024-12-26 17:01 | disposition home health service (06) | DRG 300 ==
LOC: 3 WEST ACU 06:42
PROVIDERS: Internal Medicine; Nurse Practitioner; ADMITTING PHYSICIAN Internal Medicine; ATTENDING PHYSICIAN Hospitalist; CONSULT PHYSICIAN Internal Medicine Cardiovascular Disease; CONSULT PHYSICIAN Student in an Organized Health Care Education/Training Program; EMERGENCY PHYSICIAN Student in an Organized Health Care Education/Training Program; FAMILY PHYSICIAN Internal Medicine
PROC: 30283B1 Transfusion of Nonautologous 4-Factor Prothrombin Complex Concentrate into Vein, Percutaneous Approach (ICD-10-PCS; 2024-12-21)
DX: T81.718A Complication of other artery following a procedure, not elsewhere classified, initial encounter (principal); F11.20 Opioid dependence, uncomplicated; I50.32 Chronic diastolic (congestive) heart failure; J90 Pleural effusion, not elsewhere classified; J98.11 Atelectasis; I82.412 Acute embolism and thrombosis of left femoral vein; I72.4 Aneurysm of artery of lower extremity; M54.9 Dorsalgia, unspecified; G89.29 Other chronic pain; I11.0 Hypertensive heart disease with heart failure; K21.9 Gastro-esophageal reflux disease without esophagitis; I48.0 Paroxysmal atrial fibrillation; M06.9 Rheumatoid arthritis, unspecified; I25.10 Atherosclerotic heart disease of native coronary artery without angina pectoris; R79.1 Abnormal coagulation profile; F32.A Depression, unspecified; F41.9 Anxiety disorder, unspecified; M19.90 Unspecified osteoarthritis, unspecified site; E78.5 Hyperlipidemia, unspecified; M79.7 Fibromyalgia; D64.9 Anemia, unspecified; E03.9 Hypothyroidism, unspecified; K43.9 Ventral hernia without obstruction or gangrene; K59.03 Drug induced constipation; T40.2X5A Adverse effect of other opioids, initial encounter; I87.2 Venous insufficiency (chronic) (peripheral); Y84.0 Cardiac catheterization as the cause of abnormal reaction of the patient, or of later complication, without mention of misadventure at the time of the procedure; Y71.3 Surgical instruments, materials and cardiovascular devices (including sutures) associated with adverse incidents; Y92.9 Unspecified place or not applicable; S70.12XA Contusion of left thigh, initial encounter; X58.XXXA Exposure to other specified factors, initial encounter; Z95.2 Presence of prosthetic heart valve; Z90.49 Acquired absence of other specified parts of digestive tract; Z87.19 Personal history of other diseases of the digestive system; Z86.79 Personal history of other diseases of the circulatory system; Z88.1 Allergy status to other antibiotic agents; Z88.8 Allergy status to other drugs, medicaments and biological substances; Z91.048 Other nonmedicinal substance allergy status; Z79.890 Hormone replacement therapy; Z79.01 Long term (current) use of anticoagulants
CPT/HCPCS: 75635; 80048; 80053; 85014; 85018; 85025; 85027; 85610; 85730; 86850; 86900; 86901; 93005; 93926; 96374; 96375; 96376; 97116; 97163; 97167; 99285; Q9967

== ENCOUNTER → 2025-01-02 13:56 | Outpatient (REF) | payer MEDICARE, OTHER, SELFPAY | LOC: WDC 13:56 | PROVIDERS: ATTENDING PHYSICIAN Hospitalist; FAMILY PHYSICIAN Internal Medicine | DX: Z12.31 Encounter for screening mammogram for malignant neoplasm of breast (principal) | CPT/HCPCS: 77063; 77067 ==

== ENCOUNTER → 2025-02-11 11:16 | Outpatient (REF) | payer MEDICARE, OTHER, SELFPAY | LOC: HWEVLT 11:16 | PROVIDERS: ATTENDING PHYSICIAN Radiology Diagnostic Radiology | DX: I83.891 Varicose veins of right lower extremity with other complications (principal) | CPT/HCPCS: 36471 ==

== ENCOUNTER 2025-04-08 20:13 | Inpatient (IN) | payer MEDICARE, OTHER, SELFPAY ==
[2025-04-08] VITALS (14 sets, daily range): BP systolic 111–153; BP diastolic 61–107; BMI 34.9; BMI 34.8
[2025-04-08 16:43] LABS: Glucose - Point of Care 145 mg/dl (70-99)
[2025-04-08 16:52] LABS: % Basophils 0.4 % (0-2); % Eosinophils 0.1 % (0-6); % Immature Granulocytes 0.2 % (0-0.5); % Monocytes 9.1 % (1.7-9.3); % Neutrophils 76.2 % (42.2-75.2); Absolute Lymphocytes 1.2 10^3/uL (1.2-3.4); Absolute Monocytes 0.8 10^3/uL (0.1-0.6); Absolute Neutrophils 6.3 10^3/uL (1.4-6.5); Hematocrit 40.8 % (37.0-47.0); Hemoglobin 13.7 g/dL (12.0-16.0); Mean Corp Hgb Conc. 33.6 g/dL (33.0-37.0); Mean Corpuscular Hgb 29.2 pg (27.0-31.0); Mean Platelet Volume 8.8 fL (7.4-10.4); Nucleated Red Blood Cells % 0 %; Platelet Count 268 10^3/uL (130-400); Red Blood Cell Count 4.69 10^6/uL (4.20-5.40); White Blood Cell Count 8.2 10^3/uL (4.8-10.8)
[2025-04-08 17:05] LABS: INR 2.32; PT 25.9 Sec (11.4-14.6)
[2025-04-08 17:06] LABS: APTT 37.6 Sec (23.4-35.0)
--- NOTE | 2025-04-08 17:13 | PHANOTE ---
[facility] rec note- patient family explain patient pain management team changed her medication and she was suppose to stop oxycodone. patient to start hydromorphone and gabapentin. patient pain management team office ([phone]) is closed at this time
[2025-04-08 17:19] LABS: ALT (SGPT) 498 U/L (0-35); AST (SGOT) 561 U/L (14-36); Albumin 3.8 g/dl (3.5-5.0); Alkaline Phosphatase 509 U/L (38-126); Blood Urea Nitrogen 19 mg/dl (7-17); Calcium 9.3 mg/dl (8.4-10.2); Carbon Dioxide 30 mmol/L (22-30); Chloride 103 mmol/L (98-107); Estimated Creatinine Clearance 78 ml/min; Glucose 154 mg/dl (70-99); Potassium 4.2 mmol/L (3.5-5.1); Sodium 138 mmol/L (135-145); Total Bilirubin 4.4 mg/dl (0.2-1.3); Total Protein 7.4 g/dl (6.3-8.2); eGFR > 60.00
[2025-04-08] MEDS: NSS 1400 ML IV (17:34)
--- NOTE | 2025-04-08 17:43 | ED.GENMED ---
History of Present Illness
General
Chief Complaint: Change in Mental Status
Time Seen by Provider: 04/08/25 16:42
History of Present Illness
History of Present Illness:
64-year-old female with past medical history of atrial fibrillation/atrial flutter, mechanical aortic valve replacement, chronic heart failure with preserved ejection fraction presenting to the emergency department for altered mental status.
Patient brought to the hospital by daughter. Daughter notes that patient last seen normal about 1:45 PM. Patient left the house to go to physical therapy around 2 PM. Per her ring camera, returned at 3 PM. However daughter found her in the car
around 345. Patient had no recollection of where she had been from 2-3. She was supposed to go to physical therapy, however never showed up to physical therapy. Daughter and patient note that she has been feeling nauseous for the past few days,
patient does note that she has been having some subjective fevers and chills. No report of any fall or trauma. Patient denies focal weakness or sensory deficits. Patient is a somewhat limited historian, acute confusion. Daughter does note were
remote history of sepsis in the past. No report of any vomiting. Patient does note some generalized abdominal discomfort. She denies any cough. No additional history obtained at this time
Past History
Past History
ED Past Medical History: Arrthythmia (Atrial fib, SVT), CHF, GERD, HTN, Valvular disease and Other (Chronic back pain, perforated diverticulitis, endocarditis, GI bleeding, IBS,Uterine fibroids, RA, See's pain management)
ED Past Surgical History: Cardiac (VSD repair, Aortic Valve replaced), Cholecystectomy, Orthopedic (Multiple orthopedic surgeries, right ankle surgery, Bilateal knee replacements) and Other (Colostomy, Hernia repair with colostomy reversal May
2017,)
Social History
Tobacco: Non-smoker
Alcohol: Occasional
Drug: None
Personal:
Living: with family
Family History
Family History: Negative Diabetes, Hypertension or CAD
Phy Exam
Physical Exam
Physical Exam:
General: Appears confused, dry mucous membranes, flushed
HEENT: protecting airway, pupils equal and reactive, extraocular movements intact
Neck: appears supple
CV: Normal heart rate, regular rhythm
Resp: No accessory muscle use, no increased work of breathing, lungs clear to auscultation bilaterally
Abd: Soft nondistended, generalized tenderness to the abdomen without rebound or gua, pulses and sensation intact
Neuro: alert, no focal neurologic deficit
: deferred
Rectal: deferred
Psych: Normal affect
Skin: Intact
Scores
NIH Stroke Score
Level of Consciousness: 0 - Alert
LOC Questions: 0-Answers both correctly
LOC Commands: 0-Performs both correctly
Best Horizontal Gaze: 0-Normal
Visual Fan: 0=Normal, no visual loss
Facial Palsy: 0=Normal, symmetrical
Motor - Right Arm: 0=No drift 10 seconds
Motor - Left Arm: 0=No drift 10 seconds
Motor - Right Le-No drift 5 seconds
Motor - Left Le-No drift 5 seconds
Limb Ataxia: 0-Absent
Sensation: 0-Normal
Best Language: 0-No aphasia
Dysarthria: 0-Normal
Extinction and Inattention: 0-No abnormality
NIH Total Score:: 0
Sepsis
Sepsis Screening
Sepsis Assessment: Sepsis
Sepsis Screen
Sepsis Screen: Sepsis
Date: 04/08/25
Time: 22:49
Course
Orders/Labs/Results
Orders:
Orders
04/08/25 Dinner
NPO
Allow oral meds: Yes
Allow clear liquids: Sips of Clears
04/08/25 16:43
0.9% Sodium Chloride 1000 ml [Nss] 1,400 ml IV NOW STA
CR Chest Portable - 1 View Urgent
Comment:
Reason For Exam: sepsis
Reason Study Needs to be Portable: Patient Unstable
04/08/25 16:44
CT Abd/pelvis W Iv Cont Urgent
Comment:
Reason For Exam: AMS, sepsis, general pain
CT HEAD STROKE ALERT W/o Cont Urgent
Comment:
Reason For Exam: AMS
CT HEAD/NECK ANG STROKE ALERT Urgent
Comment:
Reason For Exam: AMS
04/08/25 16:46
Complete Blood Count/With Diff Urgent
Comprehensive Metabolic Panel Urgent
PTT Urgent
Prothrombin Time Urgent
04/08/25 17:10
Acetaminophen [Tylenol] 1,000 mg PO NOW STA
04/08/25 17:17
Lactic Acid Q4H
Comment: CANCEL 2nd LACTIC ACID IF 1st LACTIC ACID IS LESS THAN 2
Blood Culture Q30M
[facility] DELIA Source: Blood/Venous
Specimen Description:
Blood Culture Q30M
[facility] DELIA Source: Blood/Venous
Specimen Description:
Influenza A+B Rapid Molecular Urgent
[facility] DELIA Source: Nasal Swab
Specimen Description:
04/08/25 17:47
Piperacillin/Tazo 4.5 Gram [Zosyn] 4.5 gram in 100 ml IV NOW
04/08/25 18:08
Urinalysis Reflex To Culture Urgent
Date Specimen was Collected: 04/08/25
Time Specimen was Collected: 16:53
Urine Microscopic Reflex Cult Urgent
04/08/25 19:45
Admit/Transfer Patient As Directed
Co-Sign Provider:
Level of Care: Inpatient admission
Assign to:: Telemetry
Physician / Group: lolis
Diagnosis: acute choledocolithiasis
Reason for Telemetry: Arrhythmia
Date to Stop Telemetry: 04/11/25
Time to Stop Telemetry: 11:00
Reason for Hospitalization: acute choledocolithiasis
Expected length of stay greater than two midnights?: Yes
ELOS- Estimated Length of Stay in days: 2
I certify the patient meets the requirements for IP care: Yes
PRN Pain Medication Management As Directed
May give lesser potent ordered pain med per pt: Yes
preference::
Protocol:: Medication orders for pain may be administered in a
manner that supports deferring to patient preference
when the pt is:
- Requesting an ordered lesser potent pain medication.
Least to most potent pain medications are defined
as: acetaminophen < NSAID < tramadol < opioids
(morphine, oxycodone, hydromorphone).
- Requesting a lesser dose of the same medication IF
ORDERED.
- Requesting a less intrusive route of administration
if both routes are prescribed by the provider (PO <
IV).
04/08/25 19:46
Code Status As Directed
Resuscitation Status: Full Code
04/08/25 20:00
0.9% Sodium Chloride 1000 ml [Nss] 1,000 ml IV 100 mls/hr
04/08/25 20:45
Lactic Acid Q4H
Comment: CANCEL 2nd LACTIC ACID IF 1st LACTIC ACID IS LESS THAN 2
04/08/25 21:46
Heparin 76381 Units/250 ml 25,000 units in 250 ml IV PER PROTOCOL
Weight to be used for heparin protocol in kilograms (kg):: 81
Protocol:: Cardiac Tx/Acute Coronary
PTT Goal Range to be used:: PTT 73 to 111 seconds
Order type:: Initial
INITIAL Infusion Dose (UNITS/KG/hr) & then follow protocol:: 15 units/kg/hr
Infusion Dose in UNITS/hr & then follow protocol (UNITS/hr):: 1,200
INFUSION RATE in mL/hr & then follow protocol (mL/hr):: 12
PTT less than or equal to 64 seconds:: Increase rate by 200 units/hr (+ 2 mL/hr)
PTT 64.1 to 72.9 seconds:: Increase rate by 100 units/hr (+ 1 mL/hr)
PTT 73 to 111 seconds:: Target Range. No change in rate.
PTT 111.1 to 130.9 seconds:: Decrease rate by 100 units/hr (- 1 mL/hr)
PTT 131 to 199.9 seconds:: HOLD for 1 hr. Then decrease rate by 200 units/hr (- 2 mL/hr)
PTT greater than or equal to 200 seconds:: HOLD for 2 hrs & Notify Provider. Then decrease by 200 units/hr (-
2 mL/hr)
Lab follow-up:: Each change, PTT q6h until 2 consecutive are therapeutic. Then PTT
daily.
04/08/25 21:46
GASTROINTESTINAL CONSULT Routine
Consulting Provider: Meg Allan
Was physician already notified: Yes
VTE Contraindication Routine
VTE Mechanical Device Contraindication: Medical Contraindication
Pharmocologic Contraindication: Medical Contraindication
Complete Blood Count/No Diff Urgent
Comment: Obtain baseline before beginning heparin infusion if not already collected
PTT Urgent
Comment: Obtain baseline before beginning heparin infusion if not already collected
MRI Abdomen [MR Abdomen With Contrast] Routine
Comment:
Reason For Exam: choledoco, mrcp
Recent pill cam endoscopy?: No
Heparin Protocol- PTT Orders As Directed
PTT per Heparin protocol: -Obtain CBC and baseline PTT - if not already collected.
-Obtain PTT 6 hours from start of infusion. Then, every 6 hours until 2 consecutive
PTT's are therapeutic. Then, PTT Daily.
-With each rate change, obtain PTT every 6 hours until 2 consecutive PTT's are
therapeutic. Then, PTT Daily.
Activity As Directed
Activity Level: As Tolerated
Notify MD As Directed
Notify physician if: PTT is greater than or equal to 200.
Vital Signs As Directed
Frequency: Per unit guidelines
04/08/25 22:00
Docusate W/Senna [Senokot-S] 1 tablet PO HS
Mirabegron Extended Release [Myrbetriq Extended Release] 50 mg PO HS
Tolterodine Extended Release [Detrol LA] 4 mg PO HS
Trazodone [Desyrel] 200 mg PO HS
04/09/25 00:00
Piperacillin/Tazo 3.375 Gram [Zosyn] 3.375 gram in 50 ml IV Q6H
04/09/25 06:00
Complete Blood Count/With Diff IN AM
Comprehensive Metabolic Panel IN AM
Levothyroxine [Synthroid] 112 mcg PO DAILY @ 0600
04/09/25 08:00
Citalopram [Celexa] 40 mg PO DAILY
Metoprolol Xl [Toprol Xl] 12.5 mg PO DAILY
Multivitamin [Theragran] 1 tablet PO DAILY
Vitamin B Complex with C [B COMPLEX w/VITAMIN C] 1 caplet PO DAILY
04/10/25 06:00
Complete Blood Count/No Diff Q2D
Comment: Notify MD if platelet count is <130,000 or decreases by 50% from baseline
04/11/25 11:00
DC Protocol for Telemetry ONCE
04/12/25 06:00
Complete Blood Count/No Diff Q2D
Comment: Notify MD if platelet count is <130,000 or decreases by 50% from baseline
04/14/25 06:00
Complete Blood Count/No Diff Q2D
Comment: Notify MD if platelet count is <130,000 or decreases by 50% from baseline
04/16/25 06:00
Complete Blood Count/No Diff Q2D
Comment: Notify MD if platelet count is <130,000 or decreases by 50% from baseline
04/18/25 06:00
Complete Blood Count/No Diff Q2D
Comment: Notify MD if platelet count is <130,000 or decreases by 50% from baseline
04/20/25 06:00
Complete Blood Count/No Diff Q2D
Comment: Notify MD if platelet count is <130,000 or decreases by 50% from baseline
04/22/25 06:00
Complete Blood Count/No Diff Q2D
Comment: Notify if platelet count is <130,000 or decreases by 50% from baseline
04/24/25 06:00
Complete Blood Count/No Diff Q2D
Comment: Notify MD if platelet count is <130,000 or decreases by 50% from baseline
Abnormal Lab Results
04/08/25 04/08/25 04/08/25
16:41 16:46 18:08
Absolute Monos (auto) 0.8 H 10^3/uL
(0.1-0.6)
Neutrophils % 76.2 H %
(42.2-75.2)
Lymphocytes % 14.0 L %
(20.5-51.1)
PT 25.9 H Sec
(11.4-14.6)
APTT 37.6 H Sec
(23.4-35.0)
BUN 19 H mg/dl
(7-17)
Glucose 154 H mg/dl
(70-99)
Total Bilirubin 4.4 H mg/dl
(0.2-1.3)
AST 561 H* U/L
(14-36)
ALT 498 H U/L
(0-35)
Alkaline Phosphatase 509 H U/L
(38-126)
Ur Occult Blood Reflex 2+ A
(Negative)
Urine Bilirubin 1+ A
(Negative)
Urine Urobilinogen 2+ A
(Neg - 1+)
Urine RBC 3-6 A /HPF
(0-2)
Urine Bacteria (Reflex) Few A
(Negative)
Urine Albumin (Reflex) 2+ A
(Neg - Trace)
POC Glucose 145 H mg/dl
(70-99)
04/08/25 16:46
04/08/25 16:46
Vital Signs
Initial and Last Documented VS:
Initial Vital Signs
Temp Pulse Resp BP Pulse Ox
103.3 F H 82 30 153/66 93
04/08/25 16:37 04/08/25 16:37 04/08/25 16:37 04/08/25 16:37 04/08/25 16:37
Last Documented Vital Signs
Temp Pulse Resp BP Pulse Ox
99.6 F 82 18 130/61 96
04/08/25 22:11 04/08/25 22:11 04/08/25 22:11 04/08/25 22:11 04/08/25 22:11
MDM/Problems Addressed
MDM/Problems Addressed:
64-year-old female with history of A-fib and a flutter on Coumadin, artificial valve, hypertension presenting to the emergency department for change in mental status. Vital signs on arrival significant for fever.
On exam, patient is in no acute distress, however does appear altered and confused. Patient is febrile to 103 orally. Report prior to arrival is that patient was sitting in a hot car for an hour, unclear if environmental versus sepsis and
infection. Stroke is also consideration. Not TNK candidate given anticoagulation status. Stroke alert regardless was called with plan for CT imaging. No obvious focal neurologic deficits other than patient's acute confusion as well as amnesia to
preceding events. NIH stroke scale at this time is a 0. On review of EMR, patient was admitted in 2023 for septic shock from biliary disease, acute cholangitis. Patient generally tender to the abdomen. Will plan for CT abdomen pelvis as well.
17:45 - Labs without leukocytosis, however acute transaminitis with T. bili of 4.4. Again concern for cholangitis and biliary obstruction. Pending CT imaging. Broad-spectrum antibiotics ordered. CT and CT angio without acute process.
19:00 -CT without acute process. Concern for possible cholangitis and possible stone in the CBD. No sign of biliary dilatation on CT scan. Did discuss with GI, recommending MRI and n.p.o. status. Plan for admission. Patient and family updated.
*Pulse Oximetry
SaO2: 94
Oxygen Mode of Delivery: Room air
*EKG
Interpreted by ED Provider?: Yes
EKG Intrepretation Date: 04/08/25
EKG Intrepretation Time: 17:53
Interpretation: normal
Comparison EKG: no changes (12/18/24)
Heart Rate: 68
Rate: normal
Rhythm: sinus
[place]: normal axis
Interval: first degree heart block
QRS Pattern: normal QRS
Ischemia: no ischemia
*Critical Care Note
Total Time (30-74mins, 75-104mins- exclusive of procedures): 45
comment:
The high probability of a clinically significant, sudden or life threatening deterioration of the infectious system(s), sepsis required my full and direct attention, intervention and personal management. The aggregate critical care time was 45
minutes. This time is in addition to time spent performing reported procedures but includes the following:
[x] Data Review and interpretation
[x] Patient assessment and monitoring of vital signs
[x] Documentation
[x] Medication orders and management
ED Attending Note
-
Portions of this chart may have been created with voice recognition software.� Occasional wrong word or��sound alike� substitutions may have occurred due to the inherent limitations of voice recognition software.
Discharge Plan
Departure
Patient Disposition: Admit
Date of Disposition: 04/08/25
Time of Disposition: 19:16
Presentation/result/management discussed w/ accepting MD/DO: Hospitalist
Patient with high blood pressure during this ER visit?: No
Condition: Fair
Discharge Problem:
Sepsis, Transaminitis, Altered mental status
Interventions
Interventions:
*General Assessment Last Done: 04/08/25 16:55
*ED- Fall Risk Assessment Last Done: 04/08/25 16:55
*ED COVID-19 Vaccine History Last Done: 04/08/25 16:54
*Nursing Disposition Last Done: 04/08/25 21:55
ED- Pulmonary Assessment Last Done: 04/08/25 17:50
ED- Neurological Assessment Last Done: 04/08/25 17:50
ED- Cardiac Assessment Last Done: 04/08/25 17:50
ED Swallowing Screen Last Done: 04/08/25 17:50
Discharge Date and Time
Discharge Date/Time: 04/08/25 21:55
[2025-04-08 17:45] LABS: Lactic Acid 1.5 mmol/L (0.7-2.0)
[2025-04-08] MEDS: ZOSYN 100 IV (18:03)
[2025-04-08] MEDS: TYLENOL 1000 MG PO (18:03)
[2025-04-08 18:15] LABS: Urine Albumin 2+ (Neg - Trace); Urine Bilirubin 1+ (Negative); Urine Character Clear (Clear); Urine Color Yellow; Urine Glucose Negative (Negative); Urine Ketone Negative (Negative); Urine Leukocyte Negative (Negative); Urine Nitrite Negative (Negative); Urine Occult Blood 2+ (Negative); Urine Urobilinogen 2+ (Neg - 1+)
[2025-04-08 18:21] LABS: Urine White Cell 0-2 /HPF (0-5)
[2025-04-08 18:22] LABS: Urine Bacteria Few (Negative)
--- NOTE | 2025-04-08 19:51 | HPS.HSE ---
Family Physician
-
Family Physician: NOT KNOW UNKNOWN - PT DOES
Chief Complaint
-
confusion
History of Present Illness
64-year-old female past medical history of paroxysmal atrial fibrillation status post PVI/ablation and cardioversion, mechanical aortic valve replacement, VSD with closure with bovine pericardial patch, chronic HFpEF, history of cholangitis status
post ERCP, chronic pain/narcotic dependence, small bowel obstruction, perforated diverticulitis, hypertension, hyperlipidemia, rheumatoid arthritis, fibromyalgia, bilateral venous insufficiency, hypothyroidism, presenting for altered mental status.
Patient was last seen normal at 1:45 PM. Patient left the house to go to physical therapy at 2 PM. She returned at 3 PM. Daughter found her in the car at 3:45 PM. Patient no recollection of where she was from 2 to 3 PM. She was supposed to go
to physical therapy but never showed up with physical therapy.
Daughter and patient note that she has been feeling more nauseous for a few days with subjective fever and chills. No vomiting. No fall or trauma. Denies any focal weakness or sensory deficits. Patient has generalized abdominal discomfort
ongoing for few days. No cough. No diarrhea.
No chest pain or shortness of breath.
Denies smoking or alcohol use.
Medical History
Past Medical History
Past Medical History: Reports Other (paroxysmal atrial fibrillation status post PVI/ablation and cardioversion, mechanical aortic valve replacement, VSD with closure with bovine pericardial patch, chronic HFpEF, history of cholangitis status post
ERCP, chronic pain/narcotic dependence, small bowel obstruction, perforated diverticulitis)
Past Surgical History: Reports Other ( Cardiac (VSD repair, Aortic Valve replaced), Cholecystectomy, Orthopedic (Multiple orthopedic surgeries, right ankle surgery, Bilateal knee replacements) and Other (Colostomy, Hernia repair with colostomy
reversal May 31 2018,))
Social History
Tobacco: Non-smoker
Alcohol: None
Drug: None
Family History
Family History: Not pertinent
Allergies / Home Medications
Allergies reflects when Allergies were last updated in [facility].
Home Medications with original date entered in [facility]
Allergy/Medication List:
Allergies
Allergy/AdvReac Type Severity Reaction Status Date / Time
abatacept (From Orencia) Allergy Hives, Verified 04/08/25 16:37
SOB, cough
adalimumab (From Humira) Allergy SEVERE Verified 04/08/25 16:37
BRUISING
adhesive Allergy Rash Verified 04/08/25 16:37
adhesive tape Allergy Rash Verified 04/08/25 16:37
clarithromycin (From Biaxin) Allergy upset Verified 04/08/25 16:37
stomach
dofetilide Allergy torsades Verified 04/08/25 17:13
etanercept (From Enbrel) Allergy Bruising Verified 04/08/25 16:37
sevoflurane Allergy V Verified 04/08/25 16:37
Fib/Arrhythmia
Home Medications
trazodone 100 mg tablet 200 mg PO HS sleep 12/10/19
citalopram 40 mg tablet 40 mg PO DAILY Depression 06/01/22
furosemide 40 mg tablet 40 mg PO DAILY Fluid retention/Swelling 07/03/22
sennosides 8.6 mg-docusate sodium 50 mg tablet (Stool Softener-Laxative) 1 tab-cap PO HS Constipation 07/03/22
metoprolol succinate 25 mg tablet,extended release 24 hr 12.5 mg PO DAILY Blood Pressure 03/20/24
vitamin B complex 1 cap PO DAILY Supplement 03/20/24
levothyroxine 112 mcg tablet 112 mcg PO DAILY Thyroid 12/02/24
mirabegron 50 mg tablet,extended release 24 hr (Myrbetriq) 50 mg PO HS Urinary Issue 12/02/24
solifenacin 10 mg tablet 10 mg PO HS Urinary Issue 12/02/24
warfarin 3 mg tablet 2.5 mg PO QPM Blood Clot Prevention/Tx 12/02/24
multivitamin 1 tab PO DAILY Supplement 12/17/24
estradiol 0.01% (0.1 mg/gram) vaginal cream (Estrace) 1 appful vaginal .TWICE A WEEK 04/08/25
gabapentin 100 mg capsule 100 mg PO QID 04/08/25
hydromorphone 4 mg tablet 4 mg PO BID 04/08/25
Review of Systems
-
History Source: Patient
A 12 point ROS was completed and negative except as noted: Yes
Constitutional: Reports No Symptoms
EENT: Reports No Symptoms
Respiratory: Reports No Symptoms
Cardiac: Reports No Symptoms
Abdomen/GI: Reports See HPI
: Reports No Symptoms
Musculoskeletal: Reports No Symptoms
Skin: Reports No Symptoms
Neurological: Reports No Symptoms
Endocrine: Reports No Symptoms
Hematologic/Lymphatic: Reports No Symptoms
Psych: Reports No Symptoms
Physical Exam
Vital Signs
Vital Signs
Temp Pulse Resp BP Pulse Ox
102.6 F H 90 29 141/62 95
04/08/25 19:24 04/08/25 19:00 04/08/25 19:00 04/08/25 19:00 04/08/25 19:00
Physical Exam
General: Well Developed, Well Nourished and No Apparent Distress
HEENT: NormoCephalic, Moist mucous membranes and Atraumatic
Respiratory: Clear
Cardiac: S1/S2 and Regular Rhythm; No Murmur or Rub
GI: Soft, Non Tender, Non Distended and Normal Bowel Sounds; No Organomegaly
Rectal: Deferred by Provider
Musculoskeletal: No Clubbing, No Cyanosis and No Edema
Skin: No Rash
Neuro: Nonfocal/grossly intact
Laboratory Results
-
04/08/25 16:46
04/08/25 16:46
Laboratory Results
PT 25.9 Sec (11.4-14.6) H 04/08/25 16:46
INR 2.32 04/08/25 16:46
APTT 37.6 Sec (23.4-35.0) H 04/08/25 16:46
Lactic Acid 1.5 mmol/L (0.7-2.0) 04/08/25 17:17
Total Bilirubin 4.4 mg/dl (0.2-1.3) H 04/08/25 16:46
AST 561 U/L (14-36) H* 04/08/25 16:46
ALT 498 U/L (0-35) H 04/08/25 16:46
Alkaline Phosphatase 509 U/L (38-126) H 04/08/25 16:46
Data Reviewed
-
Lab Data: Labs Reviewed by me
Old Records: Reviewed
Impression/Plan
-
IMPRESSION:
PLAN:
# Sepsis (fever tachycardia) secondary to acute choledocholithiasis/acute metabolic encephalopathy possibly acute cholangitis
# Transaminitis
# History of acute cholangitis status post ERCP with stone extraction
- There was initially concern for CVA and so CT head and CTA were performed which were unremarkable.
- CT abdomen pelvis showed no acute pathology of the abdomen or pelvis
- Blood cultures
-N.p.o.
- Zosyn
- IV fluids given, continue,
-Hold Lasix
- MRCP
-Hold Coumadin in preparation for potential intervention
- GI consulted
#Mechanical aortic valve replacement
#Subtherapeutic INR
- INR of 2.32, normally goal will be between 2-3
- Hold Coumadin
- Start heparin drip
Paroxysmal atrial fibrillation status post PVI/ablation/cardioversion
- Heparin drip in place of Coumadin
- Continue metoprolol
VSD status post closure with bovine pericardial patch
Chronic HFpEF
- Hold Lasix
Chronic pain/narcotic dependence/chronic back pain
- Continue gabapentin, Dilaudid
History of left groin hematoma
History of small bowel obstruction status post bowel resection
History of perforated diverticulitis status post colon resection in 2018
Essential hypertension
Hyperlipidemia
Rheumatoid arthritis
Fibromyalgia
History of bilateral venous insufficiency
Hypothyroidism
- Continue levothyroxine
Anxiety/depression
- Continue citalopram
Full code
DVT prophylaxis�heparin drip
N.p.o.
[2025-04-08] MEDS: NSS 1000 IV (21:35)
[2025-04-08] MEDS: TORADOL 15 MG IV (22:39)
[2025-04-08] MEDS: SENOKOT-S 1 TABLET PO (22:51)
[2025-04-08] MEDS: DETROL LA 4 MG PO (22:51)
[2025-04-08] MEDS: MYRBETRIQ EXTENDED RELEASE 50 MG PO (22:51)
[2025-04-08] MEDS: NEURONTIN 100 MG PO (22:51)
[2025-04-08] MEDS: DESYREL 200 MG PO (22:51)
[2025-04-08] MEDS: DILAUDID 1 MG IV (23:03)
[2025-04-08 23:17] LABS: Hematocrit 36.1 % (37.0-47.0); Hemoglobin 12.2 g/dL (12.0-16.0); Mean Corp Hgb Conc. 33.8 g/dL (33.0-37.0); Mean Corpuscular Hgb 29.3 pg (27.0-31.0); Mean Corpuscular Volume 86.6 fL (81.0-99.0); Mean Platelet Volume 8.9 fL (7.4-10.4); Platelet Count 223 10^3/uL (130-400); Red Blood Cell Count 4.17 10^6/uL (4.20-5.40); White Blood Cell Count 10.7 10^3/uL (4.8-10.8)
[2025-04-08] MEDS: ZOSYN 50 IV (23:26)
[2025-04-09] MEDS: HEPARIN 25000 UNITS/250 ML IV (00:03)
[2025-04-09 03:08] VITALS: BMI 34.8
[2025-04-09 03:10] VITALS: BP 141/76
--- NOTE | 2025-04-09 04:09 | PTCARENOTE ---
Patient received from ED via stretcher and was pulled to bed by staff. IVF NSS at 100ml/hr infusing on arrival. She was oriented to room and surroundings. Patient very restless in bed. C/o chronic joint pain from RA. She states she had her
pain med adjusted recently but hasn't taken it since the morning. Denies nausea. Toradol per order without relief. Dilaudid per prn order. Patient sleeping comfortably after. Heparin per order. See nursing assessment for further physical
findings
[2025-04-09 06:00] VITALS: BMI 34.6
[2025-04-09 06:16] LABS: % Basophils 0.5 % (0-2); % Eosinophils 0.4 % (0-6); % Immature Granulocytes 0.5 % (0-0.5); % Lymphocytes 15.8 % (20.5-51.1); % Monocytes 9.8 % (1.7-9.3); APTT 50.3 Sec (23.4-35.0); Absolute Basophils 0.1 10^3/uL (0-0.2); Absolute Immature Granulocytes 0.1 10^3/uL (0-0.05); Absolute Lymphocytes 1.7 10^3/uL (1.2-3.4); Absolute Monocytes 1.1 10^3/uL (0.1-0.6); Absolute Neutrophils 7.9 10^3/uL (1.4-6.5); Hematocrit 36.6 % (37.0-47.0); Hemoglobin 12.2 g/dL (12.0-16.0); Mean Corp Hgb Conc. 33.3 g/dL (33.0-37.0); Mean Corpuscular Hgb 29.2 pg (27.0-31.0); Mean Corpuscular Volume 87.6 fL (81.0-99.0); Mean Platelet Volume 9.2 fL (7.4-10.4); Nucleated Red Blood Cells % 0 %; Platelet Count 233 10^3/uL (130-400); Red Blood Cell Count 4.18 10^6/uL (4.20-5.40); White Blood Cell Count 10.8 10^3/uL (4.8-10.8)
[2025-04-09] MEDS: SYNTHROID 112 MCG PO (06:26)
[2025-04-09] MEDS: ZOSYN 50 IV ×3 (06:26→17:53)
[2025-04-09 06:50] LABS: AST (SGOT) 334 U/L (14-36); Albumin 3.1 g/dl (3.5-5.0); Blood Urea Nitrogen 15 mg/dl (7-17); Carbon Dioxide 27 mmol/L (22-30); Estimated Creatinine Clearance 77 ml/min; Glucose 108 mg/dl (70-99); Total Bilirubin 7.2 mg/dl (0.2-1.3); eGFR > 60.00
[2025-04-09 07:00] VITALS: BP 140/74
[2025-04-09] MEDS: NSS 1000 IV ×2 (07:17→17:51)
[2025-04-09] MEDS: DILAUDID 0.5 MG IV ×3 (07:17→21:51)
[2025-04-09 07:23] LABS: ALT (SGPT) 370 U/L (0-35); Alkaline Phosphatase 432 U/L (38-126); Calcium 8.8 mg/dl (8.4-10.2); Chloride 110 mmol/L (98-107); Potassium 3.5 mmol/L (3.5-5.1); Sodium 141 mmol/L (135-145); Total Protein 6.5 g/dl (6.3-8.2)
--- NOTE | 2025-04-09 07:42 | W.PN.HOSP.TC ---
Today's Communication/Plan
-
IV antibiotics. MRCP. GI eval
Assessment / Plan
Assessment / Plan
Physical exam:
General: Acutely ill
HEENT: Normocephalic, Atraumatic and Moist Mucous Membranes
Respiratory: Clear to Auscultation; Negative Wheezes, Rales or Rhonchi
Cardiac: Regular Rhythm and S1/S2
GI: Soft, tender and Nondistended
Musculoskeletal: No Clubbing, No Cyanosis and No Edema
Neuro: Awake, Alert and Oriented, no neurological deficit
Psych: Anxious
A/P:
Sepsis:
Unclear source
Suspected biliary source in the setting of elevated LFTs and abdominal pain but other etiologies cannot be ruled out yet
MRCP today
GI consult
On IV antibiotics, Zosyn
chest x-ray clear and UA unremarkable
Follow-up blood cultures
Mechanical arctic valve replacement:
On IV heparin drip
Warfarin on hold until no new procedure will be required
Paroxysmal A-fib:
On metoprolol succinate 12.5 mg p.o. daily
On warfarin
Chronic pain syndrome and narcotic dependence:
Recently changed to Dilaudid 4 mg 3 times daily-will continue with 4 mg twice daily for now and reevaluate
Continue rest of as needed pain medications
Chronic HFpEF:
Monitor volume status
DVT prophylaxis:
Heparin drip
CODE STATUS:
Full code
Total time spent on today's encounter was 55 minutes which included time spent in counseling the patient/family regarding diagnosis and treatment plan as listed above, goals of care, and symptom management. Case was discussed with nursing staff,
specialists, and care coordinators/case management. All labs and imaging personally reviewed by me. Remainder the time spent in detailed review of previous records, lab data, imaging, and other medical provider documentation.
Anticipated Discharge: > 48 hours
Subjective/Interval History
-
Date of Service: April 09, 2025
Patient with abdominal pain. She also complains of back pain although somewhat chronic. No vomiting. Afebrile today (Tmax 103.7 Fahrenheit yesterday)
Objective Data
-
Labs:
Laboratory Results
04/08/25 04/09/25 04/09/25
23:11 05:54 12:30
WBC 10.7 10.8
Hgb 12.2 12.2
Hct 36.1 L 36.6 L
Plt Count 223 233
APTT 41.0 H 50.3 H Pending
Sodium 141
Potassium 3.5
Chloride 110 H
Carbon Dioxide 27
BUN 15
Creatinine 0.7
Glucose 108 H
Calcium 8.8
Total Bilirubin 7.2 H D
AST 334 H
ALT 370 H
Alkaline Phosphatase 432 H
Vital Signs:
Vital Signs
Temp Pulse Resp BP Pulse Ox
98.5 F 70 17 140/74 99
04/09/25 07:00 04/09/25 07:00 04/09/25 07:00 04/09/25 07:00 04/09/25 07:00
I&O
04/08/25 04/09/25 04/10/25
06:59 06:59 06:59
Output Total 1000 / 1000
Balance -1000 / -1000
[2025-04-09 08:29] LABS: PT 25.7 Sec (11.4-14.6)
[2025-04-09] MEDS: TOPROL XL 12.5 MG PO (08:53)
[2025-04-09] MEDS: NEURONTIN 100 MG PO ×4 (08:53→21:50)
[2025-04-09] MEDS: THERAGRAN 1 TABLET PO (08:53)
[2025-04-09] MEDS: CELEXA 40 MG PO (08:53)
[2025-04-09] MEDS: B COMPLEX w/VITAMIN C 1 CAPLET PO (08:53)
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
[2025-04-09 10:42] LABS: Direct Bilirubin 5.8 mg/dl (0.0-0.4)
[2025-04-09 12:16] LABS: APTT 45.9 Sec (23.4-35.0)
[2025-04-09] MEDS: DILAUDID 4 MG PO ×2 (13:38→20:03)
--- NOTE | 2025-04-09 13:52 | PTCARENOTE ---
Pt on heparin IV infusion. Per order heparin stopped due to ERCP today at 900. Pt got STAT MRI and MRCP was negative. at 1230 heparin was ordered to continue. Pt heparin was set at 14ml/hr prior to the hold. At 1153 PTT was drawn and came back at
45.9. After clarification with doctor and per protocol, pt heparin was adjusted from 14ml/hr to 16ml/hr at 1300 with a second RN check. A new PTT was ordered to be drawn at 1900.
[2025-04-09 15:00] VITALS: BP 125/61
[2025-04-09 15:19] LABS: Lipase 51 U/L (23-300)
[2025-04-09 19:00] VITALS: BP 140/70
[2025-04-09 19:36] LABS: APTT > 200 Sec (23.4-35.0)
[2025-04-09 20:26] LABS: Hepatitis B Surface Antigen Negative (Negative)
[2025-04-09 20:33] LABS: Hepatitis A IgM Antibody Negative (Negative); Hepatitis B Core Ab, IgM Negative (Negative)
[2025-04-09 20:44] LABS: Hepatitis B Surface Antibody Negative; Hepatitis C Antibody Negative (Negative)
[2025-04-09 21:48] VITALS: BP 144/82
[2025-04-09] MEDS: MYRBETRIQ EXTENDED RELEASE 50 MG PO (21:50)
[2025-04-09] MEDS: DETROL LA 4 MG PO (21:51)
[2025-04-09] MEDS: SENOKOT-S 1 TABLET PO (21:51)
[2025-04-09] MEDS: DESYREL 200 MG PO (21:51)
--- NOTE | 2025-04-09 21:56 | PTCARENOTE ---
patient was offered body hygiene and also supplies, but refused. Patient explained they prefer to do it in the morning.
[2025-04-09 23:00] VITALS: BP 133/66
[2025-04-10] MEDS: ZOSYN 50 IV ×5 (00:08→23:30)
[2025-04-10] MEDS: HEPARIN 25000 UNITS/250 ML IV (02:34)
[2025-04-10 03:00] VITALS: BP 148/71
[2025-04-10] MEDS: NSS 1000 IV (04:48)
[2025-04-10 04:49] LABS: APTT 152.1 Sec (23.4-35.0)
[2025-04-10 05:00] VITALS: BMI 35.1
[2025-04-10] MEDS: SYNTHROID 112 MCG PO (05:51)
[2025-04-10] MEDS: DILAUDID 0.5 MG IV ×2 (05:56→16:07)
[2025-04-10 06:27] LABS: % Basophils 0.8 % (0-2); % Eosinophils 2.6 % (0-6); % Immature Granulocytes 0.2 % (0-0.5); % Lymphocytes 19.2 % (20.5-51.1); % Monocytes 10.1 % (1.7-9.3); % Neutrophils 67.1 % (42.2-75.2); Absolute Basophils 0.1 10^3/uL (0-0.2); Absolute Eosinophils 0.2 10^3/uL (0-0.7); Absolute Lymphocytes 1.3 10^3/uL (1.2-3.4); Absolute Monocytes 0.7 10^3/uL (0.1-0.6); Absolute Neutrophils 4.4 10^3/uL (1.4-6.5); Hematocrit 33.9 % (37.0-47.0); Hemoglobin 11.3 g/dL (12.0-16.0); Mean Corp Hgb Conc. 33.3 g/dL (33.0-37.0); Mean Corpuscular Hgb 29.3 pg (27.0-31.0); Mean Corpuscular Volume 87.8 fL (81.0-99.0); Mean Platelet Volume 9.4 fL (7.4-10.4); Nucleated Red Blood Cells % 0 %; Platelet Count 230 10^3/uL (130-400); Red Blood Cell Count 3.86 10^6/uL (4.20-5.40); Red Cell Dist. Width 14.6 % (11.5-14.5); White Blood Cell Count 6.6 10^3/uL (4.8-10.8)
[2025-04-10 06:55] LABS: ALT (SGPT) 238 U/L (0-35); AST (SGOT) 166 U/L (14-36); Albumin 2.9 g/dl (3.5-5.0); Alkaline Phosphatase 383 U/L (38-126); Blood Urea Nitrogen 13 mg/dl (7-17); Calcium 8.2 mg/dl (8.4-10.2); Carbon Dioxide 27 mmol/L (22-30); Chloride 112 mmol/L (98-107); Estimated Creatinine Clearance 91 ml/min; Glucose 88 mg/dl (70-99); Potassium 3.6 mmol/L (3.5-5.1); Sodium 141 mmol/L (135-145); Total Bilirubin 4.9 mg/dl (0.2-1.3); Total Protein 5.9 g/dl (6.3-8.2); eGFR > 60.00
[2025-04-10 07:46] VITALS: BP 136/67
[2025-04-10] MEDS: B COMPLEX w/VITAMIN C 1 CAPLET PO (09:05)
[2025-04-10] MEDS: TOPROL XL 12.5 MG PO (09:05)
[2025-04-10] MEDS: THERAGRAN 1 TABLET PO (09:05)
[2025-04-10] MEDS: DILAUDID 4 MG PO ×2 (09:05→19:54)
[2025-04-10] MEDS: NEURONTIN 100 MG PO ×4 (09:05→22:06)
--- NOTE | 2025-04-10 09:50 | W.PN.HOSP.TC ---
Today's Communication/Plan
-
GI reeval. IV antibiotics
Assessment / Plan
Assessment / Plan
Physical exam:
General: Acutely ill
HEENT: Normocephalic, Atraumatic and Moist Mucous Membranes
Respiratory: Clear to Auscultation; Negative Wheezes, Rales or Rhonchi
Cardiac: Regular Rhythm and S1/S2
GI: Soft, tender and Nondistended
Musculoskeletal: No Clubbing, No Cyanosis and No Edema
Neuro: Awake, Alert and Oriented, no neurological deficit
Psych: Anxious
A/P:
Sepsis:
Unclear source but suspected biliary source in the setting of elevated LFTs and abdominal pain but other etiologies cannot be ruled out yet
Status post MRCP yesterday
GI consult appreciated
On IV antibiotics, Zosyn
chest x-ray clear and UA unremarkable
Follow-up blood cultures but so far sterile
Elevated LFTs:
Trending down
Mechanical arctic valve replacement:
On IV heparin drip
Warfarin on hold until no new procedure will be required-if no anticipated procedures today might restart later this evening but waiting for GI reeval
Paroxysmal A-fib:
On metoprolol succinate 12.5 mg p.o. daily
On warfarin
Chronic pain syndrome and narcotic dependence:
Recently changed to Dilaudid 4 mg 3 times daily-will continue with 4 mg twice daily for now and reevaluate
Continue rest of as needed pain medications
Chronic HFpEF:
Monitor volume status
DVT prophylaxis:
Heparin drip
CODE STATUS:
Full code
Time spent 35-minute
Anticipated Discharge: 24 - 48 hours
Subjective/Interval History
-
Date of Service: April 10, 2025
Patient remains alert but easily falls asleep and generalized weakness. No chest pain or shortness of breath. Remains afebrile
Objective Data
-
Labs:
Laboratory Results
04/10/25 04/10/25 04/10/25
04:11 05:54 11:50
WBC 6.6
Hgb 11.3 L
Hct 33.9 L
Plt Count 230
APTT 152.1 H* Pending
Sodium 141
Potassium 3.6
Chloride 112 H
Carbon Dioxide 27
BUN 13
Creatinine 0.6
Glucose 88
Calcium 8.2 L
Total Bilirubin 4.9 H
AST 166 H
ALT 238 H
Alkaline Phosphatase 383 H
Vital Signs:
Vital Signs
Temp Pulse Resp BP Pulse Ox
98.8 F 72 15 136/67 93
04/10/25 07:46 04/10/25 07:46 04/10/25 07:46 04/10/25 07:46 04/10/25 07:46
I&O
04/09/25 04/10/25 04/11/25
06:59 06:59 06:59
Output Total 1000 / 1000
Balance -1000 / -1000
[2025-04-10] MEDS: CELEXA 40 MG PO (10:10)
[2025-04-10 11:16] VITALS: BP 151/78
[2025-04-10 11:48] LABS: APTT 132.1 Sec (23.4-35.0)
[2025-04-10 13:28] LABS: INR 1.92; PT 22.2 Sec (11.4-14.6)
--- NOTE | 2025-04-10 13:35 | W.PN.GI.CBS2 ---
Addendum entered and electronically signed by Cassie Zayas MD 04/10/25 14:52:
Will start on pantoprazole 40 mg twice daily
Original Note:
Today's Communication / Plan
-
Full liquid diet. Advance as tolerated
Continue to trend LFT
Assessment / Plan
-
64yo with hx afib, PVI/ablation, cardioversion, mechanical aortic valve, VSD with closure with bovine pericardial patch on Coumadin, chronic HFpEF, henok 1999 with + IOC with ERCP with stone removal and sphincterotomy, prior colostomy with reversal
for perforated diverticulitis, complicated incarcerated hernia with chronic bowel ischemia with exp lap 07/2023 with hernia repair with mesh and return to OR with leak/hematoma and wound vac,chronic constipation, osteoarthritis, fibromyalgia, RA,
torsades with prior arrest with surgery, chronic pain on chronic narcotic dependence, cholangitis with recurrent CBD stone with ERCP 03/2024 with sphincterotomy and stenting and left groin thrombosed pseudoaneurysm presents the emergency room with
acute change in mental status. We are asked to evaluate for elevated LFTs as well as intermittent abdominal pain and fever. There she was found to be febrile at 103.3 �F. Her states that the days leading up to this she was walking around
the house with a bucket without vomiting. Her last BM was on Sunday (brown), normal color urine. She started 'hydromorphone' 4 mg TID on Sunday Rx by her pain management physician. No other new meds. She ate raw tuna sushi on Sunday or Sunday, No
sick contacts, no recent travel. Patient is on Coumadin, last dose Sunday evening. INR currently 2.3. Patient on heparin drip which was stopped at 930 this a.m. in anticipation of possible need for ERCP. Patient has been afebrile since 04/08/2025
at 2200. Continues on Zosyn at this time. WBC 10.8, hemoglobin 12.2, hematocrit 36.3, platelets 233, sodium 141, potassium 3.5, BUN 15, creatinine 0.7, glucose 108, total bilirubin 7.2 (up from 4.4), direct bilirubin 5.8, AST 334 (down from 561),
ALT 370 (down from 498), alk phos 432 (down from 509). Patient is negative for flu. Blood cultures pending.
Impression:
Sepsis with elevated LFTs in obstructive patten with concerns for cholangitis
Elevated INR secondary to Coumadin therapy, ([facility] AVR) currently 2.3, Hep gtt stopped 0930
Hx cholangitis and choledocholithiasis (last episode 03/2024). s/p cholecystectomy
she underwent MRI/MRCP today which showed mild right upper quadrant edema, no bile duct dilation, prior bile duct dilation on CT seen previously resolved. No evidence for choledocholithiasis.
Plan:
-LFTs continue to trend down. No fever for the last 24 hours. WBC normal.blood cx - negative. MRI/MRCP -no bile duct dilatation or CBD stone. Possible passed stone or sludge. No acute indication for ERCP
- Okay to start on full liquid diet. Advance to low-fat diet if tolerated
-Trend LFTs
-Continue Zosyn for now
-Management of anticoagulation as per medical team
-Hepatitis panel negative
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 Would recommend follow-up with Dr. Major as outpatient
Total Time Spent with Patient (in minutes): 35
Subjective
Subjective
Date of Service: April 10, 2025
Intermittent abdominal discomfort left upper quadrant. Currently denies any symptoms. Denies any nausea or vomiting. No fever for the last 24 hours
Objective
Data Reviewed
Laboratory Data:
Laboratory Results
04/10/25 05:54
04/10/25 05:54
Laboratory Results
PT Cancelled 04/10/25 13:14
INR Cancelled 04/10/25 13:14
APTT 132.1 Sec (23.4-35.0) H 04/10/25 11:25
Total Bilirubin 4.9 mg/dl (0.2-1.3) H 04/10/25 05:54
AST 166 U/L (14-36) H 04/10/25 05:54
ALT 238 U/L (0-35) H 04/10/25 05:54
Alkaline Phosphatase 383 U/L (38-126) H 04/10/25 05:54
Lipase 51 U/L (23-300) 04/09/25 05:54
Vital Signs and I&O:
Vital Signs
Temp Pulse Resp BP Pulse Ox
98.8 F 69 16 151/78 95
04/10/25 11:16 04/10/25 11:16 04/10/25 11:16 04/10/25 11:16 04/10/25 11:16
I&O
04/09/25 04/10/25 04/11/25
06:59 06:59 06:59
Output Total 1000 / 1000
Balance -1000 / -1000
Physical Exam
Physical Exam
GI: Soft, Non Distended, Non Tender and Normal Bowel Sounds
[2025-04-10 15:36] VITALS: BP 153/82
[2025-04-10] MEDS: ZOFRAN 4 MG IV (15:47)
[2025-04-10] MEDS: COUMADIN 3 MG PO (17:19)
[2025-04-10 19:37] VITALS: BP 124/68
[2025-04-10] MEDS: PROTONIX 40 MG PO (19:54)
[2025-04-10 20:03] LABS: APTT 132.4 Sec (23.4-35.0)
[2025-04-10] MEDS: DETROL LA 4 MG PO (22:07)
[2025-04-10] MEDS: DESYREL 200 MG PO (22:07)
[2025-04-10] MEDS: MYRBETRIQ EXTENDED RELEASE 50 MG PO (22:08)
[2025-04-10] MEDS: SENOKOT-S 1 TABLET PO (22:08)
[2025-04-10 23:33] VITALS: BP 140/73
[2025-04-11] MEDS: DILAUDID 0.5 MG IV ×4 (02:50→23:30)
[2025-04-11 03:03] VITALS: BP 127/82
[2025-04-11 04:38] LABS: % Basophils 0.8 % (0-2); % Eosinophils 3.3 % (0-6); % Immature Granulocytes 0.3 % (0-0.5); % Lymphocytes 24.7 % (20.5-51.1); % Monocytes 10.3 % (1.7-9.3); % Neutrophils 60.6 % (42.2-75.2); Absolute Basophils 0.1 10^3/uL (0-0.2); Absolute Eosinophils 0.2 10^3/uL (0-0.7); Absolute Lymphocytes 1.5 10^3/uL (1.2-3.4); Absolute Monocytes 0.6 10^3/uL (0.1-0.6); Absolute Neutrophils 3.6 10^3/uL (1.4-6.5); Hematocrit 32.5 % (37.0-47.0); Hemoglobin 10.7 g/dL (12.0-16.0); Mean Corp Hgb Conc. 32.9 g/dL (33.0-37.0); Mean Corpuscular Hgb 28.8 pg (27.0-31.0); Mean Corpuscular Volume 87.6 fL (81.0-99.0); Mean Platelet Volume 9.5 fL (7.4-10.4); Nucleated Red Blood Cells % 0 %; Platelet Count 227 10^3/uL (130-400); Red Blood Cell Count 3.71 10^6/uL (4.20-5.40); Red Cell Dist. Width 14.6 % (11.5-14.5)
[2025-04-11 04:46] LABS: PT 21.1 Sec (11.4-14.6)
[2025-04-11 04:47] LABS: APTT 54.8 Sec (23.4-35.0)
[2025-04-11 05:00] LABS: ALT (SGPT) 189 U/L (0-35); AST (SGOT) 103 U/L (14-36); Albumin 2.8 g/dl (3.5-5.0); Alkaline Phosphatase 342 U/L (38-126); Blood Urea Nitrogen 9 mg/dl (7-17); Calcium 8.5 mg/dl (8.4-10.2); Carbon Dioxide 27 mmol/L (22-30); Chloride 113 mmol/L (98-107); Estimated Creatinine Clearance 91 ml/min; Glucose 90 mg/dl (70-99); Potassium 3.7 mmol/L (3.5-5.1); Sodium 142 mmol/L (135-145); Total Bilirubin 2.5 mg/dl (0.2-1.3); Total Protein 5.9 g/dl (6.3-8.2); eGFR > 60.00
[2025-04-11] MEDS: SYNTHROID 112 MCG PO (05:12)
[2025-04-11] MEDS: ZOSYN 50 IV ×4 (05:13→23:30)
[2025-04-11 06:00] VITALS: BMI 35.1
[2025-04-11] MEDS: DILAUDID 4 MG PO ×3 (07:12→21:25)
[2025-04-11] MEDS: HEPARIN 25000 UNITS/250 ML IV (07:17)
[2025-04-11 07:35] VITALS: BP 152/78
[2025-04-11] MEDS: B COMPLEX w/VITAMIN C 1 CAPLET PO (08:12)
[2025-04-11] MEDS: TOPROL XL 12.5 MG PO (08:12)
[2025-04-11] MEDS: NEURONTIN 100 MG PO ×4 (08:12→21:26)
[2025-04-11] MEDS: PROTONIX 40 MG PO ×2 (08:13→20:13)
[2025-04-11] MEDS: THERAGRAN 1 TABLET PO (08:13)
[2025-04-11] MEDS: CELEXA 40 MG PO (08:13)
[2025-04-11 11:20] VITALS: BP 132/93
[2025-04-11 11:21] LABS: APTT 106.9 Sec (23.4-35.0)
--- NOTE | 2025-04-11 11:26 | W.PN.HOSP.TC ---
Addendum entered and electronically signed by Edgard Cmoer MD 04/11/25 13:51:
Increase pain medication to her home regimen Dilaudid 4 mg 3 times daily
Original Note:
Today's Communication/Plan
-
Antibiotics. Heparin drip and warfarin
Assessment / Plan
Assessment / Plan
Physical exam:
General: Acutely ill
HEENT: Normocephalic, Atraumatic and Moist Mucous Membranes
Respiratory: Clear to Auscultation; Negative Wheezes, Rales or Rhonchi
Cardiac: Regular Rhythm and S1/S2
GI: Soft, tender and Nondistended
Musculoskeletal: No Clubbing, No Cyanosis and No Edema
Neuro: Awake, Alert and Oriented, no neurological deficit
Psych: Anxious
A/P:
Sepsis:
Likely biliary source in the setting of elevated LFTs and abdominal pain
Status post MRCP
GI consult appreciated-discussed with GI today and no plans for ERCP
On IV antibiotics, Zosyn and will switch to oral antibiotics tomorrow
chest x-ray clear and UA unremarkable
Follow-up blood cultures but so far sterile
Elevated LFTs:
Trending down
Mechanical arctic valve replacement:
On IV heparin drip
Back on warfarin
Discussed with Lovenox for bridging and warfarin but patient states that she has not tolerated this in the past and wants to be kept on heparin drip.
Paroxysmal A-fib:
On metoprolol succinate 12.5 mg p.o. daily
On warfarin
Chronic pain syndrome and narcotic dependence:
Recently changed to Dilaudid 4 mg 3 times daily-will continue with 4 mg twice daily for now and reevaluate
Continue rest of as needed pain medications
Chronic HFpEF:
Monitor volume status
DVT prophylaxis:
Heparin drip
CODE STATUS:
Full code
Time spent 35-minute
Anticipated Discharge: Within 24 hours
Subjective/Interval History
-
Date of Service: April 11, 2025
Patient upset her pain regimen is not the same pain at home. Afebrile
Objective Data
-
Labs:
Laboratory Results
04/11/25 04/11/25
03:58 10:49
WBC 6.0
Hgb 10.7 L
Hct 32.5 L
Plt Count 227
PT 21.1 H
INR 1.80
APTT 54.8 H Pending
Sodium 142
Potassium 3.7
Chloride 113 H
Carbon Dioxide 27
BUN 9
Creatinine 0.6
Glucose 90
Calcium 8.5
Total Bilirubin 2.5 H
AST 103 H
ALT 189 H
Alkaline Phosphatase 342 H
Vital Signs:
Vital Signs
Temp Pulse Resp BP Pulse Ox
98.6 F 63 20 132/93 95
04/11/25 11:20 04/11/25 11:20 04/11/25 11:20 04/11/25 11:20 04/11/25 11:20
I&O
04/10/25 04/11/25 04/12/25
06:59 06:59 06:59
Intake Total 1170 / 1170
Output Total 1000 / 1000
Balance -1000 / -1000 1170 / 1170
--- NOTE | 2025-04-11 11:34 | CM ---
Patient seen at bedside on . Patient states that she lives with her in a 2 story home. Patient has a walker and a cane at home. Patient stated that her PCP is Dr. Mccartney and she uses the [facility] in [place]. Patient stated that she was
anticipating discharge home, and did not anticipate any further needs at this time. IMM completed and signed form placed on chart. CM will continue to follow for discharge planning needs.
Plan; home with no needs
--- NOTE | 2025-04-11 12:03 | W.PN.GI.CBS2 ---
Today's Communication / Plan
-
low fat diet
trend LFT
Outpatient GI follow-up
Assessment / Plan
-
64yo with hx afib, PVI/ablation, cardioversion, mechanical aortic valve, VSD with closure with bovine pericardial patch on Coumadin, chronic HFpEF, henok 1998 with + IOC with ERCP with stone removal and sphincterotomy, prior colostomy with reversal
for perforated diverticulitis, complicated incarcerated hernia with chronic bowel ischemia with exp lap 07/2023 with hernia repair with mesh and return to OR with leak/hematoma and wound vac,chronic constipation, osteoarthritis, fibromyalgia, RA,
torsades with prior arrest with surgery, chronic pain on chronic narcotic dependence, cholangitis with recurrent CBD stone with ERCP 03/2024 with sphincterotomy and stenting and left groin thrombosed pseudoaneurysm presents the emergency room with
acute change in mental status. We are asked to evaluate for elevated LFTs as well as intermittent abdominal pain and fever. There she was found to be febrile at 103.3 �F. Her states that the days leading up to this she was walking around
the house with a bucket without vomiting. Her last BM was on Sunday (brown), normal color urine. She started 'hydromorphone' 4 mg TID on Sunday Rx by her pain management physician. No other new meds. She ate raw tuna sushi on Sunday or Sunday, No
sick contacts, no recent travel. Patient is on Coumadin, last dose Sunday evening. INR currently 2.3. Patient on heparin drip which was stopped at 930 this a.m. in anticipation of possible need for ERCP. Patient has been afebrile since 04/08/2025
at 2200. Continues on Zosyn at this time. WBC 10.8, hemoglobin 12.2, hematocrit 36.3, platelets 233, sodium 141, potassium 3.5, BUN 15, creatinine 0.7, glucose 108, total bilirubin 7.2 (up from 4.4), direct bilirubin 5.8, AST 334 (down from 561),
ALT 370 (down from 498), alk phos 432 (down from 509). Patient is negative for flu. Blood cultures pending.
Impression:
Sepsis with elevated LFTs in obstructive patten with concerns for cholangitis
Elevated INR secondary to Coumadin therapy, ([facility] AVR) currently 2.3, Hep gtt stopped 0930
Hx cholangitis and choledocholithiasis (last episode 03/2024). s/p cholecystectomy
she underwent MRI/MRCP today which showed mild right upper quadrant edema, no bile duct dilation, prior bile duct dilation on CT seen previously resolved. No evidence for choledocholithiasis.
Plan:
-LFTs continue to trend down. No fever since admission . WBC normal.blood cx - negative. MRI/MRCP -no bile duct dilatation or CBD stone. Possible passed stone or sludge. No acute indication for ERCP
- Okay to Advance to low-fat diet as tolerated
-Trend LFTs
-Continue Zosyn for now. Okay to change to oral antibiotics for total of 7 days on discharge
-Management of anticoagulation as per medical team
-Hepatitis panel negative
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 Would recommend follow-up with Dr. Major as outpatient. will sign off .
Please call us back if any questions
Total Time Spent with Patient (in minutes): 35
Subjective
Subjective
Date of Service: April 11, 2025
No GI complaints. Tolerating full liquid diet
Objective
Data Reviewed
Laboratory Data:
Laboratory Results
04/11/25 03:58
04/11/25 03:58
Laboratory Results
PT 21.1 Sec (11.4-14.6) H 04/11/25 03:58
INR 1.80 04/11/25 03:58
APTT 106.9 Sec (23.4-35.0) H 04/11/25 10:49
Total Bilirubin 2.5 mg/dl (0.2-1.3) H 04/11/25 03:58
AST 103 U/L (14-36) H 04/11/25 03:58
ALT 189 U/L (0-35) H 04/11/25 03:58
Alkaline Phosphatase 342 U/L (38-126) H 04/11/25 03:58
Lipase 51 U/L (23-300) 04/09/25 05:54
Vital Signs and I&O:
Vital Signs
Temp Pulse Resp BP Pulse Ox
98.6 F 63 20 132/93 95
04/11/25 11:20 04/11/25 11:20 04/11/25 11:20 04/11/25 11:20 04/11/25 11:20
I&O
04/10/25 04/11/25 04/12/25
06:59 06:59 06:59
Intake Total 1170 / 1170
Output Total 1000 / 1000
Balance -1000 / -1000 1170 / 1170
Physical Exam
Physical Exam
GI: Soft, Non Distended and Non Tender
[2025-04-11] MEDS: TYLENOL 650 MG PO (14:30)
[2025-04-11 15:55] VITALS: BP 139/71
[2025-04-11] MEDS: COUMADIN 5 MG PO (17:51)
[2025-04-11 18:58] LABS: APTT 80.6 Sec (23.4-35.0)
[2025-04-11 19:55] VITALS: BP 138/68
[2025-04-11] MEDS: DESYREL 200 MG PO (21:25)
[2025-04-11] MEDS: MYRBETRIQ EXTENDED RELEASE 50 MG PO (21:26)
[2025-04-11] MEDS: SENOKOT-S 1 TABLET PO (21:26)
[2025-04-11] MEDS: DETROL LA 4 MG PO (21:27)
[2025-04-11 23:41] VITALS: BP 147/71
[2025-04-12 03:10] VITALS: BP 134/70
[2025-04-12] MEDS: SYNTHROID 112 MCG PO (05:52)
[2025-04-12] MEDS: ZOSYN 50 IV (05:52)
[2025-04-12 06:00] VITALS: BMI 35.3
[2025-04-12 06:31] LABS: % Eosinophils 4.5 % (0-6); % Immature Granulocytes 0.3 % (0-0.5); % Monocytes 9.1 % (1.7-9.3); % Neutrophils 54.1 % (42.2-75.2); Absolute Basophils 0.1 10^3/uL (0-0.2); Absolute Eosinophils 0.3 10^3/uL (0-0.7); Absolute Lymphocytes 1.9 10^3/uL (1.2-3.4); Absolute Monocytes 0.6 10^3/uL (0.1-0.6); Absolute Neutrophils 3.3 10^3/uL (1.4-6.5); Hemoglobin 10.9 g/dL (12.0-16.0); Mean Corpuscular Hgb 29.5 pg (27.0-31.0); Mean Corpuscular Volume 89.4 fL (81.0-99.0); Mean Platelet Volume 9.3 fL (7.4-10.4); Nucleated Red Blood Cells % 0 %; Platelet Count 225 10^3/uL (130-400); Red Blood Cell Count 3.69 10^6/uL (4.20-5.40); Red Cell Dist. Width 14.9 % (11.5-14.5)
[2025-04-12 06:47] LABS: INR 2.84; PT 29.7 Sec (11.4-14.6)
[2025-04-12 06:52] LABS: APTT 159.9 Sec (23.4-35.0)
[2025-04-12 07:50] VITALS: BP 103/77
[2025-04-12 07:56] LABS: ALT (SGPT) 158 U/L (0-35); AST (SGOT) 88 U/L (14-36); Albumin 2.9 g/dl (3.5-5.0); Alkaline Phosphatase 324 U/L (38-126); Blood Urea Nitrogen 10 mg/dl (7-17); Calcium 8.2 mg/dl (8.4-10.2); Carbon Dioxide 26 mmol/L (22-30); Chloride 111 mmol/L (98-107); Estimated Creatinine Clearance 68 ml/min; Glucose 95 mg/dl (70-99); Sodium 142 mmol/L (135-145); Total Bilirubin 1.8 mg/dl (0.2-1.3); Total Protein 5.8 g/dl (6.3-8.2); eGFR > 60.00
[2025-04-12] MEDS: NEURONTIN 100 MG PO ×2 (08:32→12:55)
[2025-04-12] MEDS: B COMPLEX w/VITAMIN C 1 CAPLET PO (08:33)
[2025-04-12] MEDS: DILAUDID 4 MG PO (08:33)
[2025-04-12] MEDS: THERAGRAN 1 TABLET PO (08:33)
[2025-04-12] MEDS: CELEXA 40 MG PO (08:33)
[2025-04-12] MEDS: PROTONIX 40 MG PO (08:33)
[2025-04-12] MEDS: TOPROL XL 12.5 MG PO (08:33)
[2025-04-12] MEDS: AUGMENTIN 875 MG/125 MG 1 TABLET PO (09:22)
[2025-04-12] MEDS: DILAUDID 0.5 MG IV (10:17)
--- NOTE | 2025-04-12 11:19 | W.PN.HOSP.TC ---
Today's Communication/Plan
-
Discharge planning today
Assessment / Plan
Assessment / Plan
Physical exam:
General: No acute distress
HEENT: Normocephalic, Atraumatic and Moist Mucous Membranes
Respiratory: Clear to Auscultation; Negative Wheezes, Rales or Rhonchi
Cardiac: Regular Rhythm and S1/S2
GI: Soft, tender and Nondistended
Musculoskeletal: No Clubbing, No Cyanosis and No Edema
Neuro: Awake, Alert and Oriented, no neurological deficit
Psych: Anxious
A/P:
Sepsis:
Likely biliary source in the setting of elevated LFTs and abdominal pain
Status post MRCP
GI consult appreciated-discussed with GI today and no plans for ERCP
On IV antibiotics, Zosyn and will switch to oral antibiotics today
chest x-ray clear and UA unremarkable
Follow-up blood cultures but so far sterile
Elevated LFTs:
Trending down
Follow-up as outpatient
GI follow-up as well
Mechanical arctic valve replacement:
Stop IV heparin drip and continue warfarin
Discussed with Lovenox for bridging and warfarin but patient states that she has not tolerated this in the past and wants to be kept on heparin drip.
Paroxysmal A-fib:
On metoprolol succinate 12.5 mg p.o. daily
On warfarin
Chronic pain syndrome and narcotic dependence:
Recently changed to Dilaudid 4 mg 3 times daily-back on her home regimen
Continue rest of as needed pain medications
Chronic HFpEF:
Monitor volume status
DVT prophylaxis:
Heparin drip
CODE STATUS:
Full code
Anticipated Discharge: Today
Subjective/Interval History
-
Date of Service: April 12, 2025
Patient denies any new complaints. Afebrile
Objective Data
-
Labs:
Laboratory Results
04/12/25 04/12/25
06:24 14:30
WBC 6.0
Hgb 10.9 L
Hct 33.0 L
Plt Count 225
PT 29.7 H
INR 2.84
APTT 159.9 H* Pending
Sodium 142
Potassium 4.0
Chloride 111 H
Carbon Dioxide 26
BUN 10
Creatinine 0.8
Glucose 95
Calcium 8.2 L
Total Bilirubin 1.8 H
AST 88 H
ALT 158 H
Alkaline Phosphatase 324 H
Vital Signs:
Vital Signs
Temp Pulse Resp BP Pulse Ox
97.9 F 55 21 103/77 97
04/12/25 07:50 04/12/25 07:50 04/12/25 07:50 04/12/25 07:50 04/12/25 07:50
I&O
04/11/25 04/12/25 04/13/25
06:59 06:59 06:59
Intake Total 1170 / 1170 1140 / 1140 480 / 480
Balance 1170 / 1170 1140 / 1140 480 / 480
--- NOTE | 2025-04-12 11:23 | W.DCSUMMARY ---
Discharge Summary
Discharge Data
Date of Admission: 04/08/25
Date of Discharge: 04/12/25
-
Pending Results: No
Hospital Course
Patient is 64 years old female history of mechanical aortic valve on Coumadin, A-fib, history of cholecystectomy and ERCP back in the with multiple abdominal surgeries for diverticulitis and incarcerated hernia, cholangitis back in 2023 and
underwent couple of ERCP at this time with stent came into the hospital with altered mental status abdominal pain fever and elevated LFTs. Her presentation was consistent with sepsis due to biliary source. She was started on IV fluids and IV
antibiotics. GI consulted. Patient underwent MRCP and there was no evidence of choledocholithiasis but did show mild right upper quadrant edema, no bile duct dilatation improved from prior CT scan. GI felt that there was possible of a passed
stone or sludge but there was no indication for ERCP. LFTs trending down. Patient pain medications were decreased initially due to her mentation and infection but they are back to her normal doses now. She tolerated advancing diet. Hepatitis
panel negative. She required heparin drip for bridging and warfarin until INR was therapeutic. INR therapeutic upon discharge.
Discharge duration 35 minutes
Discharge Plan
-
Patient Disposition: Home (Routine Discharge)
Discharge Diagnosis/Procedures: Sepsis due to biliary source. Elevated liver function test. History mechanical aortic valve replacement on anticoagulation.
Diet: Low Fat
Activity: As tolerated
Blood Work: Please PCP to order CBC, CMP, INR within 1 week
Referrals:
Cassie Zayas MD [Active, Gastroenterology] - in one to two weeks
Joey Guerrier MD [Family Provider, Internal Medicine] - in less than 1 week
Prescriptions:
New
amoxicillin-pot clavulanate 875-125 mg Tablet
1 tab PO Q12 7 Days Qty: 14 0RF
Saccharomyces boulardii [Florastor] 250 mg capsule
250 mg PO BID 14 Days Qty: 28 0RF
Continued
trazodone 100 MG tablet
200 mg PO HS
citalopram 40 mg Tablet
40 mg PO DAILY
sennosides-docusate sodium [Stool Softener-Laxative] 8.6-50 mg Tablet
1 tab-cap PO HS
furosemide 40 MG tablet
40 mg PO DAILY
metoprolol succinate 25 mg Tablet Extended Release 24 Hr
12.5 mg PO DAILY
vitamin B complex Capsule
1 cap PO DAILY
levothyroxine 112 mcg Tablet
112 mcg PO DAILY
solifenacin 10 mg Tablet
10 mg PO HS
mirabegron [Myrbetriq] 50 mg Tablet Extended Release 24 Hr
50 mg PO HS
warfarin 3 mg Tablet
2.5 mg PO QPM
Patient Comments:
last inr 04/03/25 reading 3.1 total dose for the 17.50mg next inr scheduled 04/22/25
multivitamin Tablet
1 tab PO DAILY
gabapentin 100 mg Capsule
100 mg PO QID
hydromorphone 4 mg Tablet
4 mg PO BID
estradiol [Estrace] 0.01 % (0.1 mg/gram) Cream
1 appful VAGINAL .TWICE A WEEK
Discharge Orders:
Discharge Patient (As Directed); Ordered 04/12/25
Ordered By: Edgard Comer
Discharge Date and Time
Print Language: CHINESE
[2025-04-12 11:33] VITALS: BP 155/77
--- NOTE | 2025-04-12 17:20 | CM ---
Patient with Dx sepsis. Room air.
Spoke with patient who was preparing for discharge. The patient says she feels ready for discharge home today. Her or daughter will provide transport home today.
IM done yesterday per prior CM.
No CM d/c needs identified.
Plan home today.
== END 2025-04-12 13:09 | disposition home or self-care (01) | DRG 871 ==
LOC: 3 WEST ACU 20:13
PROVIDERS: Nurse Practitioner; ADMITTING PHYSICIAN Hospitalist; ATTENDING PHYSICIAN Hospitalist; CONSULT PHYSICIAN Internal Medicine Gastroenterology; EMERGENCY PHYSICIAN Student in an Organized Health Care Education/Training Program; FAMILY PHYSICIAN Internal Medicine
DX: A41.9 Sepsis, unspecified organism (principal); G93.41 Metabolic encephalopathy; I50.32 Chronic diastolic (congestive) heart failure; I48.92 Unspecified atrial flutter; F11.20 Opioid dependence, uncomplicated; K80.30 Calculus of bile duct with cholangitis, unspecified, without obstruction; I11.0 Hypertensive heart disease with heart failure; M06.9 Rheumatoid arthritis, unspecified; I48.0 Paroxysmal atrial fibrillation; I44.0 Atrioventricular block, first degree; R74.01 Elevation of levels of liver transaminase levels; E78.5 Hyperlipidemia, unspecified; M79.7 Fibromyalgia; E03.9 Hypothyroidism, unspecified; I87.2 Venous insufficiency (chronic) (peripheral); G89.4 Chronic pain syndrome; F32.A Depression, unspecified; F41.9 Anxiety disorder, unspecified; K21.9 Gastro-esophageal reflux disease without esophagitis; K58.9 Irritable bowel syndrome, unspecified; M54.9 Dorsalgia, unspecified; K43.9 Ventral hernia without obstruction or gangrene; R79.1 Abnormal coagulation profile; Z96.653 Presence of artificial knee joint, bilateral; Z90.49 Acquired absence of other specified parts of digestive tract; Z95.3 Presence of xenogenic heart valve; Z87.19 Personal history of other diseases of the digestive system; Z86.79 Personal history of other diseases of the circulatory system; Z88.1 Allergy status to other antibiotic agents; Z88.8 Allergy status to other drugs, medicaments and biological substances; Z91.048 Other nonmedicinal substance allergy status; Z79.890 Hormone replacement therapy; Z79.01 Long term (current) use of anticoagulants; Z87.74 Personal history of (corrected) congenital malformations of heart and circulatory system
CPT/HCPCS: 70450; 70496; 70498; 71045; 74177; 74183; 80053; 81003; 81015; 82248; 82962; 83605; 83690; 85025; 85027; 85610; 85730; 86705; 86706; 86709; 86803; 87040; 87340; 87502; 93005; 96365; 99291; A9575; Q9967

== ENCOUNTER → 2025-04-22 08:18 | Outpatient (REF) | payer MEDICARE, OTHER, SELFPAY | LOC: HWEVLT 08:18 | PROVIDERS: ATTENDING PHYSICIAN Radiology Vascular & Interventional Radiology | DX: I83.892 Varicose veins of left lower extremity with other complications (principal) | CPT/HCPCS: 36478 ==

== ENCOUNTER → 2025-05-13 08:53 | Outpatient (REF) | payer MEDICARE, OTHER, SELFPAY | LOC: HWEVLT 08:53 | PROVIDERS: ATTENDING PHYSICIAN Radiology Vascular & Interventional Radiology | DX: I83.892 Varicose veins of left lower extremity with other complications (principal) | CPT/HCPCS: 93971 ==

== ENCOUNTER → 2025-07-20 14:53 | Outpatient (REF) | payer MEDICARE, OTHER, SELFPAY | LOC: HWRCS 14:53 | PROVIDERS: ATTENDING PHYSICIAN Nuclear Medicine Nuclear Cardiology; FAMILY PHYSICIAN Internal Medicine | DX: I48.4 Atypical atrial flutter (principal); I48.0 Paroxysmal atrial fibrillation; Z95.2 Presence of prosthetic heart valve; I50.32 Chronic diastolic (congestive) heart failure | CPT/HCPCS: 93306 ==

== ENCOUNTER → 2025-08-24 09:28 | Outpatient (REF) | payer MEDICARE, OTHER, SELFPAY ==
[2025-08-24 09:56] VITALS: BMI 34.1
[2025-08-24 10:05] VITALS: BP 114/64; BP_SYST 54
[2025-08-24 10:05] LABS: INR 1.87; PT 21.7 Sec (11.4-14.6)
[2025-08-24 12:05] VITALS: BP 105/60; BP_SYST 61
[2025-08-24 12:20] VITALS: BP 116/64
== END ==
LOC: RADI 09:28
PROVIDERS: ATTENDING PHYSICIAN Surgery; FAMILY PHYSICIAN Internal Medicine
DX: K43.9 Ventral hernia without obstruction or gangrene (principal)
CPT/HCPCS: 36415; 64646; 76942; 85610; 99152; 99153; J0585

== ENCOUNTER 2025-09-29 10:46 | Inpatient (IN) | payer MEDICARE, OTHER, SELFPAY ==
[2025-09-16 10:25] VITALS: BMI 33.9
[2025-09-16 11:01] LABS: Hematocrit 43.4 % (37.0-47.0); Hemoglobin 14.1 g/dL (12.0-16.0); Mean Corp Hgb Conc. 32.5 g/dL (33.0-37.0); Mean Corpuscular Volume 89.1 fL (81.0-99.0); Platelet Count 245 10^3/uL (130-400); Red Cell Dist. Width 14.6 % (11.5-14.5)
[2025-09-16 11:09] LABS: INR 3.06; PT 32.0 Sec (11.4-14.6)
[2025-09-16 11:10] LABS: APTT 40.7 Sec (23.4-35.0)
[2025-09-16 12:19] LABS: Blood Urea Nitrogen 16 mg/dl (7-17); Calcium 8.6 mg/dl (8.4-10.2); Chloride 98 mmol/L (98-107); Estimated Creatinine Clearance 69 ml/min; Glucose 92 mg/dl (70-99); Potassium 4.2 mmol/L (3.5-5.1); Sodium 135 mmol/L (135-145); eGFR > 60.00
[2025-09-16 12:51] LABS: Carbon Dioxide 33 mmol/L (22-30)
[2025-09-29 11:06] VITALS: BMI 34.4
[2025-09-29 11:15] VITALS: BP 111/58
--- NOTE | 2025-09-29 11:15 | PTCARENOTE ---
Pt received as a Direct Admit Under Dr Stevens for Scheduled surgery tomorrow: Open Ventral Hernia Repair. Pt is AAOx3, HRR click from previous valve surgery noted. VSS, Pt is afebrile. Pt instructed on plan of care. Pt verbalized understanding of
instructions. Call [facility] is within reach.
[2025-09-29 13:07] LABS: Hematocrit 37.3 % (37.0-47.0); Hemoglobin 12.5 g/dL (12.0-16.0); Mean Corp Hgb Conc. 33.5 g/dL (33.0-37.0); Mean Corpuscular Volume 87.6 fL (81.0-99.0); Platelet Count 222 10^3/uL (130-400); Red Cell Dist. Width 14.3 % (11.5-14.5)
[2025-09-29 13:30] LABS: APTT 39.7 Sec (23.4-35.0); INR 2.81; PT 29.8 Sec (11.4-14.6)
[2025-09-29 14:39] LABS: Blood Urea Nitrogen 15 mg/dl (7-17); Calcium 8.6 mg/dl (8.4-10.2); Carbon Dioxide 32 mmol/L (22-30); Chloride 100 mmol/L (98-107); Estimated Creatinine Clearance 79 ml/min; Glucose 104 mg/dl (70-99); Potassium 3.8 mmol/L (3.5-5.1); Sodium 134 mmol/L (135-145); eGFR > 60.00
[2025-09-29] MEDS: HEPARIN 25000 UNITS/250 ML IV (14:48)
[2025-09-29 15:10] VITALS: BP 103/50
--- NOTE | 2025-09-29 16:12 | CON.CAR ---
Addendum entered and electronically signed by Daniel Charles MD 09/29/25 16:39:
Patient seen and examined
Agree with KALE Fontana's note and assessment
Agree with KALE Fontana's plan
Coming in for bridging prior to planned ventral hernia repair
History of multiple ablation procedures and mechanical AVR
She has been feeling well and in sinus rhythm recently since most recent ablation procedure
Exam:
H&T normocephalic atraumatic
JVP 6
Cor regular with crisp S2
Lungs clear to station bilaterally
Ventral hernia as noted
Alert and orient x 3
Nonfocal neurologically
Impression:
Direct admission for heparin bridge prior to planned ventral hernia repair
Chronic pain from her back
Symptomatic Paroxysmal atrial fibrillation/atypical atrial flutter/atrial tachycardia
s/p atrial flutter ablation 11/2019
s/p PVI and atrial flutter ablation 07/08/22
previously refractory to sotalol and Tikosyn
amiodarone previously stopped due to elevated LFTs and hypothyroidism
s/p KAMRAN/CV 12/04/23
s/p redo PVI/PW and mitral flutter ablation 12/17/24s/p [place] Mechanical AVR , Closure of Perimembranous VSD with Bovine pericardial patch, Left Modified Maze procedure with Atricure device 07/16/20
Chronic warfarin OAC managed by [facility]
Chronic HFpEF
h/o SBO 08/02/2023 with ex lap for extensive lysis of adhesions (>90 min), small bowel resection with primary anastomosis, ventral incisional hernia repair with mesh 08/03/23
Reoperation for pelvic hematoma and anastomotic leak 08/12/23History of diverticulitis with perforated diverticulum, peritonitis and sepsis, s/p ex lap with transverse colostomy, complicated by torsades felt to be due to sevoflurane 01/30/18
s/p takedown transverse loop colostomy, laparotomy, REMEDIOS, sigmoidectomy, primary sutured repair parastomal hernia 05/31/18-History of recurrent SBOs
HTN
HLD
Rheumatoid arthritis/fibromyalgia/chronic pain
Chronic back pain, epidural injections and daily narcotic use
B/L venous insufficiency
Echo 12/04/22: EF 55 to 60%, mild concentric LVH, well-seated [place] mechanical aortic valve prosthesis with peak/mean gradients 23/11 mmHg, trace AR, mild TR, PAP 35 to 40 mmHg
Echo 01/09/24: EF 64%, mild conc LVH, normal RV size and function, mild MR, [place] mechanical AVR with peak/mean 14/7 mmHg
Echo 07/20/2025: EF 61%, no WMA, mean gradient across [place] mechanical AVR 12 mmHg, moderate TR with PAP 35 mmHg
Plan:
-Patient presented to the hospital today for direct admission prior to planned ventral hernia repair surgery and cardiology is consulted to help with management of a heparin gtt being used as a bridge in the setting of previous mechanical AVR.
- INR is 2.81 today.
-Check ECG, order placed
-Orders placed for addition of telemetry monitoring given cardiac history as outlined above, orders placed by me
-INR is 2.81 and order for heparin drip was stopped, labs reviewed and orders placed. Reviewed with nursing who also discussed with general surgery and plan is to recheck INR in AM and general surgery is comfortable with using FFP preoperatively if
needed.
- Resume heparin to warfarin postsurgery when safe from a postoperative standpoint
-INR is managed by cardiology as an outpatient using home monitor with an INR goal of 2-2.5. Patient was taking warfarin 2.5 mg daily prior to admission.
-Hgb is 12.5 on 09/29/2025
-Patient has a history of paroxysmal A-fib/flutter. Check ECG, she was in SR at cardiology office visit 08/04/2025.
-Outpatient dose of Lasix 40 mg daily has been continued for now. Check daily weights, ordered by me. EF was 61% at last echo 07/20/2025. No SOB or edema.
-Patient is appropriately concerned about pain management following surgery and is following with Dr. Chappell at [facility] as an outpatient.
Original Note:
Consultation
Consultation Request
Date/Time Consultation Requested: 09/29/2025
Date/Time Consultation Performed: 09/29/2025
Requesting Provider: Dr. Stevens
Performing Provider: Dr. Charles
Reason for Consultation: Management of heparin bridge prior to planned surgery
Medical History
-
History of Present Illness:
Patient presented to the hospital today for direct admission prior to planned ventral hernia repair surgery and cardiology is consulted to help with management of a heparin gtt being used as a bridge in the setting of previous mechanical AVR.
Patient was seen in the office on 08/04/2025 and at that time was in SR following repeat ablation 11/2024. Patient later saw general surgery and was recommended ventral hernia repair and Dr. Baird added an addendum on 08/17/2025 stating that the
patient was at acceptable cardiac risk for surgery and did not require any additional testing. Back on 01/30/18 she had complications of diverticulitis with perforation requiring transverse loop colostomy which was complicated by perioperative
cardiac arrest for VT/torsades in and then returned in May 2018 for reversal of colostomy without adverse event. Then in 04/2019 she had a repair of a parastomal hernia complicated by small bowel obstruction. She has a h/o recurrent SBO. She has a
history of perimembranous VSD with frkn-nt-wytca shunt, bicuspid aortic valve with severe aortic stenosis, moderate tricuspid regurgitation and pulmonary hypertension and had mechanical AVR with 21mm [place] Mechanical Valve, closure of
Perimembranous VSD with Bovine pericardial patch, Left Modified Maze procedure with Atricure device 07/16/20. She recurred with atrial flutter and had ablation 11/2019 and then repeat ablation 07/08/22. Then on 08/02/23 she had a SBO and required ex
lap with extensive REMEDIOS and ventral incisional hernia repair. That admission was complicated by post-op pelvic hematoma and anastomotic leak. She eventually recovered and was discharged to home. Since then patient has had recurrent Afib and last
KAMRAN/CV was 12/04/23. Most recently the patient had a redo PVI/PW mitral flutter ablation 12/17/2024 without clinically significant recurrence of atrial arrhythmia. Patient is chronically on warfarin with INR is managed by cardiology using a home
monitor as an outpatient. INR goal is usually 2.5-3.5. Patient took her usual dose of warfarin last evening and INR is 2.81 today.
PMH:
Chronic pain from her back
Symptomatic Paroxysmal atrial fibrillation/atypical atrial flutter/atrial tachycardia
s/p atrial flutter ablation 11/2019
s/p PVI and atrial flutter ablation 07/08/22
previously refractory to sotalol and Tikosyn
amiodarone previously stopped due to elevated LFTs and hypothyroidism
s/p KAMRAN/CV 12/04/23
s/p redo PVI/PW and mitral flutter ablation 12/17/24
s/p [place] Mechanical AVR , Closure of Perimembranous VSD with Bovine pericardial patch, Left Modified Maze procedure with Atricure device 07/16/20
Chronic warfarin OAC managed by [facility]
Chronic HFpEF
h/o SBO 08/02/2023 with ex lap for extensive lysis of adhesions (>90 min), small bowel resection with primary anastomosis, ventral incisional hernia repair with mesh 08/03/23
Reoperation for pelvic hematoma and anastomotic leak 08/12/23
History of diverticulitis with perforated diverticulum, peritonitis and sepsis, s/p ex lap with transverse colostomy, complicated by torsades felt to be due to sevoflurane 01/30/18
s/p takedown transverse loop colostomy, laparotomy, REMEDIOS, sigmoidectomy, primary sutured repair parastomal hernia 05/31/18-History of recurrent SBOs
HTN
HLD
Rheumatoid arthritis/fibromyalgia/chronic pain
Chronic back pain, epidural injections and daily narcotic use
B/L venous insufficiency
Past Medical History
Past Medical History: Other (in HPI)
Past Surgical History: Bowel Resection (s/p ex lap with transverse colostomy 01/30/18 in the setting of sepsis followed by takedown transverse loop colostomy, laparotomy, REMEDIOS, sigmoidectomy, primary sutured repair parastomal hernia 05/31/18), Cardiac
(AVR with 21mm [place] Mechanical Valve, Closure of Perimembranous VSD with Bovine pericardial patch, Left Modified Maze procedure with Atricure device 07/16/20) and Orthopedic (B/L TKA 2009)
Social History
Tobacco: Non-Smoker
Alcohol: None
Drug: None
Personal:
Living: With Family
Family History
Family History: Hypertension
Allergies / Home Medications
Allergy/AdvReac Type Severity Reaction Status Date / Time
abatacept (From Orencia) Allergy Hives, Verified 04/08/25 16:37
SOB, cough
adalimumab (From Humira) Allergy SEVERE Verified 04/08/25 16:37
BRUISING
adhesive Allergy Rash Verified 04/08/25 16:37
adhesive tape Allergy Rash Verified 04/08/25 16:37
clarithromycin (From Biaxin) Allergy upset Verified 04/08/25 16:37
stomach
dofetilide Allergy torsades Verified 04/08/25 17:13
etanercept (From Enbrel) Allergy Bruising Verified 04/08/25 16:37
sevoflurane Allergy V Verified 04/08/25 16:37
Fib/Arrhythmia
�Medication �Instructions �Recorded �Confirmed �Type
trazodone 100 mg tablet 200 mg PO HS sleep 12/10/19 09/29/25 History
citalopram 40 mg tablet 40 mg PO DAILY Depression 06/01/22 09/29/25 History
furosemide 40 mg tablet 40 mg PO DAILY Fluid 07/03/22 09/29/25 History
retention/Swelling
sennosides 8.6 mg-docusate sodium 1 tab-cap PO HS Constipation 07/03/22 09/29/25 History
50 mg tablet (Stool
Softener-Laxative)
metoprolol succinate 25 mg 12.5 mg PO DAILY Blood Pressure 03/20/24 09/29/25 History
tablet,extended release 24 hr
vitamin B complex 1 cap PO DAILY Supplement 03/20/24 09/29/25 History
levothyroxine 112 mcg tablet 112 mcg PO DAILY Thyroid 12/02/24 09/29/25 History
mirabegron 50 mg tablet,extended 50 mg PO HS Urinary Issue 12/02/24 09/29/25 History
release 24 hr (Myrbetriq)
solifenacin 10 mg tablet 10 mg PO HS Urinary Issue 12/02/24 09/29/25 History
warfarin 3 mg tablet 2.5 mg PO QPM Blood Clot 12/02/24 09/29/25 History
Prevention/Tx
multivitamin 1 tab PO DAILY Supplement 12/17/24 09/29/25 History
estradiol 0.01% (0.1 mg/gram) 1 appful vaginal .TWICE A WEEK 04/08/25 09/29/25 History
vaginal cream (Estrace)
hydromorphone 4 mg tablet 4 mg PO BID 04/08/25 09/29/25 History
Saccharomyces boulardii 250 mg 250 mg PO BID 14 days #28 caps 04/12/25 09/29/25 Rx
capsule (Florastor)
Review of Systems
-
History Source: Patient
All other systems: Negative unless noted
Physical Exam
Vital Signs
Temp Pulse Resp BP Pulse Ox
98.0 F 60 16 111/58 95
09/29/25 11:15 09/29/25 11:15 09/29/25 11:15 09/29/25 11:15 09/29/25 11:15
GEN: AAO x3
HEENT: EOMI, MMM
LUNGS: CTA B/L, no wheezes or rales
CV: Reg, +click
ABD: ND
EXT: No edema B/L
NEURO: Gross non-focal
SKIN: No rash
Lab Results
09/29/25 12:56
09/29/25 12:56
Impression / Plan
-
PCP: Dr. Joey Guerrier
Primary Screen Writer: Dr. Brooks
Impression:
Direct admission for heparin bridge prior to planned ventral hernia repair
Chronic pain from her back
Symptomatic Paroxysmal atrial fibrillation/atypical atrial flutter/atrial tachycardia
s/p atrial flutter ablation 11/2019
s/p PVI and atrial flutter ablation 07/08/22
previously refractory to sotalol and Tikosyn
amiodarone previously stopped due to elevated LFTs and hypothyroidism
s/p KAMRAN/CV 12/04/23
s/p redo PVI/PW and mitral flutter ablation 12/17/24
s/p [place] Mechanical AVR , Closure of Perimembranous VSD with Bovine pericardial patch, Left Modified Maze procedure with Atricure device 07/16/20
Chronic warfarin OAC managed by [facility]
Chronic HFpEF
h/o SBO 08/02/2023 with ex lap for extensive lysis of adhesions (>90 min), small bowel resection with primary anastomosis, ventral incisional hernia repair with mesh 08/03/23
Reoperation for pelvic hematoma and anastomotic leak 08/12/23
History of diverticulitis with perforated diverticulum, peritonitis and sepsis, s/p ex lap with transverse colostomy, complicated by torsades felt to be due to sevoflurane 01/30/18
s/p takedown transverse loop colostomy, laparotomy, ERMEDIOS, sigmoidectomy, primary sutured repair parastomal hernia 05/31/18-History of recurrent SBOs
HTN
HLD
Rheumatoid arthritis/fibromyalgia/chronic pain
Chronic back pain, epidural injections and daily narcotic use
B/L venous insufficiency
Echo 12/04/22: EF 55 to 60%, mild concentric LVH, well-seated [place] mechanical aortic valve prosthesis with peak/mean gradients 23/11 mmHg, trace AR, mild TR, PAP 35 to 40 mmHg
Echo 01/09/24: EF 64%, mild conc LVH, normal RV size and function, mild MR, [place] mechanical AVR with peak/mean 14/7 mmHg
Echo 07/20/2025: EF 61%, no WMA, mean gradient across [place] mechanical AVR 12 mmHg, moderate TR with PAP 35 mmHg
Plan:
-Patient presented to the hospital today for direct admission prior to planned ventral hernia repair surgery and cardiology is consulted to help with management of a heparin gtt being used as a bridge in the setting of previous mechanical AVR.
Patient was seen in the office on 08/04/2025 and at that time was in SR following repeat ablation 11/2024. Patient later saw general surgery and was recommended ventral hernia repair and Dr. Baird added an addendum on 08/17/2025 stating that the
patient was at acceptable cardiac risk for surgery and did not require any additional testing. Back on 01/30/18 she had complications of diverticulitis with perforation requiring transverse loop colostomy which was complicated by perioperative
cardiac arrest for VT/torsades in and then returned in May 2018 for reversal of colostomy without adverse event. Then in 04/2019 she had a repair of a parastomal hernia complicated by small bowel obstruction. She has a h/o recurrent SBO. She has a
history of perimembranous VSD with drol-or-bhjgd shunt, bicuspid aortic valve with severe aortic stenosis, moderate tricuspid regurgitation and pulmonary hypertension and had mechanical AVR with 21mm [place] Mechanical Valve, closure of
Perimembranous VSD with Bovine pericardial patch, Left Modified Maze procedure with Atricure device 07/16/20. She recurred with atrial flutter and had ablation 11/2019 and then repeat ablation 07/08/22. Then on 08/02/23 she had a SBO and required ex
lap with extensive REMEDIOS and ventral incisional hernia repair. That admission was complicated by post-op pelvic hematoma and anastomotic leak. She eventually recovered and was discharged to home. Since then patient has had recurrent Afib and last
KAMRAN/CV was 12/04/23. Most recently the patient had a redo PVI/PW mitral flutter ablation 12/17/2024 without clinically significant recurrence of atrial arrhythmia. Patient is chronically on warfarin with INR is managed by cardiology using a home
monitor as an outpatient. INR goal is usually 2.5-3.5. Patient took her usual dose of warfarin last evening and INR is 2.81 today.
-Check ECG, order placed by me
-Orders placed for addition of telemetry monitoring given cardiac history as outlined above, orders placed by me
-INR is 2.81 and order for heparin drip was stopped, labs reviewed and orders placed by me. Reviewed with nursing who also discussed with general surgery and plan is to recheck INR in AM and general surgery is comfortable with using FFP
preoperatively if needed.
-Cardiology would like to restart heparin bridge and eventually warfarin when safe from a postoperative standpoint.
-INR is managed by cardiology as an outpatient using home monitor with an INR goal of 2-2.5. Patient was taking warfarin 2.5 mg daily prior to admission.
-Hgb is 12.5 on 09/29/2025
-Patient has a history of paroxysmal A-fib/flutter. Check ECG, she was in SR at cardiology office visit 08/04/2025.
-Outpatient dose of Lasix 40 mg daily has been continued for now. Check daily weights, ordered by me. EF was 61% at last echo 07/20/2025. No SOB or edema.
-Patient is appropriately concerned about pain management following surgery and is following with Dr. Chappell at [facility] pain management as an outpatient.
--- NOTE | 2025-09-29 17:44 | HPS.HSE ---
Family Physician
-
Family Physician: Joey Guerrier
Chief Complaint
-
Abdominal pain and swelling
History of Present Illness
Patient is a 65 yo F with a PMH of RA, chronic opioid use, A-fib s/p cardioversion, HFpEF, mechanical AVR in 2019 (on Coumadin, LD 12 PM), s/p laparoscopic cholecystectomy, diverticulitis c/b perforation s/p transverse loop colostomy in 01/[address] Daily c/b parastomal hernia s/p exploratory laparotomy, extensive REMEDIOS, sigmoidectomy with primary anastomosis of the descending and transverse colon in 05/[address] Park and Peterson. She has had a known ventral incisional hernia with SBO's
in the past. She was admitted back in 07/2023 with an acute abdomen and underwent an emergent ventral incisional hernia repair with SBR and Vicryl mesh underlay. Postoperative recovery was complicated by a anastomotic leak necessitating takeback
with primary repair and drainage. She subsequently developed a ventral incisional hernia. She has been followed as an outpatient. Medical comorbidities including obesity have been optimized. Plan for a exploratory laparotomy, lysis of adhesions,
open repair of a recurrent ventral incisional hernia repair with mesh and bilateral myofascial releases on 09/30/2025. She was admitted to the hospital for a possible heparin bridge. She denies any new abdominal pain or discomfort. No nausea or
vomiting. Continues to move her bowels. Of note, unfortunately she took her Coumadin yesterday evening and her current INR is 2.8.
Medical History
Past Medical History
Past Medical History: Reports Arrhythmia (A-fib), CHF, HTN, Hypercholesterolemia and Other (Obesity, rheumatoid arthritis c/b chronic pain)
Past Surgical History: Reports Cardiac (Mechanical AVR), Cholecystectomy, Orthopedic (Bilateral TKA) and Other (Transverse loop colostomy, exploratory laparotomy REMEDIOS, partial colectomy, ventral incisional hernia repair with SBR, repair of
anastomotic leak and primary abdominal wall closure)
Social History
Tobacco: Non-smoker
Alcohol: None
Drug: None
Family History
Family History: Not pertinent
Allergies / Home Medications
Allergies reflects when Allergies were last updated in [employer].
Home Medications with original date entered in [employer]
Allergy/Medication List:
Humana, Orencia, adhesive tape, clarithromycin, Enbrel, Dofetilide, Sevoflurane
Review of Systems
-
A 12 point ROS was completed and negative except as noted: Yes
Physical Exam
Vital Signs
Vital Signs
Temp Pulse Resp BP Pulse Ox
97.5 F 62 16 103/50 96
09/29/25 15:10 09/29/25 15:10 09/29/25 15:10 09/29/25 15:10 09/29/25 15:10
Physical Exam
General: Well Developed, Well Nourished and No Apparent Distress
HEENT: NormoCephalic and Anicteric
Respiratory: Non Labored Respirations
Cardiac: Irregular Rhythm
GI: Soft, Non Tender, Non Distended and Other (Large ventral incisional hernia, partially reducible, prior incisions well-healed, nonperitoneal)
Musculoskeletal: No Edema
Skin: Warm and Dry
Neuro: Nonfocal/grossly intact
Laboratory Results
-
09/29/25 12:56
09/29/25 12:56
Laboratory Results
PT 29.8 Sec (11.4-14.6) H 09/29/25 12:56
INR 2.81 09/29/25 12:56
APTT Cancelled 09/29/25 20:50
Data Reviewed
-
Lab Data: Labs Reviewed by me
Old Records: Reviewed
Impression/Plan
-
IMPRESSION:
Patient is a 65 yo F admitted as a direct admit for possible heparin bridge for her upcoming procedure
Cardiology consult noted and appreciated.
INR elevated. No need for heparin drip. Will repeat INR tomorrow and transfuse with FFP as needed. She will need a repeat INR prior to her operation ideally around 1.5. Cardiology consult noted and appreciated.
Plan for a open recurrent ventral incisional hernia repair with mesh and bilateral myofascial releases. The procedure itself, as well as the risk, benefits, and alternatives has been previously reviewed. Consent has been previously obtained. All
questions answered.
PLAN:
-- Plan for scheduled open recurrent ventral incisional hernia repair with mesh and bilateral myofascial releases
-- Clears, NPO PM
-- Pain control Tylenol, IV Dilaudid PRN, home PO Dilaudid
-- Home Metoprolol
-- Home Trazadone
-- Hold on Hep gtt given INR 2.8, hold COumadin, will need to recheck and transfuse FFP tomorrow, Card consult appreciated
-- GII PPI
[2025-09-29] MEDS: TYLENOL 650 MG PO (18:17)
[2025-09-29 19:33] VITALS: BP 108/54
[2025-09-29] MEDS: DILAUDID 4 MG PO (20:14)
[2025-09-29] MEDS: DESYREL 200 MG PO (20:14)
[2025-09-29] MEDS: TYLENOL PO (21:00)
[2025-09-29 21:09] VITALS: BMI 34.4
[2025-09-29 23:03] VITALS: BP 99/55
[2025-09-30] VITALS (19 sets, daily range): BP systolic 0–143; BP diastolic 54–79; BMI 33.9; BMI 34.8
[2025-09-30] MEDS: TYLENOL PO ×6 (00:08→21:00)
[2025-09-30] MEDS: DILAUDID 4 MG PO (05:45)
[2025-09-30 06:53] LABS: INR 2.74; PT 29.2 Sec (11.4-14.6)
--- NOTE | 2025-09-30 07:10 | W.PN.SURGUPD ---
Surgical Update
Surgical Update
INR 2.7 will need transfused FFP to have INR around 1.5 prior to proceeding with OR.
[2025-09-30 07:39] LABS: Hematocrit 43.0 % (37.0-47.0); Hemoglobin 14.1 g/dL (12.0-16.0); Mean Corp Hgb Conc. 32.8 g/dL (33.0-37.0); Mean Corpuscular Volume 88.8 fL (81.0-99.0); Platelet Count 243 10^3/uL (130-400); Red Cell Dist. Width 14.3 % (11.5-14.5)
[2025-09-30 07:49] LABS: INR 2.60; PT 27.5 Sec (11.4-14.6)
[2025-09-30] MEDS: NSS (PRESERVATIVE FREE) 10 ML IV (08:18)
[2025-09-30] MEDS: PROTONIX IV 40 MG IV (08:19)
[2025-09-30 08:27] LABS: Blood Urea Nitrogen 12 mg/dl (7-17); Calcium 8.8 mg/dl (8.4-10.2); Carbon Dioxide 33 mmol/L (22-30); Chloride 102 mmol/L (98-107); Estimated Creatinine Clearance 69 ml/min; Glucose 90 mg/dl (70-99); Potassium 4.4 mmol/L (3.5-5.1); Sodium 136 mmol/L (135-145); eGFR > 60.00
[2025-09-30 10:09] LABS: INR 1.96; PT 22.0 Sec (11.4-14.6)
--- NOTE | 2025-09-30 10:35 | CM ---
Patient seen bedside, initial assessment completed. Presenting w/ abdominal pain and swelling. Plan for OR this admission.
Patient resides w/ spouse in [place], 4 steps to enter. Patient uses RW while in the house and a cane while walking in the community. Patient has a grab bar in the bathroom. [facility] hx 2 or 3 years ago, [facility] PT hx, [facility] hx.
Address, point of contact and insurance verified
PCP: Joey Guerrier
Pharmacy: [facility]
Plan: Home, will watch for needs
--- NOTE | 2025-09-30 11:14 | W.SUR.PREOP ---
Pre-Operative Surgical Note
-
I have examined this patient prior to the performance of the scheduled procedure.
The patient's condition is unchanged from the time of the current History and
Physical and the patient is able to undergo the scheduled procedure.
--- NOTE | 2025-09-30 14:45 | W.PN.CARDCBS ---
Today's Communication / Plan
-
INR down to 1.96 with plasma.
Await surgery input to restart either heparin or Coumadin depending on INR
Impression / Plan
-
PCP: Dr. Joey Guerrier
Primary Pole Peeler: Dr. Brooks
Impression:
Direct admission for heparin bridge prior to planned ventral hernia repair
Chronic pain from her back
Symptomatic Paroxysmal atrial fibrillation/atypical atrial flutter/atrial tachycardia
s/p atrial flutter ablation 11/2019
s/p PVI and atrial flutter ablation 07/08/22
previously refractory to sotalol and Tikosyn
amiodarone previously stopped due to elevated LFTs and hypothyroidism
s/p KAMRAN/CV 12/04/23
s/p redo PVI/PW and mitral flutter ablation 12/17/24
s/p [place] Mechanical AVR , Closure of Perimembranous VSD with Bovine pericardial patch, Left Modified Maze procedure with Atricure device 07/16/20
Chronic warfarin OAC managed by [facility]
Chronic HFpEF
h/o SBO 08/02/2023 with ex lap for extensive lysis of adhesions (>90 min), small bowel resection with primary anastomosis, ventral incisional hernia repair with mesh 08/03/23
Reoperation for pelvic hematoma and anastomotic leak 08/12/23
History of diverticulitis with perforated diverticulum, peritonitis and sepsis, s/p ex lap with transverse colostomy, complicated by torsades felt to be due to sevoflurane 01/30/18
s/p takedown transverse loop colostomy, laparotomy, REMEDIOS, sigmoidectomy, primary sutured repair parastomal hernia 05/31/18-History of recurrent SBOs
HTN
HLD
Rheumatoid arthritis/fibromyalgia/chronic pain
Chronic back pain, epidural injections and daily narcotic use
B/L venous insufficiency
Echo 12/04/22: EF 55 to 60%, mild concentric LVH, well-seated [place] mechanical aortic valve prosthesis with peak/mean gradients 23/11 mmHg, trace AR, mild TR, PAP 35 to 40 mmHg
Echo 01/09/24: EF 64%, mild conc LVH, normal RV size and function, mild MR, [place] mechanical AVR with peak/mean 14/7 mmHg
Echo 07/20/2025: EF 61%, no WMA, mean gradient across [place] mechanical AVR 12 mmHg, moderate TR with PAP 35 mmHg
Plan:
Stable cardiology status for eventual hernia repair without further testing
INR improved to 1.96 with FFP
Start IV heparin and also restart Coumadin based on surgery input
PREADMIT DATA
-Patient presented to the hospital today for direct admission prior to planned ventral hernia repair surgery and cardiology is consulted to help with management of a heparin gtt being used as a bridge in the setting of previous mechanical AVR.
Patient was seen in the office on 08/04/2025 and at that time was in SR following repeat ablation 11/2024. Patient later saw general surgery and was recommended ventral hernia repair and Dr. Baird added an addendum on 08/17/2025 stating that the
patient was at acceptable cardiac risk for surgery and did not require any additional testing. Back on 01/30/18 she had complications of diverticulitis with perforation requiring transverse loop colostomy which was complicated by perioperative
cardiac arrest for VT/torsades in and then returned in May 2018 for reversal of colostomy without adverse event. Then in 04/2019 she had a repair of a parastomal hernia complicated by small bowel obstruction. She has a h/o recurrent SBO. She has a
history of perimembranous VSD with rlui-[id number]-rfzgi shunt, bicuspid aortic valve with severe aortic stenosis, moderate tricuspid regurgitation and pulmonary hypertension and had mechanical AVR with 21mm [place] Mechanical Valve, closure of
Perimembranous VSD with Bovine pericardial patch, Left Modified Maze procedure with Atricure device 07/16/20. She recurred with atrial flutter and had ablation 11/2019 and then repeat ablation 07/08/22. Then on 08/02/23 she had a SBO and required ex
lap with extensive REMEDIOS and ventral incisional hernia repair. That admission was complicated by post-op pelvic hematoma and anastomotic leak. She eventually recovered and was discharged to home. Since then patient has had recurrent Afib and last
KAMRAN/CV was 12/04/23. Most recently the patient had a redo PVI/PW mitral flutter ablation 12/17/2024 without clinically significant recurrence of atrial arrhythmia. Patient is chronically on warfarin with INR is managed by cardiology using a home
monitor as an outpatient. INR goal is usually 2.5-3.5. Patient took her usual dose of warfarin last evening and INR is 2.81 today.
Progress Note - Pole Peeler
Subjective
Date of Service: September 30, 2025
No chest pain or shortness of breath
Objective
Labs:
09/30/25 07:25
09/30/25 07:25
Labs
Hgb 14.1 g/dL (12.0-16.0) 09/30/25 07:25
Hct 43.0 % (37.0-47.0) 09/30/25 07:25
Plt Count 243 10^3/uL (130-400) 09/30/25 07:25
PT Cancelled 09/30/25 14:16
INR Cancelled 09/30/25 14:16
APTT Cancelled 09/29/25 20:50
Sodium 136 mmol/L (135-145) 09/30/25 07:25
Potassium 4.4 mmol/L (3.5-5.1) 09/30/25 07:25
BUN 12 mg/dl (7-17) 09/30/25 07:25
Creatinine 0.8 mg/dL (0.6-1.0) 09/30/25 07:25
Glucose 90 mg/dl (70-99) 09/30/25 07:25
Vital Signs and I&O:
Vital Signs
Temp Pulse Resp BP Pulse Ox
98.2 F 71 16 126/73 96
09/30/25 11:14 09/30/25 11:14 09/30/25 11:14 09/30/25 11:14 09/30/25 09:00
Vital Signs
Temp Pulse Resp BP Pulse Ox
98.2 F 71 16 126/73 96
09/30/25 11:14 09/30/25 11:14 09/30/25 11:14 09/30/25 11:14 09/30/25 09:00
Intake & Output
09/28/25 09/29/25 09/30/25 10/01/25
06:59 06:59 06:59 06:59
Intake Total 540 / 540 572 / 572
Balance 540 / 540 572 / 572
Physical Exam
Physical Exam
General: Well developed, well nourished in NAD.
Neck: Supple, no JVD, HJR, carotids +2 B/L, no bruits bilaterally.
Heart: Non displaced PMI, RRR, 1/6 basal systolic murmur, metallic S2, No S3, S4, no rubs.
Lungs: Clear to auscultation bilaterally, no wheeze, rhonchi, rubs bilaterally,
normal expiratory phase.
Extremities: No clubbing, cyanosis or edema bilaterally.
Neuro: Grossly nonfocal, awake, alert and oriented x3.
[2025-09-30 15:24] LABS: INR 1.38; PT 16.7 Sec (11.4-14.6)
--- NOTE | 2025-09-30 17:16 | W.IMMPOSTOP ---
Surgical Immed Post Op Note
-
Primary Surgeon: Hilda
Assisting Surgeon: Joseph Park, PGY2
Pre-op Diagnosis: Recurrent ventral incisional hernia
Post-op Diagnosis: Recurrent ventral incisional hernia
Procedure Performed: Open recurrent ventral incisional hernia repair with mesh, bilateral myofascial releases, extensive lysis of adhesions
Anesthesia Type: General
Specimen / Cultures: None
Estimated Blood Loss: 23 cc
Complications: None
Operative Findings:
1. Large ventral incisional hernia measuring 15 x 20 cm with separate 2.5 x 2.5 cm defect immediately caudal to sternum
2. Lysis of adhesions involving small bowel > 90 min
3. Bilateral TAR
4. Primary closure of posterior sheath with 2-0 PDS Stratafix
5. 50 x 50 Prolene soft mech from xiphoid to pubis, psoas muscles bilaterally
6. Primary closure of anterior sheath with #1 PDS Stratafix
7. BALBIR drains: LLQ (RIGHT retrorectus), RLQ (LEFT retrorectus), LUQ (subQ)
8. NGT placement confirmed
[2025-09-30] MEDS: DILAUDID PCA 30 IV (18:15)
[2025-09-30] MEDS: D5/0.45%NACL 1000 IV (18:22)
[2025-09-30] MEDS: LR 1000 IV (22:45)
--- NOTE | 2025-09-30 23:22 | TRANSFER ---
Received report Hany SUPERVISOR IN CIRCUIT TESTING - patient arrived to floor in bed @ 1940 post op open ventral hernia repair with mesh - abdominal midline incision with dressing CDI, binder in place. Pt drowsy but arousable to verbal. VS as documented. TIE LOADER hydromorphone
and IVF via left hand started in PACU. Alexandre catheter draining clear yellow urine. NGT to left nare at 63cm to low intermittent wall suction. patient resting comfortably, no complaints at this time.
[2025-10-01] VITALS (7 sets, daily range): BP systolic 93–124; BP diastolic 51–71; BMI 34.8
[2025-10-01] MEDS: TYLENOL PO ×6 (00:48→22:19)
[2025-10-01] MEDS: LOPRESSOR 5 MG IV (00:56)
[2025-10-01] MEDS: LOPRESSOR IV ×3 (05:55→17:08)
--- NOTE | 2025-10-01 07:16 | W.PN.GS2 ---
Today's Communication / Plan
-
-- No major changes for today
-- Continue to hold Hep gtt for today
Assessment / Plan
-
Patient is a 65 yo F POD#1 s/p open recurrent ventral incisional hernia repair with mesh, bilateral myofascial releases, extensive lysis of adhesions
AVSS
Labs pending
Recovering well overall. No major postoperative concerns. Plan to continue to hold heparin drip for today given her oozing intraoperatively yesterday and BALBIR outputs currently. Follow-up AM labs.
-- NPO, NGT
-- IVF
-- Pain: INVESTOR RELATIONS SPECIALIST, IV Tylenol
-- Home meds: holding most given bowel rest, BB IV and scheduled
-- DVT: SCDs, continue to hold Hep gtt for today tentative plan to resume tomorrow
-- GI: PPI
Subjective Data
-
Date of Service: October 01, 2025
No major complaints. Pain overall well-controlled. No nausea or vomiting. No flatus or BM. No fevers.
Objective Data
-
Intake and Output
09/30/25 10/01/25 10/02/25
06:59 06:59 06:59
Intake Total 540 / 540 1837 / 1837
Output Total 2450 / 2450
Balance 540 / 540 -613 / -613
Intake:
Oral fluids 540 / 540
IV fluids (Total) 1175 / 1175
normosol 300 / 300
Amount instilled into GI Tube ( 90 / 90
Total)
Gastrostomy 90 / 90
Blood Product Amount Infused ( 572 / 572
mL)
Fresh Frozen Plasma 24 Hours 311 / 311
Unit [id number]
Fresh Frozen Plasma 24 Hours 261 / 261
Unit [id number]
Output:
Drain Output (Total) 350 / 350
Left Abdomen Julio-Owen B 255 / 255
Left Abdomen Julio-Owen C
Right Abdomen Julio-Owen A 85 / 85
Gastrointestinal tube output ( 100 /
Total)
Gastrostomy /
Urine, Luis 1999
Other:
How many times incontinent 2
SATURATED amount urine
Number of approximated MODERATE 4 1
amounts of urine
Vital Signs
Temp Pulse Resp BP Pulse Ox
99.1 F 87 16 94/59 95
10/01/25 03:00 10/01/25 05:55 10/01/25 04:00 10/01/25 05:55 10/01/25 04:00
Calcium 8.8 mg/dl (8.4-10.2) 09/30/25 07:25
Physical Exam
-
Gen: NAD
HEENT: NGT with light bilious output
Abd: soft, moderate tenderness, ND, non-peritoneal, BALBIR thin sanguinous, dressing c/d/i
Patient has a luis catheter: Yes
Patient has a central line: No
[2025-10-01 07:24] LABS: Hematocrit 30.7 % (37.0-47.0); Hemoglobin 10.1 g/dL (12.0-16.0); Mean Corp Hgb Conc. 32.9 g/dL (33.0-37.0); Mean Corpuscular Volume 87.7 fL (81.0-99.0); Platelet Count 206 10^3/uL (130-400); Red Cell Dist. Width 14.7 % (11.5-14.5)
[2025-10-01 07:28] LABS: INR 1.50; PT 17.8 Sec (11.4-14.6)
[2025-10-01 07:56] LABS: Blood Urea Nitrogen 12 mg/dl (7-17); Calcium 7.4 mg/dl (8.4-10.2); Carbon Dioxide 31 mmol/L (22-30); Chloride 101 mmol/L (98-107); Estimated Creatinine Clearance 93 ml/min; Glucose 120 mg/dl (70-99); Potassium 4.5 mmol/L (3.5-5.1); Sodium 134 mmol/L (135-145); eGFR > 60.00
[2025-10-01] MEDS: PROTONIX IV 40 MG IV (09:04)
[2025-10-01] MEDS: NSS (PRESERVATIVE FREE) 10 ML IV (09:04)
[2025-10-01] MEDS: LR 1000 IV (15:07)
--- NOTE | 2025-10-01 15:33 | W.PN.CARDCBS ---
Addendum entered and electronically signed by Dat Cavanaugh MD 10/01/25 16:06:
I saw and examined the patient.
The Broodmare Barn Groom's note was reviewed and I agree with the note.
Comment:
GEN: No distress, awake, Ox3
HEENT: supple, anicteric, mmm
LUNGS: CTA, no wheezes/rales
CV: Reg, S1/S2, 1/6 syst LSB, + click
ABD: soft, + incisional pains
EXT: No edema
NEURO: Gross non-focal
SKIN: No rash
PLan:
Status post ventral hernia repair. Hemoglobin at 10.0 and still having some incisional bleeding.
Restart heparin in AM. INR 1.5
Weight is overall up and will give Lasix 20 mg IV today.
Continue IV Lopressor 5 mg IV Q6
Hopefully restart oral meds today
Original Note:
Today's Communication / Plan
-
Would like to restart heparin gtt on Sunday
Impression / Plan
-
PCP: Dr. Joey Guerrier
Primary Human Resources Intern: Dr. Brooks
Impression:
Direct admission for heparin bridge prior to planned ventral hernia repair
Chronic pain from her back
Symptomatic Paroxysmal atrial fibrillation/atypical atrial flutter/atrial tachycardia
s/p atrial flutter ablation 11/2019
s/p PVI and atrial flutter ablation 07/08/22
previously refractory to sotalol and Tikosyn
amiodarone previously stopped due to elevated LFTs and hypothyroidism
s/p KAMRAN/CV 12/04/23
s/p redo PVI/PW and mitral flutter ablation 12/17/24
s/p [place] Mechanical AVR , Closure of Perimembranous VSD with Bovine pericardial patch, Left Modified Maze procedure with Atricure device 07/16/20
Chronic warfarin OAC managed by [facility]
Chronic HFpEF
h/o SBO 08/02/2023 with ex lap for extensive lysis of adhesions (>90 min), small bowel resection with primary anastomosis, ventral incisional hernia repair with mesh 08/03/23
Reoperation for pelvic hematoma and anastomotic leak 08/12/23
History of diverticulitis with perforated diverticulum, peritonitis and sepsis, s/p ex lap with transverse colostomy, complicated by torsades felt to be due to sevoflurane 01/30/18
s/p takedown transverse loop colostomy, laparotomy, REMEDIOS, sigmoidectomy, primary sutured repair parastomal hernia 05/31/18-History of recurrent SBOs
HTN
HLD
Rheumatoid arthritis/fibromyalgia/chronic pain
Chronic back pain, epidural injections and daily narcotic use
B/L venous insufficiency
Echo 12/04/22: EF 55 to 60%, mild concentric LVH, well-seated [place] mechanical aortic valve prosthesis with peak/mean gradients 23/11 mmHg, trace AR, mild TR, PAP 35 to 40 mmHg
Echo 01/09/24: EF 64%, mild conc LVH, normal RV size and function, mild MR, [place] mechanical AVR with peak/mean 14/7 mmHg
Echo 07/20/2025: EF 61%, no WMA, mean gradient across [place] mechanical AVR 12 mmHg, moderate TR with PAP 35 mmHg
Plan:
-Patient was admitted for ventral hernia repair and the plan was for heparin bridge, but INR was 2.8. Cardiology consulted to help manage OAC.
-INR was 2.8 on admission and patient was given 4 units of FFP preop 09/30/25. INR is 1.50 on 10/01/2025, labs reviewed by me. Cardiology would like to start heparin gtt 10/02/2025.
-INR is managed by cardiology as an outpatient using home monitor with an INR goal of 2-2.5. Patient was taking warfarin 2.5 mg daily prior to admission for her history of [place] mechanical AVR from 2019.
-ECG reviewed by me from 09/30/2025
-Patient has a history of paroxysmal A-fib/flutter. Check ECG, she was in SR at cardiology office visit 08/04/2025.
-Outpatient dose of Lasix 40 mg daily has been continued for now. Check daily weights, ordered by me. EF was 61% at last echo 07/20/2025. No SOB or edema.
-Patient is appropriately concerned about pain management following surgery and is following with Dr. Chappell at [facility] pain management as an outpatient.
HPI: Patient presented to the hospital today for direct admission prior to planned ventral hernia repair surgery and cardiology is consulted to help with management of a heparin gtt being used as a bridge in the setting of previous mechanical AVR.
Patient was seen in the office on 08/04/2025 and at that time was in SR following repeat ablation 11/2024. Patient later saw general surgery and was recommended ventral hernia repair and Dr. Brooks added an addendum on 08/17/2025 stating that the
patient was at acceptable cardiac risk for surgery and did not require any additional testing. Back on 01/30/18 she had complications of diverticulitis with perforation requiring transverse loop colostomy which was complicated by perioperative
cardiac arrest for VT/torsades in and then returned in May 2018 for reversal of colostomy without adverse event. Then in 04/2019 she had a repair of a parastomal hernia complicated by small bowel obstruction. She has a h/o recurrent SBO. She has a
history of perimembranous VSD with gwxr-gv-vzkor shunt, bicuspid aortic valve with severe aortic stenosis, moderate tricuspid regurgitation and pulmonary hypertension and had mechanical AVR with 21mm [place] Mechanical Valve, closure of
Perimembranous VSD with Bovine pericardial patch, Left Modified Maze procedure with Atricure device 07/16/20. She recurred with atrial flutter and had ablation 11/2019 and then repeat ablation 07/08/22. Then on 08/02/23 she had a SBO and required ex
lap with extensive REMEDIOS and ventral incisional hernia repair. That admission was complicated by post-op pelvic hematoma and anastomotic leak. She eventually recovered and was discharged to home. Since then patient has had recurrent Afib and last
KMARAN/CV was 12/04/23. Most recently the patient had a redo PVI/PW mitral flutter ablation 12/17/2024 without clinically significant recurrence of atrial arrhythmia. Patient is chronically on warfarin with INR is managed by cardiology using a home
monitor as an outpatient. INR goal is usually 2.5-3.5. Patient took her usual dose of warfarin last evening and INR is 2.81 today.
Progress Note - Human Resources Intern
Subjective
Date of Service: October 01, 2025
She feels well
Objective
Labs:
10/01/25 07:04
10/01/25 07:04
Labs
Hgb 10.1 g/dL (12.0-16.0) L D 10/01/25 07:04
Hct 30.7 % (37.0-47.0) L 10/01/25 07:04
Plt Count 206 10^3/uL (130-400) 10/01/25 07:04
PT 17.8 Sec (11.4-14.6) H 10/01/25 07:04
INR 1.50 10/01/25 07:04
APTT Cancelled 09/29/25 20:50
Sodium 134 mmol/L (135-145) L 10/01/25 07:04
Potassium 4.5 mmol/L (3.5-5.1) 10/01/25 07:04
BUN 12 mg/dl (7-17) 10/01/25 07:04
Creatinine 0.6 mg/dL (0.6-1.0) 10/01/25 07:04
Glucose 120 mg/dl (70-99) H 10/01/25 07:04
Vital Signs and I&O:
Vital Signs
Temp Pulse Resp BP Pulse Ox
98.2 F 85 16 93/57 94
10/01/25 15:06 10/01/25 15:06 10/01/25 15:06 10/01/25 15:06 10/01/25 15:06
Vital Signs
Temp Pulse Resp BP Pulse Ox
98.2 F 85 16 93/57 94
10/01/25 15:06 10/01/25 15:06 10/01/25 15:06 10/01/25 15:06 10/01/25 15:06
Intake & Output
09/29/25 09/30/25 10/01/25 10/02/25
06:59 06:59 06:59 06:59
Intake Total 540 / 540 1837 / 1837 30 / 30
Output Total 2450 / 2450 157 / 157
Balance 540 / 540 -613 / -613 -127 / -127
Physical Exam
Physical Exam
GEN: AAO x3
LUNGS: RA. No wheeze
CV: Reg, +click
--- NOTE | 2025-10-01 15:55 | CM ---
Chart reviewed. Case Management will monitor for discharge needs and support when identified
[2025-10-01] MEDS: LASIX IV (16:45)
[2025-10-01] MEDS: D5/0.45%NACL 1000 IV (17:55)
[2025-10-01] MEDS: DILAUDID PCA 30 IV (23:39)
[2025-10-02] MEDS: LOPRESSOR IV ×4 (00:23→18:09)
[2025-10-02] MEDS: TYLENOL PO ×6 (00:23→20:00)
[2025-10-02] MEDS: OFIRMEV 100 IV (00:53)
[2025-10-02 03:02] VITALS: BP 100/52
[2025-10-02 05:34] VITALS: BMI 35.2
[2025-10-02 07:13] LABS: INR 1.33; PT 16.2 Sec (11.4-14.6)
[2025-10-02 07:32] LABS: Hematocrit 29.6 % (37.0-47.0); Hemoglobin 9.3 g/dL (12.0-16.0); Mean Corp Hgb Conc. 31.4 g/dL (33.0-37.0); Mean Corpuscular Volume 92.8 fL (81.0-99.0); Platelet Count 192 10^3/uL (130-400); Red Cell Dist. Width 14.8 % (11.5-14.5)
[2025-10-02 07:37] LABS: Blood Urea Nitrogen 17 mg/dl (7-17); Calcium 7.9 mg/dl (8.4-10.2); Carbon Dioxide 31 mmol/L (22-30); Chloride 101 mmol/L (98-107); Estimated Creatinine Clearance 70 ml/min; Glucose 100 mg/dl (70-99); Potassium 4.2 mmol/L (3.5-5.1); Sodium 133 mmol/L (135-145); eGFR > 60.00
[2025-10-02 07:47] VITALS: BMI 35.2
[2025-10-02 08:09] VITALS: BP 106/55
[2025-10-02] MEDS: LR IV (08:11)
[2025-10-02] MEDS: LASIX IV ×2 (09:00→11:04)
--- NOTE | 2025-10-02 09:44 | W.PN.GS2 ---
Today's Communication / Plan
-
-- Recheck Hb
-- NPO, NGT
-- mIVF, balance with Lasix per Cardiology
-- DVT: SCDs, continue to hold Hep gtt, tentative plan to resume this afternoon pending Hb re-check
Assessment / Plan
-
Patient is a 65 yo F POD#2 s/p open recurrent ventral incisional hernia repair with mesh, bilateral myofascial releases, extensive lysis of adhesions
AVSS
Labs notable for normalized WBC, continue drifting Hb, normal platelets, hyponatremia, normal renal function
Recovering well overall. Pain well-controlled. Continue drift in hemoglobin likely related to dilution and acute blood loss anemia. Continue to hold Heparin drip until Hb stabilizes; rechecked this afternoon, tentative plan to start later this
afternoon. Appreciate cardiology assistance.
-- Recheck Hb
-- NPO, NGT
-- mIVF, balance with Lasix per cardiology
-- Pain: continue ACCOUNT SERVICES ANALYST, rectal Tylenol
-- Home meds: holding most given bowel rest, BB IV and scheduled
-- DVT: SCDs, continue to hold Hep gtt, tentative plan to resume this afternoon pending Hb re-check
-- GI: PPI
Subjective Data
-
Date of Service: October 02, 2025
No complaints. Pain well-controlled. No nausea or vomiting. No flatus or bowel movements. No dizziness or lightheadedness. No fevers. Minimal ambulation. Luis removed this morning.
Objective Data
-
Intake and Output
10/01/25 10/02/25 10/03/25
06:59 06:59 06:59
Intake Total 1837 / 1837 1290 / 2607 1317 / 1317
Output Total 2450 / 2450 945 / 1035 90 / 90
Balance -613 / -613 345 / 1572 1227 / 1227
Intake:
IV fluids (Total) 1175 / 1175 1200 / 2400 1200 / 1200
normosol 300 / 300
IV piggybacks
Amount instilled into GI Tube ( 90 / 90 90 / 200 110 / 110
Total)
Gastrostomy 90 / 90
[place] Sump 90 / 200 110 / 110
Blood Product Amount Infused ( 572 / 572
mL)
Fresh Frozen Plasma 24 Hours 311 / 311
Unit [id number]
Fresh Frozen Plasma 24 Hours 261 / 261
Unit [id number]
Output:
Drain Output (Total) 350 / 350 405 / 405
Left Abdomen Julio-Owen B 255 / 255 218 / 218
Left Abdomen Julio-Owen C
Right Abdomen Julio-Owen A 85 / 85 170 / 170
Gastrointestinal tube output ( 100 / 100 90 / 90
Total)
Gastrostomy 100 / 100
[place] Sump 90 / 90
Urine, Luis 1999 / 1999 540 / 540
Other:
Number of approximated MODERATE 1
amounts of urine
Vital Signs
Temp Pulse Resp BP Pulse Ox
98.1 F 88 14 106/55 99
10/02/25 08:09 10/02/25 08:09 10/02/25 08:09 10/02/25 08:09 10/02/25 08:09
Lab Results
10/02/25 06:08
Calcium 7.9 mg/dl (8.4-10.2) L 10/02/25 06:08
Physical Exam
-
Gen: NAD
Abd: soft, mild tenderness, ND/obese, non-peritoneal, midline incision c/d/i - no erythema ecchymosis or drainage, BALBIR serosang
Patient has a luis catheter: No
Patient has a central line: No
[2025-10-02] MEDS: NSS (PRESERVATIVE FREE) 10 ML IV (11:03)
[2025-10-02] MEDS: PROTONIX IV 40 MG IV (11:04)
[2025-10-02 11:21] VITALS: BP 102/60
[2025-10-02 12:26] LABS: Hematocrit 27.5 % (37.0-47.0); Hemoglobin 8.8 g/dL (12.0-16.0)
[2025-10-02 12:28] LABS: APTT 30.6 Sec (23.4-35.0)
--- NOTE | 2025-10-02 12:55 | W.PN.CARDCBS ---
Today's Communication / Plan
-
Restart heparin later today if hemoglobin okay
Await clearance to restart Coumadin
Impression / Plan
-
PCP: Dr. Joey Guerrier
Primary Engine Monitor: Dr. Brooks
Impression:
Status post ventral hernia repair on 09/30/2025
Chronic pain from her back
Symptomatic Paroxysmal atrial fibrillation/atypical atrial flutter/atrial tachycardia
s/p atrial flutter ablation 11/2019
s/p PVI and atrial flutter ablation 07/08/22
previously refractory to sotalol and Tikosyn
amiodarone previously stopped due to elevated LFTs and hypothyroidism
s/p KAMRAN/CV 12/04/23
s/p redo PVI/PW and mitral flutter ablation 12/17/24
s/p [place] Mechanical AVR , Closure of Perimembranous VSD with Bovine pericardial patch, Left Modified Maze procedure with Atricure device 07/16/20
Chronic warfarin OAC managed by [facility]
Chronic HFpEF
h/o SBO 08/02/2023 with ex lap for extensive lysis of adhesions (>90 min), small bowel resection with primary anastomosis, ventral incisional hernia repair with mesh 08/03/23
Reoperation for pelvic hematoma and anastomotic leak 08/12/23
History of diverticulitis with perforated diverticulum, peritonitis and sepsis, s/p ex lap with transverse colostomy, complicated by torsades felt to be due to sevoflurane 01/30/18
s/p takedown transverse loop colostomy, laparotomy, REMEDIOS, sigmoidectomy, primary sutured repair parastomal hernia 05/31/18-History of recurrent SBOs
HTN
HLD
Rheumatoid arthritis/fibromyalgia/chronic pain
Chronic back pain, epidural injections and daily narcotic use
B/L venous insufficiency
Echo 12/04/22: EF 55 to 60%, mild concentric LVH, well-seated [place] mechanical aortic valve prosthesis with peak/mean gradients 23/11 mmHg, trace AR, mild TR, PAP 35 to 40 mmHg
Echo 01/09/24: EF 64%, mild conc LVH, normal RV size and function, mild MR, [place] mechanical AVR with peak/mean 14/7 mmHg
Echo 07/20/2025: EF 61%, no WMA, mean gradient across [place] mechanical AVR 12 mmHg, moderate TR with PAP 35 mmHg
Plan:
Stable cardiology status status post ventral hernia repair
General Surgery will consider restarting heparin based on repeat hemoglobin be done later today
Await clearance to restart Coumadin
HPI: Patient presented to the hospital today for direct admission prior to planned ventral hernia repair surgery and cardiology is consulted to help with management of a heparin gtt being used as a bridge in the setting of previous mechanical AVR.
Patient was seen in the office on 08/04/2025 and at that time was in SR following repeat ablation 11/2024. Patient later saw general surgery and was recommended ventral hernia repair and Dr. Brooks added an addendum on 08/17/2025 stating that the
patient was at acceptable cardiac risk for surgery and did not require any additional testing. Back on 01/30/18 she had complications of diverticulitis with perforation requiring transverse loop colostomy which was complicated by perioperative
cardiac arrest for VT/torsades in and then returned in May 2018 for reversal of colostomy without adverse event. Then in 04/2019 she had a repair of a parastomal hernia complicated by small bowel obstruction. She has a h/o recurrent SBO. She has a
history of perimembranous VSD with [id number] shunt, bicuspid aortic valve with severe aortic stenosis, moderate tricuspid regurgitation and pulmonary hypertension and had mechanical AVR with 21mm [place] Mechanical Valve, closure of
Perimembranous VSD with Bovine pericardial patch, Left Modified Maze procedure with Atricure device 07/16/20. She recurred with atrial flutter and had ablation 11/2019 and then repeat ablation 07/08/22. Then on 08/02/23 she had a SBO and required ex
lap with extensive REMEDIOS and ventral incisional hernia repair. That admission was complicated by post-op pelvic hematoma and anastomotic leak. She eventually recovered and was discharged to home. Since then patient has had recurrent Afib and last
KAMRAN/CV was 12/04/23. Most recently the patient had a redo PVI/PW mitral flutter ablation 12/17/2024 without clinically significant recurrence of atrial arrhythmia. Patient is chronically on warfarin with INR is managed by cardiology using a home
monitor as an outpatient. INR goal is usually 2.5-3.5. Patient took her usual dose of warfarin last evening and INR is 2.81 today.
Progress Note - Engine Monitor
Subjective
Date of Service: October 02, 2025
No chest pain or shortness of breath
Objective
Labs:
10/02/25 11:51
10/02/25 06:08
Labs
Hgb 8.8 g/dL (12.0-16.0) L 10/02/25 11:51
Hct 27.5 % (37.0-47.0) L 10/02/25 11:51
Plt Count 192 10^3/uL (130-400) 10/02/25 06:08
PT 16.2 Sec (11.4-14.6) H 10/02/25 06:08
INR 1.33 10/02/25 06:08
APTT 30.6 Sec (23.4-35.0) 10/02/25 11:51
Sodium 133 mmol/L (135-145) L 10/02/25 06:08
Potassium 4.2 mmol/L (3.5-5.1) 10/02/25 06:08
BUN 17 mg/dl (7-17) 10/02/25 06:08
Creatinine 0.8 mg/dL (0.6-1.0) 10/02/25 06:08
Glucose 100 mg/dl (70-99) H 10/02/25 06:08
Vital Signs and I&O:
Vital Signs
Temp Pulse Resp BP Pulse Ox
98.5 F 90 16 102/60 96
10/02/25 11:21 10/02/25 11:21 10/02/25 12:00 10/02/25 11:49 10/02/25 12:00
Vital Signs
Temp Pulse Resp BP Pulse Ox
98.5 F 90 16 102/60 96
10/02/25 11:21 10/02/25 11:21 10/02/25 12:00 10/02/25 11:49 10/02/25 12:00
Intake & Output
09/30/25 10/01/25 10/02/25 10/03/25
06:59 06:59 06:59 06:59
Intake Total 540 / 540 1837 / 1837 1290 / 2607 1317 / 1317
Output Total 2450 / 2450 945 / 1035 165 / 165
Balance 540 / 540 -613 / -613 345 / 1572 1152 / 1152
Physical Exam
Physical Exam
General: Well developed, well nourished in NAD.
Neck: Supple, no JVD, HJR, carotids +2 B/L, no bruits bilaterally.
Heart: Non displaced PMI, RRR, 1/6 basal systolic murmur, metallic S2, no S3, S4, no rubs.
Lungs: Clear to auscultation bilaterally, no wheeze, rhonchi, rubs bilaterally,
normal expiratory phase.
Abdomen: Normal bowel sounds, soft, non-tender, non-distended.
Extremities: No clubbing, cyanosis or edema bilaterally.
Neuro: Grossly nonfocal, awake, alert and oriented x3.
[2025-10-02] MEDS: HEPARIN 25000 UNITS/250 ML IV (14:10)
--- NOTE | 2025-10-02 14:45 | CM ---
Chart reviewed; Case Management will continue to monitor for discharge needs
[2025-10-02 16:07] VITALS: BP 109/56
[2025-10-02] MEDS: LEVOTHROID 84 MCG IV (18:10)
[2025-10-02 19:05] VITALS: BP 117/59
[2025-10-02] MEDS: LR 1000 IV (19:07)
[2025-10-02] MEDS: DILAUDID PCA 30 IV (19:33)
[2025-10-02 20:51] LABS: APTT 32.2 Sec (23.4-35.0)
[2025-10-02 23:02] VITALS: BP 115/60
--- NOTE | 2025-10-02 23:44 | PTCARENOTE ---
Pt was provided a cup of ice water 8oz at beginning of shift to moisten swab for dy mouth. Pt educated on NPO status and only to swab mouth. Pt requesting new cup of water at this time, denies drinking ice and reports it evaporated. Pt educated and
provided 4oz ice cup with mouth moisturizer package.
[2025-10-03] MEDS: TYLENOL PO ×6 (00:19→20:00)
[2025-10-03] MEDS: LOPRESSOR 5 MG IV ×3 (00:20→12:57)
[2025-10-03 03:05] VITALS: BP 105/53
[2025-10-03 03:39] LABS: INR 1.34; PT 16.7 Sec (11.4-14.6)
[2025-10-03 03:41] LABS: APTT 109.0 Sec (23.4-35.0)
[2025-10-03 03:43] LABS: Hematocrit 27.0 % (37.0-47.0); Hemoglobin 8.7 g/dL (12.0-16.0); Mean Corp Hgb Conc. 32.2 g/dL (33.0-37.0); Mean Corpuscular Volume 93.1 fL (81.0-99.0); Platelet Count 189 10^3/uL (130-400); Red Cell Dist. Width 14.1 % (11.5-14.5)
[2025-10-03 05:29] LABS: Blood Urea Nitrogen 15 mg/dl (7-17); Calcium 8.4 mg/dl (8.4-10.2); Carbon Dioxide 29 mmol/L (22-30); Chloride 105 mmol/L (98-107); Estimated Creatinine Clearance 93 ml/min; Glucose 83 mg/dl (70-99); Magnesium 2.0 mg/dl (1.6-2.3); Potassium 4.9 mmol/L (3.5-5.1); Sodium 137 mmol/L (135-145); eGFR > 60.00
[2025-10-03 06:00] VITALS: BMI 35.9
[2025-10-03] MEDS: DESENEX/MITRAZOL/ZEASORB 1 APPLIC TOPICAL (06:00)
[2025-10-03 07:15] VITALS: BP 121/62
[2025-10-03] MEDS: LASIX 20 MG IV (08:24)
[2025-10-03] MEDS: FLUSH (NSS) 1 FLUSH IV (08:25)
[2025-10-03] MEDS: PROTONIX IV 40 MG IV (08:25)
[2025-10-03] MEDS: NSS (PRESERVATIVE FREE) 10 ML IV (08:25)
[2025-10-03] MEDS: LR 1000 IV ×2 (09:04→21:56)
[2025-10-03 10:17] LABS: APTT 157.5 Sec (23.4-35.0)
[2025-10-03 11:35] VITALS: BP 117/58
--- NOTE | 2025-10-03 11:38 | W.PN.GS2 ---
Today's Communication / Plan
-
follow labs/elissa outputs on heparin gtt
NPO/NGT
Assessment / Plan
-
Patient is a 65 yo F with a h/o mechanical AVR on chronic warfarin, Afib, RA now POD#3 s/p open recurrent ventral incisional hernia repair with mesh, bilateral myofascial releases, extensive lysis of adhesions
AVSS
WBC and renal function normal
H/H stable
Recovering well overall. Pain well-controlled. Continue drift in hemoglobin likely related to dilution and acute blood loss anemia. LUQ ELISSA more sanguineous today, will follow closely. Appreciate cardiology assistance.
Plan
-- Recheck Hb this afternoon with next aPTT
-- NPO, NGT
-- mIVF, balance with Lasix per cardiology
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
-- C/W ELISSA drains
-- OOB/Ambulate. ABD binder with activity
-- Home meds: holding most given bowel rest, BB IV and scheduled
-- Continue IV Hep gtt, may need to hold if h/h drifting this afternoon. hold on PO AC
-- GI: PPI
Subjective Data
-
Date of Service: October 03, 2025
Pt seen and examined at bedside with Dr. Zamora. Denies n/v. Not yet passing gas. 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 Has not yet gotten OOB but feels she will be ready today.
Objective Data
-
Intake and Output
10/02/25 10/03/25 10/04/25
06:59 06:59 06:59
Intake Total 1290 / 2607 3471 / 3471
Output Total 1095 / 1185 1305 / 1305 88 / 88
Balance 195 / 1422 2166 / 2166 -88 / -88
Intake:
Oral fluids 240 / 240
IV fluids (Total) 1200 / 2400 2925 / 2925
IV piggybacks
Amount instilled into GI Tube ( 90 / 200 290 / 290
Total)
[place] Sump 90 / 200 290 / 290
Output:
Drain Output (Total) 405 / 405 235 / 235 88 / 88
Left Abdomen Julio-Owen B 218 / 218 40 / 40 18 / 18
Left Abdomen Julio-Owen C 17 / 17 30 / 30 50 / 50
Right Abdomen Julio-Owen A 170 / 170 165 / 165 20 / 20
Gastrointestinal tube output ( 150 / 240 495 / 495
Total)
[place] Sump 150 / 240 495 / 495
Urine, Luis 540 / 540
Urine, Voided 575 / 575
Vital Signs
Temp Pulse Resp BP Pulse Ox
100.0 F 80 16 121/62 93
10/03/25 07:15 10/03/25 07:15 10/03/25 08:00 10/03/25 07:15 10/03/25 08:00
Lab Results
10/03/25 03:21
10/03/25 03:21
Calcium 8.4 mg/dl (8.4-10.2) 10/03/25 03:21
Phosphorus 2.8 mg/dl (2.5-4.5) 10/03/25 03:21
Magnesium 2.0 mg/dl (1.6-2.3) 10/03/25 03:21
Physical Exam
-
Gen: NAD
Abd: soft, mild expected tenderness, ND/obese, non-peritoneal, midline incision c/d/i - no erythema ecchymosis or drainage, BLLQ ELISSA's serosang with LUQ ELISSA more sanguinous
Patient has a luis catheter: No
Patient has a central line: No
--- NOTE | 2025-10-03 12:05 | W.PN.CARDCBS ---
Today's Communication / Plan
-
Remains n.p.o. and Coumadin on hold
Continue IV heparin with mechanical AVR
Impression / Plan
-
PCP: Dr. Joey Guerrier
Primary Engineering Supplies Sales: Dr. Brooks
Impression:
Status post ventral hernia repair on 09/30/2025
Chronic pain from her back
Symptomatic Paroxysmal atrial fibrillation/atypical atrial flutter/atrial tachycardia
s/p atrial flutter ablation 11/2019
s/p PVI and atrial flutter ablation 07/08/22
previously refractory to sotalol and Tikosyn
amiodarone previously stopped due to elevated LFTs and hypothyroidism
s/p KAMRAN/CV 12/04/23
s/p redo PVI/PW and mitral flutter ablation 12/17/24
s/p [place] Mechanical AVR , Closure of Perimembranous VSD with Bovine pericardial patch, Left Modified Maze procedure with Atricure device 07/16/20
Chronic warfarin OAC managed by [facility]
Chronic HFpEF
h/o SBO 08/02/2023 with ex lap for extensive lysis of adhesions (>90 min), small bowel resection with primary anastomosis, ventral incisional hernia repair with mesh 08/03/23
Reoperation for pelvic hematoma and anastomotic leak 08/12/23
History of diverticulitis with perforated diverticulum, peritonitis and sepsis, s/p ex lap with transverse colostomy, complicated by torsades felt to be due to sevoflurane 01/30/18
s/p takedown transverse loop colostomy, laparotomy, REMEDIOS, sigmoidectomy, primary sutured repair parastomal hernia 05/31/18-History of recurrent SBOs
HTN
HLD
Rheumatoid arthritis/fibromyalgia/chronic pain
Chronic back pain, epidural injections and daily narcotic use
B/L venous insufficiency
Echo 12/04/22: EF 55 to 60%, mild concentric LVH, well-seated [place] mechanical aortic valve prosthesis with peak/mean gradients 23/11 mmHg, trace AR, mild TR, PAP 35 to 40 mmHg
Echo 01/09/24: EF 64%, mild conc LVH, normal RV size and function, mild MR, [place] mechanical AVR with peak/mean 14/7 mmHg
Echo 07/20/2025: EF 61%, no WMA, mean gradient across [place] mechanical AVR 12 mmHg, moderate TR with PAP 35 mmHg
Plan:
Stable cardiology status
Remains n.p.o. and unable to get Coumadin
Continue IV heparin given mechanical AVR
HPI: Patient presented to the hospital today for direct admission prior to planned ventral hernia repair surgery and cardiology is consulted to help with management of a heparin gtt being used as a bridge in the setting of previous mechanical AVR.
Patient was seen in the office on 08/04/2025 and at that time was in SR following repeat ablation 11/2024. Patient later saw general surgery and was recommended ventral hernia repair and Dr. Brooks added an addendum on 08/17/2025 stating that the
patient was at acceptable cardiac risk for surgery and did not require any additional testing. Back on 01/30/18 she had complications of diverticulitis with perforation requiring transverse loop colostomy which was complicated by perioperative
cardiac arrest for VT/torsades in and then returned in May 2018 for reversal of colostomy without adverse event. Then in 04/2019 she had a repair of a parastomal hernia complicated by small bowel obstruction. She has a h/o recurrent SBO. She has a
history of perimembranous VSD with [id number] shunt, bicuspid aortic valve with severe aortic stenosis, moderate tricuspid regurgitation and pulmonary hypertension and had mechanical AVR with 21mm [place] Mechanical Valve, closure of
Perimembranous VSD with Bovine pericardial patch, Left Modified Maze procedure with Atricure device 07/16/20. She recurred with atrial flutter and had ablation 11/2019 and then repeat ablation 07/08/22. Then on 08/02/23 she had a SBO and required ex
lap with extensive REMEDIOS and ventral incisional hernia repair. That admission was complicated by post-op pelvic hematoma and anastomotic leak. She eventually recovered and was discharged to home. Since then patient has had recurrent Afib and last
KAMRAN/CV was 12/04/23. Most recently the patient had a redo PVI/PW mitral flutter ablation 12/17/2024 without clinically significant recurrence of atrial arrhythmia. Patient is chronically on warfarin with INR is managed by cardiology using a home
monitor as an outpatient. INR goal is usually 2.5-3.5. Patient took her usual dose of warfarin last evening and INR is 2.81 today.
Progress Note - Engineering Supplies Sales
Subjective
Date of Service: October 03, 2025
No complaints
Objective
Labs:
10/03/25 03:21
Labs
Hgb 8.7 g/dL (12.0-16.0) L 10/03/25 03:21
Hct 27.0 % (37.0-47.0) L 10/03/25 03:21
Plt Count 189 10^3/uL (130-400) 10/03/25 03:21
PT 16.7 Sec (11.4-14.6) H 10/03/25 03:21
INR 1.34 10/03/25 03:21
APTT 157.5 Sec (23.4-35.0) H* 10/03/25 09:57
Sodium 137 mmol/L (135-145) 10/03/25 03:21
Potassium 4.9 mmol/L (3.5-5.1) 10/03/25 03:21
BUN 15 mg/dl (7-17) 10/03/25 03:21
Creatinine 0.6 mg/dL (0.6-1.0) 10/03/25 03:21
Glucose 83 mg/dl (70-99) 10/03/25 03:21
Vital Signs and I&O:
Vital Signs
Temp Pulse Resp BP Pulse Ox
99.1 F 75 16 117/58 96
10/03/25 11:35 10/03/25 11:35 10/03/25 11:35 10/03/25 11:35 10/03/25 11:35
Vital Signs
Temp Pulse Resp BP Pulse Ox
99.1 F 75 16 117/58 96
10/03/25 11:35 10/03/25 11:35 10/03/25 11:35 10/03/25 11:35 10/03/25 11:35
Intake & Output
10/01/25 10/02/25 10/03/25 10/04/25
06:59 06:59 06:59 06:59
Intake Total 1837 / 1837 1290 / 2607 3471 / 3471
Output Total 2450 / 2450 1095 / 1185 1305 / 1305 88 / 88
Balance -613 / -613 195 / 1422 2166 / 2166 -88 / -88
Physical Exam
Physical Exam
General: Well developed, well nourished in NAD.
Neck: Supple, no JVD, HJR, carotids +2 B/L, no bruits bilaterally.
Heart: Non displaced PMI, RRR, no murmurs, No S3, S4, no rubs.
Lungs: Scattered rhonchi
Extremities: No clubbing, cyanosis or edema bilaterally.
Neuro: Grossly nonfocal, awake, alert and oriented x3.
[2025-10-03 15:30] VITALS: BP 108/45
[2025-10-03] MEDS: LEVOTHROID 84 MCG IV (17:30)
[2025-10-03] MEDS: LOPRESSOR IV (17:31)
[2025-10-03] MEDS: HEPARIN 25000 UNITS/250 ML IV (19:14)
[2025-10-03 19:17] VITALS: BP 118/55
[2025-10-03 19:31] LABS: Hematocrit 25.4 % (37.0-47.0); Hemoglobin 8.2 g/dL (12.0-16.0)
[2025-10-03 19:50] LABS: APTT 65.5 Sec (23.4-35.0)
[2025-10-03 23:11] VITALS: BP 106/65
[2025-10-04] MEDS: TYLENOL PO ×5 (00:04→16:56)
[2025-10-04] MEDS: LOPRESSOR 5 MG IV ×4 (00:04→18:24)
[2025-10-04] MEDS: DILAUDID PCA 30 IV (00:39)
[2025-10-04 02:46] LABS: APTT 54.1 Sec (23.4-35.0)
[2025-10-04 03:13] VITALS: BP 127/61
[2025-10-04 06:00] VITALS: BMI 35.4
--- NOTE | 2025-10-04 06:18 | PTCARENOTE ---
pt cont to drink and eat ice chip meant for swabs, educated that she was to remain NPO but was argumentative and reported she will keep ding what she has been doing.
[2025-10-04 08:10] VITALS: BP 135/69
[2025-10-04] MEDS: NSS (PRESERVATIVE FREE) 10 ML IV (08:49)
[2025-10-04] MEDS: PROTONIX IV 40 MG IV (08:49)
[2025-10-04] MEDS: LASIX IV (09:01)
[2025-10-04] MEDS: LR 1000 IV (09:26)
[2025-10-04 09:37] LABS: Hematocrit 26.6 % (37.0-47.0); Hemoglobin 8.7 g/dL (12.0-16.0); Mean Corp Hgb Conc. 32.7 g/dL (33.0-37.0); Mean Corpuscular Volume 90.5 fL (81.0-99.0); Platelet Count 245 10^3/uL (130-400); Red Cell Dist. Width 14.0 % (11.5-14.5)
[2025-10-04 09:40] LABS: APTT 135.5 Sec (23.4-35.0)
--- NOTE | 2025-10-04 09:52 | W.PN.GS2 ---
Today's Communication / Plan
-
NG tube clamp trial.
Out of bed and ambulate today
Assessment / Plan
-
Patient is a 65 yo F with a h/o mechanical AVR on chronic warfarin, Afib, RA now POD#4 s/p open recurrent ventral incisional hernia repair with mesh, bilateral myofascial releases, extensive lysis of adhesions
AVSS
Labs and exam reassuring
Plan
NG tube clamp trial
IV fluids, Lasix per cardiology
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
Will start bowel regimen once we start p.o. diet
Home meds: holding most given bowel rest, BB IV and scheduled
Continue IV Hep gtt
PPI
Time Spent
Total Time Spent with Patient (in minutes): 20
Subjective Data
-
Date of Service: October 04, 2025
Interval Events:
No acute events overnight. Slept well. Pain Controlled. Denies Nausea/Vomiting, some minimal bowel function. NG tube with low but bilious output
Objective Data
-
Intake and Output
10/03/25 10/04/25 10/05/25
06:59 06:59 06:59
Intake Total 3471 / 3471 2560 / 2560
Output Total 1305 / 1305 2183 / 2183
Balance 2166 / 2166 377 / 377
Intake:
Oral fluids 240 / 240 700 / 700
IV fluids (Total) 2925 / 2925 1800 / 1800
IV piggybacks 16 / 16
Amount instilled into GI Tube ( 290 / 290 60 / 60
Total)
[place] Sump 290 / 290 60 / 60
Output:
Drain Output (Total) 235 / 235 433 / 433
Left Abdomen Julio-Owen B 40 / 40 63 / 63
Left Abdomen Julio-Owen C 30 / 30 280 / 280
Right Abdomen Julio-Owen A 165 / 165 90 / 90
Gastrointestinal tube output ( 495 / 495 350 / 350
Total)
[place] Sump 495 / 495 350 / 350
Urine, Voided 575 / 575 1400 / 1400
Other:
Number of approximated SMALL 1
amounts of urine
Number of approximated MODERATE 1
amounts of urine
Vital Signs
Temp Pulse Resp BP Pulse Ox
98.4 F 80 16 135/69 95
10/04/25 08:10 10/04/25 08:10 10/04/25 08:10 10/04/25 08:10 10/04/25 08:10
Lab Results
10/04/25 09:16
Calcium 8.4 mg/dl (8.4-10.2) 10/03/25 03:21
Phosphorus 2.8 mg/dl (2.5-4.5) 10/03/25 03:21
Magnesium 2.0 mg/dl (1.6-2.3) 10/03/25 03:21
Physical Exam
-
GENERAL/NEURO: Awake, Alert, no distress
CHEST: Unlabored breathing on RA
ABDOMEN: Soft, obese, appropriately tender, mildly distended, incisions clean dry and intact.
NG tube 350 cc bilious
Right retrorectus BALBIR 90 cc serosanguineous
Left retrorectus BALBIR 280 cc serosanguineous
Left subcutaneous drain 63 cc serosanguineous
Patient has a luis catheter: No
Patient has a central line: No
[2025-10-04 10:38] LABS: Blood Urea Nitrogen 15 mg/dl (7-17); Calcium 8.2 mg/dl (8.4-10.2); Carbon Dioxide 27 mmol/L (22-30); Chloride 102 mmol/L (98-107); Estimated Creatinine Clearance 94 ml/min; Glucose 79 mg/dl (70-99); Magnesium 1.7 mg/dl (1.6-2.3); Potassium 3.9 mmol/L (3.5-5.1); Sodium 135 mmol/L (135-145); eGFR > 60.00
[2025-10-04 11:20] VITALS: BP 143/69
[2025-10-04 15:10] VITALS: BP 125/63
[2025-10-04 17:28] LABS: APTT 120.7 Sec (23.4-35.0)
[2025-10-04] MEDS: HEPARIN 25000 UNITS/250 ML IV (17:32)
[2025-10-04] MEDS: LEVOTHROID 84 MCG IV (18:24)
[2025-10-04 20:07] VITALS: BP 120/83
[2025-10-04] MEDS: TYLENOL 650 MG PO ×2 (20:33→23:36)
[2025-10-04 23:00] VITALS: BP 110/63
[2025-10-04 23:23] LABS: APTT 116.5 Sec (23.4-35.0)
[2025-10-04] MEDS: LOPRESSOR IV (23:42)
[2025-10-05] MEDS: LR 1000 IV (01:15)
[2025-10-05 03:30] VITALS: BP 126/66
[2025-10-05] MEDS: TYLENOL 650 MG PO ×4 (04:55→20:15)
[2025-10-05] MEDS: LOPRESSOR 5 MG IV (04:56)
[2025-10-05 05:16] VITALS: BMI 35.3
[2025-10-05 06:25] LABS: Hematocrit 24.7 % (37.0-47.0); Hemoglobin 8.1 g/dL (12.0-16.0); Mean Corp Hgb Conc. 32.8 g/dL (33.0-37.0); Mean Corpuscular Volume 89.2 fL (81.0-99.0); Nucleated Red Blood Cells % 0 %; Platelet Count 241 10^3/uL (130-400); Red Cell Dist. Width 14.2 % (11.5-14.5)
[2025-10-05 06:40] LABS: APTT 99.1 Sec (23.4-35.0)
[2025-10-05 06:58] LABS: Blood Urea Nitrogen 15 mg/dl (7-17); Calcium 8.1 mg/dl (8.4-10.2); Carbon Dioxide 30 mmol/L (22-30); Chloride 103 mmol/L (98-107); Estimated Creatinine Clearance 94 ml/min; Glucose 89 mg/dl (70-99); Magnesium 1.7 mg/dl (1.6-2.3); Potassium 3.6 mmol/L (3.5-5.1); Sodium 135 mmol/L (135-145); eGFR > 60.00
[2025-10-05 07:05] VITALS: BP 135/67
--- NOTE | 2025-10-05 08:38 | W.PN.CARDCBS ---
Today's Communication / Plan
-
Continue heparin
Resume warfarin
Check EKG for QT interval
Discharge planning
Impression / Plan
-
PCP: Dr. Joey Guerrier
Primary Diving Supervisor: Dr. Brooks
Impression:
Status post ventral hernia repair on 09/30/2025
Chronic pain from her back
Symptomatic Paroxysmal atrial fibrillation/atypical atrial flutter/atrial tachycardia
s/p atrial flutter ablation 11/2019
s/p PVI and atrial flutter ablation 07/08/22
previously refractory to sotalol and Tikosyn
amiodarone previously stopped due to elevated LFTs and hypothyroidism
s/p KAMRAN/CV 12/04/23
s/p redo PVI/PW and mitral flutter ablation 12/17/24
s/p [place] Mechanical AVR , Closure of Perimembranous VSD with Bovine pericardial patch, Left Modified Maze procedure with Atricure device 07/16/20
Chronic warfarin OAC managed by [facility]
Chronic HFpEF
h/o SBO 08/02/2023 with ex lap for extensive lysis of adhesions (>90 min), small bowel resection with primary anastomosis, ventral incisional hernia repair with mesh 08/03/23
Reoperation for pelvic hematoma and anastomotic leak 08/12/23
History of diverticulitis with perforated diverticulum, peritonitis and sepsis, s/p ex lap with transverse colostomy, complicated by torsades felt to be due to sevoflurane 01/30/18
s/p takedown transverse loop colostomy, laparotomy, REMEDIOS, sigmoidectomy, primary sutured repair parastomal hernia 05/31/18-History of recurrent SBOs
HTN
HLD
Rheumatoid arthritis/fibromyalgia/chronic pain
Chronic back pain, epidural injections and daily narcotic use
B/L venous insufficiency
Echo 12/04/22: EF 55 to 60%, mild concentric LVH, well-seated [place] mechanical aortic valve prosthesis with peak/mean gradients 23/11 mmHg, trace AR, mild TR, PAP 35 to 40 mmHg
Echo 01/09/24: EF 64%, mild conc LVH, normal RV size and function, mild MR, [place] mechanical AVR with peak/mean 14/7 mmHg
Echo 07/20/2025: EF 61%, no WMA, mean gradient across [place] mechanical AVR 12 mmHg, moderate TR with PAP 35 mmHg
Plan:
Doing well, postop day 5 status post repair of large ventral incisional hernia with repair of separate tube 0.5 x 2.5 cm defect adjacent to sternum
will resume oral meds including warfarin, will give 5 mg today.
Switch IV Lasix to p.o.
QT interval was borderline on admission, will repeat ECG consider supplementation of potassium and magnesium
She is tolerating heparin, will continue for now, though risk of cardioembolic event off heparin remains low.
HPI: Patient presented to the hospital today for direct admission prior to planned ventral hernia repair surgery and cardiology is consulted to help with management of a heparin gtt being used as a bridge in the setting of previous mechanical AVR.
Patient was seen in the office on 08/04/2025 and at that time was in SR following repeat ablation 11/2024. Patient later saw general surgery and was recommended ventral hernia repair and Dr. Brooks added an addendum on 08/17/2025 stating that the
patient was at acceptable cardiac risk for surgery and did not require any additional testing. Back on 01/30/18 she had complications of diverticulitis with perforation requiring transverse loop colostomy which was complicated by perioperative
cardiac arrest for VT/torsades in and then returned in May 2018 for reversal of colostomy without adverse event. Then in 04/2019 she had a repair of a parastomal hernia complicated by small bowel obstruction. She has a h/o recurrent SBO. She has a
history of perimembranous VSD with [id number] shunt, bicuspid aortic valve with severe aortic stenosis, moderate tricuspid regurgitation and pulmonary hypertension and had mechanical AVR with 21mm [place] Mechanical Valve, closure of
Perimembranous VSD with Bovine pericardial patch, Left Modified Maze procedure with Atricure device 07/16/20. She recurred with atrial flutter and had ablation 11/2019 and then repeat ablation 07/08/22. Then on 08/02/23 she had a SBO and required ex
lap with extensive REMEDIOS and ventral incisional hernia repair. That admission was complicated by post-op pelvic hematoma and anastomotic leak. She eventually recovered and was discharged to home. Since then patient has had recurrent Afib and last
KAMRAN/CV was 12/04/23. Most recently the patient had a redo PVI/PW mitral flutter ablation 12/17/2024 without clinically significant recurrence of atrial arrhythmia. Patient is chronically on warfarin with INR is managed by cardiology using a home
monitor as an outpatient. INR goal is usually 2.5-3.5. Patient took her usual dose of warfarin last evening and INR is 2.81 today.
Progress Note - Diving Supervisor
Subjective
Date of Service: October 05, 2025:
65-year-old woman who underwent ventral, now on heparin following mechanical aortic valve replacement
PMH/PSH
PMH/PSH: [place] mechanical aortic valve replacement with bovine pericardial patch VSD closure, Maze procedure 2019, PAF/atypical flutter/atrial tachycardia status post flutter ablation 2019, PVI and flutter ablation PVI/posterior wall/flutter
ablation November 2024, HFpEF, and history of SBO 2022, history of subsequent colostomy takedown, history of SBO, history of torsade, hypertension, hyperlipidemia, rheumatoid arthritis, fibromyalgia, chronic pain, venous insufficiency
Current meds: IV heparin, lactated Ringer's, metoprolol 5 mg IV every 6, furosemide 20 mg daily, IV levothyroxine
135/67, pulse 65, respiratory rate 16, afebrile, no distress lungs are clear regular rate and rhythm, prosthetic second heart sound, abdomen intact, extremities without clubbing cyanosis or edema
ECG sinus rhythm with sinus arrhythmia, mild QT prolongation, IVCD, left axis
Hemoglobin 8.1, white count 8.2, BUN/creatinine 15 and 0.5, potassium 3.6, magnesium 1.7
Objective
Labs:
10/05/25 06:11
10/05/25 06:11
Labs
Hgb 8.1 g/dL (12.0-16.0) L 10/05/25 06:11
Hct 24.7 % (37.0-47.0) L 10/05/25 06:11
Plt Count 241 10^3/uL (130-400) 10/05/25 06:11
PT 16.7 Sec (11.4-14.6) H 10/03/25 03:21
INR 1.34 10/03/25 03:21
APTT 99.1 Sec (23.4-35.0) H 10/05/25 06:11
Sodium 135 mmol/L (135-145) 10/05/25 06:11
Potassium 3.6 mmol/L (3.5-5.1) 10/05/25 06:11
BUN 15 mg/dl (7-17) 10/05/25 06:11
Creatinine 0.5 mg/dL (0.6-1.0) L 10/05/25 06:11
Glucose 89 mg/dl (70-99) 10/05/25 06:11
Vital Signs and I&O:
Vital Signs
Temp Pulse Resp BP Pulse Ox
36.7 C 65 16 135/67 97
10/05/25 07:05 10/05/25 07:05 10/05/25 07:05 10/05/25 07:05 10/05/25 07:05
Vital Signs
Temp Pulse Resp BP Pulse Ox
36.7 C 65 16 135/67 97
10/05/25 07:05 10/05/25 07:05 10/05/25 07:05 10/05/25 07:05 10/05/25 07:05
Intake & Output
10/03/25 10/04/25 10/05/25 10/06/25
07:59 07:59 07:59 07:59
Intake Total 2154 / 2154 2560 / 2560 2528 / 2528
Output Total 1215 / 1215 2183 / 2183 225 / 225
Balance 939 / 939 377 / 377 2303 / 2303
Physical Exam
Physical Exam
See above
--- NOTE | 2025-10-05 09:14 | W.PN.GS2 ---
Today's Communication / Plan
-
clear liquids
Assessment / Plan
-
Patient is a 65 yo F with a h/o mechanical AVR on chronic warfarin, Afib, RA now POD#5 s/p open recurrent ventral incisional hernia repair with mesh, bilateral myofascial releases, extensive lysis of adhesions
AVSS
Labs and exam reassuring
Having some bowel recovery
NGT out 10/04, tolerating sips of clears
No leukocytosis. H/H stable
Plan
Clear liquid diet
Appreciate cards following for management
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
Miralax po daily
Ok for PO meds
Home meds: holding most given bowel rest, BB IV and scheduled
Continue IV Hep gtt
Subjective Data
-
Date of Service: October 05, 2025
Pt seen and examined at bedside with Dr. Zamora. Denies n/v. Passing flatus. No belching. Pain under good control.
Objective Data
-
Intake and Output
10/04/25 10/05/25 10/06/25
06:59 06:59 06:59
Intake Total 2560 / 2560 1515 / 1515 1013 / 1013
Output Total 2183 / 2183 225 / 225
Balance 377 / 377 1290 / 1290 1013 / 1013
Intake:
Oral fluids 700 / 700 480 / 480
IV fluids (Total) 1800 / 1800 900 / 900 1013 / 1013
IV piggybacks 135 / 135
Amount instilled into GI Tube ( 60 / 60
Total)
[place] Sump 60 / 60
Output:
Drain Output (Total) 433 / 433 225 / 225
Left Abdomen Julio-Owen B 63 / 63 20 / 20
Left Abdomen Julio-Owne C 280 / 280 180 / 180
Right Abdomen Julio-Owen A 90 / 90
Gastrointestinal tube output ( 350 / 350
Total)
[place] Sump 350 / 350
Urine, Voided 1400 / 1400
Other:
Number of approximated SMALL 1 2
amounts of urine
Number of approximated MODERATE 1 2
amounts of urine
Number of approximated LARGE 1
amounts of urine
Vital Signs
Temp Pulse Resp BP Pulse Ox
98.0 F 65 16 135/67 97
10/05/25 07:05 10/05/25 07:05 10/05/25 07:05 10/05/25 07:05 10/05/25 07:05
Lab Results
10/05/25 06:11
10/05/25 06:11
Calcium 8.1 mg/dl (8.4-10.2) L 10/05/25 06:11
Phosphorus 3.3 mg/dl (2.5-4.5) 10/05/25 06:11
Magnesium 1.7 mg/dl (1.6-2.3) 10/05/25 06:11
Physical Exam
-
GENERAL/NEURO: Awake, Alert, no distress
CHEST: Unlabored breathing on RA
ABDOMEN: Soft, obese, appropriately tender, not distended, midline incision; intact steri strips, clean and well approximated, no erythema
Right retrorectus BALBIR 25 cc serosanguineous
Left retrorectus BALBIR 180 cc serosanguineous
Left subcutaneous drain 20 cc serosanguineous
Patient has a luis catheter: No
Patient has a central line: No
--- NOTE | 2025-10-05 10:04 | CM ---
network project manager reviewed patient's chart and per notes NGT discharged on 10/04, clear liquid diet. Plan to follow labs. Home with spouse when stable.
Plan; Home with spouse when stable.
[2025-10-05] MEDS: LASIX 20 MG IV (10:16)
[2025-10-05] MEDS: MIRALAX 17 GRAMS PO (10:16)
[2025-10-05] MEDS: NSS (PRESERVATIVE FREE) 10 ML IV (10:17)
[2025-10-05] MEDS: PROTONIX IV 40 MG IV (10:18)
[2025-10-05] MEDS: TOPROL XL 12.5 MG PO (10:28)
[2025-10-05] MEDS: D5/0.45%NACL 1000 IV (10:29)
[2025-10-05] MEDS: CELEXA 40 MG PO (10:30)
[2025-10-05 11:15] VITALS: BP 143/64
[2025-10-05] MEDS: TYLENOL PO (12:00)
[2025-10-05 13:28] LABS: APTT 84.9 Sec (23.4-35.0)
[2025-10-05 15:10] VITALS: BP 136/61
[2025-10-05] MEDS: COUMADIN 5 MG PO (16:55)
[2025-10-05] MEDS: HEPARIN 25000 UNITS/250 ML IV (16:56)
--- NOTE | 2025-10-05 17:14 | PTCARENOTE ---
Patient tolerated sittin in chair for 4 hours. Patient ambulated in halls with walker and assistx1. Patient maintained abdominal binder whenOOb and ambulating. Patient tolrating clear iquid diet. patient has minimal c/o pain. CAR HOP keeping pain well
controlled.
[2025-10-05 19:35] VITALS: BP 128/60
[2025-10-05] MEDS: DETROL LA 4 MG PO (22:23)
[2025-10-05 23:40] VITALS: BP 131/66
[2025-10-06] MEDS: TYLENOL PO ×2 (00:40→04:00)
[2025-10-06 03:43] VITALS: BP 146/68
[2025-10-06] MEDS: ZOFRAN 4 MG IV (03:45)
[2025-10-06 06:00] VITALS: BMI 35.1
[2025-10-06] MEDS: SYNTHROID 112 MCG PO (06:30)
[2025-10-06 07:05] VITALS: BP 137/67
[2025-10-06 07:57] LABS: Hematocrit 25.0 % (37.0-47.0); Hemoglobin 8.4 g/dL (12.0-16.0); Mean Corp Hgb Conc. 33.6 g/dL (33.0-37.0); Mean Corpuscular Volume 89.0 fL (81.0-99.0); Platelet Count 265 10^3/uL (130-400); Red Cell Dist. Width 14.2 % (11.5-14.5)
[2025-10-06 08:07] LABS: Blood Urea Nitrogen 10 mg/dl (7-17); Calcium 8.0 mg/dl (8.4-10.2); Carbon Dioxide 33 mmol/L (22-30); Chloride 100 mmol/L (98-107); Estimated Creatinine Clearance 93 ml/min; Glucose 103 mg/dl (70-99); Potassium 3.6 mmol/L (3.5-5.1); Sodium 134 mmol/L (135-145); eGFR > 60.00
[2025-10-06 08:20] LABS: INR 1.79; PT 20.9 Sec (11.4-14.6)
[2025-10-06 08:21] LABS: APTT 61.5 Sec (23.4-35.0)
[2025-10-06] MEDS: TOPROL XL 12.5 MG PO (08:58)
[2025-10-06] MEDS: CELEXA 40 MG PO (08:58)
[2025-10-06] MEDS: LASIX 40 MG PO (08:58)
[2025-10-06] MEDS: MIRALAX 17 GRAMS PO (08:58)
[2025-10-06] MEDS: PROTONIX IV 40 MG IV (08:59)
[2025-10-06] MEDS: NSS (PRESERVATIVE FREE) 10 ML IV (08:59)
[2025-10-06] MEDS: TYLENOL 650 MG PO ×4 (08:59→20:35)
--- NOTE | 2025-10-06 09:49 | W.PN.CARDCBS ---
Addendum entered and electronically signed by Cuba Martin MD 10/06/25 12:22:
65-year-old woman who underwent ventral, now on heparin following mechanical aortic valve replacement
PMH/PSH: [place] mechanical aortic valve replacement with bovine pericardial patch VSD closure, Maze procedure 2019, PAF/atypical flutter/atrial tachycardia status post flutter ablation 2019, PVI and flutter ablation PVI/posterior wall/flutter
ablation November 2024, HFpEF, and history of SBO 2022, history of subsequent colostomy takedown, history of SBO, history of torsade, hypertension, hyperlipidemia, rheumatoid arthritis, fibromyalgia, chronic pain, venous insufficiency
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
137/67, pulse 82, respiratory rate 16, afebrile, lungs are clear, regular rate and rhythm, JVD okay, abdomen distended, extremities without significant edema
White count 11.0, hemoglobin 8.4, platelets are 265, PTT is 61, INR is1.79, BUN and creatinine are 10 and 0.6, sodium is 134
Impression:
Status post ventral hernia repair 09/30/2025
Other diagnoses as below, reviewed in detail and agree, unless otherwise specified
Plan:
Doing well from cardiac standpoint.
She wants to stop heparin, her INR is rising, 1.79, and her risk is reduced with her valve being aortic rather than mitral. We will stop her heparin, give her warfarin early, and continue to follow INR.
Otherwise no new recommendations.
Original Note:
Today's Communication / Plan
-
INR is on the rise and up to 1.79 on 10/06/2025, INR goal 2.5-3.5
From a cardiovascular standpoint if patient was otherwise stable for discharge to home then heparin gtt could be stopped and patient would continue with warfarin at home and check INR using home monitor.
Patient is asking if heparin gtt can be stopped while inpatient due to repeated phlebotomy, we reviewed the risks and the benefits and she would prefer to be off of heparin gtt, check INR this evening and then daily
Orders placed by me
Impression / Plan
-
PCP: Dr. Joey Guerrier
Primary Milk Pickup Truck Driver: Dr. Brooks
Impression:
Status post ventral hernia repair on 09/30/2025
Chronic pain from her back
Symptomatic Paroxysmal atrial fibrillation/atypical atrial flutter/atrial tachycardia
s/p atrial flutter ablation 11/2019
s/p PVI and atrial flutter ablation 07/08/22
previously refractory to sotalol and Tikosyn
amiodarone previously stopped due to elevated LFTs and hypothyroidism
s/p KAMRAN/CV 12/04/23
s/p redo PVI/PW and mitral flutter ablation 12/17/24
s/p [place] Mechanical AVR , Closure of Perimembranous VSD with Bovine pericardial patch, Left Modified Maze procedure with Atricure device 07/16/20
Chronic warfarin OAC managed by [facility]
Chronic HFpEF
h/o SBO 08/02/2023 with ex lap for extensive lysis of adhesions (>90 min), small bowel resection with primary anastomosis, ventral incisional hernia repair with mesh 08/03/23
Reoperation for pelvic hematoma and anastomotic leak 08/12/23
History of diverticulitis with perforated diverticulum, peritonitis and sepsis, s/p ex lap with transverse colostomy, complicated by torsades felt to be due to sevoflurane 01/30/18
s/p takedown transverse loop colostomy, laparotomy, REMEDIOS, sigmoidectomy, primary sutured repair parastomal hernia 05/31/18-History of recurrent SBOs
HTN
HLD
Rheumatoid arthritis/fibromyalgia/chronic pain
Chronic back pain, epidural injections and daily narcotic use
B/L venous insufficiency
Echo 12/04/22: EF 55 to 60%, mild concentric LVH, well-seated [place] mechanical aortic valve prosthesis with peak/mean gradients 23/11 mmHg, trace AR, mild TR, PAP 35 to 40 mmHg
Echo 01/09/24: EF 64%, mild conc LVH, normal RV size and function, mild MR, [place] mechanical AVR with peak/mean 14/7 mmHg
Echo 07/20/2025: EF 61%, no WMA, mean gradient across [place] mechanical AVR 12 mmHg, moderate TR with PAP 35 mmHg
Plan:
-Patient was admitted the day before surgery for possible heparin bridging with her previously placed mechanical AVR, but patient had forgotten to stop warfarin and INR was actually 2.8 on admission and patient was given FFP prior to ventral hernia
repair surgery on 09/30/2025. Cardiology has continue to follow postoperatively.
-Patient was given 4 units of FFP preop 09/30/25 and INR as low as 1.3 on 09/30/2025. Heparin gtt started 10/02/2025. Warfarin restarted on the night of 10/05/2025. INR was 1.34 on 10/03/2025 and INR has increased to 1.79 on 10/06/2025, all labs
reviewed by me.
-INR is managed by cardiology as an outpatient using home monitor with an INR goal of 2.5 to 3.5. Patient was taking warfarin 2.5 mg daily prior to admission for her history of [place] mechanical AVR from 2019.
-Patient reports plan is for ongoing hospitalization related to bowel recovery postop. From a cardiovascular standpoint if patient was otherwise stable for discharge to home then heparin gtt could be stopped and patient would continue with warfarin
at home and check INR using home monitor. Patient is asking if heparin gtt can be stopped while inpatient due to repeated phlebotomy. Will review with cardiology attending, but we could consider stopping heparin gtt, continuing warfarin and
continuing with daily INRs and this approach would decrease the amount of sticks required.
-ECG on 09/30/2025 showed a QTc of 488 ms in SR with sinus arrhythmia and repeat ECG from 10/05/2025 was reviewed by me and shows QTc 440 ms and patient remains in SR
-Patient has a history of paroxysmal A-fib/flutter, but currently NSR.
-Outpatient dose of Lasix 40 mg daily was resumed 10/06/2025, orders placed by cardiology. Patient is only tolerating clear liquid diet as of 10/06/2025. Weight is up 6 lbs from admission, patient weighs 185 lbs on 10/06/2025. EF was 61% at last
echo 07/20/2025. No SOB or edema.
HPI: Patient presented to the hospital today for direct admission prior to planned ventral hernia repair surgery and cardiology is consulted to help with management of a heparin gtt being used as a bridge in the setting of previous mechanical AVR.
Patient was seen in the office on 08/04/2025 and at that time was in SR following repeat ablation 11/2024. Patient later saw general surgery and was recommended ventral hernia repair and Dr. Brooks added an addendum on 08/17/2025 stating that the
patient was at acceptable cardiac risk for surgery and did not require any additional testing. Back on 01/30/18 she had complications of diverticulitis with perforation requiring transverse loop colostomy which was complicated by perioperative
cardiac arrest for VT/torsades in and then returned in May 2018 for reversal of colostomy without adverse event. Then in 04/2019 she had a repair of a parastomal hernia complicated by small bowel obstruction. She has a h/o recurrent SBO. She has a
history of perimembranous VSD with [id number] shunt, bicuspid aortic valve with severe aortic stenosis, moderate tricuspid regurgitation and pulmonary hypertension and had mechanical AVR with 21mm [place] Mechanical Valve, closure of
Perimembranous VSD with Bovine pericardial patch, Left Modified Maze procedure with Atricure device 07/16/20. She recurred with atrial flutter and had ablation 11/2019 and then repeat ablation 07/08/22. Then on 08/02/23 she had a SBO and required ex
lap with extensive REMEDIOS and ventral incisional hernia repair. That admission was complicated by post-op pelvic hematoma and anastomotic leak. She eventually recovered and was discharged to home. Since then patient has had recurrent Afib and last
KAMRAN/CV was 12/04/23. Most recently the patient had a redo PVI/PW mitral flutter ablation 12/17/2024 without clinically significant recurrence of atrial arrhythmia. Patient is chronically on warfarin with INR is managed by cardiology using a home
monitor as an outpatient. INR goal is usually 2.5-3.5. Patient took her usual dose of warfarin last evening and INR is 2.81 today.
Progress Note - Milk Pickup Truck Driver
Subjective
Date of Service: October 06, 2025
Patient reports slow bowel recovery, denies chest pain or palpitations
Objective
Labs:
10/06/25 07:19
10/06/25 07:19
Labs
Hgb 8.4 g/dL (12.0-16.0) L 10/06/25 07:19
Hct 25.0 % (37.0-47.0) L 10/06/25 07:19
Plt Count 265 10^3/uL (130-400) 10/06/25 07:19
PT 20.9 Sec (11.4-14.6) H 10/06/25 07:19
INR 1.79 10/06/25 07:19
APTT 61.5 Sec (23.4-35.0) H 10/06/25 07:19
Sodium 134 mmol/L (135-145) L 10/06/25 07:19
Potassium 3.6 mmol/L (3.5-5.1) 10/06/25 07:19
BUN 10 mg/dl (7-17) 10/06/25 07:19
Creatinine 0.6 mg/dL (0.6-1.0) 10/06/25 07:19
Glucose 103 mg/dl (70-99) H 10/06/25 07:19
Vital Signs and I&O:
Vital Signs
Temp Pulse Resp BP Pulse Ox
98.4 F 82 16 137/67 95
10/06/25 07:05 10/06/25 07:05 10/06/25 07:05 10/06/25 07:05 10/06/25 07:05
Vital Signs
Temp Pulse Resp BP Pulse Ox
98.4 F 82 16 137/67 95
10/06/25 07:05 10/06/25 07:05 10/06/25 07:05 10/06/25 07:05 10/06/25 07:05
Intake & Output
10/04/25 10/05/25 10/06/25 10/07/25
06:59 06:59 06:59 06:59
Intake Total 2560 / 2560 1515 / 1515 1972 / 1972 480 / 480
Output Total 2183 / 2183 225 / 225 240 / 240
Balance 377 / 377 1290 / 1290 1733 / 1733 480 / 480
Physical Exam
Physical Exam
GEN: AAO x3
LUNGS: RA. No wheeze
CV: Reg, +click
[2025-10-06 11:05] VITALS: BP 128/63
[2025-10-06] MEDS: COUMADIN 2.5 MG PO (11:21)
[2025-10-06] MEDS: D5/0.45%NACL 1000 IV (11:21)
--- NOTE | 2025-10-06 12:11 | W.PN.GS2 ---
Today's Communication / Plan
-
-- Fulls
-- Pain: transition to PO, continue COOK CASHIER FOOD PREP
-- DVT: Continue IV Hep gtt, transition to Coumadin per Cards
-- OOB/ambulate
Assessment / Plan
-
Patient is a 65 yo F with a h/o mechanical AVR on chronic warfarin, Afib, RA now POD#6 s/p open recurrent ventral incisional hernia repair with mesh, bilateral myofascial releases, extensive lysis of adhesions
AVSS
Labs notable for leukocytosis (unsure clinical significance, recovering well with no complaints, trend), stable Hb, hyponatremia, normal renal function, INR subtherapeutic
ROBF with dietary advancement
Trend WBC, unsure clinical significance as noted above. Plan for transition to oral pain medication over the next 24 to 48 hours with hopeful DC of the COOK CASHIER FOOD PREP at that time. Encouraged OOB and ambulation. Overall doing well.
Plan
-- Fulls
-- Appreciate Cards following for management
-- Pain: transition to PO, continue COOK CASHIER FOOD PREP
-- Miralax daily
-- Home meds
-- DVT: Continue IV Hep gtt, transition to Coumadin per Cards
-- GI: PPI
-- OOB/ambulate
Subjective Data
-
Date of Service: October 06, 2025
No concerns or complaints. Pain well-controlled. No nausea or vomiting. Reports passing some flatus and had a BM this morning. No fevers or chills.
Objective Data
-
Intake and Output
10/05/25 10/06/25 10/07/25
06:59 06:59 06:59
Intake Total 1515 / 1515 1972 / 1972 480 / 480
Output Total 225 / 225 240 / 240
Balance 1290 / 1290 1733 / 1733 480 / 480
Intake:
Oral fluids 480 / 480 960 / 960 480 / 480
IV fluids (Total) 900 / 900 1013 / 1013
IV piggybacks 135 / 135
Output:
Drain Output (Total) 225 / 225 240 / 240
Left Abdomen Julio-Owen B
Left Abdomen Julio-Owen C 180 / 180 170 / 170
Right Abdomen Julio-Owen A
Other:
How many times incontinent 1
SMALL amount urine
How many times incontinent 2
MODERATE amount urine
How many times incontinent 1
SATURATED amount urine
Number of approximated SMALL 2 1
amounts of urine
Number of approximated MODERATE 2 2 1
amounts of urine
Number of approximated LARGE 1 1
amounts of urine
Vital Signs
Temp Pulse Resp BP Pulse Ox
98.5 F 66 16 128/63 96
10/06/25 11:05 10/06/25 11:05 10/06/25 11:05 10/06/25 11:05 10/06/25 11:05
Lab Results
10/06/25 07:19
10/06/25 07:19
Calcium 8.0 mg/dl (8.4-10.2) L 10/06/25 07:19
Phosphorus 3.3 mg/dl (2.5-4.5) 10/05/25 06:11
Magnesium 1.7 mg/dl (1.6-2.3) 10/05/25 06:11
Physical Exam
-
Gen: NAD
Abd: soft, minimal tenderness, binder and dressing c/d/i, BALBIR serosang
Patient has a luis catheter: No
Patient has a central line: No
--- NOTE | 2025-10-06 12:51 | CM ---
Home with spouse when stable, patient is ambulating the hallway.
Plan; Home when stable.
[2025-10-06] MEDS: DILAUDID 4 MG PO ×2 (13:40→20:45)
--- NOTE | 2025-10-06 14:46 | PTCARENOTE ---
Patient ambulated in halls with walker and supervision x1. Patient with slow, steady gait. Patient with multiple c/o abdominal binder discomfort. Abdominal binder adjusted 9 times so far. Patient requested physician be notified of abdominal binder
discomfort and asked for it to be discontinued. Physician notified and wants abdominal binder maintained to prevent build up of fluid. Patient made aware and is agreeable to wearing binder.
[2025-10-06 15:15] VITALS: BP 120/63
[2025-10-06] MEDS: DILAUDID PCA 30 IV (17:44)
[2025-10-06 19:00] VITALS: BP 139/67
[2025-10-06 19:19] LABS: INR 2.02; PT 23.1 Sec (11.4-14.6)
[2025-10-06] MEDS: DETROL LA 4 MG PO (22:46)
[2025-10-06 23:00] VITALS: BP 121/61
[2025-10-07] MEDS: TYLENOL 650 MG PO ×6 (00:32→19:55)
[2025-10-07 03:00] VITALS: BP 122/62
[2025-10-07] MEDS: DILAUDID 4 MG PO ×2 (03:04→09:19)
[2025-10-07] MEDS: SYNTHROID 112 MCG PO (04:56)
[2025-10-07 06:00] VITALS: BMI 34.8
[2025-10-07 07:46] LABS: INR 3.02; PT 30.9 Sec (11.4-14.6)
[2025-10-07 08:03] LABS: Blood Urea Nitrogen 9 mg/dl (7-17); Calcium 8.5 mg/dl (8.4-10.2); Carbon Dioxide 34 mmol/L (22-30); Chloride 98 mmol/L (98-107); Estimated Creatinine Clearance 80 ml/min; Glucose 92 mg/dl (70-99); Potassium 3.9 mmol/L (3.5-5.1); Sodium 135 mmol/L (135-145); eGFR > 60.00
[2025-10-07 08:05] VITALS: BP 127/64
[2025-10-07 08:44] LABS: Hematocrit 29.0 % (37.0-47.0); Hemoglobin 9.5 g/dL (12.0-16.0); Mean Corp Hgb Conc. 32.8 g/dL (33.0-37.0); Mean Corpuscular Volume 90.6 fL (81.0-99.0); Platelet Count 346 10^3/uL (130-400); Red Cell Dist. Width 14.8 % (11.5-14.5)
--- NOTE | 2025-10-07 09:07 | CM ---
Addendum entered by Madeline Villegas 10/07/25 11:13:
Plan is to home with [facility], [facility] liaison contacted.
Original Note:
Chart reviewed and patient to return to home with spouse when stable.
Plan; Home with spouse when stable.
[2025-10-07] MEDS: LASIX 40 MG PO (09:11)
[2025-10-07] MEDS: CELEXA 40 MG PO (09:12)
[2025-10-07] MEDS: TOPROL XL 12.5 MG PO (09:12)
[2025-10-07] MEDS: MIRALAX 17 GRAMS PO (09:13)
[2025-10-07] MEDS: NSS (PRESERVATIVE FREE) 10 ML IV (09:13)
[2025-10-07] MEDS: PROTONIX IV 40 MG IV (09:13)
--- NOTE | 2025-10-07 10:00 | W.PN.GS2 ---
Today's Communication / Plan
-
-- LRD
-- Pain: transition to PO (renata Dilaudid 6 mg Q6H), continue CONTACT MANAGER (hopeful DC tomorrow)
Assessment / Plan
-
Patient is a 65 yo F with a h/o mechanical AVR on chronic warfarin, Afib, RA now POD#7 s/p open recurrent ventral incisional hernia repair with mesh, bilateral myofascial releases, extensive lysis of adhesions
AVSS
Labs notable for normal WBC, stable Hb, normal lytes, normal renal function, INR therapeutic
ROBF with dietary advancement
Recovering well. Continue transition to PO pain meds. Hep gtt off with therapeutic INR.
Plan
-- LRD
-- Appreciate Cards following for management
-- Pain: transition to PO (renata Dilaudid 6 mg Q6H), continue CONTACT MANAGER (hopeful DC tomorrow)
-- Miralax daily
-- Home meds
-- DVT: Coumadin per Cards
-- GI: PPI
-- OOB/ambulate
Subjective Data
-
Date of Service: October 07, 2025
But more tired and sore today compared to yesterday. No nausea or vomiting. Continues to pass flatus. No further BM. No fevers.
Objective Data
-
Intake and Output
10/06/25 10/07/25 10/08/25
06:59 06:59 06:59
Intake Total 1972 / 1972 480 / 480 483 / 483
Output Total 240 / 240 165 / 165
Balance 1733 / 1733 315 / 315 483 / 483
Intake:
Oral fluids 960 / 960 480 / 480
IV fluids (Total) 1013 / 1013 483 / 483
Output:
Drain Output (Total) 240 / 240 165 / 165
Left Abdomen Julio-Owen B 45 / 45
Left Abdomen Julio-Owen C 170 / 170 130 / 130
Right Abdomen Julio-Owen A
Other:
How many times incontinent 1
SMALL amount urine
How many times incontinent 2 1
MODERATE amount urine
How many times incontinent 1
SATURATED amount urine
Number of approximated SMALL 1 1
amounts of urine
Number of approximated MODERATE 2 1
amounts of urine
Number of approximated LARGE 1
amounts of urine
Vital Signs
Temp Pulse Resp BP Pulse Ox
98 F 70 16 122/62 96
10/07/25 03:00 10/07/25 03:00 10/07/25 04:00 10/07/25 03:00 10/07/25 04:00
Lab Results
10/07/25 06:24
10/07/25 06:24
Calcium 8.5 mg/dl (8.4-10.2) 10/07/25 06:24
Phosphorus 3.3 mg/dl (2.5-4.5) 10/05/25 06:11
Magnesium 1.7 mg/dl (1.6-2.3) 10/05/25 06:11
Physical Exam
-
Gen: NAD
Abd: soft, mild tenderness, ND, non-peritoneal, incision c/d/i - no erythema, minimal ecchymosis, no drainage, BALBIR serosang
Patient has a luis catheter: No
Patient has a central line: No
[2025-10-07 10:01] VITALS: BP 127/64
[2025-10-07] MEDS: DILAUDID 2 MG PO (10:58)
[2025-10-07 11:18] VITALS: BP 133/64
[2025-10-07] MEDS: D5/0.45%NACL 1000 IV (11:20)
--- NOTE | 2025-10-07 11:27 | VNURNOTE ---
Home Health Liaison met with patient at bedside to discuss [facility] nurse/therapy, visits, schedule. Screened for homebound status. Patient is agreeable and understands that visits at home will be 2-3 x per week to assess and teach medical and drain
management.
Patient is aware that [facility] will contact them for start of care within a few days after discharge from . Offered to provide contact number for [facility]; pt declined.
[facility] referral completed in [facility].
[2025-10-07] MEDS: DILAUDID 6 MG PO ×2 (15:27→19:54)
--- NOTE | 2025-10-07 16:21 | W.PN.CARDCBS ---
Today's Communication / Plan
-
INR at goal at 3. INR goal 2.5-3.5
Cont Coumadin 2.5 mg QPM, monitor INR while hospitalized.
Will arrange outpt cardiac follow up.
Pain control as per surgery
Remains in sinus
Stable cv status
Please recall if needed.
Impression / Plan
-
PCP: Dr. Joey Guerrier
Primary Telegraph Printer Mechanic: Dr. Brooks
Impression:
Status post ventral hernia repair on 09/30/2025
Chronic pain from her back
Symptomatic Paroxysmal atrial fibrillation/atypical atrial flutter/atrial tachycardia
s/p atrial flutter ablation 11/2019
s/p PVI and atrial flutter ablation 07/08/22
previously refractory to sotalol and Tikosyn
amiodarone previously stopped due to elevated LFTs and hypothyroidism
s/p KAMRAN/CV 12/04/23
s/p redo PVI/PW and mitral flutter ablation 12/17/24
s/p [place] Mechanical AVR , Closure of Perimembranous VSD with Bovine pericardial patch, Left Modified Maze procedure with Atricure device 07/16/20
Chronic warfarin OAC managed by [facility]
Chronic HFpEF
h/o SBO 08/02/2023 with ex lap for extensive lysis of adhesions (>90 min), small bowel resection with primary anastomosis, ventral incisional hernia repair with mesh 08/03/23
Reoperation for pelvic hematoma and anastomotic leak 08/12/23
History of diverticulitis with perforated diverticulum, peritonitis and sepsis, s/p ex lap with transverse colostomy, complicated by torsades felt to be due to sevoflurane 01/30/18
s/p takedown transverse loop colostomy, laparotomy, REMEDIOS, sigmoidectomy, primary sutured repair parastomal hernia 05/31/18-History of recurrent SBOs
HTN
HLD
Rheumatoid arthritis/fibromyalgia/chronic pain
Chronic back pain, epidural injections and daily narcotic use
B/L venous insufficiency
Echo 12/04/22: EF 55 to 60%, mild concentric LVH, well-seated [place] mechanical aortic valve prosthesis with peak/mean gradients 23/11 mmHg, trace AR, mild TR, PAP 35 to 40 mmHg
Echo 01/09/24: EF 64%, mild conc LVH, normal RV size and function, mild MR, [place] mechanical AVR with peak/mean 14/7 mmHg
Echo 07/20/2025: EF 61%, no WMA, mean gradient across [place] mechanical AVR 12 mmHg, moderate TR with PAP 35 mmHg
Plan:
INR at goal at 3. INR goal 2.5-3.5
Cont Coumadin 2.5 mg QPM, monitor INR while hospitalized.
Will arrange outpt cardiac follow up.
Pain control as per surgery
Remains in sinus
Stable cv status
Please recall if needed.
Additional history: Patient was admitted the day before surgery for possible heparin bridging with her previously placed mechanical AVR, but patient had forgotten to stop warfarin and INR was actually 2.8 on admission and patient was given FFP prior
to ventral hernia repair surgery on 09/30/2025. Cardiology has continue to follow postoperatively.
HPI: Patient presented to the hospital today for direct admission prior to planned ventral hernia repair surgery and cardiology is consulted to help with management of a heparin gtt being used as a bridge in the setting of previous mechanical AVR.
Patient was seen in the office on 08/04/2025 and at that time was in SR following repeat ablation 11/2024. Patient later saw general surgery and was recommended ventral hernia repair and Dr. Brooks added an addendum on 08/17/2025 stating that the
patient was at acceptable cardiac risk for surgery and did not require any additional testing. Back on 01/30/18 she had complications of diverticulitis with perforation requiring transverse loop colostomy which was complicated by perioperative
cardiac arrest for VT/torsades in and then returned in May 2018 for reversal of colostomy without adverse event. Then in 04/2019 she had a repair of a parastomal hernia complicated by small bowel obstruction. She has a h/o recurrent SBO. She has a
history of perimembranous VSD with [id number] shunt, bicuspid aortic valve with severe aortic stenosis, moderate tricuspid regurgitation and pulmonary hypertension and had mechanical AVR with 21mm [place] Mechanical Valve, closure of
Perimembranous VSD with Bovine pericardial patch, Left Modified Maze procedure with Atricure device 07/16/20. She recurred with atrial flutter and had ablation 11/2019 and then repeat ablation 07/08/22. Then on 08/02/23 she had a SBO and required ex
lap with extensive REMEDIOS and ventral incisional hernia repair. That admission was complicated by post-op pelvic hematoma and anastomotic leak. She eventually recovered and was discharged to home. Since then patient has had recurrent Afib and last
KAMRAN/CV was 12/04/23. Most recently the patient had a redo PVI/PW mitral flutter ablation 12/17/2024 without clinically significant recurrence of atrial arrhythmia. Patient is chronically on warfarin with INR is managed by cardiology using a home
monitor as an outpatient. INR goal is usually 2.5-3.5. Patient took her usual dose of warfarin last evening and INR is 2.81 today.
Progress Note - Telegraph Printer Mechanic
Subjective
Date of Service: October 07, 2025
Pt seen and examined. No complaints. No chest pain or shortness of breath.
Objective
Labs:
10/07/25 06:24
10/07/25 06:24
Labs
Hgb 9.5 g/dL (12.0-16.0) L 10/07/25 06:24
Hct 29.0 % (37.0-47.0) L 10/07/25 06:24
Plt Count 346 10^3/uL (130-400) D 10/07/25 06:24
PT 30.9 Sec (11.4-14.6) H 10/07/25 06:24
INR 3.02 10/07/25 06:24
APTT 61.5 Sec (23.4-35.0) H 10/06/25 07:19
Sodium 135 mmol/L (135-145) 10/07/25 06:24
Potassium 3.9 mmol/L (3.5-5.1) 10/07/25 06:24
BUN 9 mg/dl (7-17) 10/07/25 06:24
Creatinine 0.7 mg/dL (0.6-1.0) 10/07/25 06:24
Glucose 92 mg/dl (70-99) 10/07/25 06:24
Vital Signs and I&O:
Vital Signs
Temp Pulse Resp BP Pulse Ox
98.5 F 76 16 133/64 97
10/07/25 11:18 10/07/25 11:18 10/07/25 11:18 10/07/25 11:18 10/07/25 11:18
Vital Signs
Temp Pulse Resp BP Pulse Ox
98.5 F 76 16 133/64 97
10/07/25 11:18 10/07/25 11:18 10/07/25 11:18 10/07/25 11:18 10/07/25 11:18
Intake & Output
10/05/25 10/06/25 10/07/25 10/08/25
06:59 06:59 06:59 06:59
Intake Total 1515 / 1515 1973 / 1973 480 / 480 483 / 483
Output Total 225 / 225 240 / 240 165 / 165 40 / 40
Balance 1290 / 1290 1733 / 1733 315 / 315 443 / 443
Physical Exam
Physical Exam
General: No acute distress, AAOX3
Neck: Negative JVD
Heart: Regular, Negative S3 positive S1/S2, Negative S4, No murmur
Lungs: CTA b/l, negative wheezes/rales/rhonchi
Abd: Positive BS, NT/ND, neg rebound/rigidity/guarding
Ext: Negative cyanosis/clubbing/edema
Neuro: nonfocal
[2025-10-07] MEDS: COUMADIN 2.5 MG PO (17:38)
[2025-10-07 19:00] VITALS: BP 136/69
[2025-10-07] MEDS: DETROL LA 4 MG PO (21:11)
[2025-10-07 23:02] VITALS: BP 124/61
[2025-10-08] MEDS: TYLENOL 650 MG PO ×5 (01:11→20:24)
[2025-10-08] MEDS: DILAUDID 6 MG PO ×5 (01:12→20:23)
[2025-10-08 03:03] VITALS: BP 119/62
[2025-10-08] MEDS: TYLENOL PO (04:21)
[2025-10-08] MEDS: SYNTHROID 112 MCG PO (05:31)
[2025-10-08 06:00] VITALS: BMI 34.8
[2025-10-08] MEDS: MOTRIN 400 MG PO (06:33)
[2025-10-08 07:05] VITALS: BP 130/69
--- NOTE | 2025-10-08 07:51 | PTCARENOTE ---
CONTRACT ANALYST pump discontinued. Waste witnessed by second RN.
--- NOTE | 2025-10-08 08:05 | CM ---
Plan is to home with spouse and [facility] when stable.
Plan; Home with [facility].
[2025-10-08 08:33] LABS: INR 3.92; PT 37.8 Sec (11.4-14.6)
--- NOTE | 2025-10-08 08:34 | W.PN.GS2 ---
Today's Communication / Plan
-
-- Pain: transition to PO (renata Dilaudid 6 mg Q4H), DC GUEST SERVICE REPRESENTATIVE, IV PRN ordered
Assessment / Plan
-
Patient is a 65 yo F with a h/o mechanical AVR on chronic warfarin, Afib, RA now POD#8 s/p open recurrent ventral incisional hernia repair with mesh, bilateral myofascial releases, extensive lysis of adhesions
AVSS
Labs repeat INR pending
Recovering well. Continue transition to PO pain meds, DC GUEST SERVICE REPRESENTATIVE
Plan
-- LRD
-- Appreciate Cards following for management
-- Pain: transition to PO (renata Dilaudid 6 mg Q4H), DC GUEST SERVICE REPRESENTATIVE, IV PRN ordered
-- Miralax daily
-- Home meds
-- DVT: Coumadin per Cards
-- GI: PPI
-- OOB/ambulate
Subjective Data
-
Date of Service: October 08, 2025
No complaints. Pain overall well-controlled, does still need to intermittently use her GUEST SERVICE REPRESENTATIVE. No nausea or vomiting. Continues to pass flatus, no BM in 24 hours. No reports of increased abdominal bloating or distention. Afebrile. Ambulating.
Objective Data
-
Intake and Output
10/07/25 10/08/25 10/09/25
06:59 06:59 06:59
Intake Total 480 / 480 2485 / 2485
Output Total 165 / 165 155 / 155
Balance 315 / 315 2330 / 2330
Intake:
Oral fluids 480 / 480 1040 / 1040
IV fluids (Total) 1445 / 1445
Output:
Drain Output (Total) 165 / 165 155 / 155
Left Abdomen Julio-Owen B 30 / 30
Left Abdomen Julio-Owen C 130 / 130 115 / 115
Right Abdomen Julio-Owen A
Other:
How many times incontinent 1 1
MODERATE amount urine
Number of approximated SMALL 1
amounts of urine
Number of approximated MODERATE 1
amounts of urine
Vital Signs
Temp Pulse Resp BP Pulse Ox
98.6 F 73 18 130/69 96
10/08/25 07:05 10/08/25 07:05 10/08/25 07:05 10/08/25 07:05 10/08/25 07:05
Lab Results
10/07/25 06:24
10/07/25 06:24
Calcium 8.5 mg/dl (8.4-10.2) 10/07/25 06:24
Phosphorus 3.3 mg/dl (2.5-4.5) 10/05/25 06:11
Magnesium 1.7 mg/dl (1.6-2.3) 10/05/25 06:11
Physical Exam
-
Gen: NAD
Abd: soft, mild tenderness, ND/obese, non-peritoneal, midline incision c/d/i - no erythema, ecchymosis or drainage, JPs serosang
Patient has a luis catheter: No
Patient has a central line: No
[2025-10-08] MEDS: TOPROL XL 12.5 MG PO (08:44)
[2025-10-08] MEDS: MIRALAX 17 GRAMS PO (08:44)
[2025-10-08] MEDS: CELEXA 40 MG PO (08:44)
[2025-10-08] MEDS: LASIX 40 MG PO (08:44)
[2025-10-08] MEDS: NSS (PRESERVATIVE FREE) 10 ML IV (08:45)
[2025-10-08] MEDS: PROTONIX IV 40 MG IV (08:46)
[2025-10-08] MEDS: DILAUDID 1 MG IV (10:25)
[2025-10-08 11:05] VITALS: BP 120/66
[2025-10-08 15:20] VITALS: BP 105/61
[2025-10-08] MEDS: COUMADIN 1 MG PO (17:44)
[2025-10-08] MEDS: DETROL LA 4 MG PO (21:50)
[2025-10-08 23:06] VITALS: BP 121/64
[2025-10-09] MEDS: DILAUDID 6 MG PO ×5 (00:35→17:07)
[2025-10-09] MEDS: TYLENOL 650 MG PO ×6 (00:35→20:53)
[2025-10-09 06:00] VITALS: BMI 34.8
[2025-10-09] MEDS: SYNTHROID 112 MCG PO (06:01)
[2025-10-09 07:05] VITALS: BP 140/68
--- NOTE | 2025-10-09 08:39 | CM ---
Chart reviewed and plan is to home with spouse and [facility] when stable.
Plan; Home with [facility]
[2025-10-09 08:43] LABS: INR 3.89; PT 38.4 Sec (11.4-14.6)
[2025-10-09] MEDS: MOTRIN 400 MG PO (09:14)
[2025-10-09] MEDS: MIRALAX 17 GRAMS PO ×2 (09:15→20:53)
[2025-10-09] MEDS: ZOFRAN 4 MG IV (09:20)
[2025-10-09] MEDS: TOPROL XL 12.5 MG PO (09:20)
[2025-10-09] MEDS: PROTONIX IV 40 MG IV (09:21)
[2025-10-09] MEDS: CELEXA 40 MG PO (09:21)
[2025-10-09] MEDS: LASIX 40 MG PO (09:21)
[2025-10-09] MEDS: NSS (PRESERVATIVE FREE) 10 ML IV (09:21)
[2025-10-09] MEDS: FLUSH (NSS) 3 FLUSH IV (09:22)
[2025-10-09] MEDS: COLACE 100 MG PO ×2 (11:52→20:53)
[2025-10-09 15:00] VITALS: BP 106/56
[2025-10-09] MEDS: COUMADIN 2 MG PO (17:08)
[2025-10-09] MEDS: DILAUDID 1 MG IV (18:31)
[2025-10-09] MEDS: DETROL LA 4 MG PO (20:53)
[2025-10-09 23:12] VITALS: BP 117/53
[2025-10-10] MEDS: TYLENOL 650 MG PO ×4 (00:06→16:29)
[2025-10-10] MEDS: DILAUDID 6 MG PO ×5 (00:06→23:16)
[2025-10-10] MEDS: TYLENOL PO ×4 (05:00→23:25)
[2025-10-10 06:00] VITALS: BMI 34.3
[2025-10-10] MEDS: SYNTHROID 112 MCG PO (06:20)
[2025-10-10 07:11] VITALS: BP 123/59
[2025-10-10 07:16] LABS: INR 3.72; PT 37.1 Sec (11.4-14.6)
[2025-10-10] MEDS: MIRALAX 17 GRAMS PO ×2 (09:25→19:34)
[2025-10-10] MEDS: TOPROL XL 12.5 MG PO (09:27)
[2025-10-10] MEDS: LASIX 40 MG PO (09:27)
[2025-10-10] MEDS: COLACE 100 MG PO ×2 (09:27→19:34)
[2025-10-10] MEDS: PROTONIX 40 MG PO (09:27)
[2025-10-10] MEDS: CELEXA 40 MG PO (09:27)
--- NOTE | 2025-10-10 10:54 | W.PN.GS2 ---
Today's Communication / Plan
-
Dispo planning
Assessment / Plan
-
Patient is a 65 yo F with a h/o mechanical AVR on chronic warfarin, Afib, RA now POD#9 s/p open recurrent ventral incisional hernia repair with mesh, bilateral myofascial releases, extensive lysis of adhesions
AVSS
INR therapeutic
Recovering well. Continue po pain meds
Plan
-- LRD
-- Appreciate Cards following for management
-- Pain: PO tylenol, ibuprofen and dilaudid
-- Miralax and colace
-- Home meds
-- DVT: Coumadin per Cards
-- GI: PPI
-- OOB/ambulate
Awaiting BM prior to d/c. Anticipate in the nex 24hours
Subjective Data
-
Date of Service: October 10, 2025
Pt seen and examined. ambulating in hallways, feeling well but still awaiting bm. pain well controlled.
Objective Data
-
Intake and Output
10/09/25 10/10/25 10/11/25
06:59 06:59 06:59
Intake Total 960 / 960 720 / 720
Output Total 160 / 160 15 / 15
Balance 800 / 800 705 / 705
Intake:
Oral fluids 960 / 960 720 / 720
Output:
Drain Output (Total) 160 / 160 15 / 15
Left Abdomen Julio-Owen B 30 / 30 10 / 10
Left Abdomen Julio-Owen C 110 / 110
Right Abdomen Julio-Owen A 5
Other:
How many times incontinent 2
MODERATE amount urine
Number of approximated MODERATE 1
amounts of urine
Vital Signs
Temp Pulse Resp BP Pulse Ox
98.8 F 66 16 123/59 99
10/10/25 07:11 10/10/25 07:11 10/10/25 07:11 10/10/25 07:11 10/10/25 07:11
Lab Results
10/07/25 06:24
10/07/25 06:24
Calcium 8.5 mg/dl (8.4-10.2) 10/07/25 06:24
Phosphorus 3.3 mg/dl (2.5-4.5) 10/05/25 06:11
Magnesium 1.7 mg/dl (1.6-2.3) 10/05/25 06:11
Physical Exam
-
Gen: NAD
Abd: soft, mild tenderness, ND/obese, non-peritoneal, midline incision c/d/i - no erythema, ecchymosis or drainage, JPs serosang
Patient has a luis catheter: No
Patient has a central line: No
[2025-10-10 15:27] VITALS: BP 118/54
[2025-10-10] MEDS: COUMADIN 2 MG PO (17:56)
[2025-10-10] MEDS: DULCOLAX 10 MG RECTAL (17:57)
[2025-10-10] MEDS: DETROL LA 4 MG PO (21:12)
[2025-10-10 23:28] VITALS: BP 108/53
[2025-10-11] MEDS: TYLENOL PO (05:29)
[2025-10-11] MEDS: SYNTHROID 112 MCG PO (05:37)
[2025-10-11] MEDS: DILAUDID 6 MG PO ×2 (05:37→11:25)
[2025-10-11 05:43] VITALS: BMI 33.8
[2025-10-11 06:37] LABS: INR 3.54; PT 35.7 Sec (11.4-14.6)
[2025-10-11 07:20] VITALS: BP 112/72
[2025-10-11] MEDS: PROTONIX 40 MG PO (08:44)
[2025-10-11] MEDS: TOPROL XL 12.5 MG PO (08:44)
[2025-10-11] MEDS: TYLENOL 650 MG PO (08:45)
[2025-10-11] MEDS: CELEXA 40 MG PO (08:45)
[2025-10-11] MEDS: LASIX 40 MG PO (08:45)
[2025-10-11] MEDS: COLACE 100 MG PO (08:46)
[2025-10-11] MEDS: MIRALAX 17 GRAMS PO (08:46)
--- NOTE | 2025-10-11 08:52 | W.PN.GS2 ---
Today's Communication / Plan
-
dispo planning
Assessment / Plan
-
Patient is a 65 yo F with a h/o mechanical AVR on chronic warfarin, Afib, RA now POD#10 s/p open recurrent ventral incisional hernia repair with mesh, bilateral myofascial releases, extensive lysis of adhesions
AVSS
INR therapeutic
Recovering well. Continue po pain meds.
Plan
-- LRD
-- Pain: PO tylenol, ibuprofen and dilaudid
-- Miralax and colace
-- Home meds
-- DVT: Coumadin per Cards
-- GI: PPI
-- OOB/ambulate
Has pain management plan for home prearranged with her hand touch up painter. Discharge to home
Subjective Data
-
Date of Service: October 11, 2025
Pt seen and examined at bedside. Denies n/v. Passed a very large BM yesterday after suppository. Some pain today but tolerable. Ambulating in room. Voiding well. Feels ready to go home.
Objective Data
-
Intake and Output
10/10/25 10/11/25 10/12/25
06:59 06:59 06:59
Intake Total 720 / 720 960 / 960
Output Total /
Balance 705 / 705 745 / 745
Intake:
Oral fluids 720 / 720 960 / 960
Output:
Drain Output (Total) 215 / 215
Left Abdomen Julio-Owen B
Left Abdomen Julio-Owen C 150 / 150
Right Abdomen Julio-Owen A
Other:
Number of approximated MODERATE 1 4
amounts of urine
Vital Signs
Temp Pulse Resp BP Pulse Ox
98.7 F 70 16 112/71 97
10/10/25 23:28 10/11/25 08:45 10/10/25 23:28 10/11/25 08:45 10/10/25 23:28
Lab Results
10/07/25 06:24
10/07/25 06:24
Calcium 8.5 mg/dl (8.4-10.2) 10/07/25 06:24
Phosphorus 3.3 mg/dl (2.5-4.5) 10/05/25 06:11
Magnesium 1.7 mg/dl (1.6-2.3) 10/05/25 06:11
Physical Exam
-
Gen: NAD
Abd: soft, mild tenderness, ND/obese, non-peritoneal, midline incision c/d/i - no erythema, a little ssf drainage at base of incision, ecchymosis or drainage, JPs serosang
Patient has a luis catheter: No
Patient has a central line: No
--- NOTE | 2025-10-11 08:58 | W.DS.TRANS ---
Addendum entered and electronically signed by SYED Leonard 10/11/25 13:59:
dictated #[id number]
Original Note:
DC Summary - Metals Analyst
-
Discharge Instructions:
Sleep Apnea Risk Intermediate
Discharge Diagnosis/Procedures Open repair of recurrent ventral incisional
hernia with mesh, bilateral myofascial releases,
extensive lysis of adhesions
Diet Low Fiber
Activity No strenuous activity
Additional Activity Do not lift over 15 pounds until cleared
Bathing Restrictions OK to Shower
Blood Work - The Coumadin clinic has been updated on
warfarin dosing and INR results during your
admission. Check an INR the day after you are
discharged to home.
Wound Care Steri-Strips will flake off your incision on
their own. Wear an abdominal binder with
activity. If you notice irritation from the
binder to your incisions, cover with an ABD pad.
Cover drain sites with dry gauze sponge and
change daily and as needed. Okay to remove
dressing for showers.
Instructions: How to care for a closed suction drain
Stand-Alone Forms:
Changes to Home Medications: No
Discharge Medications:
DC Medications w/original date entered in [facility]
trazodone 100 mg tablet 200 mg PO HS sleep 12/10/19
citalopram 40 mg tablet 40 mg PO DAILY Depression 06/01/22
furosemide 40 mg tablet 40 mg PO DAILY Fluid retention/Swelling 07/03/22
sennosides 8.6 mg-docusate sodium 50 mg tablet (Stool Softener-Laxative) 1 tab-cap PO HS Constipation 07/03/22
metoprolol succinate 25 mg tablet,extended release 24 hr 12.5 mg PO DAILY Blood Pressure 03/20/24
vitamin B complex 1 cap PO DAILY Supplement 03/20/24
levothyroxine 112 mcg tablet 112 mcg PO DAILY Thyroid 12/02/24
mirabegron 50 mg tablet,extended release 24 hr (Myrbetriq) 50 mg PO HS Urinary Issue 12/02/24
solifenacin 10 mg tablet 10 mg PO HS Urinary Issue 12/02/24
warfarin 3 mg tablet 2.5 mg PO QPM Blood Clot Prevention/Tx 12/02/24
multivitamin 1 tab PO DAILY Supplement 12/17/24
estradiol 0.01% (0.1 mg/gram) vaginal cream (Estrace) 1 appful vaginal .TWICE A WEEK 04/08/25
hydromorphone 4 mg tablet 4 mg PO BID 04/08/25
Saccharomyces boulardii 250 mg capsule (Florastor) 250 mg PO BID 14 days #28 caps 04/12/25
polyethylene glycol 3350 17 gram oral powder packet 17 g PO BIDPRN PRN constipation #1 packet 10/11/25
Home Medication Changes
Pending Results: No
--- NOTE | 2025-10-11 09:27 | CM ---
Addendum entered by Kay Candelario 10/11/25 09:36:
[facility] notified of discharge via [facility]
Original Note:
Spoke with patient to discuss discharge plan; home health/[facility] offered; patient's preference is [facility]; referral sent via [facility]. Patient reported will transport home
Plan: Discharge to home today w/ [facility] home health services
[2025-10-11 11:20] VITALS: BP 112/62
== END 2025-10-11 11:51 | disposition home health service (06) | DRG 336 ==
LOC: 2 SOUTH 10:46
PROVIDERS: Internal Medicine Cardiovascular Disease; Nuclear Medicine Nuclear Cardiology; Physician Assistant Medical; Registered Nurse; ADMITTING PHYSICIAN Surgery; FAMILY PHYSICIAN Internal Medicine; OTHER PHYSICIAN Internal Medicine Cardiovascular Disease
PROC: 0WUF0JZ Supplement Abdominal Wall with Synthetic Substitute, Open Approach (ICD-10-PCS; 2025-09-30)
PROC: 0DN80ZZ Release Small Intestine, Open Approach (ICD-10-PCS; 2025-09-30)
PROC: 30233K1 Transfusion of Nonautologous Frozen Plasma into Peripheral Vein, Percutaneous Approach (ICD-10-PCS; 2025-09-30)
DX: K43.2 Incisional hernia without obstruction or gangrene (principal); D62 Acute posthemorrhagic anemia; I50.32 Chronic diastolic (congestive) heart failure; E87.1 Hypo-osmolality and hyponatremia; K66.0 Peritoneal adhesions (postprocedural) (postinfection); M06.9 Rheumatoid arthritis, unspecified; E66.9 Obesity, unspecified; E78.00 Pure hypercholesterolemia, unspecified; I11.0 Hypertensive heart disease with heart failure; G89.29 Other chronic pain; R79.1 Abnormal coagulation profile; I87.2 Venous insufficiency (chronic) (peripheral); E03.9 Hypothyroidism, unspecified; I27.20 Pulmonary hypertension, unspecified; M79.7 Fibromyalgia; Z68.33 Body mass index [BMI] 33.0-33.9, adult; Z79.01 Long term (current) use of anticoagulants; Z79.891 Long term (current) use of opiate analgesic; Z79.899 Other long term (current) drug therapy; Z86.74 Personal history of sudden cardiac arrest; Z87.74 Personal history of (corrected) congenital malformations of heart and circulatory system; Z90.49 Acquired absence of other specified parts of digestive tract; Z95.2 Presence of prosthetic heart valve
CPT/HCPCS: 36415; 74018; 80048; 83735; 84100; 85014; 85018; 85025; 85027; 85610; 85730; 86850; 86900; 86901; 93005; C1781; P9059